=== PATIENT | male | born 1945 | race African-American/Black ===

== ENCOUNTER 2016-08-18 20:50 | Emergency (ER) | payer MEDICARE, OTHER ==
[2016-08-18] MEDS: MORPHINE SULFATE 4 MG/ML SYRINGE IVP STA ×2 (21:10→22:11)
--- NOTE | 2016-08-18 21:38 | XR ---
EXAMINATION TYPE: XR humerus RT DATE OF EXAM: 08/18/2016 9:28 PM COMPARISON: NONE HISTORY: Pain in the elbow after a fall TECHNIQUE: 3 views FINDINGS: There is a posterior dislocation of the proximal radius and ulna. There is fracture of the neck of the radial head with comminution. The shoulder joint appears intact. IMPRESSION: There is posterior fracture dislocation of the elbow joint.
--- NOTE | 2016-08-18 21:40 | XR ---
EXAMINATION TYPE: XR elbow limited RT DATE OF EXAM: 08/18/2016 9:28 PM COMPARISON: NONE HISTORY: Arm pain and fall TECHNIQUE: 3 views FINDINGS: There is deformity of the elbow joint with a posterior dislocation of the radial head and p robably also the proximal ulna. There is fracture of the neck of the radial head with comminution. Vi ews are limited. IMPRESSION: Posterior fracture dislocation of the elbow joint. The ulna humerus articulation is not w ell demonstrated.
--- NOTE | 2016-08-18 21:41 | XR ---
History fall and wrist pain. Comparison none. Technique 4 views. FINDINGS: I see no fracture nor dislocation. Joint spaces are normal. There are no pathologic calcifications. CONCLUSION: Negative right wrist exam.
--- NOTE | 2016-08-18 21:49 | ED ---
General Adult HPI - General Chief complaint: Fall Stated complaint: right elbow injury Time Seen by Provider: 08/18/16 20:59 Source: patient, RN notes reviewed, old records reviewed Mode of arrival: EMS Limitations: no limitations - History of Present Illness Initial comments: This is a 71-year-old male to the ER for evaluation. This patient is a presents for evaluation of fall. Patient a fall from standing. Patient was getting off the bus tripped on cement landing on his right elbow. Patient denies hitting his head, he did walk home at this point in called EMS from home secondary to elbow pain. Patient denies any other symptoms noted no headache chest pain service breath or abdominal pain, no neck pain. No other issues. Patient is able to move his wrist, states pain and swelling is on the elbow - Related Data Home Medications Medication Instructions Recorded Confirmed Aspirin EC [Ecotrin] 81 mg PO DAILY 03/06/15 08/18/16 Clopidogrel [Plavix] 75 mg PO DAILY 03/06/15 08/18/16 Levothyroxine Sodium [Synthroid] 25 mcg PO DAILY 03/06/15 08/18/16 Lisinopril [Zestril] 5 mg PO DAILY 03/06/15 08/18/16 Lovastatin [Mevacor] 20 mg PO HS 03/06/15 08/18/16 Metoprolol Tartrate [Lopressor] 12.5 mg PO DAILY 03/06/15 08/18/16 Pantoprazole Sodium 40 mg PO DAILY 03/06/15 08/18/16 Latanoprost Ophth [Xalatan 0.005%] 1 drop BOTH EYES HS 03/17/16 08/18/16 Metoprolol Tartrate 25 mg PO HS 03/17/16 08/18/16 Multivitamin with Iron 1 tab PO DAILY 07/16/16 08/18/16 [Multivitamins with Iron] Ondansetron [Zofran] 4 mg PO TID 07/16/16 08/18/16 Potassium Chloride [Klor-Con 10] 10 meq PO DAILY 08/18/16 08/18/16 Allergies Allergy/AdvReac Type Severity Reaction Status Date / Time No Known Allergies Allergy Verified 08/18/16 21:12 Review of Systems ROS Statement: Those systems with pertinent positive or pertinent negative responses have been documented in the HPI. ROS Other: All systems not noted in ROS Statement are negative. Past Medical History Past Medical History: Hyperlipidemia, Hypertension, Thyroid Disorder History of Any Multi-Drug Resistant Organisms: None Reported Past Surgical History: Coronary Bypass/CABG Additional Past Surgical History / Comment(s): thyroid Past Psychological History: No Psychological Hx Reported Smoking Status: Former smoker Past Alcohol Use History: Rare Past Drug Use History: None Reported General Exam Limitations: no limitations General appearance: alert, in no apparent distress Head exam: Present: atraumatic, normocephalic, normal inspection Eye exam: Present: normal appearance, PERRL, EOMI. Absent: scleral icterus, conjunctival injection, periorbital swelling ENT exam: Present: normal exam, mucous membranes moist Neck exam: Present: normal inspection. Absent: tenderness, meningismus, lymphadenopathy Respiratory exam: Present: normal lung sounds bilaterally. Absent: respiratory distress, wheezes, rales, rhonchi, stridor Cardiovascular Exam: Present: regular rate, normal rhythm, normal heart sounds. Absent: systolic murmur, diastolic murmur, rubs, gallop, clicks GI/Abdominal exam: Present: soft, normal bowel sounds. Absent: distended, tenderness, guarding, rebound, rigid Extremities exam: Present: normal inspection, full ROM, normal capillary refill , other (Significant right elbow deformity). Absent: tenderness, pedal edema, joint swelling, calf tenderness Back exam: Present: normal inspection Neurological exam: Present: alert, oriented X3, CN II-XII intact Psychiatric exam: Present: normal affect, normal mood Skin exam: Present: warm, dry, intact, normal color. Absent: rash Course Vital Signs 08/18/16 08/18/16 21:00 22:13 Temperature 97.9 F Pulse Rate 82 65 Respiratory 16 18 Rate Blood Pressure 136/73 128/67 O2 Sat by Pulse 98 98 Oximetry - Reevaluation(s) Reevaluation #1: 08/18/16 22:48 Patient's pain is now controlled Reevaluation #2: 08/18/16 22:48 Was able to reduce right elbow Reevaluation #3: 08/18/16 22:48 Patient's pain is controlled Reevaluation #4: 08/18/16 23:[address] Vega, patient all been Dr. Vega's office for referral for orthopedic , radial head replacement. Procedures - Orthopedic Joint Reduction Joint #1 Consent Obtained: verbal consent Time Out Performed: Yes Side: left Joint Reduction Location: elbow Technique Used: traction/counter-traction Post-Reduction Neuro Exam: intact Post-Reduction Vascular Exam: intact Post Reduction X-Ray Obtained: Yes Post Reduction X-Ray Results: reduced Splint Applied: Yes (Posterior mold) Patient Tolerated Procedure: well Medical Decision Making - Medical Decision Making 71-year-old male ER status post fall with right elbow fracture dislocation. - Radiology Data Radiology results: report reviewed (X-ray right humerus, right elbow, right wrist is positive for right elbow fracture dislocation, CT right elbow shows satisfactory reduction), image reviewed Disposition Clinical Impression: Fall, Elbow fracture, right, Dislocation of right elbow Disposition: HOME SELF-CARE Condition: Good Instructions: Fall Prevention for Older Adults (ED), Elbow Fracture in Adults ( ED), Elbow Dislocation (ED) Referrals: Edy Kohler MD [Primary Care Provider] - 1-2 days Skyler Vega MD [STAFF PHYSICIAN] - 1-2 days
[2016-08-18] MEDS ORDERED: LORazepam 2 MG/ML SYRINGE IV STA (22:02)
[2016-08-18 22:14] VITALS: RESP 18
--- NOTE | 2016-08-18 23:03 | CT ---
EXAMINATION TYPE: CT elbow RT wo con DATE OF EXAM: 08/18/2016 10:41 PM COMPARISON: Right elbow x-rays 08/18/2016 HISTORY: Fall today. CT DLP: 253.20 mGycm Automated exposure control for dose reduction was used. FINDINGS: There is evidence of acute comminuted displaced fracture of head and neck of right radius. There is mild posterior fracture dislocation of right elbow joint. There is comminuted acute slightly displaced fractures of coronoid process of proximal right ulna bet ter seen in the sagittal image 23. Visualized distal humerus showed linear vertical lucency as seen in the coronal reconstruction image 24 and is suspicious for linear minimally displaced intercondylar fracture of distal right humerus mo stly involving the capitellum area. In the same image there is a linear oblique lucency seen in the distal diaphysis of the right humerus on the ulnar aspect and is most likely a vascular foramen. The olecranon process of right ulna appears grossly intact and is displaced posteriorly in the right elbow joint. Surrounding soft tissue swelling is noted. Mild effusion is suggested. Fracture fragments are noted i n the anterior fat pad area from the proximal right ulna. The posterior fat pad is also prominent wit h effusion. These findings are better seen in the sagittal image 23. IMPRESSION: 1. ACUTE POSTERIOR FRACTURE DISLOCATION OF RIGHT ELBOW. 2. COMMINUTED DISPLACED FRACTURE OF CORONOID PROCESS OF PROXIMAL RIGHT ULNA. 3. COMMINUTED DISPLACED FRACTURE HEAD AND NECK OF PROXIMAL RIGHT RADIUS. 4. LINEAR MINIMALLY DISPLACED INTERCONDYLAR FRACTURE OF RIGHT HUMERUS MOSTLY INVOLVING THE CAPITELLUM AREA.
[2016-08-18 23:51] VITALS: BP 135/71; PULSE 86; TEMP 97.1
== END 2016-08-19 | disposition home or self-care (01) ==
LOC: EC 20:50
DX: S52.101A Unspecified fracture of upper end of right radius, initial encounter for closed fracture (principal); W01.0XXA Fall on same level from slipping, tripping and stumbling without subsequent striking against object, initial encounter; Z79.82 Long term (current) use of aspirin; Z79.02 Long term (current) use of antithrombotics/antiplatelets; Z79.899 Other long term (current) drug therapy; E07.9 Disorder of thyroid, unspecified; I10 Essential (primary) hypertension; E78.5 Hyperlipidemia, unspecified; Z87.891 Personal history of nicotine dependence; Z95.1 Presence of aortocoronary bypass graft
CPT/HCPCS: 24600; 96374; 96375; 99285; 73060; 73070; 73110; 73200; J2060; J2270

== ENCOUNTER 2017-11-23 20:38 | Inpatient (IN) | payer MEDICARE, OTHER ==
[2017-11-23 22:16] LABS: Basophils % (A) 0 %; Eosinophils # (A) 0.4 k/uL (0-0.7); Eosinophils % (A) 6 %; HCT 34.9 % (39.0-53.0); HGB 11.5 gm/dL (13.0-17.5); Lymphocytes # (A) 1.1 k/uL (1.0-4.8); Lymphocytes % (A) 15 %; MCH 27.7 pg (25.0-35.0); MCHC 33.1 g/dL (31.0-37.0); MCV 83.7 fL (80.0-100.0); Mean Platelet Volume 8.7; Monocytes # (A) 0.4 k/uL (0-1.0); Monocytes % (A) 6 %; Neutrophils # (A) 5.2 k/uL (1.3-7.7); Neutrophils % (A) 70 %; Platelet Count 201 k/uL (150-450); RBC 4.17 m/uL (4.30-5.90); RDW 13.1 % (11.5-15.5); WBC 7.4 k/uL (3.8-10.6)
[2017-11-23 22:25] LABS: ALT 35 U/L (21-72); AST 29 U/L (17-59); Albumin 4.1 g/dL (3.5-5.0); Alkaline Phosphatase 80 U/L (38-126); Anion Gap 10 mmol/L; Blood Urea Nitrogen 13 mg/dL (9-20); Calcium 9.3 mg/dL (8.4-10.2); Carbon Dioxide 26 mmol/L (22-30); Chloride 103 mmol/L (98-107); Glucose 99 mg/dL (74-99); Potassium 3.8 mmol/L (3.5-5.1); Sodium 139 mmol/L (137-145); Total Bilirubin 0.5 mg/dL (0.2-1.3); Total Protein 7.5 g/dL (6.3-8.2)
[2017-11-23 22:30] LABS: INR 1.2 (<1.2); Partial Thromboplastin Time 24.6 sec (22.0-30.0); Prothrombin Time 11.1 sec (9.0-12.0)
[2017-11-23 23:47] LABS: Appearance,Urine Clear (Clear); Bilirubin,Urine Negative (Negative); Blood,Urine Negative (Negative); Color,Urine Light Yellow; Glucose,Urine (UA) Negative (Negative); Ketones,Urine Negative (Negative); Leukocyte Esterase,Urine Negative (Negative); Nitrite,Urine Negative (Negative); Protein,Urine Negative (Negative); Urobilinogen,Urine <2.0 mg/dL (<2.0)
--- NOTE | 2017-11-23 23:47 | ED ---
General Adult HPI <Jose Alfredo Gray - Last Filed: 11/24/17 00:14> - General Source: patient, RN notes reviewed Mode of arrival: ambulatory Limitations: no limitations <Carol Mejia - Last Filed: 11/24/17 00:21> - General Chief complaint: Recheck/Abnormal Lab/Rx Stated complaint: rectal bleeding Time Seen by Provider: 11/23/17 21:33 - History of Present Illness Initial comments: This is a 72-year-old male who presents to the emergency department with chief complaint of rectal bleeding. Patient states that he has had rectal bleeding ongoing for the past couple of months. He was seen on October 21 and underwent a colonoscopy. He states he was diagnosed with hemorrhoids. He states that he continued to have rectal bleeding and followed up with his primary care physician yesterday who prescribed hydrocortisone cream. Patient states that he continued to have rectal bleeding and presented to [facility] today. He was again diagnosed with hemorrhoids and discharged home. Patient denies any chest pain or shortness of breath, fevers or chills, abdominal pain, nausea or vomiting, diarrhea or constipation. He denies noticing any blood within the stool itself. (Carol Mejia) - Related Data Home Medications Medication Instructions Recorded Confirmed Aspirin EC [Ecotrin Low Dose] 81 mg PO DAILY 03/06/15 11/23/17 Levothyroxine Sodium [Synthroid] 25 mcg PO DAILY 03/06/15 11/23/17 Lisinopril [Zestril] 5 mg PO DAILY 03/06/15 11/23/17 Lovastatin [Mevacor] 20 mg PO HS 03/06/15 11/23/17 Metoprolol Tartrate [Lopressor] 12.5 mg PO DAILY 03/06/15 11/23/17 Pantoprazole Sodium 40 mg PO DAILY 03/06/15 11/23/17 Latanoprost Ophth [Xalatan 0.005%] 1 drop BOTH EYES HS 03/17/16 11/23/17 Metoprolol Tartrate 25 mg PO HS 03/17/16 11/23/17 Multivitamin with Iron 1 tab PO DAILY 07/16/16 11/23/17 [Multivitamins with Iron] Ondansetron [Zofran] 4 mg PO Q8H 07/16/16 11/23/17 Potassium Chloride [Klor-Con 10] 10 meq PO DAILY 08/18/16 11/23/17 Furosemide [Lasix] 20 mg PO BID 11/09/17 11/23/17 Tamsulosin HCl [Flomax] 0.4 mg PO DAILY 11/09/17 11/23/17 Allergies Allergy/AdvReac Type Severity Reaction Status Date / Time No Known Allergies Allergy Verified 11/23/17 21:37 Review of Systems ROS Other: All systems not noted in ROS Statement are negative. <Jose Alfredo Gray - Last Filed: 11/24/17 00:14> ROS Other: All systems not noted in ROS Statement are negative. <Carol Mejia - Last Filed: 11/24/17 00:21> ROS Statement: Those systems with pertinent positive or pertinent negative responses have been documented in the HPI. Past Medical History Past Medical History: Hyperlipidemia, Hypertension, Thyroid Disorder Additional Past Medical History / Comment(s): prostat cancer HAD RADIATION TREATMENTS History of Any Multi-Drug Resistant Organisms: None Reported Past Surgical History: Coronary Bypass/CABG Additional Past Surgical History / Comment(s): thyroid, 3 valve replacements Past Anesthesia/Blood Transfusion Reactions: No Reported Reaction Past Psychological History: No Psychological Hx Reported Smoking Status: Former smoker Past Alcohol Use History: None Reported, Rare Past Drug Use History: None Reported - Past Family History Father Family Medical History: Cancer Additional Family Medical History / Comment(s): Patient has 2 brothers alive and doing fine. One sister of congestive heart failure. He is not and does not have any kids Mother Family Medical History: Cancer (Mother had leukemia ) <Carol Mejia - Last Filed: 11/24/17 00:21> General Exam <Jose Alfredo Gray - Last Filed: 11/24/17 00:14> Limitations: no limitations Rectal exam: Present: normal inspection, normal rectal tone, hemorrhoids ( external), other (Active bright red blood per rectum) <Carol Mejia - Last Filed: 11/24/17 00:21> - General Exam Comments Initial Comments: General: Awake and alert, well-developed; in no apparent distress. HEENT: Head atraumatic, normocephalic. Pupils are equal, round and reactive to light. Extraocular movements intact. Oropharynx moist without erythema or exudate. Neck: Supple. Normal ROM. Cardiovascular: Regular rate and rhythm. No murmurs, rubs or gallops. Chest symmetrical. Respiratory: Lungs clear to auscultation bilaterally. No wheezes, rales or rhonchi. Normal respiratory effort with no use of accessory muscles. Abdomen: Soft, non-tender, non-distended. No rigidity, rebound or guarding. Normal bowel sounds in all 4 quadrants. Musculoskeletal: Normal ROM, no tenderness bilateral upper and lower extremities. Ambulating normally. Skin: [place], warm and dry without rashes or lesions. Neurological: Alert and oriented x3. CN II-XII grossly intact. Speech is fluent and answers are appropriate. No focal neuro deficits. Psychiatric: Normal mood and affect. No overt signs of depression or anxiety noted. (Carol Mejia) Vital Signs 11/23/17 11/23/17 20:39 21:02 Temperature 97.9 F Pulse Rate 88 Respiratory 18 Rate Blood Pressure 147/60 O2 Sat by Pulse 98 Oximetry Medical Decision Making - Lab Data Result diagrams: 11/23/17 22:06 11/23/17 22:06 <Jose Alfredo Gray - Last Filed: 11/24/17 00:14> - Lab Data Result diagrams: 11/23/17 22:06 11/23/17 22:06 <Carol Mejia - Last Filed: 11/24/17 00:21> - Medical Decision Making Patient reevaluated by myself, Dr. Gray. Patient is frustrated that he is having continued bleeding. Patient states he had similar hospital a couple of weeks ago. Patient was at [facility] several days ago as well as his primary care physician yesterday and then again at [facility] however has been discharged. Patient states he keeps getting told that his bleeding is from hemorrhoids. Rectal exam without gross external hemorrhoids. No internal hemorrhoids on exam. Patient does have mild gross blood on rectal exam. Case was discussed in detail with Dr. Hay, who will admit for Dr. Kohler. Consult for Dr. crenshaw who is previously seen the patient. (Jose Alfredo Gray) - Lab Data Lab Results 11/23/17 11/23/17 11/23/17 Range/Units 22:06 22:06 22:06 WBC 7.4 (3.8-10.6) k/uL RBC 4.17 L (4.30-5.90) m/uL Hgb 11.5 L (13.0-17.5) gm/dL Hct 34.9 L (39.0-53.0) % MCV 83.7 (80.0-100.0) fL MCH 27.7 (25.0-35.0) pg MCHC 33.1 (31.0-37.0) g/dL RDW 13.1 (11.5-15.5) % Plt Count 201 (150-450) k/uL Neutrophils % 70 % Lymphocytes % 15 % Monocytes % 6 % Eosinophils % 6 % Basophils % 0 % Neutrophils # 5.2 (1.3-7.7) k/uL Lymphocytes # 1.1 (1.0-4.8) k/uL Monocytes # 0.4 (0-1.0) k/uL Eosinophils # 0.4 (0-0.7) k/uL Basophils # 0.0 (0-0.2) k/uL PT 11.1 (9.0-12.0) sec INR 1.2 H (<1.2) APTT 24.6 (22.0-30.0) sec Sodium 139 (137-145) mmol/L Potassium 3.8 (3.5-5.1) mmol/L Chloride 103 (98-107) mmol/L Carbon Dioxide 26 (22-30) mmol/L Anion Gap 10 mmol/L BUN 13 (9-20) mg/dL Creatinine 0.84 (0.66-1.25) mg/dL Est GFR (CKD-EPI)AfAm >90 (>60 ml/min/1.73 sqM) Est GFR (CKD-EPI)NonAf 87 (>60 ml/min/1.73 sqM) Glucose 99 (74-99) mg/dL Calcium 9.3 (8.4-10.2) mg/dL Total Bilirubin 0.5 (0.2-1.3) mg/dL AST 29 (17-59) U/L ALT 35 (21-72) U/L Alkaline Phosphatase 80 (38-126) U/L Total Protein 7.5 (6.3-8.2) g/dL Albumin 4.1 (3.5-5.0) g/dL Urine Color Urine Appearance (Clear) Urine pH (5.0-8.0) Ur Specific [place] (1.001-1.035) Urine Protein (Negative) Urine Glucose (UA) (Negative) Urine Ketones (Negative) Urine Blood (Negative) Urine Nitrite (Negative) Urine Bilirubin (Negative) Urine Urobilinogen (<2.0) mg/dL Ur Leukocyte Esterase (Negative) 11/23/17 Range/Units 23:38 WBC (3.8-10.6) k/uL RBC (4.30-5.90) m/uL Hgb (13.0-17.5) gm/dL Hct (39.0-53.0) % MCV (80.0-100.0) fL MCH (25.0-35.0) pg MCHC (31.0-37.0) g/dL RDW (11.5-15.5) % Plt Count (150-450) k/uL Neutrophils % % Lymphocytes % % Monocytes % % Eosinophils % % Basophils % % Neutrophils # (1.3-7.7) k/uL Lymphocytes # (1.0-4.8) k/uL Monocytes # (0-1.0) k/uL Eosinophils # (0-0.7) k/uL Basophils # (0-0.2) k/uL PT (9.0-12.0) sec INR (<1.2) APTT (22.0-30.0) sec Sodium (137-145) mmol/L Potassium (3.5-5.1) mmol/L Chloride (98-107) mmol/L Carbon Dioxide (22-30) mmol/L Anion Gap mmol/L BUN (9-20) mg/dL Creatinine (0.66-1.25) mg/dL Est GFR (CKD-EPI)AfAm (>60 ml/min/1.73 sqM) Est GFR (CKD-EPI)NonAf (>60 ml/min/1.73 sqM) Glucose (74-99) mg/dL Calcium (8.4-10.2) mg/dL Total Bilirubin (0.2-1.3) mg/dL AST (17-59) U/L ALT (21-72) U/L Alkaline Phosphatase (38-126) U/L Total Protein (6.3-8.2) g/dL Albumin (3.5-5.0) g/dL Urine Color Light Yellow Urine Appearance Clear (Clear) Urine pH 6.0 (5.0-8.0) Ur Specific [place] 1.010 (1.001-1.035) Urine Protein Negative (Negative) Urine Glucose (UA) Negative (Negative) Urine Ketones Negative (Negative) Urine Blood Negative (Negative) Urine Nitrite Negative (Negative) Urine Bilirubin Negative (Negative) Urine Urobilinogen <2.0 (<2.0) mg/dL Ur Leukocyte Esterase Negative (Negative) Disposition <Jose Alfredo Gray - Last Filed: 11/24/17 00:14> Time of Disposition: 00:21 <Carol Mejia - Last Filed: 11/24/17 00:21> Clinical Impression: Rectal bleeding Disposition: ADMITTED IP TO THIS HOSP Condition: Stable Referrals: Edy Kohler MD [Primary Care Provider] - 1-2 days
[2017-11-24] MEDS ORDERED: ACETAMINOPHEN TAB 325 MG TAB PO PRN (00:16)
[2017-11-24] MEDS ORDERED: MORPHINE SULFATE 4MG/4ML SYRG IV PRN (00:16)
[2017-11-24] MEDS ORDERED: Acetaminophen-Codeine 300-30mg TAB PO PRN (00:16)
[2017-11-24] MEDS ORDERED: NALOXONE 0.4 MG/ML 1 ML VIAL IV PRN (00:16)
[2017-11-24] MEDS ORDERED: PANTOPRAZOLE 40 MG/10 ML VIAL IVP STA (00:31)
[2017-11-24] MEDS: SODIUM CHLORIDE 0.9% 1,000 ML IV SCH ×2 (00:37→13:39)
[2017-11-24 02:08] VITALS: BMI 19.4
[2017-11-24 07:14] LABS: Basophils % (A) 0 %; Eosinophils # (A) 0.3 k/uL (0-0.7); Eosinophils % (A) 6 %; HCT 31.9 % (39.0-53.0); HGB 10.3 gm/dL (13.0-17.5); Lymphocytes # (A) 0.9 k/uL (1.0-4.8); Lymphocytes % (A) 16 %; MCH 27.5 pg (25.0-35.0); MCHC 32.4 g/dL (31.0-37.0); Mean Platelet Volume 8.5; Monocytes # (A) 0.4 k/uL (0-1.0); Monocytes % (A) 8 %; Neutrophils # (A) 3.5 k/uL (1.3-7.7); Neutrophils % (A) 67 %; Platelet Count 161 k/uL (150-450); RBC 3.75 m/uL (4.30-5.90); WBC 5.3 k/uL (3.8-10.6)
[2017-11-24] MEDS: PANTOPRAZOLE 40 MG/10 ML VIAL IV SCH (07:38)
[2017-11-24] MEDS ORDERED: RX INFO: IV CONTRAST WAS GIVEN 1 EACH MISC MISCELLANE PRN (10:08)
[2017-11-24] MEDS ORDERED: BARIUM SULFATE 450 ML ORAL.SUSP BOTTLE PO PRN (10:08)
[2017-11-24] MEDS ORDERED: PANTOPRAZOLE 40 MG TABLET PO SCH (10:15)
[2017-11-24] MEDS ORDERED: LISINOPRIL 5 MG TAB PO SCH (10:15)
[2017-11-24] MEDS ORDERED: METOPROLOL TARTRATE 12.5 MG TAB PO SCH (10:15)
[2017-11-24] MEDS: IOPAMIDOL-300 CONTRAST 30 ML VIAL (ORAL USE) PO PRN ×2 (12:12→13:03)
[2017-11-24] MEDS: ASPIRIN 81 MG PO SCH (12:17)
[2017-11-24] MEDS: TAMSULOSIN 0.4 MG CAP.ER.24H PO SCH (12:17)
[2017-11-24] MEDS: LEVOTHYROXINE 25 MCG TAB PO SCH (12:17)
[2017-11-24] MEDS: CLOPIDOGREL 75 MG TAB PO SCH (12:17)
[2017-11-24] MEDS: FERROUS SULFATE 325 MG TAB PO SCH (12:17)
[2017-11-24] MEDS: FUROSEMIDE 20 MG TAB PO SCH ×2 (12:17→20:05)
[2017-11-24] MEDS: POTASSIUM CHLORIDE ER 10 MEQ TAB.ER.PRT PO SCH (12:17)
[2017-11-24] MEDS: PSYLLIUM HUSK 100% 6 GM PACKET PO SCH ×2 (12:18→20:07)
[2017-11-24] MEDS: ONDANSETRON 4 MG TAB PO SCH ×2 (12:22→20:06)
--- NOTE | 2017-11-24 12:42 | P.HPIM ---
History of Present Illness H&P Date: 11/24/17 Chief Complaint: Rectal bleeding 79 years old and -[place] male. of Dr. Kohler with recent admission in late [facility] for rectal bleeding secondary to hemorrhoids status port hemorrhoidectomy, hyperlipidemia, hypertension, hypothyroidism, history of recent prostate cancer status post radiation she didn't, in remission. History of coronary artery disease status artery artery bypass, history of bioprosthetic valve. He had a recent hospitalization November 10 which time he presented with chest pain and rectal bleeding. He was seen by Dr. crenshaw with no plan for any intervention at the time. He states he was just in the office with Dr. Kohler on Tuesday and was given some type of salve for rectal bleeding but he's been using that also cause bleeding. He states it is fresh blood and happens at any time non-ST early with a bowel movement. He denies any other complaints. He denies abdominal pain, nausea vomiting. He states he occasionally has dizziness. He has a bowel movement every day. It's either runny or normal consistency. He does not take any medications for constipation. He presented with hemoglobin of 11.5 which is his baseline. INR was 1.2, left lites were all within normal limits. Her analysis was negative. Patient was placed on the [facility] floor and consult requested with surgery. Patient is currently on clear liquid diet CAT scan of the abdomen and pelvis will be ordered as well as anemia studies. Review of Systems All systems: negative Constitutional: Denies anorexia, Denies chills, Denies fatigue, Denies fever, Denies poor appetite, Denies weight loss Eyes: denies blurred vision, denies pain Ears, nose, mouth and throat: Denies headache, Denies mouth pain, Denies sore throat Cardiovascular: Denies chest pain, Denies decreased exercise tolerance, Denies dyspnea on exertion, Denies edema, Denies leg edema, Denies shortness of breath , Denies syncope Respiratory: Denies cough, Denies cough with sputum, Denies dyspnea, Denies excessive sputum, Denies hemoptysis, Denies home oxygen, Denies wheezing Gastrointestinal: Denies abdominal pain, Denies constipation, Denies diarrhea, Denies jaundice, Denies loss of appetite, Denies melena, Denies nausea, Denies vomiting Genitourinary: Denies dysuria Musculoskeletal: Denies myalgias Integumentary: Denies pruritus, Denies rash Neurological: Denies numbness, Denies weakness Psychiatric: Denies anxiety, Denies depression Endocrine: Denies fatigue, Denies weight change 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 History of Any Multi-Drug Resistant Organisms: None Reported Past Surgical History: Coronary Bypass/CABG Additional Past Surgical History / Comment(s): thyroid, 3 valve replacements stomach surgery unsure what kind Past Anesthesia/Blood Transfusion Reactions: No Reported Reaction Past Psychological History: No Psychological Hx Reported Additional Psychological History / Comment(s): Patient will smoker of 3 packs per day for 40 years and quit in 1998 Smoking Status: Former smoker Past Alcohol Use History: None Reported, Rare Past Drug Use History: None Reported - Past Family History Father Family Medical History: Cancer Additional Family Medical History / Comment(s): Patient has 2 brothers alive and doing fine. One sister of congestive heart failure. He is not and does not have any kids Mother Family Medical History: Cancer Additional Family Medical History / Comment(s): Mother had history of leukemia and is . Medications and Allergies Home Medications Medication Instructions Recorded Confirmed Type Aspirin EC [Ecotrin Low Dose] 81 mg PO DAILY 03/06/15 11/24/17 History Levothyroxine Sodium [Synthroid] 25 mcg PO DAILY 03/06/15 11/24/17 History Lisinopril [Zestril] 5 mg PO DAILY 03/06/15 11/24/17 History Lovastatin [Mevacor] 20 mg PO HS 03/06/15 11/24/17 History Metoprolol Tartrate [Lopressor] 12.5 mg PO DAILY 03/06/15 11/24/17 History Pantoprazole Sodium 40 mg PO DAILY 03/06/15 11/24/17 History Latanoprost Ophth [Xalatan 0.005%] 1 drop BOTH EYES HS 03/17/16 11/24/17 History Metoprolol Tartrate 25 mg PO HS 03/17/16 11/24/17 History Multivitamin with Iron 1 tab PO DAILY 07/16/16 11/24/17 History [Multivitamins with Iron] Ondansetron [Zofran] 4 mg PO Q8H 07/16/16 11/24/17 History Potassium Chloride [Klor-Con 10] 10 meq PO DAILY 08/18/16 11/24/17 History Furosemide [Lasix] 20 mg PO BID 11/09/17 11/24/17 History Tamsulosin HCl [Flomax] 0.4 mg PO DAILY 11/09/17 11/24/17 History Clopidogrel [Plavix] 75 mg PO DAILY 11/24/17 11/24/17 History Allergies Allergy/AdvReac Type Severity Reaction Status Date / Time No Known Allergies Allergy Verified 11/23/17 21:37 Physical Exam Vitals: Vital Signs Temp Pulse Pulse Resp BP BP Pulse Ox 11/24/17 07:30 97.6 F 71 18 104/64 97 11/24/17 02:07 97.4 F L 79 18 117/70 97 11/24/17 00:39 78 18 131/61 100 11/23/17 21:02 147/60 11/23/17 20:39 97.9 F 88 18 98 Intake and Output 11/23/17 11/24/17 11/24/17 22:59 06:59 14:59 Intake Total 75 Balance 75 Intake: IV 75 Sodium Chloride 0.9% 1, 75 000 ml @ 75 mls/hr IV . [id number] [facility] Rx#:[id number] Other: Voiding Method Toilet Toilet Urinal Urinal # Voids 1 Weight 56.699 kg 53 kg General appearance: cooperative, no acute distress, obese - EENT Eyes: anicteric sclerae, PERRLA, normal appearance ENT: hearing grossly normal - Neck Neck: no lymphadenopathy, normal ROM, no other, no rigidity, no stridor, no thyromegaly - Respiratory Respiratory: bilateral: CTA, negative: diminished, dullness, rales, rhonchi - Cardiovascular Rhythm: regular Heart sounds: normal: S1, S2 Abnormal Heart Sounds: 2/5 systolic murmur, no diastolic murmur, no rub, no S3 Gallop, no S4 Gallop, no click - Gastrointestinal General gastrointestinal: normal bowel sounds, soft, nontender - Integumentary Integumentary: no rash - Neurologic Neurologic: CNII-XII intact - Musculoskeletal Musculoskeletal: gait normal, strength equal bilaterally - Psychiatric Psychiatric: A&O x's 3, appropriate affect Results CBC & Chem 7: 11/24/17 06:33 11/23/17 22:06 Labs: Abnormal Lab Results - Last 24 Hours (Table) 11/23/17 11/23/17 11/24/17 Range/Units 22:06 22:06 06:33 RBC 4.17 L 3.75 L (4.30-5.90) m/uL Hgb 11.5 L 10.3 L (13.0-17.5) gm/dL Hct 34.9 L 31.9 L (39.0-53.0) % Lymphocytes # 0.9 L (1.0-4.8) k/uL INR 1.2 H (<1.2) Thrombosis Risk Factor Assmnt - DVT/VTE Prophylaxis DVT/VTE Prophylaxis: Pharmacologic Prophylaxis ordered - Choose All That Apply Any of the Below Risk Factors Present?: No Other Risk Factors: Yes Each Risk Factor Represents 2 Points: Age 61-74 years, Malignancy Other congenital or acquired thrombophilia - If yes, enter type in comment: No Thrombosis Risk Factor Assessment Total Risk Factor Score: 4 Thrombosis Risk Factor Assessment Level: Moderate Risk Assessment and Plan Plan: 1. Bright red rectal bleeding. Consult with Dr. crenshaw. CAT scan of the abdomen and pelvis with contrast ordered. Metamucil started. 2. History of coronary artery disease status post CABG. Continue Plavix and aspirin 81 mg daily, metoprolol 12.5 mg in the morning and 25 mg at bedtime, atorvastatin 10 mg daily. 3. History of aortic bioprosthetic valve, stable next field hypothyroidism. Continue levothyroxine 25 mg daily. 4. Hypothyroidism. Continue levothyroxine 25 mg daily. 5. Benign prostatic hypertrophy. Continue Flomax or 0.5 mg daily. 6. Hypertension. Continue lisinopril 5 mg daily and Lopressor. 7. Hyperlipidemia. Continue Lipitor. Patient will be based as an observation status. Discharge plan: Return home Impression and plan of care have been directed as dictated by the signing physician. Charmaine Joseph nurse practitioner acting as scribe for signing physician.
--- NOTE | 2017-11-24 14:37 | P.CONS ---
History of Present Illness - Reason for Consult Consult date: 11/24/17 Rectal bleeding Requesting physician: Rosa Maria Ramirez - History of Present Illness 72-year-old gentleman with a history of CAD/CABG bioprosthetic aortic valve maintained on aspirin Plavix, prostate carcinoma status post radiation; last radiation approximately 1 year ago, possible atrial fibrillation, hypothyroidism , hypertension, tuberculosis, and COPD. Patient was evaluated yesterday at [facility] ER for rectal bleeding and discharged. Hemoglobin yesterday was 11.3. Presently 10.3. Platelet 161 white count 5.3. INR 1.2. BUN 13. Creatinine 0.8. Bleeding is painless. Denies fever chills hematemesis melena epigastric or abdominal pain. Patient describes the bleeding as dark burgundy sometimes bright red in nature with clots. He had 2 bowel movements this morning that were burgundy in color. CT of the abdomen and pelvis completed results pending. He has been experiencing intermittent rectal bleeding sometimes on a daily basis for the last few months. He was evaluated at [facility] early October 2017 for rectal bleeding and underwent colonoscopy 10/21/[address] Denney with findings of radiation proctitis and sigmoid diverticulosis; no stigmata of bleeding seen. Rectal biopsy reported hyperplastic surface epithelium stromal edema without significant inflammation. He was hospitalized 2 weeks ago with similar presentation seen by general surgery with no intervention recommended at that time and discharged. Review of Systems Constitutional: Denies fever, chills, sweats, weight gain, or loss. HEENT: Negative for migraines, blurred vision or loss, earaches, drainage, tinnitus, oral mucosal lesions, dysphagia, or odynophagia. Cardiac: Negative for chest pain, arrhythmias, or palpitation. Respiratory: Negative for shortness of breath, hemoptysis, cough, or sputum production. Gastrointestinal: See HPI for pertinent findings. Genitourinary: Negative for hematuria, urgency, frequency, polyuria, dysuria, or penile discharge. Musculoskeletal: Negative for muscle aches, swelling, arthritis, and arthralgias. Neurologic: Negative for stroke or TIA. Endocrine: Negative for thyroid problems. Skin: Negative for rash or itching. 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 History of Any Multi-Drug Resistant Organisms: None Reported Past Surgical History: Coronary Bypass/CABG Additional Past Surgical History / Comment(s): thyroid, 3 valve replacements stomach surgery unsure what kind Past Anesthesia/Blood Transfusion Reactions: No Reported Reaction Past Psychological History: No Psychological Hx Reported Additional Psychological History / Comment(s): Patient will smoker of 3 packs per day for 40 years and quit in 1998 Smoking Status: Former smoker Past Alcohol Use History: None Reported, Rare Past Drug Use History: None Reported - Past Family History Father Family Medical History: Cancer Additional Family Medical History / Comment(s): Patient has 2 brothers alive and doing fine. One sister of congestive heart failure. He is not and does not have any kids Mother Family Medical History: Cancer Additional Family Medical History / Comment(s): Mother had history of leukemia and is . Medications and Allergies Home Medications Medication Instructions Recorded Confirmed Type Aspirin EC [Ecotrin Low Dose] 81 mg PO DAILY 03/06/15 11/24/17 History Levothyroxine Sodium [Synthroid] 25 mcg PO DAILY 03/06/15 11/24/17 History Lisinopril [Zestril] 5 mg PO DAILY 03/06/15 11/24/17 History Lovastatin [Mevacor] 20 mg PO HS 03/06/15 11/24/17 History Metoprolol Tartrate [Lopressor] 12.5 mg PO DAILY 03/06/15 11/24/17 History Pantoprazole Sodium 40 mg PO DAILY 03/06/15 11/24/17 History Latanoprost Ophth [Xalatan 0.005%] 1 drop BOTH EYES HS 03/17/16 11/24/17 History Metoprolol Tartrate 25 mg PO HS 03/17/16 11/24/17 History Multivitamin with Iron 1 tab PO DAILY 07/16/16 11/24/17 History [Multivitamins with Iron] Ondansetron [Zofran] 4 mg PO Q8H 07/16/16 11/24/17 History Potassium Chloride [Klor-Con 10] 10 meq PO DAILY 08/18/16 11/24/17 History Furosemide [Lasix] 20 mg PO BID 11/09/17 11/24/17 History Tamsulosin HCl [Flomax] 0.4 mg PO DAILY 11/09/17 11/24/17 History Clopidogrel [Plavix] 75 mg PO DAILY 11/24/17 11/24/17 History Allergies Allergy/AdvReac Type Severity Reaction Status Date / Time No Known Allergies Allergy Verified 11/23/17 21:37 Physical Exam Vitals: Vital Signs Temp Pulse Pulse Resp BP BP Pulse Ox 11/24/17 07:30 97.6 F 71 18 104/64 97 11/24/17 02:07 97.4 F L 79 18 117/70 97 11/24/17 00:39 78 18 131/61 100 11/23/17 21:02 147/60 11/23/17 20:39 97.9 F 88 18 98 Intake and Output 11/23/17 11/24/17 11/24/17 22:59 06:59 14:59 Intake Total 75 Balance 75 Intake: IV 75 Sodium Chloride 0.9% 1, 75 000 ml @ 75 mls/hr IV . [id number] [facility] Rx#:[id number] Other: Voiding Method Toilet Toilet Urinal Urinal # Voids 1 1 Weight 56.699 kg 53 kg General appearance: The patient is alert, oriented, in no acute distress. HET: Head is normocephalic and atraumatic. Pupils are equal and reactive. Oropharynx is clear without lesions. Neck: Supple without lymphadenopathy. Trachea midline. Heart: S1 S2. Regular rate and rhythm. Lungs: No crackles or wheezes are heard. Abdomen: Soft, nontender, nondistended with bowel sounds. No peritoneal signs. No palpable organomegaly or masses. Extremities: Normal skin color and turgor. No cyanosis, rash, ulceration, clubbing, or edema. Radial and pedal pulses are 2/4 bilaterally. Neurological: No focal deficits. Strength and sensation are grossly intact. Rectum: No palpable mass no hemorrhoids. Burgundy colored blood on finger. Results CBC & Chem 7: 11/24/17 06:33 11/23/17 22:06 Labs: Abnormal Lab Results - Last 24 Hours (Table) 11/23/17 11/23/17 11/24/17 Range/Units 22:06 22:06 06:33 RBC 4.17 L 3.75 L (4.30-5.90) m/uL Hgb 11.5 L 10.3 L (13.0-17.5) gm/dL Hct 34.9 L 31.9 L (39.0-53.0) % Lymphocytes # 0.9 L (1.0-4.8) k/uL INR 1.2 H (<1.2) CT scan - abdomen: pending Assessment and Plan (1) Rectal bleeding Narrative/Plan: Active rectal bleeding daily intermittently 2 months. 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 Current Visit: Yes Status: Acute Code(s): K62.5 - HEMORRHAGE OF ANUS AND RECTUM SNOMED Code(s): 53236431 (2) Acute blood loss anemia Current Visit: Yes Status: Acute Code(s): D62 - ACUTE POSTHEMORRHAGIC ANEMIA SNOMED Code(s): 028848615 (3) History of prostate cancer Current Visit: Yes Status: Acute Code(s): Z85.46 - PERSONAL HISTORY OF MALIGNANT NEOPLASM OF PROSTATE SNOMED Code(s): 757684085 (4) History of radiation exposure Current Visit: Yes Status: Acute Code(s): Z92.3 - PERSONAL HISTORY OF IRRADIATION SNOMED Code(s): 608676099 Plan: 1. Patient is still passing blood tinged bowel movements; remains hemodynamically stable blood transfusion not indicated at this time. We'll proceed with flexible sigmoidoscopy possible colonoscopy tomorrow afternoon. Clear liquid diet for dinner. Hold morning dose of aspirin and Plavix until endoscopic exam is completed. 2. Nothing by mouth after clear liquid breakfast. CBC monitoring. Will follow closely with you. The railway shunter has discussed the risks, benefits and alternative therapies for the above-mentioned procedure and for both sedation/analgesia as well as necessary blood product administration, if indicated, as they pertain to this patient. The patient has indicated understanding and acceptance of the risks and procedures discussed. Thank you for this kind referral and the opportunity to participate in the care of your patient. This consultation was discussed with Dr. Barrios. The impression and plan of care have been directed as dictated.
[2017-11-24] MEDS ORDERED: PEG 3350-NA SULF,BICARB,CL/KCL 4,000 ML BOTTLE PO ONE (14:45)
--- NOTE | 2017-11-24 15:15 | CT ---
EXAMINATION TYPE: CT abdomen pelvis w con DATE OF EXAM: 11/24/2017 COMPARISON: 10/14/2013 HISTORY: 72-year-old male Rectal bleeding TECHNIQUE: Contiguous axial scanning of the abdomen and pelvis following administration of 100 ml Iso jhon 300 IV contrast. Delayed images through the kidneys and coronal/sagittal reconstructions perform ed. CT DLP: 764 mGycm Automated exposure control for dose reduction was used. FINDINGS: Heart is normal size without pericardial effusion. There is a small anterior right-sided basal pleura l effusion. Postsurgical changes at the GE junction. Distal esophagus is widely patulous with retained fluid and contrast. Suspect some chronic pleural thickening and scarring posterior left base. Small amount of focal fat along the anterior falciform ligament. Portal venous system is patent. No b iliary ductal dilatation. Gallbladder, adrenal glands,, spleen, pancreas show no gross abnormality. Kidneys have bilateral extrarenal pelves with a couple scattered subcentimeter hypodensities in each kidney too small for accurate CT characterization, suggestive of cysts. There is a 5 mm nonobstructive calculus lower pole left kidney. No dilated small bowel, free fluid, or free air. Prior surgery along the anterior abdominal wall with sutures. Moderate atherosclerotic calcifications throughout the abdominal aorta and iliac arteries. Normal appendix. Oral contrast progressed to the lower descending colon. There is left hemicolonic di verticulosis, greatest in the sigmoid colon without pericolonic inflammatory change seen. Suggestion of some short segment mucosal hyperemia along the mid sigmoid, axial image 48. Mild circumferential bladder wall thickening. Somewhat trabeculated appearance. Prostate gland mildly enlarged at 4.4 cm wide. Slight posterior impression on to the bladder base. No abnormal fluid colle ction in the pelvis or pelvic lymphadenopathy seen. Bones: There is right hip screw fixation and degenerative changes mid to lower lumbar spine. One ante rolisthesis L5-S1. Chronic mild vertebral compression deformity of T12. Baastrup's disease. IMPRESSION: 1. DESCENDING AND SIGMOID COLONIC DIVERTICULOSIS. NO CHANGES OF ACUTE DIVERTICULITIS ARE SEEN. HOWEVE R, THERE IS SHORT SEGMENT MUCOSAL HYPEREMIA ALONG THE MID SIGMOID THAT COULD REPRESENT SOME NONSPECIF IC INFLAMMATION/COLITIS. 2. NONOBSTRUCTIVE 5 MM LEFT LOWER POLE RENAL CALCULUS. 3. MILD CIRCUMFERENTIAL BLADDER WALL THICKENING WITH SLIGHT TRABECULATED APPEARANCE. PROSTATE GLAND M ILDLY ENLARGED (4.4 CM WIDE). CORRELATE TO EXCLUDE CYSTITIS. FINDINGS MAY REPRESENT CHRONIC BLADDER W ALL HYPERTROPHY. 4. SOME RETAINED FLUID AND CONTRAST IN THE DISTAL ESOPHAGUS WITH POSTSURGICAL CHANGES AT THE GE JUNCT ION. CORRELATE TO EXCLUDE A STRICTURE, POOR MOTILITY AND CLEARANCE FROM THE ESOPHAGUS, OR RECURRENT G ASTROESOPHAGEAL REFLUX.
[2017-11-24 17:07] LABS: Iron Saturation 12.89 (15.00-50.00)
[2017-11-24] MEDS: LATANOPROST 0.005% OPHTH DROPS 2.5 ML BTL BOTH EYES SCH (20:04)
[2017-11-24] MEDS: ATORVASTATIN 10 MG TAB PO SCH (20:05)
[2017-11-24] MEDS ORDERED: METOPROLOL TARTRATE 25 MG TAB PO SCH (21:00)
[2017-11-25] MEDS: ONDANSETRON 4 MG TAB PO SCH ×3 (04:00→21:38)
[2017-11-25] MEDS ORDERED: SODIUM CHLORIDE 0.9% 1,000 ML IV ONE (04:28)
[2017-11-25 04:32] LABS: Basophils % (A) 0 %; Eosinophils # (A) 0.3 k/uL (0-0.7); Eosinophils % (A) 5 %; HCT 32.8 % (39.0-53.0); HGB 10.8 gm/dL (13.0-17.5); Lymphocytes # (A) 0.9 k/uL (1.0-4.8); Lymphocytes % (A) 13 %; MCH 27.9 pg (25.0-35.0); MCV 84.5 fL (80.0-100.0); Mean Platelet Volume 8.3; Monocytes # (A) 0.4 k/uL (0-1.0); Monocytes % (A) 6 %; Neutrophils # (A) 5.1 k/uL (1.3-7.7); Neutrophils % (A) 73 %; Platelet Count 197 k/uL (150-450); RBC 3.88 m/uL (4.30-5.90); RDW 12.9 % (11.5-15.5); WBC 6.9 k/uL (3.8-10.6)
[2017-11-25 04:57] LABS: ALT 35 U/L (21-72); AST 29 U/L (17-59); Albumin 3.5 g/dL (3.5-5.0); Alkaline Phosphatase 67 U/L (38-126); Anion Gap 13 mmol/L; Blood Urea Nitrogen 9 mg/dL (9-20); Calcium 9.1 mg/dL (8.4-10.2); Carbon Dioxide 23 mmol/L (22-30); Chloride 105 mmol/L (98-107); Glucose 95 mg/dL (74-99); Magnesium 1.6 mg/dL (1.6-2.3); Potassium 3.8 mmol/L (3.5-5.1); Sodium 141 mmol/L (137-145); Total Bilirubin 0.8 mg/dL (0.2-1.3); Total Protein 6.8 g/dL (6.3-8.2)
[2017-11-25] MEDS: SODIUM CHLORIDE 0.9% 1,000 ML IV SCH (05:22)
[2017-11-25] MEDS ORDERED: DEXTROSE 5% IN WATER 100 ML with AMIODARONE 150 MG IV ONE (05:39)
[2017-11-25] MEDS: AMIODARONE 450 MG in DEXTROSE 5% IN WATER 250 ML IV SCH ×4 (06:18→13:20)
[2017-11-25] MEDS: LEVOTHYROXINE 25 MCG TAB PO SCH (06:54)
[2017-11-25] MEDS ORDERED: Magnesium Replacement Protocol 1 EACH MISC MISCELLANE PRN (07:09)
[2017-11-25] MEDS ORDERED: Potassium Replacement Protocol 1 EACH MISC MISCELLANE PRN ×2 (07:09→09:30)
--- NOTE | 2017-11-25 08:50 | P.CRDCN ---
History of Present Illness Consult date: 11/25/17 Chief complaint: Rectal bleeding History of present illness: This is a pleasant 72-year-old gentleman who sees Dr. Sousa in the office as an outpatient with a past medical history significant for CAD and status post CABG with unknown details at this point, aortic valve replacement with bioprosthetic valve, also mitral valve repair, as well as hypertension and dyslipidemia was admitted to the hospital with painless rectal bleeding without any associated symptoms of nausea, vomiting, abdominal discomfort, or fever or chills. The patient was scheduled to undergo an endoscopy by the GI service early her today when last night he did go to atrial fibrillation with RVR. Clinically he denies having any symptoms off shortness of breath, feeling of heart racing or fluttering, dizziness or lightheadedness, or chest pain or chest discomfort. I reviewed the previous medical records in the hospital only and there is no indication of atrial fibrillation. The patient was receiving as an outpatient dual antiplatelet therapy with aspirin and Plavix without any oral anticoagulation. It seems that this is a new diagnosis to the patient. Currently the patient is in atrial fibrillation with a heart rate around 110 bpm. Yesterday he was started on amiodarone IV because the blood pressure was marginally low. And because of that I did stop the lisinopril. This morning, the blood pressure is better and his systolic blood pressure is about 140. I am going to add metoprolol at 50 mg by mouth twice a day and we will continue increasing the dose to control the heart rate. I did not start the patient on any oral anticoagulation or any IV heparin in view of the rectal bleeding. The last hemoglobin was around 10 and his baseline was around 12. The last echocardiogram from October 2017 revealed mildly impaired LV function with an ejection fraction of 40% with evidence off bioprosthetic aortic valve with a gradient of 28 mmHg and also mild mitral stenosis with a mean gradient of around 8 mmHg. 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 History of Any Multi-Drug Resistant Organisms: None Reported Past Surgical History: Coronary Bypass/CABG Additional Past Surgical History / Comment(s): thyroid, 3 valve replacements stomach surgery unsure what kind Past Anesthesia/Blood Transfusion Reactions: No Reported Reaction Past Psychological History: No Psychological Hx Reported Additional Psychological History / Comment(s): Patient will smoker of 3 packs per day for 40 years and quit in 1998 Smoking Status: Former smoker Past Alcohol Use History: None Reported, Rare Past Drug Use History: None Reported - Past Family History Father Family Medical History: Cancer Additional Family Medical History / Comment(s): Patient has 2 brothers alive and doing fine. One sister of congestive heart failure. He is not and does not have any kids Mother Family Medical History: Cancer Additional Family Medical History / Comment(s): Mother had history of leukemia and is . Medications and Allergies Home Medications Medication Instructions Recorded Confirmed Type Aspirin EC [Ecotrin Low Dose] 81 mg PO DAILY 03/06/15 11/24/17 History Levothyroxine Sodium [Synthroid] 25 mcg PO DAILY 03/06/15 11/24/17 History Lisinopril [Zestril] 5 mg PO DAILY 03/06/15 11/24/17 History Lovastatin [Mevacor] 20 mg PO HS 03/06/15 11/24/17 History Metoprolol Tartrate [Lopressor] 12.5 mg PO DAILY 03/06/15 11/24/17 History Pantoprazole Sodium 40 mg PO DAILY 03/06/15 11/24/17 History Latanoprost Ophth [Xalatan 0.005%] 1 drop BOTH EYES HS 03/17/16 11/24/17 History Metoprolol Tartrate 25 mg PO HS 03/17/16 11/24/17 History Multivitamin with Iron 1 tab PO DAILY 07/16/16 11/24/17 History [Multivitamins with Iron] Ondansetron [Zofran] 4 mg PO Q8H 07/16/16 11/24/17 History Potassium Chloride [Klor-Con 10] 10 meq PO DAILY 08/18/16 11/24/17 History Furosemide [Lasix] 20 mg PO BID 11/09/17 11/24/17 History Tamsulosin HCl [Flomax] 0.4 mg PO DAILY 11/09/17 11/24/17 History Clopidogrel [Plavix] 75 mg PO DAILY 11/24/17 11/24/17 History Allergies Allergy/AdvReac Type Severity Reaction Status Date / Time No Known Allergies Allergy Verified 11/23/17 21:37 Physical Exam Vitals: Vital Signs Temp Pulse Resp BP BP Pulse Ox 11/25/17 06:21 114 H 20 97/59 95 11/25/17 06:05 131 H 20 87/58 96 11/25/17 05:56 97.3 F L 97 20 82/52 97 11/25/17 05:00 78/52 11/25/17 04:50 122 H 18 79/39 96 11/25/17 04:15 144 H 11/25/17 04:03 134 H 18 89/53 96 11/25/17 00:07 119 H 11/24/17 23:00 97.9 F 132 H 16 100/69 97 11/24/17 14:30 97.5 F L 67 20 125/76 100 Intake and Output 11/24/17 11/25/17 11/25/17 22:59 06:59 14:59 Intake Total 1070 375 Balance 1070 375 Intake: IV 375 Sodium Chloride 0.9% 1, 375 000 ml @ 75 mls/hr IV . [id number] [facility] Rx#:[id number] Oral 1070 Other: Voiding Method Toilet Toilet # Voids 5 1 # Bowel Movements 5 1 - Constitutional General appearance: no acute distress - Respiratory Respiratory: bilateral: diminished - Cardiovascular Rhythm: irregularly irregular Heart sounds: normal: S1, S2 Abnormal Heart Sounds: systolic murmur Results 11/25/17 04:18 11/25/17 04:33 Cardiac Enzymes 11/25/17 Range/Units 04:33 AST 29 (17-59) U/L CBC 11/25/17 Range/Units 04:18 WBC 6.9 (3.8-10.6) k/uL RBC 3.88 L (4.30-5.90) m/uL Hgb 10.8 L (13.0-17.5) gm/dL Hct 32.8 L (39.0-53.0) % Plt Count 197 (150-450) k/uL Comprehensive Metabolic Panel 11/25/17 Range/Units 04:33 Sodium 141 (137-145) mmol/L Potassium 3.8 (3.5-5.1) mmol/L Chloride 105 (98-107) mmol/L Carbon Dioxide 23 (22-30) mmol/L BUN 9 (9-20) mg/dL Creatinine 0.70 (0.66-1.25) mg/dL Glucose 95 (74-99) mg/dL Calcium 9.1 (8.4-10.2) mg/dL AST 29 (17-59) U/L ALT 35 (21-72) U/L Alkaline Phosphatase 67 (38-126) U/L Total Protein 6.8 (6.3-8.2) g/dL Albumin 3.5 (3.5-5.0) g/dL Current Medications Generic Name Dose Route Start Last Admin Trade Name Freq PRN Reason Stop Dose Admin Acetaminophen 650 mg 11/24/17 00:16 Tylenol Tab PO Q6HR PRN Mild Pain or Fever > 100.5 Acetaminophen/Codeine Phosphate 1 each 11/24/17 00:16 Tylenol #3 PO Q4HR PRN Moderate Pain Aspirin 81 mg 11/24/17 10:15 11/24/17 12:17 Aspirin PO 81 mg DAILY [place] Administration Atorvastatin Calcium 10 mg 11/24/17 21:00 11/24/17 20:05 Lipitor PO 10 mg HS [place] Administration Barium Sulfate 450 ml 11/24/17 10:08 Readi-Cat 2 PO 11/25/17 10:[address] Scan Clopidogrel Bisulfate 75 mg 11/24/17 10:15 11/24/17 12:17 Plavix PO 75 mg DAILY [place] Administration Ferrous Sulfate 325 mg 11/24/17 12:30 11/24/17 12:17 Feosol PO 325 mg W/LUNCH [place] Administration Sodium Chloride 1,000 mls @ 75 mls/hr 11/24/17 00:30 11/25/17 05:22 Saline 0.9% IV Not Given .[id number] [place] Amiodarone HCl 450 mg/ 250 mls @ 33.33 mls/hr 11/25/17 05:45 11/25/17 06:18 Dextrose/Water IV 11/26/17 05:39 1 mg/min .Q7H31M [place] 33.33 mls/hr Protocol Administration 1 MG/MIN Magnesium Sulfate/Dextrose 1 100 mls @ 100 mls/hr 11/25/17 07:15 gm/ IV Solution IVPB 11/25/17 09:14 Q1H [place] Potassium Chloride 10 meq/ IV 100 mls @ 100 mls/hr 11/25/17 07:15 Solution IVPB 11/25/17 09:14 Q1H [facility] Protocol Latanoprost 1 drops 11/24/17 21:00 11/24/17 20:04 Xalatan 0.005% BOTH EYES 1 drops HS [facility] Administration Levothyroxine Sodium 25 mcg 11/24/17 10:15 11/25/17 06:54 Synthroid PO 25 mcg DAILY@0630 [place] Administration Metoprolol Tartrate 50 mg 11/25/17 09:00 Lopressor PO BID [facility] Miscellaneous Information 1 each 11/24/17 10:08 Rx Info: Iv Contrast [facility] 11/26/17 10:09 DAILY PRN Per Protocol Miscellaneous Information 1 each 11/25/17 07:09 Magnesium Per Protocol MISCELLANE DAILY PRN Per Protocol Protocol Miscellaneous Information 1 each 11/25/17 07:09 Potassium Per Protocol MISCELLANE DAILY PRN Per Protocol Protocol Morphine Sulfate 4 mg 11/24/17 00:16 Morphine Sulfate (Inj) IV Q4HR PRN Severe Pain Naloxone HCl 0.2 mg 11/24/17 00:16 Narcan IV Q2M PRN Opioid Reversal Ondansetron HCl 4 mg 11/24/17 12:00 11/25/17 04:00 Zofran PO Not Given Q8H [facility] Pantoprazole Sodium 40 mg 11/24/17 09:00 11/24/17 07:38 Protonix IV 40 mg DAILY [facility] Administration Potassium Chloride 10 meq 11/24/17 10:15 11/24/17 12:17 K-Dur 10 PO 10 meq DAILY [facility] Administration Psyllium Hydrophilic Mucilloid 6 gm 11/24/17 10:15 11/24/17 20:07 Metamucil PO Not Given BID [facility] Tamsulosin HCl 0.4 mg 11/24/17 10:15 11/24/17 12:17 Flomax PO 0.4 mg DAILY [facility] Administration Intake and Output 11/24/17 11/25/17 11/25/17 22:59 06:59 14:59 Intake Total 1070 375 Balance 1070 375 Intake: IV 375 Sodium Chloride 0.9% 1, 375 000 ml @ 75 mls/hr IV . [id number] [facility] Rx#:[id number] Oral 1070 Other: Voiding Method Toilet Toilet # Voids 5 1 # Bowel Movements 5 1 11/25/17 04:18 11/25/17 04:33 Assessment and Plan Assessment: Assessment #1 rectal bleeding of unknown etiology #2 anemia secondary to the above #3 atrial fibrillation with slightly uncontrolled heart rate. This is new to the patient #4 coronary artery disease and status post revascularization #5 cardiomyopathy with an ejection fraction of 40-45% #6 hypertensive heart disease #7 valvular heart disease and status post aortic valve replacement and mitral valve repair #8 multiple comorbidities. Plan #1 continue holding anticoagulation at this point. #2 start the patient on metoprolol by mouth and switch him to amiodarone by mouth down the line #3 once the heart rate improved, the patient can proceed with the endoscopy #4 continue following up with him. Thank you for allowing us participate in his care and we'll continue following up with the patient
[2017-11-25] MEDS: POTASSIUM CHLORIDE 10 MEQ in WATER FOR INJECTION 1 100ML.BAG IVPB SCH ×2 (09:51→09:52)
[2017-11-25] MEDS ORDERED: POTASSIUM CHLORIDE ER 20 MEQ TAB.ER PO ONE (10:00)
[2017-11-25] MEDS: PANTOPRAZOLE 40 MG/10 ML VIAL IV SCH (10:23)
[2017-11-25] MEDS: PSYLLIUM HUSK 100% 6 GM PACKET PO SCH ×2 (10:25→21:38)
[2017-11-25] MEDS: POTASSIUM CHLORIDE ER 10 MEQ TAB.ER.PRT PO SCH (10:25)
[2017-11-25] MEDS: TAMSULOSIN 0.4 MG CAP.ER.24H PO SCH (10:25)
--- NOTE | 2017-11-25 10:30 | P.PN ---
Subjective Progress Note Date: 11/25/17 Principal diagnosis: GI bleed 72-year-old male with a history of prostate cancer radiation GI bleed admitted with persistent painless rectal bleeding. Patient was scheduled for endoscopic exam today but developed A. fib with RVR last night transfer to the selective care unit. Presently denies shortness of breath or chest pain. Heart rate greater than 100 receiving intravenous amiodarone. Endoscopic exams postponed for now. Tolerating clear liquids. Completed bowel prep still passing thin pink medium red rectal drainage. Hemoglobin 10.8. ET abdomen and pelvis yesterday reported postsurgical changes of the GE junction. Distal esophagus is widely patulous retained fluid and contrast. Correlate to exclude stricture poor motility and clearance or recurrent reflux. Descending and sigmoid colonic diverticulosis with no changes of acute diverticulitis. Short segment mucosal hyperemia along the mid sigmoid that could represent some nonspecific inflammation/colitis. Objective - Vital Signs Vital signs: Vital Signs Temp 97.1 F L 11/25/17 08:00 Pulse 117 H 11/25/17 08:00 Resp 16 11/25/17 08:00 BP 144/75 11/25/17 08:00 Pulse Ox 95 11/25/17 08:00 Intake & Output 11/24/17 11/25/17 11/25/17 18:59 06:59 18:59 Intake Total 600 1445 Output Total 200 Balance 400 1445 Intake: IV 600 375 Sodium Chloride 0.9% 1, 600 375 000 ml @ 75 mls/hr IV . [id number] [place] Rx#:[id number] Oral 1070 Output: Urine 200 Other: Voiding Method Toilet Toilet Toilet # Voids 3 1 # Bowel Movements 1 - Exam General appearance: The patient is alert, oriented, in no acute distress. HET: Head is normocephalic and atraumatic. Pupils are equal and reactive. Oropharynx is clear without lesions. Neck: Supple without lymphadenopathy. Trachea midline. Heart: S1 S2. Irregular. Lungs: No crackles or wheezes are heard. Abdomen: Soft, nontender, nondistended with bowel sounds. No peritoneal signs. No palpable organomegaly or masses. Extremities: Normal skin color and turgor. No cyanosis, rash, ulceration, clubbing, or edema. Radial and pedal pulses are 2/4 bilaterally. Neurological: No focal deficits. Strength and sensation are grossly intact. - Labs CBC & Chem 7: 11/25/17 04:18 11/25/17 04:33 Labs: Abnormal Lab Results - Last 24 Hours (Table) 11/23/17 11/25/17 Range/Units 22:06 04:18 RBC 3.88 L (4.30-5.90) m/uL Hgb 10.8 L (13.0-17.5) gm/dL Hct 32.8 L (39.0-53.0) % Lymphocytes # 0.9 L (1.0-4.8) k/uL Iron 41 L (65-175) ug/dL Iron Saturation 12.89 L (15.00-50.00) Assessment and Plan (1) Rectal bleeding Narrative/Plan: Active rectal bleeding daily intermittently 2 months. 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 Current Visit: Yes Status: Acute Code(s): K62.5 - HEMORRHAGE OF ANUS AND RECTUM SNOMED Code(s): 20835380 (2) Acute blood loss anemia Current Visit: Yes Status: Acute Code(s): D62 - ACUTE POSTHEMORRHAGIC ANEMIA SNOMED Code(s): 685258291 (3) History of prostate cancer Current Visit: Yes Status: Acute Code(s): Z85.46 - PERSONAL HISTORY OF MALIGNANT NEOPLASM OF PROSTATE SNOMED Code(s): 223584784 (4) History of radiation exposure Current Visit: Yes Status: Acute Code(s): Z92.3 - PERSONAL HISTORY OF IRRADIATION SNOMED Code(s): 120133045 (5) Atrial fibrillation with RVR Current Visit: Yes Status: Acute Code(s): I48.91 - UNSPECIFIED ATRIAL FIBRILLATION SNOMED Code(s): 531334173360163 (6) Esophageal abnormality Narrative/Plan: per CT Current Visit: Yes Status: Acute Code(s): K22.9 - DISEASE OF ESOPHAGUS, UNSPECIFIED SNOMED Code(s): 04496381 Plan: 1. EGD colonoscopy rescheduled for tomorrow morning contingent improvement in heart rate and or rhythm. CT report reviewed rule out stricture disease and/or other distal esophageal pathology. 2. Continue clear liquids today and nothing by mouth after midnight. Continue with IV Protonix. 3. Case was discussed with bank messenger Dr. Bynum and with attending Dr. Ramirez. We'll continue to follow close with you. CBC daily. Assessment and plan a care discussed with Dr. Barrios
[2017-11-25] MEDS: METOPROLOL TARTRATE 50 MG TAB PO SCH ×2 (10:33→21:40)
--- NOTE | 2017-11-25 11:17 | P.GSCN ---
History of Present Illness Consult date: 11/25/17 Reason for Consult: GI bleed patient known to me History of present illness: This is 72-year-old male well known to me. 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 He recently had a endoscopy within the last 2 months by me. His hemoglobin has been stable. He denies any pain. He just has streaks of red blood in his stool periodically. He denies any fevers or chills. 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 History of Any Multi-Drug Resistant Organisms: None Reported Past Surgical History: Coronary Bypass/CABG Additional Past Surgical History / Comment(s): thyroid, 3 valve replacements stomach surgery unsure what kind Past Anesthesia/Blood Transfusion Reactions: No Reported Reaction Past Psychological History: No Psychological Hx Reported Additional Psychological History / Comment(s): Patient will smoker of 3 packs per day for 40 years and quit in 1998 Smoking Status: Former smoker Past Alcohol Use History: None Reported, Rare Past Drug Use History: None Reported - Past Family History Father Family Medical History: Cancer Additional Family Medical History / Comment(s): Patient has 2 brothers alive and doing fine. One sister of congestive heart failure. He is not and does not have any kids Mother Family Medical History: Cancer Additional Family Medical History / Comment(s): Mother had history of leukemia and is . Medications and Allergies Home Medications Medication Instructions Recorded Confirmed Type Aspirin EC [Ecotrin Low Dose] 81 mg PO DAILY 03/06/15 11/24/17 History Levothyroxine Sodium [Synthroid] 25 mcg PO DAILY 03/06/15 11/24/17 History Lisinopril [Zestril] 5 mg PO DAILY 03/06/15 11/24/17 History Lovastatin [Mevacor] 20 mg PO HS 03/06/15 11/24/17 History Metoprolol Tartrate [Lopressor] 12.5 mg PO DAILY 03/06/15 11/24/17 History Pantoprazole Sodium 40 mg PO DAILY 03/06/15 11/24/17 History Latanoprost Ophth [Xalatan 0.005%] 1 drop BOTH EYES HS 03/17/16 11/24/17 History Metoprolol Tartrate 25 mg PO HS 03/17/16 11/24/17 History Multivitamin with Iron 1 tab PO DAILY 07/16/16 11/24/17 History [Multivitamins with Iron] Ondansetron [Zofran] 4 mg PO Q8H 07/16/16 11/24/17 History Potassium Chloride [Klor-Con 10] 10 meq PO DAILY 08/18/16 11/24/17 History Furosemide [Lasix] 20 mg PO BID 11/09/17 11/24/17 History Tamsulosin HCl [Flomax] 0.4 mg PO DAILY 11/09/17 11/24/17 History Clopidogrel [Plavix] 75 mg PO DAILY 11/24/17 11/24/17 History Allergies Allergy/AdvReac Type Severity Reaction Status Date / Time No Known Allergies Allergy Verified 11/23/17 21:37 Surgical - Exam Osteopathic Statement: *. No significant issues noted on an osteopathic structural exam other than those noted in the History and Physical/Consult. Vital Signs Temp Pulse Resp Pulse Ox 97.9 F 88 18 98 11/23/17 20:39 11/23/17 20:39 11/23/17 20:39 11/23/17 20:39 - General well developed, well nourished - Respiratory normal expansion, normal respiratory effort - Cardiovascular A. fib - Abdomen Abdomen: soft, non tender - Integumentary no rash - Neurologic normal coordination, normal sensation - Musculoskeletal normal gait - Psychiatric oriented to time, oriented to person, oriented to place Results - Labs 11/25/17 04:18 11/25/17 04:33 Abnormal Lab Results - Last 24 Hours (Table) 11/23/17 11/25/17 Range/Units 22:06 04:18 RBC 3.88 L (4.30-5.90) m/uL Hgb 10.8 L (13.0-17.5) gm/dL Hct 32.8 L (39.0-53.0) % Lymphocytes # 0.9 L (1.0-4.8) k/uL Iron 41 L (65-175) ug/dL Iron Saturation 12.89 L (15.00-50.00) Diabetes panel 11/25/17 Range/Units 04:33 Sodium 141 (137-145) mmol/L Potassium 3.8 (3.5-5.1) mmol/L Chloride 105 (98-107) mmol/L Carbon Dioxide 23 (22-30) mmol/L BUN 9 (9-20) mg/dL Creatinine 0.70 (0.66-1.25) mg/dL Glucose 95 (74-99) mg/dL Calcium 9.1 (8.4-10.2) mg/dL AST 29 (17-59) U/L ALT 35 (21-72) U/L Alkaline Phosphatase 67 (38-126) U/L Total Protein 6.8 (6.3-8.2) g/dL Albumin 3.5 (3.5-5.0) g/dL Calcium panel 11/25/17 Range/Units 04:33 Calcium 9.1 (8.4-10.2) mg/dL Albumin 3.5 (3.5-5.0) g/dL Pituitary panel 11/25/17 Range/Units 04:33 Sodium 141 (137-145) mmol/L Potassium 3.8 (3.5-5.1) mmol/L Chloride 105 (98-107) mmol/L Carbon Dioxide 23 (22-30) mmol/L BUN 9 (9-20) mg/dL Creatinine 0.70 (0.66-1.25) mg/dL Glucose 95 (74-99) mg/dL Calcium 9.1 (8.4-10.2) mg/dL Adrenal panel 11/25/17 Range/Units 04:33 Sodium 141 (137-145) mmol/L Potassium 3.8 (3.5-5.1) mmol/L Chloride 105 (98-107) mmol/L Carbon Dioxide 23 (22-30) mmol/L BUN 9 (9-20) mg/dL Creatinine 0.70 (0.66-1.25) mg/dL Glucose 95 (74-99) mg/dL Calcium 9.1 (8.4-10.2) mg/dL Total Bilirubin 0.8 (0.2-1.3) mg/dL AST 29 (17-59) U/L ALT 35 (21-72) U/L Alkaline Phosphatase 67 (38-126) U/L Total Protein 6.8 (6.3-8.2) g/dL Albumin 3.5 (3.5-5.0) g/dL Assessment and Plan Assessment: Radiation proctitis, lower GI bleeding Plan: Patient has not had significant bleeding his hemoglobin has been stable. No indication for prescription acute surgical intervention. Appreciate GI recommendations. GI is consulted
[2017-11-25] MEDS ORDERED: MAGNESIUM OXIDE 400 MG TAB PO STA (12:08)
[2017-11-25] MEDS: MAGNESIUM SULFATE-D5W PMX 1 GM in DEXTROSE/WATER 1 100ML.BAG IVPB SCH ×2 (12:43→13:10)
--- NOTE | 2017-11-25 13:10 | XR ---
EXAMINATION TYPE: XR chest 2V DATE OF EXAM: 11/25/2017 COMPARISON: Prior chest x-ray 11/09/2017 10/17/2017 HISTORY: Shortness of breath, pneumonia TECHNIQUE: Frontal and lateral views of the chest are obtained. FINDINGS: Airspace disease is present in the right lower lobe and is increased compared to prior exa ms. No evident pneumothorax or pleural effusion. Patient is post median sternotomy. Compression defor mity noted in the lower thoracic spine as on previous exam. No pneumothorax. There are overlying card iac leads. The heart is enlarged. Interstitium is mildly increased. Blunting the right costophrenic a ngle than left suggests effusion. Patient is status post cardiac valve replacement. Pulmonary artery is prominent, correlate for possible pulmonary artery hypertension. Apical pleural thickening is stab le. Prominent lung volumes may be indicative of underlying COPD IMPRESSION: Findings suggest recurrent right lower lobe pneumonia. Underlying interstitial lung dise ase. Cardiomegaly. There may be small effusions. Possible pulmonary artery hypertension. Additional findings above.
[2017-11-25] MEDS: FERROUS SULFATE 325 MG TAB PO SCH (13:19)
--- NOTE | 2017-11-25 14:00 | P.PN ---
Subjective Progress Note Date: 11/25/17 Principal diagnosis: Bright red rectal bleed 79 years old and -[place] male. of Dr. Kohler with recent admission in late [facility] for rectal bleeding secondary to hemorrhoids status port hemorrhoidectomy, hyperlipidemia, hypertension, hypothyroidism, history of recent prostate cancer status post radiation she didn't, in remission. History of coronary artery disease status artery artery bypass, history of bioprosthetic valve. He had a recent hospitalization November 10 which time he presented with chest pain and rectal bleeding. He was seen by Dr. crenshaw with no plan for any intervention at the time. He states he was just in the office with Dr. Kohler on Tuesday and was given some type of salve for rectal bleeding but he's been using that also cause bleeding. He states it is fresh blood and happens at any time non-ST early with a bowel movement. He denies any other complaints. He denies abdominal pain, nausea vomiting. He states he occasionally has dizziness. He has a bowel movement every day. It's either runny or normal consistency. He does not take any medications for constipation. He presented with hemoglobin of 11.5 which is his baseline. INR was 1.2, left lites were all within normal limits. Her analysis was negative. Patient was placed on the MedSur floor and consult requested with surgery. Patient is currently on clear liquid diet CAT scan of the abdomen and pelvis will be ordered as well as anemia studies. 11/25 CT abdomen suggested sigmoid colitis with no sign of diverticulitis. Mild circumferential bladder wall thickening with enlargement of the prostate seen some retained fluid seen in the distal esophagus concerning for stricture or performing motility disorder. Patient went into atrial fibrillation in the night with heart rates in the 140s, this is a new finding. Patient initiated on heparin. Blood pressure dropped which improved with 1 L IV bolus of normal saline. Patient was started on a Medrol drip. Colonoscopy was put on hold. Patient started on clear liquid diet and will likely proceed with colonoscopy and EGD tomorrow. Objective - Vital Signs Vital signs: Vital Signs Temp 97.1 F L 11/25/17 08:00 Pulse 90 11/25/17 12:00 Resp 18 11/25/17 12:00 BP 108/74 11/25/17 12:00 Pulse Ox 100 11/25/17 12:00 Intake & Output 0411/25/17 11/25/17 18:59 06:59 18:59 Intake Total 600 1445 234.421 Output Total 200 Balance 400 1445 234.421 Intake: IV 600 375 Sodium Chloride 0.9% 1, 600 375 000 ml @ 75 mls/hr IV . [id number] [place] Rx#:[id number] Intake, IV Titration 234.421 Amount Amiodarone 450 mg In 234.421 Dextrose 5% in Water 250 ml @ 1 MG/MIN 33.33 mls/ hr IV .Q7H31M [place] Rx#: [id number] Oral 1070 Output: Urine 200 Other: Voiding Method Toilet Toilet Toilet # Voids 3 1 # Bowel Movements 1 - Exam General appearance: cooperative, no acute distress, obese - EENT Eyes: anicteric sclerae, PERRLA, normal appearance ENT: hearing grossly normal - Neck Neck: no lymphadenopathy, normal ROM, no other, no rigidity, no stridor, no thyromegaly - Respiratory Respiratory: bilateral: CTA, negative: diminished, dullness, rales, rhonchi - Cardiovascular Rhythm: Irregularly irregular Heart sounds: normal: S1, S2 Abnormal Heart Sounds: 2/5 systolic murmur, no diastolic murmur, no rub, no S3 Gallop, no S4 Gallop, no click - Gastrointestinal General gastrointestinal: normal bowel sounds, soft, nontender rectal exam positive for fresh blood with no sign of hemorrhoids seen - Integumentary Integumentary: no rash - Neurologic Neurologic: CNII-XII intact - Musculoskeletal Musculoskeletal: gait normal, strength equal bilaterally - Psychiatric Psychiatric: A&O x's 3, appropriate affect - Labs CBC & Chem 7: 11/25/17 04:18 11/25/17 04:33 Labs: Abnormal Lab Results - Last 24 Hours (Table) 11/23/17 11/25/17 Range/Units 22:06 04:18 RBC 3.88 L (4.30-5.90) m/uL Hgb 10.8 L (13.0-17.5) gm/dL Hct 32.8 L (39.0-53.0) % Lymphocytes # 0.9 L (1.0-4.8) k/uL Iron 41 L (65-175) ug/dL Iron Saturation 12.89 L (15.00-50.00) Assessment and Plan Plan: 1. Bright red rectal bleeding. Consult with Dr. crenshaw. GI recommends EGD/ colonoscopy. CAT scan of the abdomen and pelvis with contrast was positive for colitis of the sigmoid area. Diverticulitis ruled out. Concern from proctitis. Metamucil started. 2. History of coronary artery disease status post CABG. hold Plavix and aspirin 81 mg daily, continue metoprolol 12.5 mg in the morning and 25 mg at bedtime, atorvastatin 10 mg daily. 3. History of aortic bioprosthetic valve, stable 4. Hypothyroidism. Continue levothyroxine 25 mg daily. 5. Benign prostatic hypertrophy. Continue Flomax or 0.5 mg daily. 6. Hypertension. Continue lisinopril 5 mg daily and Lopressor. 7. Hyperlipidemia. Continue Lipitor. 8. New atrial fibrillation with RVR. Initiated onamiodarone. Metoprolol increased to 50 mg twice a day. Heparin held due to active GI bleeding 9. GI prophylaxis with Protonix 40 mg IV daily
[2017-11-25] MEDS: ASPIRIN 81 MG PO SCH (14:16)
[2017-11-25] MEDS: CLOPIDOGREL 75 MG TAB PO SCH (14:17)
[2017-11-25] MEDS: ATORVASTATIN 10 MG TAB PO SCH (21:40)
[2017-11-25] MEDS: LATANOPROST 0.005% OPHTH DROPS 2.5 ML BTL BOTH EYES SCH (21:40)
[2017-11-26] MEDS: AMIODARONE 450 MG in DEXTROSE 5% IN WATER 250 ML IV SCH ×4 (06:01→06:02)
[2017-11-26] MEDS: POTASSIUM CHLORIDE ER 10 MEQ TAB.ER.PRT PO SCH (06:23)
[2017-11-26] MEDS: PANTOPRAZOLE 40 MG/10 ML VIAL IV SCH (06:23)
[2017-11-26] MEDS: LEVOTHYROXINE 25 MCG TAB PO SCH (06:23)
[2017-11-26] MEDS: TAMSULOSIN 0.4 MG CAP.ER.24H PO SCH (06:24)
[2017-11-26] MEDS: ONDANSETRON 4 MG TAB PO SCH ×3 (06:27→19:38)
[2017-11-26 06:45] LABS: Magnesium 1.7 mg/dL (1.6-2.3); Potassium 4.3 mmol/L (3.5-5.1)
[2017-11-26] MEDS ORDERED: NA PHOS,M-B/NA PHOS,DI-BA 133 ML ENEMA RECTAL STA (07:37)
[2017-11-26] MEDS: METOPROLOL TARTRATE 50 MG TAB PO SCH ×2 (08:30→19:37)
[2017-11-26] MEDS ORDERED: ePHEDrine SULFATE/0.9% NACL/PF 50 MG/5 ML SYRINGE IV ONE (09:14)
[2017-11-26] MEDS ORDERED: PROPOFOL 10 MG/ML 20 ML VIAL IV ONE (09:14)
[2017-11-26] MEDS ORDERED: LACTATED RINGERS 1,000 ML IV ONE (09:17)
--- NOTE | 2017-11-26 10:26 | P.PCN ---
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 Preoperative diagnosis: Recurrent rectal bleeding. Postoperative diagnosis: 1. Telangiectatic blood vessels in the rectum consistent with radiation proctitis with evidence of active bleeding at the time of this exam, S/P argon plasma coagulation with control of bleeding. 2. Sigmoid diverticulosis with no evidence of acute diverticulitis or bleeding. Preparation: GoLYTELY prep. Sedation: Was provided by anesthesia. Brief clinical history: The patient is a 72-year-old male with history of CAD/ CABG and bioprosthetic aortic valve maintained on aspirin Plavix, prostate carcinoma status post radiation completed around 1 year ago, possible atrial fibrillation, hypothyroidism, hypertension, tuberculosis, and COPD. Patient was evaluated at [facility] the day prior to admission for rectal bleeding and was discharged. Hemoglobin was 11.3 on admission, dropped to 10.3. Platelet 161 white count 5.3. INR 1.2. BUN 13. Creatinine 0.8. His bleeding is painless. Denies fever, chills, hematemesis, melena or epigastric and abdominal pain. The patient describes the bleeding as dark burgundy, sometimes bright red in nature with clots. He had 2 bowel movements after admission that were burgundy in color. CT of the abdomen and pelvis showed descending and sigmoid colon diverticulosis. He has been experiencing intermittent rectal bleeding sometimes on a daily basis for the last few months. He was evaluated at [facility] early October 2017 for rectal bleeding and underwent colonoscopy 10/21/[address] Denney with findings of radiation proctitis and sigmoid diverticulosis; no stigmata of bleeding seen. Rectal biopsy reported hyperplastic surface epithelium stromal edema without significant inflammation. He was hospitalized 2 weeks ago with similar presentation and was seen by general surgery with no intervention recommended at that time and discharged. Other details are summarized in the history and physical and dictated consultations and progress notes. Procedure: With the patient on his left lateral decubitus position and after informed consent and adequate sedation, the perianal area was inspected and it did not show any fissures or fistulas. There were no masses felt on digital rectal examination and there was no loud noted on the gloved examining finger after the rectal examination. However, once the Olympus CFQ 160L video colonoscope was inserted in the rectum, I saw fresh blood originating in the distal rectum and there was circumferential telangiectatic vessels consistent with radiation proctitis. The endoscope was advanced in the sigmoid and descending colon in the usual fashion. I did not complete a colonoscopy since he has had a recent examination and because of finding of greenish fecal material in the descending colon with evidence of less than ideal preparation in the proximal bowel with no evidence of bleeding. Several diverticular orifices were seen in the sigmoid and descending colon with no evidence of acute diverticulitis or strictures. I retroflexed the endoscope in the rectum before I proceeded with the argon plasma coagulation. At this point, I proceeded to use the argon plasma teletype or varitype keyboard operator with 40 W energy. I used the side firing catheter and treated circumferentially all the telangiectatic vessels noted in the distal rectum with good control of bleeding at the conclusion of the treatment. The patient tolerated the procedure well. Plan: The patient was reassured, and I discussed with his brother. He may require additional treatments in the future if he continues to bleed, especially , if he has to be back on Plavix and aspirin. I would discuss with you and follow with you with interest.
[2017-11-26] MEDS: PSYLLIUM HUSK 100% 6 GM PACKET PO SCH ×2 (11:11→19:37)
--- NOTE | 2017-11-26 12:47 | CONS ---
DATE OF CONSULTATION: 11/26/2017 This is a 79-year-old male who has been admitted with his history of GI bleed. The patient had a scope done today by Dr. Barrios and the patient also has been seen by surgery for GI bleed. I was consulted. The patient has a possible left subclavian occlusive disease chronic. The patient also has history of coronary artery disease, post CABG. Also patient had a history of aortic bioprosthetic valve placed in the past, stable. The patient was seen in his room. He is lying comfortably. Neck is supple. No bruit appreciated. Chest is clear to auscultation. First and second sounds normal. Abdomen is soft, nontender. Vascular examination brachial radial pulses are present on the right side and left arm brachial radial is not palpable. Femoral pulses are palpable bilateral. IMPRESSION: Chronic subclavian occlusive disease. PLAN: The patient has just arrived from his surgical intervention. His hand is not ischemic. Motor functions are present. We will discuss with Internal Medicine with Dr. Ramirez and we will arrange for further recommendation. Most likely patient will need an arch study and CT angiogram of the left arm, we can arrange this as an outpatient. Most likely, this occlusion is chronic in nature. Thank you for the consultation. MMODL / IJN: [id number] / SUGAR
[2017-11-26] MEDS ORDERED: SODIUM FERRIC GLUCONAT-SUCROSE 125 MG in SODIUM CHLORIDE 0.9% 100 ML IVPB ONE (13:03)
[2017-11-26] MEDS: FERROUS SULFATE 325 MG TAB PO SCH (13:19)
[2017-11-26] MEDS ORDERED: MORPHINE ORAL SOLN 10 MG/5 ML CUP PO PRN (13:38)
--- NOTE | 2017-11-26 14:51 | P.PN ---
Subjective Progress Note Date: 11/26/17 This is a pleasant 72-year-old gentleman who sees Dr. Sousa in the office as an outpatient with a past medical history significant for CAD and status post CABG with unknown details at this point, aortic valve replacement with bioprosthetic valve, also mitral valve repair, as well as hypertension and dyslipidemia was admitted to the hospital with painless rectal bleeding without any associated symptoms of nausea, vomiting, abdominal discomfort, or fever or chills. The patient was scheduled to undergo an endoscopy by the GI service early her today when last night he did go to atrial fibrillation with RVR. Clinically he denies having any symptoms off shortness of breath, feeling of heart racing or fluttering, dizziness or lightheadedness, or chest pain or chest discomfort. I reviewed the previous medical records in the hospital only and there is no indication of atrial fibrillation. The patient was receiving as an outpatient dual antiplatelet therapy with aspirin and Plavix without any oral anticoagulation. It seems that this is a new diagnosis to the patient. 11/26/2017 Patient was seen and examined this morning, he's been up ambulating without any difficulty. No further bleeding. Hemoglobin 10.8 yesterday. Magnesium level this morning 1.7, potassium 4.3. Patient denies palpitations, no difficulty in breathing. Objective - Vital Signs Vital signs: Vital Signs Temp 96.2 F L 11/26/17 12:00 Pulse 56 L 11/26/17 12:00 Resp 20 11/26/17 12:00 BP 137/65 11/26/17 12:00 Pulse Ox 98 11/26/17 12:00 Intake & Output 11/25/17 11/26/17 11/26/17 18:59 06:59 18:59 Intake Total 354.421 280 Output Total 200 350 Balance 154.421 -350 280 Weight 58.3 kg Intake: IV 200 Intake, IV Titration 234.421 Amount Amiodarone 450 mg In 234.421 Dextrose 5% in Water 250 ml @ 1 MG/MIN 33.33 mls/ hr IV .Q7H31M [facility] Rx#: [id number] Oral 120 80 Output: Urine 200 350 Other: Voiding Method Urinal Urinal Toilet Urinal # Voids 2 # Bowel Movements 3 - Exam PHYSICAL EXAMINATION: HEENT: Head is atraumatic, normocephalic. Pupils equal, round. Neck is supple. There is no elevated jugular venous pressure. HEART EXAMINATION: Heart S1 and S2 irregularly irregular a systolic murmur is heard. CHEST EXAMINATION: Lungs are clear to auscultation and precussion. No chest wall tenderness is noted on palpation or with deep breathing. ABDOMEN: Soft, nontender. Bowel sounds are heard. No organomegaly noted. EXTREMITIES: 2+ peripheral pulses with no evidence of peripheral edema and no calf tenderness noted. NEUROLOGIC patient is awake, alert and oriented -3. . - Labs CBC & Chem 7: 11/25/17 04:18 11/26/17 06:11 Assessment and Plan Plan: Assessment #1 rectal bleeding of unknown etiology #2 anemia secondary to the above #3 atrial fibrillation with slightly uncontrolled heart rate. This is new to the patient #4 coronary artery disease and status post revascularization #5 cardiomyopathy with an ejection fraction of 40-45% #6 hypertensive heart disease #7 valvular heart disease and status post aortic valve replacement and mitral valve repair #8 multiple comorbidities. Plan Cardiology's perspective, patient may be able to be discharged home once cleared by primary. We will make him a follow-up appointment to see Dr. Sousa in the office post discharge. DNP note has been reviewed, I agree with a documented findings and plan of care. Patient was seen and examined.
--- NOTE | 2017-11-26 17:02 | P.PN ---
Subjective Progress Note Date: 11/26/17 Principal diagnosis: Radiation proctitis with acute blood loss anemia on top of chronic blood loss anemia Bright red rectal bleed 79 years old and -[place] male. of Dr. Kohler with recent admission in late [facility] for rectal bleeding secondary to hemorrhoids status port hemorrhoidectomy, hyperlipidemia, hypertension, hypothyroidism, history of recent prostate cancer status post radiation she didn't, in remission. History of coronary artery disease status artery artery bypass, history of bioprosthetic valve. He had a recent hospitalization November 10 which time he presented with chest pain and rectal bleeding. He was seen by Dr. crenshaw with no plan for any intervention at the time. He states he was just in the office with Dr. Kohler on Tuesday and was given some type of salve for rectal bleeding but he's been using that also cause bleeding. He states it is fresh blood and happens at any time non-ST early with a bowel movement. He denies any other complaints. He denies abdominal pain, nausea vomiting. He states he occasionally has dizziness. He has a bowel movement every day. It's either runny or normal consistency. He does not take any medications for constipation. He presented with hemoglobin of 11.5 which is his baseline. INR was 1.2, left lites were all within normal limits. Her analysis was negative. Patient was placed on the MedSur floor and consult requested with surgery. Patient is currently on clear liquid diet CAT scan of the abdomen and pelvis will be ordered as well as anemia studies. 11/25 CT abdomen suggested sigmoid colitis with no sign of diverticulitis. Mild circumferential bladder wall thickening with enlargement of the prostate seen some retained fluid seen in the distal esophagus concerning for stricture or performing motility disorder. Patient went into atrial fibrillation in the night with heart rates in the 140s, this is a new finding. Patient initiated on heparin. Blood pressure dropped which improved with 1 L IV bolus of normal saline. Patient was started on a Medrol drip. Colonoscopy was put on hold. Patient started on clear liquid diet and will likely proceed with colonoscopy and EGD tomorrow. 11/26 2017: Patient underwent colonoscopy with argon laser found to have radiation proctitis, circumferential treatments provided by Dr. Vera, she denies any GI upset, currently eating regular meals, Plavix and aspirin is maintained to be held iron infusion to be given today patient denies any lightheadedness or dizziness, patient does not feel well to be discharged yet today, anticipate discharge in the morning. Hemoglobin 10.8 from yesterday Objective - Vital Signs Vital signs: Vital Signs Temp 98.8 F 11/26/17 16:00 Pulse 80 11/26/17 16:00 Resp 20 11/26/17 16:00 BP 129/58 11/26/17 16:00 Pulse Ox 95 11/26/17 16:00 Intake & Output 11/25/17 11/26/17 11/26/17 18:59 06:59 18:59 Intake Total 354.421 430 Output Total 200 350 250 Balance 154.421 -350 180 Weight 58.3 kg Intake: IV 200 Intake, IV Titration 234.421 Amount Amiodarone 450 mg In 234.421 Dextrose 5% in Water 250 ml @ 1 MG/MIN 33.33 mls/ hr IV .Q7H31M [facility] Rx#: [id number] Oral 120 230 Output: Urine 200 350 250 Other: Voiding Method Urinal Urinal Toilet Urinal # Voids 2 2 # Bowel Movements 3 2 - Constitutional General appearance: Present: average body habitus, cooperative, no acute distress - EENT Eyes: Present: anicteric sclerae, EOMI, PERRLA, dentition normal, normal appearance ENT: Present: hard of hearing, NA/AT, normal oropharynx - Neck Neck: Present: normal ROM. Absent: lymphadenopathy, other, rigidity, stridor, thyromegaly - Respiratory Respiratory: bilateral: CTA, negative: diminished, dullness, rales, rhonchi, wheezing, prolonged expiration, prolonged inspiration - Cardiovascular Rhythm: regular Heart sounds: normal: S1, S2 Abnormal Heart Sounds: Present: systolic murmur. Absent: diastolic murmur, rub , S3 Gallop, S4 Gallop, click, other - Gastrointestinal General gastrointestinal: Present: normal bowel sounds, soft - Integumentary Integumentary: Present: normal, normal turgor - Neurologic Neurologic: Present: CNII-XII intact - Musculoskeletal Musculoskeletal: Present: gait normal, strength equal bilaterally - Labs CBC & Chem 7: 11/25/17 04:18 11/26/17 06:11 Assessment and Plan Plan: 1. Radiation proctitis lower GI bleed with hematochezia, acute on chronic blood loss anemia Consult with Dr. crenshaw. Status post EGD/colonoscopy on requiring argon plasma coagulation of the injectate the blood vessels in the rectum with active bleeding. Other findings in the colonoscopy include sigmoid diverticulosis without any active bleeding noted diverticulitis ,CAT scan of the abdomen and pelvis with contrast was positive for colitis of the sigmoid area. Diverticulitis ruled out. Metamucil started. 2. Iron deficiency anemia with acute on chronic GI losses, Iron infusion ferllecit 125 mg today, anticipate discharge in the morning 3. History of coronary artery disease status post CABG. hold Plavix and aspirin 81 mg daily, continue metoprolol 12.5 mg in the morning and 25 mg at bedtime, atorvastatin 10 mg daily. 4. Cardiomyopathy, ejection fraction 40-45% 5. History of aortic bioprosthetic valve, stable 6. Hypothyroidism. Continue levothyroxine 25 mg daily. No changes made 7 Benign prostatic hypertrophy. Continue Flomax or 0.5 mg daily. 8. Hypertension. Continue lisinopril 5 mg daily and Lopressor. 9. Hyperlipidemia. Continue Lipitor. 10. New atrial fibrillation with RVR. Off onamiodarone. Metoprolol increased to 50 mg twice a day. Heparin held due to active GI bleeding 11BPH without lower tract symptomatology on Flomax 12. GI prophylaxis with Protonix 40 mg IV daily Discharge planning home in the morning
[2017-11-26] MEDS: LATANOPROST 0.005% OPHTH DROPS 2.5 ML BTL BOTH EYES SCH (19:37)
[2017-11-26] MEDS: ATORVASTATIN 10 MG TAB PO SCH (19:37)
[2017-11-27 05:51] VITALS: RESP 18
[2017-11-27] MEDS: ONDANSETRON 4 MG TAB PO SCH ×2 (06:33→12:48)
[2017-11-27] MEDS: LEVOTHYROXINE 25 MCG TAB PO SCH (06:35)
[2017-11-27 06:59] LABS: Anion Gap 11 mmol/L; Blood Urea Nitrogen 8 mg/dL (9-20); Carbon Dioxide 24 mmol/L (22-30); Chloride 105 mmol/L (98-107); Glucose 96 mg/dL (74-99); Potassium 4.3 mmol/L (3.5-5.1); Sodium 140 mmol/L (137-145)
[2017-11-27 07:00] LABS: Basophils % (A) 0 %; Eosinophils # (A) 0.2 k/uL (0-0.7); Eosinophils % (A) 3 %; HCT 32.9 % (39.0-53.0); HGB 10.5 gm/dL (13.0-17.5); Lymphocytes # (A) 0.7 k/uL (1.0-4.8); Lymphocytes % (A) 8 %; MCH 27.4 pg (25.0-35.0); MCV 85.7 fL (80.0-100.0); Mean Platelet Volume 8.3; Monocytes # (A) 0.5 k/uL (0-1.0); Monocytes % (A) 5 %; Neutrophils # (A) 7.9 k/uL (1.3-7.7); Neutrophils % (A) 83 %; Platelet Count 172 k/uL (150-450); RBC 3.84 m/uL (4.30-5.90); RDW 13.3 % (11.5-15.5); WBC 9.5 k/uL (3.8-10.6)
[2017-11-27] MEDS ORDERED: PANTOPRAZOLE 40 MG TABLET PO SCH (07:30)
[2017-11-27] MEDS: METOPROLOL TARTRATE 50 MG TAB PO SCH (08:28)
[2017-11-27] MEDS: POTASSIUM CHLORIDE ER 10 MEQ TAB.ER.PRT PO SCH (08:29)
[2017-11-27] MEDS: TAMSULOSIN 0.4 MG CAP.ER.24H PO SCH (08:29)
[2017-11-27] MEDS: PSYLLIUM HUSK 100% 6 GM PACKET PO SCH (08:33)
--- NOTE | 2017-11-27 10:11 | PN ---
PROGRESS NOTE DATE OF SERVICE: 11/27/2017. HISTORY: Mr. Blake is a 72-year-old male with a known history of coronary artery disease status post bypass grafting, history of bioprosthetic aortic valve, who presented with rectal bleeding. He is feeling better today. He is feeling stronger. He denies any symptoms of chest pain. He had an episode of paroxysmal fibrillation, but is in sinus mechanism this morning. He has no further bleeding and he is ambulating without much difficulty. He continues to be, at this time, on Lipitor 10 mg daily, metoprolol tartrate 50 mg twice a day. PHYSICAL EXAMINATION: Blood pressure 127/60 with a heart in the 70s. Lungs are clear. Heart regular rhythm S1, S2. No S3 with systolic murmur. No diastolic murmur. Abdomen is soft, nontender. Extremities with no edema. LAB DATA: Hemoglobin 10.5, BUN and creatinine of 8 and 0.7. IMPRESSION: 1. Recurrent lower GI bleeding, stabilizing. 2. History of coronary artery disease status post bypass grafting. 3. History of aortic valve surgery. 4. Paroxysmal atrial fibrillation. RECOMMENDATIONS: From the cardiac standpoint, he is stable. We will increase his level of activity. If he remains stable, I expect he should be able to be discharged home soon and followed as an outpatient. MMODL / IJN: [id number] /
[2017-11-27 10:39] VITALS: TEMP 98
[2017-11-27] MEDS: FERROUS SULFATE 325 MG TAB PO SCH (12:49)
[2017-11-27 14:52] VITALS: BP 136/72; PULSE 69
== END 2017-11-27 14:58 | disposition home or self-care (01) | DRG 394 ==
LOC: EC 20:38 → 5MS5E 11-24 00:15 → 6SEL 11-25 05:21 → OBSVTOIN 11-25 08:31
PROVIDERS: ADMIT Internal Medicine; ATTEND Internal Medicine
PROC: 0W3P8ZZ Control Bleeding in Gastrointestinal Tract, Via Natural or Artificial Opening Endoscopic (ICD-10-PCS; principal; 2017-11-26 09:00)
DX: K62.7 Radiation proctitis (principal); D62 Acute posthemorrhagic anemia; I48.0 Paroxysmal atrial fibrillation; I42.9 Cardiomyopathy, unspecified; I11.9 Hypertensive heart disease without heart failure; Y84.2 Radiological procedure and radiotherapy as the cause of abnormal reaction of the patient, or of later complication, without mention of misadventure at the time of the procedure; E78.5 Hyperlipidemia, unspecified; I05.0 Rheumatic mitral stenosis; E89.0 Postprocedural hypothyroidism; I25.10 Atherosclerotic heart disease of native coronary artery without angina pectoris; K22.9 Disease of esophagus, unspecified; K57.30 Diverticulosis of large intestine without perforation or abscess without bleeding; N40.0 Benign prostatic hyperplasia without lower urinary tract symptoms; Z79.02 Long term (current) use of antithrombotics/antiplatelets; Z87.891 Personal history of nicotine dependence; Z85.46 Personal history of malignant neoplasm of prostate; Z79.890 Hormone replacement therapy; Z92.3 Personal history of irradiation; Z79.899 Other long term (current) drug therapy; Z95.3 Presence of xenogenic heart valve; Z79.82 Long term (current) use of aspirin; Z80.6 Family history of leukemia; Z82.49 Family history of ischemic heart disease and other diseases of the circulatory system; Z95.1 Presence of aortocoronary bypass graft
CPT/HCPCS: 36415; 45382; 71046; 74177; 80048; 80053; 81003; 82728; 83540; 83550; 83735; 84132; 85025; 85610; 85730; 93005; 96374; 99284

== ENCOUNTER 2018-01-25 21:15 | Emergency (ER) | payer MEDICARE, OTHER ==
[2018-01-25] MEDS ORDERED: GELATIN SPONGE,ABSORB (SMALL) 1 EACH SPONGE TOPICAL STA (22:05)
--- NOTE | 2018-01-25 22:50 | ED ---
General Adult HPI - General Chief complaint: Extremity Problem,Nontraumatic Stated complaint: rt great toe bleeding Time Seen by Provider: 01/25/18 22:05 Source: patient, RN notes reviewed Mode of arrival: ambulatory Limitations: no limitations - History of Present Illness Initial comments: 72-year-old male presents to the emergency determine for a chief complaint of bleeding from the left toenail. Patient states he had surgery on the left toenail about 2 months ago. He states it looked a little ingrown today so he tried to cut it and caused it to bleed. Patient states he could not get the toe to stop bleeding. Patient denies any other injuries. Patient denies pain in the toe. Patient is currently on Plavix but denies any other symptoms of bleeding such as dizziness, blood in stool or urine, or abdominal pain. Patient has no other complaints at this time including shortness of breath, chest pain, abdominal pain, nausea or vomiting, headache, or visual changes. - Related Data Home Medications Medication Instructions Recorded Confirmed Levothyroxine Sodium [Synthroid] 25 mcg PO DAILY 03/06/15 01/25/18 Lisinopril [Zestril] 5 mg PO DAILY 03/06/15 01/25/18 Lovastatin [Mevacor] 20 mg PO HS 03/06/15 01/25/18 Pantoprazole Sodium 40 mg PO DAILY 03/06/15 01/25/18 Latanoprost Ophth [Xalatan 0.005%] 1 drop BOTH EYES HS 03/17/16 01/25/18 Multivitamin with Iron 1 tab PO DAILY 07/16/16 01/25/18 [Multivitamins with Iron] Ondansetron [Zofran] 4 mg PO Q8H 07/16/16 01/25/18 Potassium Chloride [Klor-Con 10] 10 meq PO DAILY 08/18/16 01/25/18 Furosemide [Lasix] 20 mg PO BID 11/09/17 01/25/18 Tamsulosin HCl [Flomax] 0.4 mg PO DAILY 11/09/17 01/25/18 Previous Rx's Medication Instructions Recorded Aspirin EC [Ecotrin Low Dose] 81 mg PO DAILY #0 11/27/17 Clopidogrel [Plavix] 75 mg PO DAILY #0 11/27/17 Ferrous Sulfate [Iron (65 MG 325 mg PO W/LUNCH #30 tab 11/27/17 Elemental)] Metoprolol Tartrate [Lopressor] 50 mg PO BID #60 tab 11/27/17 Psyllium Husk 100% [Metamucil 6 gm PO BID packet 11/27/17 Packet] Allergies Allergy/AdvReac Type Severity Reaction Status Date / Time No Known Allergies Allergy Verified 11/23/17 21:37 Review of Systems ROS Statement: Those systems with pertinent positive or pertinent negative responses have been documented in the HPI. ROS Other: All systems not noted in ROS Statement are negative. 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 History of Any Multi-Drug Resistant Organisms: None Reported Past Surgical History: Coronary Bypass/CABG Additional Past Surgical History / Comment(s): thyroid, 3 valve replacements stomach surgery unsure what kind Past Anesthesia/Blood Transfusion Reactions: No Reported Reaction Past Psychological History: No Psychological Hx Reported Smoking Status: Former smoker Past Alcohol Use History: None Reported, Rare Past Drug Use History: None Reported - Past Family History Father Family Medical History: Cancer Additional Family Medical History / Comment(s): Patient has 2 brothers alive and doing fine. One sister of congestive heart failure. He is not and does not have any kids Mother Family Medical History: Cancer Additional Family Medical History / Comment(s): Mother had history of leukemia and is . General Exam Limitations: no limitations General appearance: alert, in no apparent distress Head exam: Present: atraumatic, normocephalic, normal inspection Eye exam: Present: normal appearance ENT exam: Present: normal exam, mucous membranes moist Neck exam: Present: normal inspection, full ROM. Absent: tenderness, meningismus, lymphadenopathy Respiratory exam: Present: normal lung sounds bilaterally. Absent: respiratory distress, wheezes, rales, rhonchi, stridor Cardiovascular Exam: Present: regular rate, normal rhythm, normal heart sounds. Absent: systolic murmur, diastolic murmur, rubs, gallop, clicks Extremities exam: Present: normal inspection, full ROM (Full range of motion of the left big toe), normal capillary refill (Refill less than 2 seconds and pedal pulse 2+ in the left lower extremity.), other (Patient has a slightly exposed lateral nailbed of the left great toe which is bleeding slightly.). Absent: tenderness, pedal edema, joint swelling, calf tenderness Course Vital Signs 01/25/18 21:21 Temperature 97.6 F Pulse Rate 73 Respiratory 20 Rate Blood Pressure 152/76 O2 Sat by Pulse 96 Oximetry Medical Decision Making - Medical Decision Making 72-year-old male presents to the emergency department for a chief complaint of bleeding toenail 4 hours. Patient tried to cut it today and positive bleed. Patient had surgery on it 2 months ago. On exam patient has full range motion of the toe. He denies any other injuries to the toe. Capillary refill less than 2 seconds and pedal pulse 2+. Sensation intact. Some of the nail bed is exposed which is slightly bleeding. Patient is up-to-date on tetanus. In order to control bleeding nail was cleaned and Gelfoam was applied. It was then covered with gauze and taped. Patient was educated to remove the gauze in a day or 2 and let the Gelfoam fall off on its own. He will follow up with the manager [employer]obe to do the surgery. He will also follow up with primary care. He will return to the emergency department if it continues to bleed or he has any other worsening symptoms. Disposition Clinical Impression: Toe injury Disposition: HOME SELF-CARE Condition: Good Instructions: Nail Avulsion (ED) Additional Instructions: Please take off dressing in one to 2 days. Let Gelfoam fall off on its own after dressing removed. Follow up with manager adobe who did surgery. You may also follow up with primary care provider in one to 2 days. Return to the emergency department if you have any worsening symptoms or signs of infection such as spreading redness, streaking redness or fever. Is patient prescribed a controlled substance at d/c from ED?: No Referrals: Edy Kohler MD [Primary Care Provider] - 1-2 days Time of Disposition: 22:48
[2018-01-25 23:02] VITALS: BP 175/72; PULSE 70; RESP 18; TEMP 97.8
== END 2018-01-25 23:00 | disposition home or self-care (01) ==
LOC: EC 21:15
DX: S99.922A Unspecified injury of left foot, initial encounter (principal); E78.5 Hyperlipidemia, unspecified; I10 Essential (primary) hypertension; E07.9 Disorder of thyroid, unspecified; Z85.46 Personal history of malignant neoplasm of prostate; Z95.1 Presence of aortocoronary bypass graft; Z95.2 Presence of prosthetic heart valve; Z87.891 Personal history of nicotine dependence; Z79.899 Other long term (current) drug therapy
CPT/HCPCS: 99282

== ENCOUNTER 2018-02-12 08:22 | Inpatient (IN) | payer MEDICARE, OTHER ==
[2018-02-12] MEDS ORDERED: NITROGLYCERIN OINT 1 INCH/GM PACKET TOPICAL STA (08:30)
[2018-02-12] MEDS ORDERED: ASPIRIN 81 MG PO STA (08:30)
--- NOTE | 2018-02-12 08:47 | ED ---
General Adult HPI - General Chief complaint: Chest Pain Stated complaint: SOB Time Seen by Provider: 02/12/18 08:25 Source: patient, EMS, RN notes reviewed Mode of arrival: EMS Limitations: no limitations - History of Present Illness Initial comments: This is a 72-year-old male who resents to the emergency department with past medical history significant for congestive heart failure. Patient comes in today via EMS after he complained of difficulty breathing and chest pain. Patient currently is not having any chest pain but he still feels somewhat short of breath. She denies any recent fever chills but he does state he has had a cough. He denies any palpitations. Patient states he had some abdominal cramping but as soon as he arrived to the emergency department had a bowel movement and he feels much better. According to the nurse however the bowel movement was streaked with bright red blood. Patient states he has had hemorrhoids in the past and was told he needed another hemorrhoid surgery. Patient denies any nausea or vomiting patient denies any recent diarrhea. Patient denies any recent trauma or injury. Patient denies headache patient denies numbness weakness. Patient denies being lightheaded dizzy or having any near syncopal episode. Patient had a fever 101.7 on arrival. She denies any dysuria hematuria urinary frequency - Related Data Home Medications Medication Instructions Recorded Confirmed Levothyroxine Sodium [Synthroid] 25 mcg PO DAILY 03/06/15 01/25/18 Lisinopril [Zestril] 5 mg PO DAILY 03/06/15 01/25/18 Lovastatin [Mevacor] 20 mg PO HS 03/06/15 01/25/18 Pantoprazole Sodium 40 mg PO DAILY 03/06/15 01/25/18 Latanoprost Ophth [Xalatan 0.005%] 1 drop BOTH EYES HS 03/17/16 01/25/18 Multivitamin with Iron 1 tab PO DAILY 07/16/16 01/25/18 [Multivitamins with Iron] Ondansetron [Zofran] 4 mg PO Q8H 07/16/16 01/25/18 Potassium Chloride [Klor-Con 10] 10 meq PO DAILY 08/18/16 01/25/18 Furosemide [Lasix] 20 mg PO BID 11/09/17 01/25/18 Tamsulosin HCl [Flomax] 0.4 mg PO DAILY 11/09/17 01/25/18 Previous Rx's Medication Instructions Recorded Aspirin EC [Ecotrin Low Dose] 81 mg PO DAILY #0 11/27/17 Clopidogrel [Plavix] 75 mg PO DAILY #0 11/27/17 Ferrous Sulfate [Iron (65 MG 325 mg PO W/LUNCH #30 tab 11/27/17 Elemental)] Metoprolol Tartrate [Lopressor] 50 mg PO BID #60 tab 11/27/17 Psyllium Husk 100% [Metamucil 6 gm PO BID packet 11/27/17 Packet] Allergies Allergy/AdvReac Type Severity Reaction Status Date / Time No Known Allergies Allergy Verified 02/12/18 08:25 Review of Systems ROS Statement: Those systems with pertinent positive or pertinent negative responses have been documented in the HPI. ROS Other: All systems not noted in ROS Statement are negative. 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 History of Any Multi-Drug Resistant Organisms: None Reported Past Surgical History: Coronary Bypass/CABG Additional Past Surgical History / Comment(s): thyroid, 3 valve replacements stomach surgery unsure what kind Past Anesthesia/Blood Transfusion Reactions: No Reported Reaction Past Psychological History: No Psychological Hx Reported Smoking Status: Former smoker Past Alcohol Use History: None Reported, Rare Past Drug Use History: None Reported - Past Family History Father Family Medical History: Cancer Additional Family Medical History / Comment(s): Patient has 2 brothers alive and doing fine. One sister of congestive heart failure. He is not and does not have any kids Mother Family Medical History: Cancer Additional Family Medical History / Comment(s): Mother had history of leukemia and is . General Exam - General Exam Comments Initial Comments: GENERAL: Patient is well-developed and well-nourished. Patient is nontoxic and well- hydrated and is in mild distress. ENT: Neck is soft and supple. No significant lymphadenopathy is noted. Oropharynx is clear. Moist mucous membranes. Neck has full range of motion without eliciting any pain. EYES: The sclera were anicteric and conjunctiva were pink and moist. Extraocular movements were intact and pupils were equal round and reactive to light. Eyelids were unremarkable. PULMONARY: Unlabored respirations. Good breath sounds bilaterally. No audible rales rhonchi or wheezing was noted. CARDIOVASCULAR: There is a regular rate and rhythm without any murmurs gallops or rubs. ABDOMEN: Soft and nontender with normal bowel sounds. No palpable organomegaly was noted. There is no palpable pulsatile mass. SKIN: Skin is clear with no lesions or rashes and otherwise unremarkable. NEUROLOGIC: Patient is alert and oriented x3. Cranial nerves II through XII are grossly intact. Motor and sensory are also intact. Normal speech, volume and content. Symmetrical smile. MUSCULOSKELETAL: Normal extremities with adequate strength and full range of motion. No lower extremity swelling or edema. No calf tenderness. LYMPHATICS: No significant lymphadenopathy is noted PSYCHIATRIC: Normal psychiatric evaluation. Normal interpersonal interactions appears functionally intact in deals appropriately with others. No signs of depression. No signs of anxiety. Limitations: no limitations Course Vital Signs 02/12/18 02/12/18 08:25 10:15 Temperature 101.7 F H Pulse Rate 124 H 120 H Respiratory 24 16 Rate Blood Pressure 170/96 140/72 O2 Sat by Pulse 89 L 100 Oximetry Procedures - Sepsis Sepsis Focused Exam #1 Time Sepsis Criteria Met: 08:30 Sepsis Focused Exam Date: 02/12/18 Sepsis Focused Exam Time: 10:39 Sepsis Focused Exam Complete: Yes Vital Signs & RN Notes Reviewed: Yes Capillary Refill: < 2 Seconds: Fingers Peripheral Pulses: Normal: Radial (R), Radial (L) Skin Color: Normal for Patient Respiratory Exam: normal lung sounds Cardiovascular Exam: tachycardia Medical Decision Making - Medical Decision Making EKG shows sinus tachycardia with occasional PVC at a rate of 129 bpm MT interval is 136 QRS is 146 QT interval 344 QTC is 503 patient has a left bundle branch block when I compared this to an old EKG there are no acute changes noted. Patient's lactic acid was 4.0. Patient received 1.6 L of fluid. Chest x-ray showed right-sided pneumonia. Patient's oxygenation was 89% on 4 L when he arrived. I started the patient Rocephin. I admitted the patient I spoke with Dr. Nicole she agreed to admit the patient I continued antibiotics on the floor and I continued fluid on the floor. - Lab Data Result diagrams: 02/12/18 08:50 02/12/18 09:31 Lab Results 02/12/18 02/12/18 02/12/18 Range/Units 08:50 08:50 08:50 WBC 12.3 H (3.8-10.6) k/uL RBC 5.03 (4.30-5.90) m/uL Hgb 13.8 (13.0-17.5) gm/dL Hct 43.3 (39.0-53.0) % MCV 86.2 (80.0-100.0) fL MCH 27.5 (25.0-35.0) pg MCHC 32.0 (31.0-37.0) g/dL RDW 13.8 (11.5-15.5) % Plt Count 202 (150-450) k/uL Neutrophils % 88 % Lymphocytes % 7 % Monocytes % 2 % Eosinophils % 1 % Basophils % 0 % Neutrophils # 10.9 H (1.3-7.7) k/uL Lymphocytes # 0.8 L (1.0-4.8) k/uL Monocytes # 0.3 (0-1.0) k/uL Eosinophils # 0.2 (0-0.7) k/uL Basophils # 0.0 (0-0.2) k/uL Hypochromasia Slight PT 10.8 (9.0-12.0) sec INR 1.1 (<1.2) APTT 18.2 L (22.0-30.0) sec Sodium (137-145) mmol/L Potassium (3.5-5.1) mmol/L Chloride (98-107) mmol/L Carbon Dioxide (22-30) mmol/L Anion Gap mmol/L BUN (9-20) mg/dL Creatinine (0.66-1.25) mg/dL Est GFR (CKD-EPI)AfAm (>60 ml/min/1.73 sqM) Est GFR (CKD-EPI)NonAf (>60 ml/min/1.73 sqM) Glucose (74-99) mg/dL Plasma Lactic Acid Hiram (0.7-2.0) mmol/L Calcium (8.4-10.2) mg/dL Magnesium (1.6-2.3) mg/dL Total Bilirubin (0.2-1.3) mg/dL AST (17-59) U/L ALT (21-72) U/L Alkaline Phosphatase (38-126) U/L Total Creatine Kinase (55-170) U/L CK-MB (CK-2) (0.0-2.4) ng/mL CK-MB (CK-2) Rel Index Troponin I (0.000-0.034) ng/mL NT-Pro-B Natriuret Pep 475 pg/mL Total Protein (6.3-8.2) g/dL Albumin (3.5-5.0) g/dL Urine Color Urine Appearance (Clear) Urine pH (5.0-8.0) Ur Specific [place] (1.001-1.035) Urine Protein (Negative) Urine Glucose (UA) (Negative) Urine Ketones (Negative) Urine Blood (Negative) Urine Nitrite (Negative) Urine Bilirubin (Negative) Urine Urobilinogen (<2.0) mg/dL Ur Leukocyte Esterase (Negative) Urine RBC (0-5) /hpf Urine WBC (0-5) /hpf Urine WBC Clumps (None) /hpf Ur Squamous Epith Cells (0-4) /hpf Urine Bacteria (None) /hpf Hyaline Casts (0-2) /lpf Urine Mucus (None) /hpf 02/12/18 02/12/18 02/12/18 Range/Units 09:31 09:31 09:31 WBC (3.8-10.6) k/uL RBC (4.30-5.90) m/uL Hgb (13.0-17.5) gm/dL Hct (39.0-53.0) % MCV (80.0-100.0) fL MCH (25.0-35.0) pg MCHC (31.0-37.0) g/dL RDW (11.5-15.5) % Plt Count (150-450) k/uL Neutrophils % % Lymphocytes % % Monocytes % % Eosinophils % % Basophils % % Neutrophils # (1.3-7.7) k/uL Lymphocytes # (1.0-4.8) k/uL Monocytes # (0-1.0) k/uL Eosinophils # (0-0.7) k/uL Basophils # (0-0.2) k/uL Hypochromasia PT (9.0-12.0) sec INR (<1.2) APTT (22.0-30.0) sec Sodium 143 (137-145) mmol/L Potassium 4.1 (3.5-5.1) mmol/L Chloride 108 H (98-107) mmol/L Carbon Dioxide 17 L (22-30) mmol/L Anion Gap 18 mmol/L BUN 18 (9-20) mg/dL Creatinine 0.89 (0.66-1.25) mg/dL Est GFR (CKD-EPI)AfAm >90 (>60 ml/min/1.73 sqM) Est GFR (CKD-EPI)NonAf 85 (>60 ml/min/1.73 sqM) Glucose 224 H (74-99) mg/dL Plasma Lactic Acid Hiram 4.1 H* (0.7-2.0) mmol/L Calcium 9.1 (8.4-10.2) mg/dL Magnesium 1.5 L (1.6-2.3) mg/dL Total Bilirubin 0.5 (0.2-1.3) mg/dL AST 23 (17-59) U/L ALT 28 (21-72) U/L Alkaline Phosphatase 70 (38-126) U/L Total Creatine Kinase 47 L (55-170) U/L CK-MB (CK-2) 0.6 (0.0-2.4) ng/mL CK-MB (CK-2) Rel Index 1.3 Troponin I 0.014 (0.000-0.034) ng/mL NT-Pro-B Natriuret Pep pg/mL Total Protein 6.9 (6.3-8.2) g/dL Albumin 3.9 (3.5-5.0) g/dL Urine Color Urine Appearance (Clear) Urine pH (5.0-8.0) Ur Specific [place] (1.001-1.035) Urine Protein (Negative) Urine Glucose (UA) (Negative) Urine Ketones (Negative) Urine Blood (Negative) Urine Nitrite (Negative) Urine Bilirubin (Negative) Urine Urobilinogen (<2.0) mg/dL Ur Leukocyte Esterase (Negative) Urine RBC (0-5) /hpf Urine WBC (0-5) /hpf Urine WBC Clumps (None) /hpf Ur Squamous Epith Cells (0-4) /hpf Urine Bacteria (None) /hpf Hyaline Casts (0-2) /lpf Urine Mucus (None) /hpf 02/12/18 Range/Units 10:00 WBC (3.8-10.6) k/uL RBC (4.30-5.90) m/uL Hgb (13.0-17.5) gm/dL Hct (39.0-53.0) % MCV (80.0-100.0) fL MCH (25.0-35.0) pg MCHC (31.0-37.0) g/dL RDW (11.5-15.5) % Plt Count (150-450) k/uL Neutrophils % % Lymphocytes % % Monocytes % % Eosinophils % % Basophils % % Neutrophils # (1.3-7.7) k/uL Lymphocytes # (1.0-4.8) k/uL Monocytes # (0-1.0) k/uL Eosinophils # (0-0.7) k/uL Basophils # (0-0.2) k/uL Hypochromasia PT (9.0-12.0) sec INR (<1.2) APTT (22.0-30.0) sec Sodium (137-145) mmol/L Potassium (3.5-5.1) mmol/L Chloride (98-107) mmol/L Carbon Dioxide (22-30) mmol/L Anion Gap mmol/L BUN (9-20) mg/dL Creatinine (0.66-1.25) mg/dL Est GFR (CKD-EPI)AfAm (>60 ml/min/1.73 sqM) Est GFR (CKD-EPI)NonAf (>60 ml/min/1.73 sqM) Glucose (74-99) mg/dL Plasma Lactic Acid Hiram (0.7-2.0) mmol/L Calcium (8.4-10.2) mg/dL Magnesium (1.6-2.3) mg/dL Total Bilirubin (0.2-1.3) mg/dL AST (17-59) U/L ALT (21-72) U/L Alkaline Phosphatase (38-126) U/L Total Creatine Kinase (55-170) U/L CK-MB (CK-2) (0.0-2.4) ng/mL CK-MB (CK-2) Rel Index Troponin I (0.000-0.034) ng/mL NT-Pro-B Natriuret Pep pg/mL Total Protein (6.3-8.2) g/dL Albumin (3.5-5.0) g/dL Urine Color Yellow Urine Appearance Cloudy (Clear) Urine pH 5.5 (5.0-8.0) Ur Specific [place] 1.015 (1.001-1.035) Urine Protein 1+ H (Negative) Urine Glucose (UA) Negative (Negative) Urine Ketones Negative (Negative) Urine Blood Large H (Negative) Urine Nitrite Negative (Negative) Urine Bilirubin Negative (Negative) Urine Urobilinogen <2.0 (<2.0) mg/dL Ur Leukocyte Esterase Large H (Negative) Urine RBC 87 H (0-5) /hpf Urine WBC >182 H (0-5) /hpf Urine WBC Clumps Few H (None) /hpf Ur Squamous Epith Cells <1 (0-4) /hpf Urine Bacteria Occasional H (None) /hpf Hyaline Casts 4 H (0-2) /lpf Urine Mucus Occasional H (None) /hpf Critical Care Time Critical Care Time: Yes Total Critical Care Time: 35 Disposition Clinical Impression: Pneumonia, Sepsis, Urinary tract infection Disposition: ADMITTED IP TO THIS [facility] Time of Disposition: 10:34
[2018-02-12 09:06] LABS: Basophils % (A) 0 %; Eosinophils # (A) 0.2 k/uL (0-0.7); Eosinophils % (A) 1 %; HCT 43.3 % (39.0-53.0); HGB 13.8 gm/dL (13.0-17.5); Hypochromasia Slight; Lymphocytes # (A) 0.8 k/uL (1.0-4.8); Lymphocytes % (A) 7 %; MCH 27.5 pg (25.0-35.0); MCV 86.2 fL (80.0-100.0); Mean Platelet Volume 9.1; Monocytes # (A) 0.3 k/uL (0-1.0); Monocytes % (A) 2 %; Neutrophils # (A) 10.9 k/uL (1.3-7.7); Neutrophils % (A) 88 %; Platelet Count 202 k/uL (150-450); RBC 5.03 m/uL (4.30-5.90); RDW 13.8 % (11.5-15.5); WBC 12.3 k/uL (3.8-10.6)
--- NOTE | 2018-02-12 09:17 | XR ---
EXAMINATION TYPE: XR chest 2V DATE OF EXAM: 02/12/2018 COMPARISON: Prior chest x-ray 11/25/2017, 12/23/2017 HISTORY: Chest pain TECHNIQUE: Frontal and lateral views of the chest are obtained. FINDINGS: There is been interval development of perihilar increased attenuation. No pneumothorax or pleural effusion. Cardiac mediastinal silhouette, pulmonary vascularity and xenia show a similar appea devaughn, patient is post median sternotomy and there are overlying cardiac leads. Prominent lung volume may be indicative of COPD. Thickening of the fissures is again seen. Patient is status post aortic v alve replacement. Interstitium is increased. Wedge compression deformity noted at the lower thoracic spine. IMPRESSION: Findings may represent congestive heart failure, correlate for possible pneumonia.
[2018-02-12] MEDS ORDERED: cefTRIAXone IN SWFI 2,000 MG/20 ML SYRINGE IVP STA (09:39)
[2018-02-12 09:41] LABS: INR 1.1 (<1.2); Prothrombin Time 10.8 sec (9.0-12.0)
[2018-02-12 09:43] LABS: Partial Thromboplastin Time 18.2 sec (22.0-30.0)
[2018-02-12 10:04] LABS: ALT 28 U/L (21-72); AST 23 U/L (17-59); Albumin 3.9 g/dL (3.5-5.0); Alkaline Phosphatase 70 U/L (38-126); Anion Gap 18 mmol/L; Blood Urea Nitrogen 18 mg/dL (9-20); Calcium 9.1 mg/dL (8.4-10.2); Carbon Dioxide 17 mmol/L (22-30); Chloride 108 mmol/L (98-107); Glucose 224 mg/dL (74-99); Magnesium 1.5 mg/dL (1.6-2.3); Potassium 4.1 mmol/L (3.5-5.1); Sodium 143 mmol/L (137-145); Total Bilirubin 0.5 mg/dL (0.2-1.3); Total Protein 6.9 g/dL (6.3-8.2)
[2018-02-12 10:17] LABS: Appearance,Urine Cloudy (Clear); Bacteria,Urine Occasional /hpf; Bilirubin,Urine Negative (Negative); Blood,Urine Large (Negative); Color,Urine Yellow; Glucose,Urine (UA) Negative (Negative); Hyaline Casts,Urine 4 /lpf (0-2); Ketones,Urine Negative (Negative); Leukocyte Esterase,Urine Large (Negative); Mucus,Urine Occasional /hpf; Nitrite,Urine Negative (Negative); PH, Urine 5.5 (5.0-8.0); Protein,Urine 1+ (Negative); RBC,Urine 87 /hpf (0-5); Specific Gravity,Urine 1.015 (1.001-1.035); Squamous Epithelial Cell,Urine <1 /hpf (0-4); Urobilinogen,Urine <2.0 mg/dL (<2.0); WBC,Urine >182 /hpf (0-5)
[2018-02-12] MEDS ORDERED: ACETAMINOPHEN TAB 325 MG TAB PO STA (10:30)
[2018-02-12] MEDS ORDERED: IBUPROFEN 600 MG TAB PO STA (10:30)
[2018-02-12] MEDS ORDERED: SODIUM CHLORIDE 0.9% 1,600 ML IV ONE (10:30)
[2018-02-12 10:33] LABS: Creatine Kinase MB 0.6 ng/mL (0.0-2.4); Troponin I 0.014 ng/mL (0.000-0.034)
[2018-02-12] MEDS ORDERED: PNEUMONIA PROTOCOL UTILIZED 1 EACH MISC PO PRN (10:35)
[2018-02-12] MEDS ORDERED: AZITHROMYCIN 500 MG in DEXTROSE 5% IN WATER 250 ML IVPB STA ×2 (10:41)
[2018-02-12] MEDS ORDERED: FUROSEMIDE 10 MG/ML 2 ML VIAL IV STA (10:41)
[2018-02-12] MEDS: SODIUM CHLORIDE 0.9% 1,000 ML IV SCH ×2 (10:50→20:47)
[2018-02-12] MEDS: ALBUTEROL NEBULIZED 2.5 MG/3 ML INHALATION SCH ×3 (15:21→19:53)
[2018-02-12] MEDS ORDERED: FUROSEMIDE 10 MG/ML 2 ML VIAL IV SCH (16:00)
[2018-02-12] MEDS ORDERED: Magnesium Replacement Protocol 1 EACH MISC MISCELLANE PRN (19:35)
[2018-02-12] MEDS: MAGNESIUM SULFATE-D5W PMX 1 GM in DEXTROSE/WATER 1 100ML.BAG IVPB SCH ×2 (20:40→22:20)
[2018-02-12] MEDS: FUROSEMIDE 10 MG/ML 4 ML VIAL IV SCH (22:21)
[2018-02-13] MEDS: SODIUM CHLORIDE 0.9% 1,000 ML IV SCH ×2 (06:43→16:35)
[2018-02-13 07:45] LABS: Basophils % (A) 0 %; Eosinophils # (A) 0.1 k/uL (0-0.7); Eosinophils % (A) 0 %; HCT 37.6 % (39.0-53.0); HGB 11.6 gm/dL (13.0-17.5); Lymphocytes # (A) 0.8 k/uL (1.0-4.8); Lymphocytes % (A) 5 %; MCH 26.3 pg (25.0-35.0); MCHC 30.8 g/dL (31.0-37.0); MCV 85.4 fL (80.0-100.0); Mean Platelet Volume 9.4; Monocytes # (A) 0.7 k/uL (0-1.0); Monocytes % (A) 5 %; Neutrophils # (A) 13.5 k/uL (1.3-7.7); Neutrophils % (A) 89 %; Platelet Count 147 k/uL (150-450); RBC 4.41 m/uL (4.30-5.90); WBC 15.2 k/uL (3.8-10.6)
[2018-02-13] MEDS: ALBUTEROL NEBULIZED 2.5 MG/3 ML INHALATION SCH ×4 (07:58→18:40)
[2018-02-13 08:00] LABS: ALT 27 U/L (21-72); AST 21 U/L (17-59); Albumin 3.4 g/dL (3.5-5.0); Alkaline Phosphatase 63 U/L (38-126); Anion Gap 11 mmol/L; Blood Urea Nitrogen 17 mg/dL (9-20); Calcium 8.7 mg/dL (8.4-10.2); Carbon Dioxide 25 mmol/L (22-30); Chloride 107 mmol/L (98-107); Glucose 103 mg/dL (74-99); Magnesium 2.1 mg/dL (1.6-2.3); Potassium 3.9 mmol/L (3.5-5.1); Sodium 143 mmol/L (137-145); Total Bilirubin 0.8 mg/dL (0.2-1.3); Total Protein 6.2 g/dL (6.3-8.2)
[2018-02-13] MEDS: cefTRIAXone IN SWFI 1,000 MG/10 ML SYRINGE IVP SCH (08:15)
[2018-02-13] MEDS: FUROSEMIDE 10 MG/ML 4 ML VIAL IV SCH ×2 (08:15→22:08)
[2018-02-13] MEDS ORDERED: AZITHROMYCIN 500 MG TAB PO SCH (09:00)
--- NOTE | 2018-02-13 09:23 | XR ---
EXAMINATION TYPE: XR chest 1V portable DATE OF EXAM: 02/13/2018 Comparison: 02/12/2018 Clinical History: 72-year-old male follow-up CHF Findings: Heart borderline enlarged. Median sternotomy wires are present with post-CABG clips. Hyperinflation. Prosthetic aortic valve. Small pleural effusions persist. Interstitial densities on the left and airs pace opacity right mid to lower lung are redemonstrated. Airspace disease is minimally less confluenc e from prior exam. Impression: 1. COPD. 2. Correlate for CHF with atypical pulmonary edema versus right mid and lower lung pneumonia. Aeratio n is only minimally improved in the right mid and lower lung. 3. Continued small effusions.
--- NOTE | 2018-02-13 10:23 | US ---
EXAMINATION TYPE: US kidneys/renal and bladder DATE OF EXAM: 02/13/2018 COMPARISON: CT 11/24/2017 CLINICAL HISTORY: 72-year-old male follow-up pyelonephritis. TECHNIQUE: Multiple sonographic images of the kidneys and bladder are obtained. FINDINGS: Right Kidney: 9.8 x 5.6 x 4.8 cm with mild pelvicaliectasis. Left Kidney: 10.7 x5.6 x 5.3 cm with mild pelvicaliectasis. Echogenic focus in the lower pole measure s 6 mm, possible renal calculus. Bladder shows mild circumferential wall thickening at 4 mm. Both ureteral jets are visualized. Post Void Residual Volume: 134.4 mL Normal Post Void Residual: No IMPRESSION: 1. Mild bilateral pelvicaliectasis may be transient. Both ureteral jets are visualized arguing again st selin ureteral obstruction. Consider short interval follow-up to reassess. 2. Possible 6 mm left lower pole renal calculus. 3. Mild circumferential bladder wall thickening; correlate for chronic bladder wall hypertrophy versu s cystitis. 4. Sonographic findings of urinary retention (post void bladder volume of 134 mL).
[2018-02-13] MEDS: METOPROLOL TARTRATE 25 MG TAB PO SCH ×2 (11:29→21:57)
[2018-02-13] MEDS: LEVOTHYROXINE 25 MCG TAB PO SCH (11:29)
[2018-02-13] MEDS: PANTOPRAZOLE 40 MG TABLET PO SCH (11:30)
[2018-02-13] MEDS: MULTIVITAMINS, THERA 1 EACH TAB PO SCH (11:30)
[2018-02-13] MEDS: ONDANSETRON 4 MG TAB PO SCH ×2 (12:48→19:40)
--- NOTE | 2018-02-13 12:48 | P.HPIM ---
History of Present Illness H&P Date: 02/12/18 72 years old pleasant gentleman patient of. of Dr. Kohler underlying history of hyperlipidemia, hypertension, hypothyroidism, history of recent prostate cancer status post radiation History of coronary artery disease status artery artery bypass, history of bioprosthetic valve paroxysmal atrial fibrillation hypothyroidism cardiomyopathy EF 45%. Congestive heart failure, radiation proctitis with acute on chronic blood loss anemia, colonoscopy last November 2017 confirming radiation proctitis He presented to emergency room after he complained of shortness of breath, difficulty breathing, pleurisy, fever of 101 no chills, patient has slightly nonproductive minimal cough, patient also noted that he had bright red blood streaks however with his hemorrhoids, he had hemorrhoid surgery last October 2017 , no abominal cramps, no diarrhea no motor or sensory changes, no lightheadedness, no syncope. No hematuria but has dysuria and urine frequence. x-rays shows COPD changes, thickening of the fissure again seen, was compression deformity at the lower thoracic spine, findings that can represent congestive heart Rate failure, correlate for possible pneumonia with interval development of perihilar increased attenuation. No pleural effusion. EKG shows PVCs normal sinus rhythm sinus tachycardia heart rate of 129, urinalysis significant for urinary tract infection urine wBC over 180 Review of Systems Constitutional: Reports as per HPI, Reports anorexia, Reports chills, Reports fever, Denies chronic headaches, Denies chronic pain, Denies daytime sleepiness , Denies fatigue, Denies lethargy, Denies malaise, Denies night sweats, Denies poor appetite, Denies sweats, Denies weakness, Denies weight gain, Denies weight loss Ears, nose, mouth and throat: Reports as per HPI, Denies ant. neck pain, Denies bleeding gums, Denies dental pain, Denies dysphagia, Denies epistaxis, Denies headache, Denies hoarseness, Denies mouth pain, Denies nasal congestion, Denies nasal discharge, Denies neck fullness/pressure, Denies neck lump, Denies nose pain, Denies odynophagia, Denies post-nasal drip, Denies sinus pain, Denies sinus pressure, Denies swelling in mouth, Denies swelling in throat, Denies sore throat, Denies vertigo, Denies voice changes Cardiovascular: Reports as per HPI, Denies chest pain, Denies claudication, Denies decreased exercise tolerance, Denies dyspnea on exertion, Denies edema, Denies high blood pressure, Denies irregular heart beat, Denies leg edema, Denies lightheadedness, Denies orthopnea, Denies palpitations, Denies paroxysmal nocturnal dyspnea, Denies phlebitis, Denies rapid heart beat, Denies shortness of breath, Denies syncope Respiratory: Reports as per HPI Gastrointestinal: Reports as per HPI, Reports BRBPR, Denies abdominal pain, Denies belching, Denies bloating, Denies change in bowel habits, Denies coffee ground emesis, Denies constipation, Denies diarrhea, Denies dyspepsia, Denies early satiety, Denies excessive gas, Denies heartburn, Denies hematemesis, Denies hematochezia, Denies indigestion, Denies jaundice, Denies lactose intolerance, Denies loss of appetite, Denies melena, Denies nausea, Denies vomiting Genitourinary: Reports as per HPI, Denies decreased libido, Denies difficulties fathering child, Denies discharge, Denies dysuria, Denies erectile dysfunction, Denies flank pain, Denies genital pain, Denies genital sores, Denies hematuria, Denies impotence, Denies incontinence, Denies kidney stones, Denies nocturia, Denies polyuria, Denies testicular lump, Denies testicular pain, Denies urinary frequency, Denies urinary hesitancy, Denies urinary retention Musculoskeletal: Reports as per HPI Integumentary: Reports as per HPI Neurological: Reports as per HPI Psychiatric: Reports as per HPI Endocrine: Reports as per HPI Hematologic/Lymphatic: Reports as per HPI Allergic/Immunologic: Reports as per HPI 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 History of Any Multi-Drug Resistant Organisms: None Reported Past Surgical History: Coronary Bypass/CABG Additional Past Surgical History / Comment(s): thyroid, 3 valve replacements stomach surgery unsure what kind Past Anesthesia/Blood Transfusion Reactions: No Reported Reaction Past Psychological History: No Psychological Hx Reported Smoking Status: Former smoker Past Alcohol Use History: None Reported, Rare Past Drug Use History: None Reported - Past Family History Father Family Medical History: Cancer Additional Family Medical History / Comment(s): Patient has 2 brothers alive and doing fine. One sister of congestive heart failure. He is not and does not have any kids Mother Family Medical History: Cancer Additional Family Medical History / Comment(s): Mother had history of leukemia and is . Medications and Allergies Home Medications Medication Instructions Recorded Confirmed Type Levothyroxine Sodium [Synthroid] 25 mcg PO DAILY 03/06/15 02/12/18 History Lisinopril [Zestril] 2.5 mg PO HS 03/06/15 02/12/18 History Lovastatin [Mevacor] 20 mg PO HS 03/06/15 02/12/18 History Pantoprazole Sodium 40 mg PO DAILY 03/06/15 02/12/18 History Latanoprost Ophth [Xalatan 0.005%] 1 drop BOTH EYES HS 03/17/16 02/12/18 History Multivitamin with Iron 1 tab PO DAILY 07/16/16 02/12/18 History [Multivitamins with Iron] Ondansetron [Zofran] 4 mg PO Q8H 07/16/16 02/12/18 History Potassium Chloride [Klor-Con 10] 10 meq PO DAILY 08/18/16 02/12/18 History Furosemide [Lasix] 20 mg PO BID 11/09/17 02/12/18 History Aspirin EC [Ecotrin Low Dose] 81 mg PO DAILY #0 11/27/17 02/12/18 Rx Clopidogrel [Plavix] 75 mg PO DAILY #0 11/27/17 02/12/18 Rx Ferrous Sulfate [Iron (65 MG 325 mg PO W/LUNCH #30 tab 11/27/17 02/12/18 Rx Elemental)] Metoprolol Tartrate [Lopressor] 25 mg PO BID 02/12/18 02/12/18 History Allergies Allergy/AdvReac Type Severity Reaction Status Date / Time No Known Allergies Allergy Verified 02/12/18 14:16 Physical Exam Vitals: Vital Signs Temp Pulse Resp BP Pulse Ox 02/12/18 10:15 120 H 16 140/72 100 02/12/18 08:25 101.7 F H 124 H 24 170/96 89 L Intake and Output 02/11/18 02/12/18 02/12/18 22:59 06:59 14:59 Other: Weight 52.163 kg - Constitutional General appearance: cooperative, no acute distress - EENT Eyes: anicteric sclerae, EOMI, PERRLA, dentition normal ENT: NA/AT, normal oropharynx - Neck Neck: no lymphadenopathy, normal ROM, no other, no rigidity, no stridor, no thyromegaly - Respiratory Respiratory: bilateral: CTA, negative: diminished, dullness, rales - Cardiovascular Rhythm: regular Heart sounds: normal: S1, S2 Abnormal Heart Sounds: no systolic murmur, no diastolic murmur, no rub, no S3 Gallop, no S4 Gallop, no click, no other - Gastrointestinal General gastrointestinal: normal bowel sounds, soft - Integumentary Integumentary: normal - Neurologic Neurologic: CNII-XII intact - Musculoskeletal Musculoskeletal: strength equal bilaterally - Psychiatric Psychiatric: A&O x's 3, appropriate affect, intact judgment & insight Results CBC & Chem 7: 02/13/18 06:45 02/13/18 06:45 Labs: Abnormal Lab Results - Last 24 Hours (Table) 02/12/18 02/12/18 02/12/18 Range/Units 08:50 08:50 09:31 WBC 12.3 H (3.8-10.6) k/uL Neutrophils # 10.9 H (1.3-7.7) k/uL Lymphocytes # 0.8 L (1.0-4.8) k/uL APTT 18.2 L (22.0-30.0) sec Chloride (98-107) mmol/L Carbon Dioxide (22-30) mmol/L Glucose (74-99) mg/dL Plasma Lactic Acid Hiram 4.1 H* (0.7-2.0) mmol/L Magnesium (1.6-2.3) mg/dL Total Creatine Kinase (55-170) U/L Urine Protein (Negative) Urine Blood (Negative) Ur Leukocyte Esterase (Negative) Urine RBC (0-5) /hpf Urine WBC (0-5) /hpf Urine WBC Clumps (None) /hpf Urine Bacteria (None) /hpf Hyaline Casts (0-2) /lpf Urine Mucus (None) /hpf 02/12/18 02/12/18 02/12/18 Range/Units 09:31 09:31 10:00 WBC (3.8-10.6) k/uL Neutrophils # (1.3-7.7) k/uL Lymphocytes # (1.0-4.8) k/uL APTT (22.0-30.0) sec Chloride 108 H (98-107) mmol/L Carbon Dioxide 17 L (22-30) mmol/L Glucose 224 H (74-99) mg/dL Plasma Lactic Acid Hiram (0.7-2.0) mmol/L Magnesium 1.5 L (1.6-2.3) mg/dL Total Creatine Kinase 47 L (55-170) U/L Urine Protein 1+ H (Negative) Urine Blood Large H (Negative) Ur Leukocyte Esterase Large H (Negative) Urine RBC 87 H (0-5) /hpf Urine WBC >182 H (0-5) /hpf Urine WBC Clumps Few H (None) /hpf Urine Bacteria Occasional H (None) /hpf Hyaline Casts 4 H (0-2) /lpf Urine Mucus Occasional H (None) /hpf Thrombosis Risk Factor Assmnt - DVT/VTE Prophylaxis DVT/VTE Prophylaxis: Mechanical Prophylaxis ordered, Contraindicated - See note Assessment and Plan Plan: 1. Acute urinary tract infection with SIRS pyelonephritis, xrays possible pneumonia, clinically not highly suspicious for pneumonia, patient is on Rocephin IV 1 g every 24 hours along with Zithromax, which zpak can be discontinued, cultures from the blood in urine, we will need kidney ultrasound to evaluate for dronephrosis and kidney stones, 2. Chronic radiation proctitis, with recent endoscopy both upper scope and lower scope during his last admission November 2017, on both Plavix and aspirin, we will temporarily discontinue plavix and continue on aspirin. Metamucil started. if with enteritis, might need asacol, none currently needed 3. History of coronary artery disease status post CABG. Continue Plavix metoprolol 12.5 mg in the morning and 25 mg at bedtime, atorvastatin 10 mg daily. 4. Chronic blood loss anemia monitor hemoglobin, currently anemia has resolved at 13.8 hemoglobin on entry, 5. History of aortic bioprosthetic valve, stable 6 Mild metabolic acidosis, , possibly related to radiation enteritis fluid for hydration, patient might need surgical bicarb 7. Hypothyroidism. Continue levothyroxine 25 mg daily. 8. Benign prostatic hypertrophy. Continue Flomax or 0.5 mg daily. 9. Hypertension. Continue lisinopril 5 mg daily and Lopressor. 10. Hyperlipidemia. Continue Lipitor. dvt prophyalxis: mechanical, chronic blood losses thru lower gi gi prophylaxis pepcid or ppi
--- NOTE | 2018-02-13 15:01 | P.CNPUL ---
History of Present Illness Consult date: 02/13/18 Requesting physician: Roxanne Nicole Reason for consult: dyspnea, pneumonia, abnormal CXR/CT Chief complaint: Dyspnea, chest pain, fever, chills, cough History of present illness: Mr. Blake 72-year-old -Burmese male patient of Dr. Dennis, who presented to the emergency department on 02/12/2017 with complaints of dyspnea, chest pain, abdominal cramping, fever. In addition patient stated he had been having some blood-tinged bowel movements. Patient's fever was 101.7 in the emergency department. Chest x-ray in the ED showed increased interstitium, and increased perihilar attenuation. Pulse ox was 89% on room air in the ED, the patient was started on supplemental oxygen. She was started on empiric antibiotics in the form of Zithromax and Rocephin, nebulized bronchodilators. Initial lab work showed mild leukocytosis, WBC of 12.3, CO2 17, chloride is 108 , renal profile was within normal limits, lactic acid was 4.1, she was given a liter of IV fluid bolus, and lactic acid subsequently came down to 2.6. Urinalysis showed large amount of leukocyte esterase, bacteriurea and WBC. Blood, urine cultures were collected and sent, and are pending at this time, sputum culture was ordered, but has not been collected. Patient denied any urinary complaints. Past medical history is positive for prostate cancer status post radiation treatments, hypertension, hyperlipidemia, osteoarthritis, hypothyroidism, coronary artery disease status post carotid artery bypass grafting, history of bioprosthetic aortic valve replacement, paroxysmal atrial fibrillation, GI bleeding, scaly cardiomyopathy. Patient had a recent hospitalization for lower GI bleeding in November 2017 found to have radiation proctitis lower GI bleed. Today's chest x-ray has been reviewed by Dr. Dr. Ren and shows to show densities on the left and airspace opacity on the right mid to lower lung, small pleural effusions. We're asked to see the patient in consultation for right mid and lower lung pneumonia. Review of Systems All systems: negative Constitutional: Denies chills, Denies fever Eyes: denies blurred vision, denies pain Ears, nose, mouth and throat: Denies headache, Denies sore throat Cardiovascular: Denies chest pain, Denies shortness of breath Respiratory: Reports dyspnea, Denies cough Gastrointestinal: Denies abdominal pain, Denies diarrhea, Denies nausea, Denies vomiting Musculoskeletal: Denies myalgias Integumentary: Denies pruritus, Denies rash Neurological: Denies numbness, Denies weakness Psychiatric: Denies anxiety, Denies depression Endocrine: Denies fatigue, Denies weight change 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 History of Any Multi-Drug Resistant Organisms: None Reported Past Surgical History: Coronary Bypass/CABG Additional Past Surgical History / Comment(s): thyroid, 3 valve replacements stomach surgery unsure what kind Past Anesthesia/Blood Transfusion Reactions: No Reported Reaction Past Psychological History: No Psychological Hx Reported Smoking Status: Former smoker Past Alcohol Use History: None Reported, Rare Past Drug Use History: None Reported - Past Family History Father Family Medical History: Cancer Additional Family Medical History / Comment(s): Patient has 2 brothers alive and doing fine. One sister of congestive heart failure. He is not and does not have any kids Mother Family Medical History: Cancer Additional Family Medical History / Comment(s): Mother had history of leukemia and is . Medications and Allergies Home Medications Medication Instructions Recorded Confirmed Type Levothyroxine Sodium [Synthroid] 25 mcg PO DAILY 03/06/15 02/12/18 History Lisinopril [Zestril] 2.5 mg PO HS 03/06/15 02/12/18 History Lovastatin [Mevacor] 20 mg PO HS 03/06/15 02/12/18 History Pantoprazole Sodium 40 mg PO DAILY 03/06/15 02/12/18 History Latanoprost Ophth [Xalatan 0.005%] 1 drop BOTH EYES HS 03/17/16 02/12/18 History Multivitamin with Iron 1 tab PO DAILY 07/16/16 02/12/18 History [Multivitamins with Iron] Ondansetron [Zofran] 4 mg PO Q8H 07/16/16 02/12/18 History Potassium Chloride [Klor-Con 10] 10 meq PO DAILY 08/18/16 02/12/18 History Furosemide [Lasix] 20 mg PO BID 11/09/17 02/12/18 History Aspirin EC [Ecotrin Low Dose] 81 mg PO DAILY #0 11/27/17 02/12/18 Rx Clopidogrel [Plavix] 75 mg PO DAILY #0 11/27/17 02/12/18 Rx Ferrous Sulfate [Iron (65 MG 325 mg PO W/LUNCH #30 tab 11/27/17 02/12/18 Rx Elemental)] Metoprolol Tartrate [Lopressor] 25 mg PO BID 02/12/18 02/12/18 History Allergies Allergy/AdvReac Type Severity Reaction Status Date / Time No Known Allergies Allergy Verified 02/12/18 14:16 Physical Exam Vitals: Vital Signs Temp Pulse Pulse Resp BP BP Pulse Ox 02/13/18 11:26 91 16 02/13/18 11:17 90 16 02/13/18 08:09 92 16 02/13/18 07:58 97 16 94 L 02/13/18 06:05 98.9 F 113 H 16 95/52 92 L 02/12/18 22:50 97.9 F 98 16 111/78 99 02/12/18 20:06 98 02/12/18 19:56 98 02/12/18 16:07 98 02/12/18 16:00 98 02/12/18 15:38 98.5 F 105 H 20 128/65 97 02/12/18 15:17 95 16 100/70 99 Intake and Output 02/12/18 02/13/18 02/13/18 22:59 06:59 14:59 Intake Total 240 Output Total 150 400 3 Balance 90 -400 -3 Intake: Oral 240 Output: Urine 150 400 3 Other: Voiding Method Toilet Toilet # Voids 1 2 GENERAL EXAM: Alert, pleasant, 72-year-old Burmese male comfortable in no apparent distress. HEAD: Normocephalic/atraumatic. EYES: Normal reaction of pupils, equal size. Conjunctiva pink, sclera white. NOSE: Clear with pink turbinates. THROAT: No erythema or exudates. NECK: No masses, no JVD, no thyroid enlargement, no adenopathy. CHEST: No chest wall deformity. Symmetrical expansion. LUNGS: Diminished breath sounds at bases CVS: Regular rate and rhythm, normal S1 and S2, no gallops, no murmurs, no rubs ABDOMEN: Soft, nontender. No hepatosplenomegaly, normal bowel sounds, no guarding or rigidity. EXTREMITIES: No clubbing, no edema, no cyanosis, 2+ pulses and upper and lower extremities. MUSCULOSKELETAL: Muscle strength and tone normal. SPINE: No scoliosis or deformity SKIN: No rashes CENTRAL NERVOUS SYSTEM: Alert and oriented -3. No focal deficits, tone is normal in all 4 extremities. PSYCHIATRIC: Alert and oriented -3. Appropriate affect. Intact judgment and insight. Results - Laboratory Findings CBC and BMP: 02/13/18 06:45 02/13/18 06:45 PT/INR, D-dimer PT 10.8 sec (9.0-12.0) 02/12/18 08:50 INR 1.1 (<1.2) 02/12/18 08:50 Abnormal lab findings: Abnormal Labs 02/12/18 02/12/18 02/12/18 08:50 08:50 09:31 WBC 12.3 H Hgb Hct MCHC Plt Count Neutrophils # 10.9 H Lymphocytes # 0.8 L APTT 18.2 L Chloride Carbon Dioxide Glucose Plasma Lactic Acid Hiram 4.1 H* Magnesium Total Creatine Kinase Total Protein Albumin Urine Protein Urine Blood Ur Leukocyte Esterase Urine RBC Urine WBC Urine WBC Clumps Urine Bacteria Hyaline Casts Urine Mucus 02/12/18 02/12/18 02/12/18 09:31 09:31 10:00 WBC Hgb Hct MCHC Plt Count Neutrophils # Lymphocytes # APTT Chloride 108 H Carbon Dioxide 17 L Glucose 224 H Plasma Lactic Acid Hiram Magnesium 1.5 L Total Creatine Kinase 47 L Total Protein Albumin Urine Protein 1+ H Urine Blood Large H Ur Leukocyte Esterase Large H Urine RBC 87 H Urine WBC >182 H Urine WBC Clumps Few H Urine Bacteria Occasional H Hyaline Casts 4 H Urine Mucus Occasional H 02/12/18 02/13/18 02/13/18 14:00 06:45 06:45 WBC 15.2 H Hgb 11.6 L Hct 37.6 L MCHC 30.8 L Plt Count 147 L Neutrophils # 13.5 H Lymphocytes # 0.8 L APTT Chloride Carbon Dioxide Glucose 103 H Plasma Lactic Acid Hiram 2.6 H* Magnesium Total Creatine Kinase Total Protein 6.2 L Albumin 3.4 L Urine Protein Urine Blood Ur Leukocyte Esterase Urine RBC Urine WBC Urine WBC Clumps Urine Bacteria Hyaline Casts Urine Mucus - Diagnostic Findings Chest x-ray: report reviewed, image reviewed CT scan - chest: report reviewed, image reviewed Additional studies: EKG reviewed Assessment and Plan Plan: Assessment: #1. Acute hypoxic respiratory failure secondary to right mid and lower lung pneumonia, community-acquired #2. Lactic acidosis, secondary to sepsis, possibly related to urinary tract infection and right lung pneumonia #3. Dyspnea, fever, chest pain, related to above, #4. Chronic radiation proctitis #5. Paroxysmal A. fib, patient is on aspirin for anticoagulation in view of his recent history of GI bleeding #6. Disease, status post coronary artery bypass graft #7. Ischemic cardiomyopathy #8. History of aortic valve replacement with bioprosthetic valve #9. Prostate cancer status post radiation treatment #10. Hypertension, hyperlipidemia Plan: Continue current antibiotic coverage, will await final cultures. Continue nebulized bronchodilators, continue IV diuretics, today's chest x-ray shows slight improvement in aeration of the right lung, suggesting combination of fluid overload in addition to the pneumonia. Monitor labs, monitor fever. We' ll continue to follow I performed a history & physical examination of the patient and discussed their management with my nurse practitioner, Chasity Nieves. I reviewed the nurse practitioner's note and agree with the documented findings and plan of care. Lung sounds are diminished at the bases particularly over right lower lobe. The findings and the impression was discussed with the patient. I attest to the documentation by the nurse practitioner. Time with Patient: Greater than 30
[2018-02-13] MEDS: ATORVASTATIN 10 MG TAB PO SCH (21:56)
[2018-02-13] MEDS: LATANOPROST 0.005% OPHTH DROPS 2.5 ML BTL BOTH EYES SCH (21:57)
[2018-02-13] MEDS: LISINOPRIL 2.5 MG TAB PO SCH (21:57)
[2018-02-13] MEDS: ACETAMINOPHEN TAB 500 MG TAB PO PRN (22:55)
[2018-02-14] MEDS: ONDANSETRON 4 MG TAB PO SCH ×3 (02:26→20:08)
[2018-02-14] MEDS: SODIUM CHLORIDE 0.9% 1,000 ML IV SCH ×3 (03:11→22:41)
[2018-02-14] MEDS: LEVOTHYROXINE 25 MCG TAB PO SCH (05:17)
[2018-02-14] MEDS: ALBUTEROL NEBULIZED 2.5 MG/3 ML INHALATION SCH ×4 (07:00→19:12)
[2018-02-14] MEDS: cefTRIAXone IN SWFI 1,000 MG/10 ML SYRINGE IVP SCH (07:39)
[2018-02-14] MEDS: METOPROLOL TARTRATE 25 MG TAB PO SCH ×2 (07:40→20:07)
[2018-02-14] MEDS: FUROSEMIDE 10 MG/ML 4 ML VIAL IV SCH (07:40)
[2018-02-14] MEDS: PANTOPRAZOLE 40 MG TABLET PO SCH (07:40)
[2018-02-14 08:27] LABS: Basophils % (A) 0 %; Eosinophils # (A) 0.1 k/uL (0-0.7); Eosinophils % (A) 1 %; HCT 38.8 % (39.0-53.0); HGB 12.1 gm/dL (13.0-17.5); Hypochromasia Slight; Lymphocytes # (A) 0.8 k/uL (1.0-4.8); Lymphocytes % (A) 6 %; MCH 26.9 pg (25.0-35.0); MCHC 31.3 g/dL (31.0-37.0); Mean Platelet Volume 8.9; Monocytes # (A) 0.8 k/uL (0-1.0); Monocytes % (A) 6 %; Neutrophils # (A) 11.8 k/uL (1.3-7.7); Neutrophils % (A) 86 %; Platelet Count 148 k/uL (150-450); RBC 4.51 m/uL (4.30-5.90); RDW 14.1 % (11.5-15.5); WBC 13.7 k/uL (3.8-10.6)
[2018-02-14 08:47] LABS: ALT 24 U/L (21-72); AST 28 U/L (17-59); Albumin 3.6 g/dL (3.5-5.0); Alkaline Phosphatase 79 U/L (38-126); Anion Gap 14 mmol/L; Blood Urea Nitrogen 14 mg/dL (9-20); Calcium 8.7 mg/dL (8.4-10.2); Carbon Dioxide 25 mmol/L (22-30); Chloride 103 mmol/L (98-107); Glucose 93 mg/dL (74-99); Potassium 4.1 mmol/L (3.5-5.1); Sodium 142 mmol/L (137-145); Total Bilirubin 1.3 mg/dL (0.2-1.3); Total Protein 6.6 g/dL (6.3-8.2)
[2018-02-14] MEDS ORDERED: ASPIRIN 81 MG PO SCH (09:00)
--- NOTE | 2018-02-14 10:30 | P.PN ---
Subjective Progress Note Date: 02/14/18 Principal diagnosis: Acute hypoxic respiratory failure secondary to right middle and lower lobe pneumonia, community-acquired Mr. Blake 72-year-old -[place] male patient of Dr. Dennis, who presented to the emergency department on 02/12/2017 with complaints of dyspnea, chest pain, abdominal cramping, fever. In addition patient stated he had been having some blood-tinged bowel movements. Patient's fever was 101.7 in the emergency department. Chest x-ray in the ED showed increased interstitium, and increased perihilar attenuation. Pulse ox was 89% on room air in the ED, the patient was started on supplemental oxygen. She was started on empiric antibiotics in the form of Zithromax and Rocephin, nebulized bronchodilators. Initial lab work showed mild leukocytosis, WBC of 12.3, CO2 17, chloride is 108 , renal profile was within normal limits, lactic acid was 4.1, she was given a liter of IV fluid bolus, and lactic acid subsequently came down to 2.6. Urinalysis showed large amount of leukocyte esterase, bacteriurea and WBC. Blood, urine cultures were collected and sent, and are pending at this time, sputum culture was ordered, but has not been collected. Patient denied any urinary complaints. Past medical history is positive for prostate cancer status post radiation treatments, hypertension, hyperlipidemia, osteoarthritis, hypothyroidism, coronary artery disease status post carotid artery bypass grafting, history of bioprosthetic aortic valve replacement, paroxysmal atrial fibrillation, GI bleeding, scaly cardiomyopathy. Patient had a recent hospitalization for lower GI bleeding in November 2017 found to have radiation proctitis lower GI bleed. Today's chest x-ray has been reviewed by Dr. Dr. Ren and shows to show densities on the left and airspace opacity on the right mid to lower lung, small pleural effusions. We're asked to see the patient in consultation for right mid and lower lung pneumonia. On 02/14/2018 patient seen in follow-up on medical surgical floor. Denies any worsening dyspnea, continues to diurese, room air pulse ox is 95%. Patient is hemodynamically stable, was febrile last night with a T-max of 101.6F. No sputum production, he was cultures positive for aerococcus urinae. Patient is on Rocephin. Today's labs were reviewed, WBC is trending down, down to 13.7 and today's labs. Electrolytes and renal profile are all within normal limits. Objective - Vital Signs Vital signs: Vital Signs Temp 98.9 F 02/14/18 05:30 Pulse 98 02/14/18 07:11 Resp 16 02/14/18 05:30 BP 117/67 02/14/18 05:30 Pulse Ox 94 L 02/14/18 07:03 Intake & Output 02/13/18 02/14/18 02/14/18 18:59 06:59 18:59 Intake Total 240 Output Total 3 300 Balance -3 -300 240 Intake: Oral 240 Output: Urine 3 300 Other: Voiding Method Toilet # Voids 0 # Bowel Movements 1 - Exam GENERAL EXAM: Alert, pleasant, 72-year-old [place] male comfortable in no apparent distress. HEAD: Normocephalic/atraumatic. EYES: Normal reaction of pupils, equal size. Conjunctiva pink, sclera white. NOSE: Clear with pink turbinates. THROAT: No erythema or exudates. NECK: No masses, no JVD, no thyroid enlargement, no adenopathy. CHEST: No chest wall deformity. Symmetrical expansion. LUNGS: Diminished breath sounds at bases CVS: Regular rate and rhythm, normal S1 and S2, no gallops, no murmurs, no rubs ABDOMEN: Soft, nontender. No hepatosplenomegaly, normal bowel sounds, no guarding or rigidity. EXTREMITIES: No clubbing, no edema, no cyanosis, 2+ pulses and upper and lower extremities. MUSCULOSKELETAL: Muscle strength and tone normal. SPINE: No scoliosis or deformity SKIN: No rashes CENTRAL NERVOUS SYSTEM: Alert and oriented -3. No focal deficits, tone is normal in all 4 extremities. PSYCHIATRIC: Alert and oriented -3. Appropriate affect. Intact judgment and insight. - Labs CBC & Chem 7: 02/14/18 07:28 02/14/18 07:28 Labs: Abnormal Lab Results - Last 24 Hours (Table) 02/13/18 02/14/18 Range/Units 22:12 07:28 WBC 13.7 H (3.8-10.6) k/uL Hgb 12.1 L (13.0-17.5) gm/dL Hct 38.8 L (39.0-53.0) % Plt Count 148 L (150-450) k/uL Neutrophils # 11.8 H (1.3-7.7) k/uL Lymphocytes # 0.8 L (1.0-4.8) k/uL Plasma Lactic Acid Hiram 2.7 H* (0.7-2.0) mmol/L Microbiology - Last 24 Hours (Table) 02/12/18 10:00 Urine Culture - Final Urine,Voided Aerococcus urinae 02/12/18 08:50 Blood Culture - Preliminary Blood No Growth after 24 hours Assessment and Plan Plan: Assessment: #1. Acute hypoxic respiratory failure secondary to right mid and lower lung pneumonia, community-acquired #2. Lactic acidosis, secondary to sepsis, possibly related to urinary tract infection and right lung pneumonia #3. Dyspnea, fever, chest pain, related to above, #4. Chronic radiation proctitis #5. Paroxysmal A. fib, patient is on aspirin for anticoagulation in view of his recent history of GI bleeding #6. Disease, status post coronary artery bypass graft #7. Ischemic cardiomyopathy #8. History of aortic valve replacement with bioprosthetic valve #9. Prostate cancer status post radiation treatment #10. Hypertension, hyperlipidemia Plan: Continue current antibiotic coverage, await final sensitivities screen. We will switch IV Lasix to oral. We'll obtain a follow-up chest x-ray tomorrow morning. Continue bronchodilators. I performed a history & physical examination of the patient and discussed their management with my nurse practitioner, Chasity Nieves. I reviewed the nurse practitioner's note and agree with the documented findings and plan of care. Lung sounds are diminished at the bases particularly over right lower lobe. The findings and the impression was discussed with the patient. I attest to the documentation by the nurse practitioner. Time with Patient: Less than 30
[2018-02-14 11:12] VITALS: BMI 19.1
[2018-02-14] MEDS: MULTIVITAMINS, THERA 1 EACH TAB PO SCH (11:33)
--- NOTE | 2018-02-14 13:09 | P.PN ---
Subjective 72 years old pleasant gentleman patient of. of Dr. Kohler underlying history of hyperlipidemia, hypertension, hypothyroidism, history of recent prostate cancer status post radiation History of coronary artery disease status artery artery bypass, history of bioprosthetic valve paroxysmal atrial fibrillation hypothyroidism cardiomyopathy EF 45%. Congestive heart failure, radiation proctitis with acute on chronic blood loss anemia, colonoscopy last November 2017 confirming radiation proctitis He presented to emergency room after he complained of shortness of breath, difficulty breathing, pleurisy, fever of 101 no chills, patient has slightly nonproductive minimal cough, patient also noted that he had bright red blood streaks however with his hemorrhoids, he had hemorrhoid surgery last October 2017 , no abominal cramps, no diarrhea no motor or sensory changes, no lightheadedness, no syncope. No hematuria but has dysuria and urine frequence. x-rays shows COPD changes, thickening of the fissure again seen, was compression deformity at the lower thoracic spine, findings that can represent congestive heart Rate failure, correlate for possible pneumonia with interval development of perihilar increased attenuation. No pleural effusion. EKG shows PVCs normal sinus rhythm sinus tachycardia heart rate of 129, urinalysis significant for urinary tract infection urine wBC over 180 02/14: Patient evaluated today. States he had two bowel movements yesterday noticed some bright red blood in his stools. Aspirin was held, GI consult placed, hemoglobin stable at 12.1. White count trending downwards 13.7, lactic acid 0.9. Patient had a temperature of 101.6 last night. He continues on Rocephin, urine culture positive for aeroccus urinae, blood cultures show no growth to date. Objective - Vital Signs Vital signs: Vital Signs Temp 98.9 F 02/14/18 05:30 Pulse 98 02/14/18 07:11 Resp 16 02/14/18 05:30 BP 117/67 02/14/18 05:30 Pulse Ox 94 L 02/14/18 07:03 Intake & Output 02/13/18 02/14/18 02/14/18 18:59 06:59 18:59 Intake Total 240 Output Total 3 300 Balance -3 -300 240 Intake: Oral 240 Output: Urine 3 300 Other: Voiding Method Toilet # Voids 0 # Bowel Movements 1 - Exam - Constitutional General appearance: cooperative, no acute distress - EENT Eyes: anicteric sclerae, EOMI, PERRLA, dentition normal ENT: NA/AT, normal oropharynx - Neck Neck: no lymphadenopathy, normal ROM, no other, no rigidity, no stridor, no thyromegaly - Respiratory Respiratory: bilateral: CTA, negative: diminished, dullness, rales - Cardiovascular Rhythm: regular Heart sounds: normal: S1, S2 Abnormal Heart Sounds: no systolic murmur, no diastolic murmur, no rub, no S3 Gallop, no S4 Gallop, no click, no other - Gastrointestinal General gastrointestinal: normal bowel sounds, soft - Integumentary Integumentary: normal - Neurologic Neurologic: CNII-XII intact - Musculoskeletal Musculoskeletal: strength equal bilaterally - Psychiatric Psychiatric: A&O x's 3, appropriate affect, intact judgment & insight - Labs CBC & Chem 7: 02/14/18 07:28 02/14/18 07:28 Labs: Abnormal Lab Results - Last 24 Hours (Table) 02/13/18 02/14/18 Range/Units 22:12 07:28 WBC 13.7 H (3.8-10.6) k/uL Hgb 12.1 L (13.0-17.5) gm/dL Hct 38.8 L (39.0-53.0) % Plt Count 148 L (150-450) k/uL Neutrophils # 11.8 H (1.3-7.7) k/uL Lymphocytes # 0.8 L (1.0-4.8) k/uL Plasma Lactic Acid Hiram 2.7 H* (0.7-2.0) mmol/L Microbiology - Last 24 Hours (Table) 02/12/18 10:00 Urine Culture - Final Urine,Voided Aerococcus urinae 02/12/18 08:50 Blood Culture - Preliminary Blood No Growth after 24 hours Assessment and Plan Plan: 1. Acute urinary tract infection with SIRS pyelonephritis, xrays possible pneumonia, clinically not highly suspicious for pneumonia, patient is on Rocephin IV 1 g every 24 hours along with Zithromax, which zpak can be discontinued, cultures from the blood in urine, we will need kidney ultrasound to evaluate for hydronephrosis and kidney stones. 2. Chronic radiation proctitis, with recent endoscopy both upper scope and lower scope during his last admission November 2017, on both Plavix and aspirin, we will temporarily discontinue plavix and continue on aspirin. Metamucil started, if with enteritis, might need asacol, none currently needed, GI consulted 3. History of coronary artery disease status post CABG. metoprolol 12.5 mg in the morning and 25 mg at bedtime, atorvastatin 10 mg daily. 4. Chronic blood loss anemia monitor hemoglobin, currently anemia has resolved at 13.8 hemoglobin on entry. 5. History of aortic bioprosthetic valve, stable 6 Mild metabolic acidosis, , possibly related to radiation enteritis fluid for hydration, patient might need surgical bicarb 7. Hypothyroidism. Continue levothyroxine 25 mg daily. 8. Benign prostatic hypertrophy. Continue Flomax or 0.5 mg daily. 9. Hypertension. Continue lisinopril 5 mg daily and Lopressor. 10. Hyperlipidemia. Continue Lipitor. dvt prophyalxis: mechanical, chronic blood losses thru lower gi gi prophylaxis pepcid or ppi The above impression and plan of care have been discussed and directed by signing physician. Hilda Ball nurse practitioner acting as scribe for signing physician.
[2018-02-14] MEDS ORDERED: ACETAMINOPHEN TAB 500 MG TAB ONE (16:00)
[2018-02-14] MEDS ORDERED: FUROSEMIDE 40 MG TAB ONE (16:00)
[2018-02-14] MEDS: FUROSEMIDE 40 MG TAB PO SCH (17:36)
[2018-02-14] MEDS: LATANOPROST 0.005% OPHTH DROPS 2.5 ML BTL BOTH EYES SCH (20:04)
[2018-02-14] MEDS: LISINOPRIL 2.5 MG TAB PO SCH (20:05)
[2018-02-14] MEDS: ATORVASTATIN 10 MG TAB PO SCH (20:08)
[2018-02-14] MEDS: ACETAMINOPHEN TAB 500 MG TAB PO PRN (22:41)
[2018-02-15] MEDS: ONDANSETRON 4 MG TAB PO SCH ×3 (04:25→18:10)
[2018-02-15] MEDS: LEVOTHYROXINE 25 MCG TAB PO SCH (06:17)
[2018-02-15] MEDS: ALBUTEROL NEBULIZED 2.5 MG/3 ML INHALATION SCH ×4 (07:15→19:10)
[2018-02-15] MEDS: cefTRIAXone IN SWFI 1,000 MG/10 ML SYRINGE IVP SCH (07:58)
[2018-02-15] MEDS: PANTOPRAZOLE 40 MG TABLET PO SCH (07:58)
[2018-02-15] MEDS: FUROSEMIDE 40 MG TAB PO SCH ×2 (07:58→18:06)
[2018-02-15] MEDS: METOPROLOL TARTRATE 25 MG TAB PO SCH ×2 (07:58→20:19)
[2018-02-15 08:18] LABS: Basophils % (A) 0 %; Eosinophils # (A) 0.3 k/uL (0-0.7); Eosinophils % (A) 2 %; HCT 37.7 % (39.0-53.0); HGB 12.1 gm/dL (13.0-17.5); Lymphocytes # (A) 0.9 k/uL (1.0-4.8); Lymphocytes % (A) 6 %; MCV 84.4 fL (80.0-100.0); Mean Platelet Volume 9.4; Monocytes # (A) 0.7 k/uL (0-1.0); Monocytes % (A) 5 %; Neutrophils # (A) 11.9 k/uL (1.3-7.7); Neutrophils % (A) 85 %; Platelet Count 161 k/uL (150-450); RBC 4.47 m/uL (4.30-5.90); RDW 13.8 % (11.5-15.5)
--- NOTE | 2018-02-15 10:21 | P.PN ---
Subjective Progress Note Date: 02/15/18 Principal diagnosis: Acute hypoxic respiratory failure secondary to right middle and lower lobe pneumonia, community-acquired Mr. Blake 72-year-old -[place] male patient of Dr. Dennis, who presented to the emergency department on 02/12/2017 with complaints of dyspnea, chest pain, abdominal cramping, fever. In addition patient stated he had been having some blood-tinged bowel movements. Patient's fever was 101.7 in the emergency department. Chest x-ray in the ED showed increased interstitium, and increased perihilar attenuation. Pulse ox was 89% on room air in the ED, the patient was started on supplemental oxygen. She was started on empiric antibiotics in the form of Zithromax and Rocephin, nebulized bronchodilators. Initial lab work showed mild leukocytosis, WBC of 12.3, CO2 17, chloride is 108 , renal profile was within normal limits, lactic acid was 4.1, she was given a liter of IV fluid bolus, and lactic acid subsequently came down to 2.6. Urinalysis showed large amount of leukocyte esterase, bacteriurea and WBC. Blood, urine cultures were collected and sent, and are pending at this time, sputum culture was ordered, but has not been collected. Patient denied any urinary complaints. Past medical history is positive for prostate cancer status post radiation treatments, hypertension, hyperlipidemia, osteoarthritis, hypothyroidism, coronary artery disease status post carotid artery bypass grafting, history of bioprosthetic aortic valve replacement, paroxysmal atrial fibrillation, GI bleeding, scaly cardiomyopathy. Patient had a recent hospitalization for lower GI bleeding in November 2017 found to have radiation proctitis lower GI bleed. Today's chest x-ray has been reviewed by Dr. Dr. Ren and shows to show densities on the left and airspace opacity on the right mid to lower lung, small pleural effusions. We're asked to see the patient in consultation for right mid and lower lung pneumonia. On 02/14/2018 patient seen in follow-up on medical surgical floor. Denies any worsening dyspnea, continues to diurese, room air pulse ox is 95%. Patient is hemodynamically stable, was febrile last night with a T-max of 101.6F. No sputum production, he was cultures positive for aerococcus urinae. Patient is on Rocephin. Today's labs were reviewed, WBC is trending down, down to 13.7 and today's labs. Electrolytes and renal profile are all within normal limits. The patient is seen again today 02/15/2018 in follow-up on the regular medical floor. He is currently awake and alert in no acute distress. He is breathing easier today as compared to yesterday. He is maintaining good O2 saturations in the 90s on room air. She's been afebrile. Hemodynamically stable. Blood cultures reveal no growth. White count 14.0. Hemoglobin 12.1. Objective - Vital Signs Vital signs: Vital Signs Temp 98.9 F 02/15/18 05:59 Pulse 100 02/15/18 07:25 Resp 17 02/15/18 05:59 BP 129/75 02/15/18 05:59 Pulse Ox 95 02/15/18 07:15 Intake & Output 02/14/18 02/15/18 02/15/18 18:59 06:59 18:59 Intake Total 720 Output Total 200 150 Balance 520 -150 Weight 52.163 kg Intake: Oral 720 Output: Urine 200 150 Other: Voiding Method Toilet Urinal # Voids 3 1 # Bowel Movements 2 - Exam GENERAL EXAM: Alert, pleasant, 72-year-old [place] male comfortable in no apparent distress. HEAD: Normocephalic/atraumatic. EYES: Normal reaction of pupils, equal size. Conjunctiva pink, sclera white. NOSE: Clear with pink turbinates. THROAT: No erythema or exudates. NECK: No masses, no JVD, no thyroid enlargement, no adenopathy. CHEST: No chest wall deformity. Symmetrical expansion. LUNGS: Diminished breath sounds at bases CVS: Regular rate and rhythm, normal S1 and S2, no gallops, no murmurs, no rubs ABDOMEN: Soft, nontender. No hepatosplenomegaly, normal bowel sounds, no guarding or rigidity. EXTREMITIES: No clubbing, no edema, no cyanosis, 2+ pulses and upper and lower extremities. MUSCULOSKELETAL: Muscle strength and tone normal. SPINE: No scoliosis or deformity SKIN: No rashes CENTRAL NERVOUS SYSTEM: Alert and oriented -3. No focal deficits, tone is normal in all 4 extremities. PSYCHIATRIC: Alert and oriented -3. Appropriate affect. Intact judgment and insight. - Labs CBC & Chem 7: 02/15/18 07:51 02/14/18 07:28 Labs: Abnormal Lab Results - Last 24 Hours (Table) 02/15/18 Range/Units 07:51 WBC 14.0 H (3.8-10.6) k/uL Hgb 12.1 L (13.0-17.5) gm/dL Hct 37.7 L (39.0-53.0) % Neutrophils # 11.9 H (1.3-7.7) k/uL Lymphocytes # 0.9 L (1.0-4.8) k/uL Microbiology - Last 24 Hours (Table) 02/13/18 22:21 Blood Culture - Preliminary Blood No Growth after 24 hours 02/12/18 08:50 Blood Culture - Preliminary Blood No Growth after 48 hours Assessment and Plan Assessment: Assessment: #1. Acute hypoxic respiratory failure secondary to right mid and lower lung pneumonia, community-acquired #2. Lactic acidosis, secondary to sepsis, possibly related to urinary tract infection and right lung pneumonia #3. Dyspnea, fever, chest pain, related to above, #4. Chronic radiation proctitis #5. Paroxysmal A. fib, patient is on aspirin for anticoagulation in view of his recent history of GI bleeding #6. Disease, status post coronary artery bypass graft #7. Ischemic cardiomyopathy #8. History of aortic valve replacement with bioprosthetic valve #9. Prostate cancer status post radiation treatment #10. Hypertension, hyperlipidemia Plan: The patient was seen and evaluated by Dr. Ren. He is stable and cleared for discharge from the pulmonary standpoint. Continue oral diuretics. Complete course of prednisone burst and taper. Complete course of antibiotics. He will follow-up in our office in 1-2 weeks' time. I, the cosigning physician, performed a history & physical examination of the patient. Lungs sounds with faint crackles in the right posterior base.. Maintaining good O2 saturations in the 90s on room air. I discussed the assessment and plan of care with my nurse practitioner, Emmy Jones. I attest to the above note as dictated by her.
[2018-02-15] MEDS: PIPERACILLIN-TAZOBACTAM 3.375 GM in DEXTROSE/WATER 1 50ML.BAG IVPB SCH ×3 (12:36→23:05)
[2018-02-15] MEDS: MULTIVITAMINS, THERA 1 EACH TAB PO SCH (12:37)
[2018-02-15] MEDS: SODIUM CHLORIDE 0.9% 1,000 ML IV SCH ×2 (12:37→18:11)
--- NOTE | 2018-02-15 13:00 | XR ---
EXAMINATION TYPE: XR chest 2V DATE OF EXAM: 02/15/2018 COMPARISON: Prior chest x-ray 02/13/2018 HISTORY: Pneumonia TECHNIQUE: Frontal and lateral views of the chest are obtained. FINDINGS: There are similar findings to previous exam. Blunting of the posterior costophrenic angles noted. Wedge compression deformity at the lower thoracic spine again noted. IMPRESSION: Findings are similar, correlate for congestive heart failure, pneumonia, there may be as sociated effusion. Follow-up recommended.
--- NOTE | 2018-02-15 16:08 | P.PN ---
Subjective Progress Note Date: 02/15/18 72 years old pleasant gentleman patient of. of Dr. Kohler underlying history of hyperlipidemia, hypertension, hypothyroidism, history of recent prostate cancer status post radiation History of coronary artery disease status artery artery bypass, history of bioprosthetic valve paroxysmal atrial fibrillation hypothyroidism cardiomyopathy EF 45%. Congestive heart failure, radiation proctitis with acute on chronic blood loss anemia, colonoscopy last November 2017 confirming radiation proctitis He presented to emergency room after he complained of shortness of breath, difficulty breathing, pleurisy, fever of 101 no chills, patient has slightly nonproductive minimal cough, patient also noted that he had bright red blood streaks however with his hemorrhoids, he had hemorrhoid surgery last October 2017 , no abominal cramps, no diarrhea no motor or sensory changes, no lightheadedness, no syncope. No hematuria but has dysuria and urine frequence. x-rays shows COPD changes, thickening of the fissure again seen, was compression deformity at the lower thoracic spine, findings that can represent congestive heart Rate failure, correlate for possible pneumonia with interval development of perihilar increased attenuation. No pleural effusion. EKG shows PVCs normal sinus rhythm sinus tachycardia heart rate of 129, urinalysis significant for urinary tract infection urine wBC over 180 02/14: Patient evaluated today. States he had two bowel movements yesterday noticed some bright red blood in his stools. Aspirin was held, GI consult placed, hemoglobin stable at 12.1. White count trending downwards 13.7, lactic acid 0.9. Patient had a temperature of 101.6 last night. He continues on Rocephin, urine culture positive for aeroccus urinae, blood cultures show no growth to date. 02/15, patient still remains to be febrile intermittently over the past 24 hours, aerococcus does not have any sensitivities at all, we called the lab, also with small nephrolithiasis, possibility off infected struvite stone, patient would be consulted our the infectious disease doctor see, antibiotic changed to IV Zosyn secondary to non-response to Rocephin. Objective - Vital Signs Vital signs: Vital Signs Temp 98.9 F 02/15/18 05:59 Pulse 100 02/15/18 07:25 Resp 17 02/15/18 05:59 BP 129/75 02/15/18 05:59 Pulse Ox 95 02/15/18 07:15 Intake & Output 02/14/18 02/15/18 02/15/18 18:59 06:59 18:59 Intake Total 720 240 Output Total 200 150 Balance 520 -150 240 Weight 52.163 kg Intake: Oral 720 240 Output: Urine 200 150 Other: Voiding Method Toilet Urinal # Voids 3 1 # Bowel Movements 2 - Constitutional General appearance: Present: cooperative, no acute distress - EENT Eyes: Present: anicteric sclerae, EOMI, normal appearance ENT: Present: hard of hearing, NA/AT - Neck Neck: Present: normal ROM - Respiratory Respiratory: bilateral: CTA, negative: diminished, dullness, rales - Cardiovascular Rhythm: regular Heart sounds: normal: S1, S2 Abnormal Heart Sounds: Absent: systolic murmur, diastolic murmur, rub, S3 Gallop , S4 Gallop, click, other - Gastrointestinal General gastrointestinal: Present: normal bowel sounds, soft - Integumentary Integumentary: Present: decreased turgor, normal - Neurologic Neurologic: Present: CNII-XII intact - Musculoskeletal Musculoskeletal: Present: gait normal - Psychiatric Psychiatric: Present: A&O x's 3, intact judgment & insight - Labs CBC & Chem 7: 02/15/18 07:51 02/14/18 07:28 Labs: Abnormal Lab Results - Last 24 Hours (Table) 02/15/18 Range/Units 07:51 WBC 14.0 H (3.8-10.6) k/uL Hgb 12.1 L (13.0-17.5) gm/dL Hct 37.7 L (39.0-53.0) % Neutrophils # 11.9 H (1.3-7.7) k/uL Lymphocytes # 0.9 L (1.0-4.8) k/uL Microbiology - Last 24 Hours (Table) 02/13/18 22:21 Blood Culture - Preliminary Blood No Growth after 24 hours 02/12/18 08:50 Blood Culture - Preliminary Blood No Growth after 48 hours Assessment and Plan Plan: 1. Acute urinary tract infection with SIRS pyelonephritis, xrays possible pneumonia, clinically not highly suspicious for pneumonia, patient is on Rocephin IV 1 g every 24 hours along with Zithromax, which zpak can be discontinued, cultures from the blood in urine, we will need kidney ultrasound to evaluate for hydronephrosis and kidney stones. 2. Chronic radiation proctitis, with recent endoscopy both upper scope and lower scope during his last admission November 2017, on both Plavix and aspirin, we will temporarily discontinue plavix and continue on aspirin. Metamucil started, if with enteritis, might need asacol, none currently needed, GI consulted 3. History of coronary artery disease status post CABG. metoprolol 12.5 mg in the morning and 25 mg at bedtime, atorvastatin 10 mg daily. 4. Chronic blood loss anemia monitor hemoglobin, currently anemia has resolved at 13.8 hemoglobin on entry. 5. History of aortic bioprosthetic valve, stable 6 Mild metabolic acidosis, , possibly related to radiation enteritis fluid for hydration, patient might need surgical bicarb 7. Hypothyroidism. Continue levothyroxine 25 mg daily. 8. Benign prostatic hypertrophy. Continue Flomax or 0.5 mg daily. 9. Hypertension. Continue lisinopril 5 mg daily and Lopressor. 10. Hyperlipidemia. Continue Lipitor. dvt prophyalxis: mechanical, chronic blood losses thru lower gi gi prophylaxis pepcid or ppi
[2018-02-15] MEDS: LISINOPRIL 2.5 MG TAB PO SCH (20:19)
[2018-02-15] MEDS: LATANOPROST 0.005% OPHTH DROPS 2.5 ML BTL BOTH EYES SCH (20:20)
[2018-02-15] MEDS: ATORVASTATIN 10 MG TAB PO SCH (20:20)
[2018-02-15 22:55] VITALS: RESP 16
[2018-02-15] MEDS: ACETAMINOPHEN TAB 500 MG TAB PO PRN (23:20)
[2018-02-16] MEDS: AMPICILLIN-SULBACTAM 3 GM in SODIUM CHLORIDE 0.9% 100 ML IVPB SCH ×5 (01:05→23:02)
[2018-02-16] MEDS: ONDANSETRON 4 MG TAB PO SCH ×3 (03:29→20:31)
[2018-02-16] MEDS: LEVOTHYROXINE 25 MCG TAB PO SCH (06:29)
[2018-02-16] MEDS: PANTOPRAZOLE 40 MG TABLET PO SCH (06:30)
--- NOTE | 2018-02-16 06:59 | CONS ---
CONSULTATION DATE OF SERVICE: 02/15/2018 REASON FOR CONSULTATION: Urinary tract infection/pyelonephritis. HISTORY OF PRESENT ILLNESS: The patient is a 72-year-old male who was brought into the ER by the EMS with the patient complaining of chest pain and difficulty in breathing. The patient has also been complaining of some crampy abdominal pain that did improve. However, the patient did have a bowel movement after presented to the hospital in the ER and mentioned there was some blood in his stool. The patient subsequently did spike a fever of 101.7 while he was down in the ER. The patient also had an elevated white count 12.3 that has subsequently up to 15 and now 14,000. The patient did have a UA obtained that has been significantly positive with the culture showing Aerococcus urinae. Blood culture has been obtained which is currently pending. The patient did have a chest x-ray which showed findings mainly congestive heart failure or currently for possible pneumonia. A repeat x-ray has been congestive heart failure or pneumonia. The patient did have abdominal bladder ultrasound which did show mild bilateral pelvicaliectasis and mild circumferential bladder wall thickening. However, I was asked to see the patient today for further recommendation regarding antibiotic therapy. REVIEW OF SYSTEMS: CONSTITUTIONAL: Positive for weakness along with the fever. EYES: No complaint. ENT: No complaint. RESPIRATORY: As per HPI. CARDIOVASCULAR: No complaint. GENITOURINARY: As per HPI. GASTROINTESTINAL: As per HPI. MUSCULOSKELETAL: No complaint. INTEGUMENTARY: No complaint. PSYCHOLOGICAL: No complaint. ENDOCRINE: No complaint. NEUROLOGIC: No complaint. PAST MEDICAL HISTORY: Hypertension, hyperlipidemia, osteoarthritis, hypothyroidism, prostate cancer and had radiation treatment. PAST SURGICAL HISTORY: Coronary artery bypass grafting, stomach surgery. SOCIAL HISTORY: Remote history of smoking. No drinking or drug use. FAMILY HISTORY: Father with history of cancer. Mother history of leukemia. ALLERGIES: No known drug allergies. MEDICATIONS: Medications include the patient is currently on Zosyn, Protonix, Zofran, Theragran, Lopressor, Zestril. Synthroid, Lasix, Lipitor, Tylenol. PHYSICAL EXAMINATION: On examination, blood pressure is 99/65 with a pulse of 98, temperature 100.9. He is 92% on room air. General description is an elderly male lying in bed in no distress. No tachypnea or accessory muscle of respiration use. HEENT examination shows slight pallor. No scleral icterus. Oral mucous membrane is dry. No pharyngeal erythema or thrush. NECK: Trachea central. No thyromegaly. LUNGS: Unlabored breathing, clear to auscultation anteriorly with crackles. HEART: S1, S2. Regular rate and rhythm. ABDOMEN: Soft, no tenderness. No guarding or rigidity. EXTREMITIES: No edema of feet. SKIN EXAMINATION: No rash or mass palpable. NEUROLOGICALLY: Patient is awake, alert, oriented x3. Mood and affect normal. LABS: Hemoglobin is 12.1, white count 14,000. BUN of 14, creatinine 0.79. Electrolytes have been normal. Liver enzymes are normal. Urine has been significantly positive. Culture now showing urinae. Ultrasound suggests possible cystitis. DIAGNOSTIC IMPRESSION AND PLAN: Patient admitted to the hospital with a fever in a patient who did have elevated white count with a feature of sepsis, source likely urinary. The patient did have a history of prostate cancer status post prostate surgery with likely component of an obstructive uropathy and the patient did have evidence of a circumferential bladder wall thickening with urine culture showing a Aerococcus urinae, which is usually a gram-positive pathogen and will respond very well with penicillin and related antibiotic therapy. PLAN: 1. Discontinue the Zosyn. 2. Will start the patient on the Unasyn 3 grams q.6 hours. 3. If the patient started to improve with resolution of his fever and white count normalized, we will be able to finish therapy with oral antibiotic therapy. Thank you for this consultation. Will follow this patient along with you. MMODL / IJN: [id number] /
[2018-02-16] MEDS: ALBUTEROL NEBULIZED 2.5 MG/3 ML INHALATION SCH ×4 (07:03→19:46)
[2018-02-16 07:24] LABS: Basophils % (A) 0 %; Eosinophils # (A) 0.4 k/uL (0-0.7); Eosinophils % (A) 5 %; HCT 36.4 % (39.0-53.0); HGB 11.6 gm/dL (13.0-17.5); Lymphocytes # (A) 0.8 k/uL (1.0-4.8); Lymphocytes % (A) 10 %; MCH 26.5 pg (25.0-35.0); MCHC 31.8 g/dL (31.0-37.0); MCV 83.4 fL (80.0-100.0); Mean Platelet Volume 8.9; Monocytes # (A) 0.6 k/uL (0-1.0); Monocytes % (A) 8 %; Neutrophils # (A) 5.6 k/uL (1.3-7.7); Neutrophils % (A) 74 %; Platelet Count 181 k/uL (150-450); RBC 4.36 m/uL (4.30-5.90); RDW 13.7 % (11.5-15.5); WBC 7.6 k/uL (3.8-10.6)
[2018-02-16 07:32] LABS: Anion Gap 13 mmol/L; Blood Urea Nitrogen 10 mg/dL (9-20); Calcium 8.5 mg/dL (8.4-10.2); Carbon Dioxide 26 mmol/L (22-30); Chloride 102 mmol/L (98-107); Glucose 122 mg/dL (74-99); Potassium 3.1 mmol/L (3.5-5.1); Sodium 141 mmol/L (137-145)
[2018-02-16] MEDS: FUROSEMIDE 40 MG TAB PO SCH ×2 (08:41→15:12)
[2018-02-16] MEDS: METOPROLOL TARTRATE 25 MG TAB PO SCH ×2 (08:41→20:31)
--- NOTE | 2018-02-16 10:23 | P.PN ---
Subjective Progress Note Date: 02/16/18 Principal diagnosis: Pneumonia Progress note dated 02/16/2018 72-year-old white male with a diagnosis of pneumonia and possible mild CHF. The patient clinically much improved. Chest x-ray seemed be lagging behind clinical improvement of the patient. The patient is not requiring any supplemental oxygen. He is not particularly short of breath or having difficulty right now. Denies any wheezing coughing phlegm production shortness of breath chest tightness or other complaints for that matter. The patient could be discharged home. He will need follow-up with his primary. He'll also need follow-up with us in the office to ensure complete resolution of the right- sided pneumonia. Objective - Vital Signs Vital signs: Vital Signs Temp 97.5 F L 02/16/18 05:25 Pulse 80 02/16/18 07:17 Resp 16 02/16/18 08:00 BP 115/68 02/16/18 05:25 Pulse Ox 96 02/16/18 07:06 Intake & Output 02/15/18 02/16/18 02/16/18 18:59 06:59 18:59 Intake Total 810 Balance 810 Intake: Intake, IV Titration 210 Amount Piperacillin-Tazobactam 3 50 .375 gm In Dextrose/Water 1 50ml.bag @ 12.5 mls/hr IVPB Q8HR [place] Rx#: [id number] Sodium Chloride 0.9% 1, 160 000 ml @ 20 mls/hr IV . Q24H [place] Rx#:[id number] Oral 600 Other: Voiding Method Toilet Urinal # Voids 3 - Exam No acute distress, oriented 3. No supplemental oxygen being used. HEENT examination is grossly unremarkable. Mucous membranes are moist. No oral lesions. Neck supple. Full range of motion. No adenopathy thyromegaly or neck vein distention. Cardiovascular examination reveals regular rhythm rate. S1-S2 normal. No S3 or S4. No discernible murmur noted. There are a few premature beats. Lungs reveal a few scattered rhonchi. Breath sounds are diminished. Some crackles at the bases. Breath sounds equal bilaterally. Abdomen soft bowel sounds are heard. No masses or tenderness. Extremities are intact. No cyanosis clubbing or edema. Skin is without rash or lesion. Neurologic examination is brief but nonfocal. - Labs CBC & Chem 7: 02/16/18 06:45 02/16/18 06:45 Labs: Abnormal Lab Results - Last 24 Hours (Table) 02/16/18 02/16/18 Range/Units 06:45 06:45 Hgb 11.6 L (13.0-17.5) gm/dL Hct 36.4 L (39.0-53.0) % Lymphocytes # 0.8 L (1.0-4.8) k/uL Potassium 3.1 L (3.5-5.1) mmol/L Glucose 122 H (74-99) mg/dL Microbiology - Last 24 Hours (Table) 02/13/18 22:21 Blood Culture - Preliminary Blood No Growth after 48 hours 02/12/18 08:50 Blood Culture - Preliminary Blood No Growth after 72 hours Assessment and Plan Assessment: Assessment Pneumonia, right lung, clinically improved. Hypoxemic respiratory failure Sepsis with lactic acidosis, resolved Radiation proctitis Atrial fibrillation CAD with previous bypass grafting Previous history of aortic valve replacement. Ischemic cardiomyopathy History of prostate cancer History of hypertension History of hyperlipidemia Plan: Plan dated 02/16/2018 The patient's labs x-rays a medications are reviewed. Additional recommendations and suggestions are forthcoming. Culture data will be reviewed. The patient could be discharged home. The patient will need a follow -up with his primary. Should also follow up with us to have a follow-up x-ray to ensure complete resolution of his right-sided infiltrate. Time with Patient: Less than 30
--- NOTE | 2018-02-16 11:57 | P.CONS ---
History of Present Illness - Reason for Consult Consult date: 02/15/18 Rectal bleeding - History of Present Illness The patient is a 72-year-old male with history of CAD/CABG and bioprosthetic aortic valve maintained on aspirin Plavix, prostate carcinoma status post radiation completed around 1 year ago, possible atrial fibrillation, hypothyroidism, hypertension, tuberculosis, and COPD. the patient was admitted for shortness of breath and was found to have right-sided pneumonia and congestive heart failure and he has been recuperating well. I was asked to see him regarding rectal bleeding. The patient was evaluated earlier this year for rectal bleeding and underwent colonoscopies that revealed radiation proctitis and sigmoid diverticulosis. I was involved in his care in November of this year where I performed argon plasma coagulation with good control of his bleeding. I have seen the patient recently in the office because of recurrent bleeding and there was planning to repeat his endoscopy and coagulation later this month. The patient's hemoglobin has been stable around 11.6. His Plavix has been on hold and aspirin resume all. We are asked to see him for consideration of argon plasma coagulation or other intervention if indicated. The patient's prefers that he undergoes bowel evaluation as outpatient if it can wait. Review of Systems Constitutional: Denied fever, chills or unintentional weight loss Neurologic: No headaches, double vision or other sensory or motor changes Cardiopulmonary: No chest pains, shortness of breath or palpitations Gastrointestinal: See present illness above Genitourinary: No hematuria, dysuria or frequency Musculoskeletal:No joint swelling or pain Skin: No rashes Hematologic: No bleeding tendency Psychiatric: No anxiety or depression 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 History of Any Multi-Drug Resistant Organisms: None Reported Past Surgical History: Coronary Bypass/CABG Additional Past Surgical History / Comment(s): thyroid, 3 valve replacements stomach surgery unsure what kind Past Anesthesia/Blood Transfusion Reactions: No Reported Reaction Past Psychological History: No Psychological Hx Reported Smoking Status: Former smoker Past Alcohol Use History: None Reported, Rare Past Drug Use History: None Reported - Past Family History Father Family Medical History: Cancer Additional Family Medical History / Comment(s): Patient has 2 brothers alive and doing fine. One sister of congestive heart failure. He is not and does not have any kids Mother Family Medical History: Cancer Additional Family Medical History / Comment(s): Mother had history of leukemia and is . Medications and Allergies Home Medications Medication Instructions Recorded Confirmed Type Levothyroxine Sodium [Synthroid] 25 mcg PO DAILY 03/06/15 02/12/18 History Lisinopril [Zestril] 2.5 mg PO HS 03/06/15 02/12/18 History Lovastatin [Mevacor] 20 mg PO HS 03/06/15 02/12/18 History Pantoprazole Sodium 40 mg PO DAILY 03/06/15 02/12/18 History Latanoprost Ophth [Xalatan 0.005%] 1 drop BOTH EYES HS 03/17/16 02/12/18 History Multivitamin with Iron 1 tab PO DAILY 07/16/16 02/12/18 History [Multivitamins with Iron] Ondansetron [Zofran] 4 mg PO Q8H 07/16/16 02/12/18 History Potassium Chloride [Klor-Con 10] 10 meq PO DAILY 08/18/16 02/12/18 History Furosemide [Lasix] 20 mg PO BID 11/09/17 02/12/18 History Aspirin EC [Ecotrin Low Dose] 81 mg PO DAILY #0 11/27/17 02/12/18 Rx Clopidogrel [Plavix] 75 mg PO DAILY #0 11/27/17 02/12/18 Rx Ferrous Sulfate [Iron (65 MG 325 mg PO W/LUNCH #30 tab 11/27/17 02/12/18 Rx Elemental)] Metoprolol Tartrate [Lopressor] 25 mg PO BID 02/12/18 02/12/18 History Allergies Allergy/AdvReac Type Severity Reaction Status Date / Time No Known Allergies Allergy Verified 02/12/18 14:16 Physical Exam Vitals: Vital Signs Temp Pulse Pulse Resp BP Pulse Ox 02/15/18 15:10 98.3 F 108 H 18 135/79 93 L 02/15/18 07:25 100 02/15/18 07:15 103 H 95 02/15/18 05:59 98.9 F 95 17 129/75 96 02/15/18 00:13 99.6 F 02/14/18 22:30 101.7 F H 94 24 120/72 97 02/14/18 19:24 73 02/14/18 19:14 71 02/14/18 17:25 101.4 F H Intake and Output 02/15/18 02/15/18 02/15/18 06:59 14:59 22:59 Intake Total 810 Balance 810 Intake: Intake, IV Titration 210 Amount Piperacillin-Tazobactam 3 50 .375 gm In Dextrose/Water 1 50ml.bag @ 12.5 mls/hr IVPB Q8HR [place] Rx#: [id number] Sodium Chloride 0.9% 1, 160 000 ml @ 20 mls/hr IV . Q24H [place] Rx#:[id number] Oral 600 Other: # Voids 1 General: Appears stated age, very pleasant in no acute distress Head and neck: Normocephalic and atraumatic, conjunctivae pink and sclerae not icteric, mucous membranes moist and pink. No masses in the neck or tracheal shifts Lungs: Clear to auscultation with no dullness to percussion Heart: Iregular, no abnormal sounds, murmurs, gallops or friction Abdomen: Soft, no masses or organomegalies. No tenderness. Bowel sounds present Extremities: No clubbing, cyanosis or edema Neurologic: Alert and oriented 3. Cranial nerves grossly intact. No gross sensory or motor abnormalities Results CBC & Chem 7: 02/16/18 06:45 02/16/18 06:45 Labs: Abnormal Lab Results - Last 24 Hours (Table) 02/15/18 Range/Units 07:51 WBC 14.0 H (3.8-10.6) k/uL Hgb 12.1 L (13.0-17.5) gm/dL Hct 37.7 L (39.0-53.0) % Neutrophils # 11.9 H (1.3-7.7) k/uL Lymphocytes # 0.9 L (1.0-4.8) k/uL Microbiology - Last 24 Hours (Table) 02/12/18 08:50 Blood Culture - Preliminary Blood No Growth after 72 hours 02/13/18 22:21 Blood Culture - Preliminary Blood No Growth after 24 hours Assessment and Plan Assessment: Rectal bleeding likely related to his radiation proctitis. The patient is scheduled for repeat lower endoscopy and possible argon plasma coagulation as outpatient later this month. Plan: Agree with your current management. I discussed with the patient the option of performing the procedure before discharge if cleared by you and the cardio pulmonary teams. The patient prefers to defer this until after discharge and after he further recuperates from his pneumonia. I will discuss with you.
[2018-02-16] MEDS: MULTIVITAMINS, THERA 1 EACH TAB PO SCH (12:04)
--- NOTE | 2018-02-16 14:22 | P.PN ---
Subjective Progress Note Date: 02/16/18 72 years old pleasant gentleman patient of. of Dr. Kohler underlying history of hyperlipidemia, hypertension, hypothyroidism, history of recent prostate cancer status post radiation History of coronary artery disease status artery artery bypass, history of bioprosthetic valve paroxysmal atrial fibrillation hypothyroidism cardiomyopathy EF 45%. Congestive heart failure, radiation proctitis with acute on chronic blood loss anemia, colonoscopy last November 2017 confirming radiation proctitis He presented to emergency room after he complained of shortness of breath, difficulty breathing, pleurisy, fever of 101 no chills, patient has slightly nonproductive minimal cough, patient also noted that he had bright red blood streaks however with his hemorrhoids, he had hemorrhoid surgery last October 2017 , no abominal cramps, no diarrhea no motor or sensory changes, no lightheadedness, no syncope. No hematuria but has dysuria and urine frequence. x-rays shows COPD changes, thickening of the fissure again seen, was compression deformity at the lower thoracic spine, findings that can represent congestive heart Rate failure, correlate for possible pneumonia with interval development of perihilar increased attenuation. No pleural effusion. EKG shows PVCs normal sinus rhythm sinus tachycardia heart rate of 129, urinalysis significant for urinary tract infection urine wBC over 180 02/14: Patient evaluated today. States he had two bowel movements yesterday noticed some bright red blood in his stools. Aspirin was held, GI consult placed, hemoglobin stable at 12.1. White count trending downwards 13.7, lactic acid 0.9. Patient had a temperature of 101.6 last night. He continues on Rocephin, urine culture positive for aeroccus urinae, blood cultures show no growth to date. 02/15, patient still remains to be febrile intermittently over the past 24 hours, aerococcus does not have any sensitivities at all, we called the lab, also with small nephrolithiasis, possibility off infected struvite stone, patient would be consulted our the infectious disease doctor see, antibiotic changed to IV Zosyn secondary to non-response to Rocephin. 02/16: Temperature maximum 100.9. Patient is seen walking from the bathroom to the bed and appears to be in no acute distress. Room air pulse ox is 96%. White count is down to 7.6. Dr. campos is changed antibiotics to Unasyn. Patient was previously on ceftriaxone and briefly on Zosyn yesterday. GI consult is pending. Aspirin and Plavix are on hold. Objective - Vital Signs Vital signs: Vital Signs Temp 97.5 F L 02/16/18 05:25 Pulse 80 02/16/18 07:17 Resp 16 02/16/18 05:25 BP 115/68 02/16/18 05:25 Pulse Ox 96 02/16/18 07:06 Intake & Output 02/15/18 02/16/18 02/16/18 18:59 06:59 18:59 Intake Total 810 Balance 810 Intake: Intake, IV Titration 210 Amount Piperacillin-Tazobactam 3 50 .375 gm In Dextrose/Water 1 50ml.bag @ 12.5 mls/hr IVPB Q8HR [place] Rx#: [id number] Sodium Chloride 0.9% 1, 160 000 ml @ 20 mls/hr IV . Q24H [place] Rx#:[id number] Oral 600 Other: Voiding Method Toilet Urinal # Voids 3 - Exam General appearance: Present: cooperative, no acute distress - EENT Eyes: Present: anicteric sclerae, EOMI, normal appearance ENT: Present: hard of hearing, NA/AT - Neck Neck: Present: normal ROM - Respiratory Respiratory: bilateral: CTA, negative: diminished, dullness, rales - Cardiovascular Rhythm: regular Heart sounds: normal: S1, S2 Abnormal Heart Sounds: Absent: systolic murmur, diastolic murmur, rub, S3 Gallop , S4 Gallop, click, other - Gastrointestinal General gastrointestinal: Present: normal bowel sounds, soft - Integumentary Integumentary: Present: decreased turgor, normal - Neurologic Neurologic: Present: CNII-XII intact - Musculoskeletal Musculoskeletal: Present: gait normal - Psychiatric Psychiatric: Present: A&O x's 3, intact judgment & insight - Labs CBC & Chem 7: 02/16/18 06:45 02/16/18 06:45 Labs: Abnormal Lab Results - Last 24 Hours (Table) 02/15/18 02/16/18 02/16/18 Range/Units 07:51 06:45 06:45 WBC 14.0 H (3.8-10.6) k/uL Hgb 12.1 L 11.6 L (13.0-17.5) gm/dL Hct 37.7 L 36.4 L (39.0-53.0) % Neutrophils # 11.9 H (1.3-7.7) k/uL Lymphocytes # 0.9 L 0.8 L (1.0-4.8) k/uL Potassium 3.1 L (3.5-5.1) mmol/L Glucose 122 H (74-99) mg/dL Microbiology - Last 24 Hours (Table) 02/13/18 22:21 Blood Culture - Preliminary Blood No Growth after 48 hours 02/12/18 08:50 Blood Culture - Preliminary Blood No Growth after 72 hours Assessment and Plan Plan: 1. Acute urinary tract infection with SIRS pyelonephritis, possible pneumonia, clinically not highly suspicious for pneumonia, antibiotics changed to Zosyn per Dr. Rosas. 2. Chronic radiation proctitis, with recent endoscopy both upper scope and lower scope during his last admission November 2017, on both Plavix and aspirin, we will temporarily discontinue plavix and aspirin. Metamucil started, if with enteritis, might need asacol, none currently needed, GI consulted 3. History of coronary artery disease status post CABG. metoprolol 12.5 mg in the morning and 25 mg at bedtime, atorvastatin 10 mg daily. 4. Chronic blood loss anemia monitor hemoglobin, currently anemia has resolved at 13.8 hemoglobin on entry. 5. History of aortic bioprosthetic valve, stable 6 Mild metabolic acidosis, , possibly related to radiation enteritis fluid for hydration, patient might need surgical bicarb 7. Hypothyroidism. Continue levothyroxine 25 mg daily. 8. Benign prostatic hypertrophy. Continue Flomax or 0.5 mg daily. 9. Hypertension. Continue lisinopril 5 mg daily and Lopressor. 10. Hyperlipidemia. Continue Lipitor. dvt prophyalxis: mechanical, chronic blood losses thru lower gi gi prophylaxis pepcid or ppi Discharge plan: Home with [facility] Impression and plan of care have been directed as dictated by the signing physician. Charmaine Joseph nurse practitioner acting as scribe for signing physician.
[2018-02-16] MEDS ORDERED: Potassium Replacement Protocol 1 EACH MISC MISCELLANE PRN (15:43)
[2018-02-16] MEDS: POTASSIUM CHLORIDE ER 20 MEQ TAB.ER PO SCH ×2 (16:25→17:03)
[2018-02-16] MEDS: LISINOPRIL 2.5 MG TAB PO SCH (20:31)
[2018-02-16] MEDS: LATANOPROST 0.005% OPHTH DROPS 2.5 ML BTL BOTH EYES SCH (20:31)
[2018-02-16] MEDS: SODIUM CHLORIDE 0.9% 1,000 ML IV SCH (20:31)
[2018-02-16] MEDS: ATORVASTATIN 10 MG TAB PO SCH (20:31)
[2018-02-16] MEDS ORDERED: POTASSIUM CHLORIDE 10 MEQ in WATER FOR INJECTION 1 100ML.BAG IVPB ONE ×2 (21:00→22:00)
[2018-02-16] MEDS ORDERED: POTASSIUM CHLORIDE ER 20 MEQ TAB.ER PO STA (21:43)
--- NOTE | 2018-02-16 23:47 | PN ---
PROGRESS NOTE DATE OF SERVICE: 02/16/2018. REASON FOR FOLLOWUP: Sepsis secondary to urinary source. INTERVAL HISTORY: The patient is afebrile. He has been breathing comfortably. The patient denies significant chest pain. No cough. No abdominal pain or any diarrhea. EXAMINATION: Blood pressure 111/52 with a pulse of 95, temperature 98.4. He is 95% on room air. General description is an elderly male lying in bed in no distress. RESPIRATORY SYSTEM: Unlabored breathing. Clear to auscultation anteriorly. HEART: S1, S2. Regular rate and rhythm. ABDOMEN: Soft. No tenderness. LABS: Hemoglobin is 11.3, white count 7.3 with a BUN of 10, creatinine 0.84. DIAGNOSTIC IMPRESSION AND PLAN: Patient admitted to the hospital with sepsis. Source is urinary. The patient did have Enterococcus in the urine sensitive pathogen currently on Unasyn. Will be transitioned to antibiotic therapy to amoxicillin on discharge to finish a course of therapy. Continue supportive care. MMODL / IJN: [id number] /
[2018-02-17] MEDS: ONDANSETRON 4 MG TAB PO SCH (05:08)
[2018-02-17 06:08] VITALS: BP 132/78; TEMP 98
[2018-02-17] MEDS: LEVOTHYROXINE 25 MCG TAB PO SCH (06:19)
[2018-02-17] MEDS: AMPICILLIN-SULBACTAM 3 GM in SODIUM CHLORIDE 0.9% 100 ML IVPB SCH ×2 (06:19→12:20)
[2018-02-17] MEDS: METOPROLOL TARTRATE 25 MG TAB PO SCH (07:26)
[2018-02-17] MEDS: PANTOPRAZOLE 40 MG TABLET PO SCH (07:26)
[2018-02-17] MEDS: FUROSEMIDE 40 MG TAB PO SCH (07:26)
[2018-02-17 08:18] LABS: Basophils % (A) 0 %; Eosinophils # (A) 0.3 k/uL (0-0.7); Eosinophils % (A) 5 %; HCT 37.6 % (39.0-53.0); HGB 11.9 gm/dL (13.0-17.5); Hypochromasia Slight; Lymphocytes # (A) 0.7 k/uL (1.0-4.8); Lymphocytes % (A) 9 %; MCH 27.2 pg (25.0-35.0); MCHC 31.7 g/dL (31.0-37.0); MCV 85.9 fL (80.0-100.0); Mean Platelet Volume 8.8; Monocytes # (A) 0.4 k/uL (0-1.0); Monocytes % (A) 6 %; Neutrophils # (A) 5.6 k/uL (1.3-7.7); Neutrophils % (A) 78 %; Platelet Count 217 k/uL (150-450); RBC 4.37 m/uL (4.30-5.90); RDW 13.5 % (11.5-15.5); WBC 7.1 k/uL (3.8-10.6)
[2018-02-17 08:21] LABS: Anion Gap 14 mmol/L; Blood Urea Nitrogen 14 mg/dL (9-20); Calcium 9.4 mg/dL (8.4-10.2); Carbon Dioxide 26 mmol/L (22-30); Chloride 106 mmol/L (98-107); Glucose 127 mg/dL (74-99); Potassium 4.2 mmol/L (3.5-5.1); Sodium 146 mmol/L (137-145)
[2018-02-17] MEDS: ALBUTEROL NEBULIZED 2.5 MG/3 ML INHALATION SCH ×2 (08:21→11:56)
[2018-02-17 08:34] VITALS: PULSE 76
--- NOTE | 2018-02-17 11:56 | P.PN ---
Subjective Progress Note Date: 02/17/18 Principal diagnosis: Acute hypoxic respiratory failure secondary to right middle and lower lobe pneumonia, community-acquired Mr. Blake 72-year-old -[place] male patient of Dr. Dennis, who presented to the emergency department on 02/12/2017 with complaints of dyspnea, chest pain, abdominal cramping, fever. In addition patient stated he had been having some blood-tinged bowel movements. Patient's fever was 101.7 in the emergency department. Chest x-ray in the ED showed increased interstitium, and increased perihilar attenuation. Pulse ox was 89% on room air in the ED, the patient was started on supplemental oxygen. She was started on empiric antibiotics in the form of Zithromax and Rocephin, nebulized bronchodilators. Initial lab work showed mild leukocytosis, WBC of 12.3, CO2 17, chloride is 108 , renal profile was within normal limits, lactic acid was 4.1, she was given a liter of IV fluid bolus, and lactic acid subsequently came down to 2.6. Urinalysis showed large amount of leukocyte esterase, bacteriurea and WBC. Blood, urine cultures were collected and sent, and are pending at this time, sputum culture was ordered, but has not been collected. Patient denied any urinary complaints. Past medical history is positive for prostate cancer status post radiation treatments, hypertension, hyperlipidemia, osteoarthritis, hypothyroidism, coronary artery disease status post carotid artery bypass grafting, history of bioprosthetic aortic valve replacement, paroxysmal atrial fibrillation, GI bleeding, scaly cardiomyopathy. Patient had a recent hospitalization for lower GI bleeding in November 2017 found to have radiation proctitis lower GI bleed. Today's chest x-ray has been reviewed by Dr. Dr. Ren and shows to show densities on the left and airspace opacity on the right mid to lower lung, small pleural effusions. We're asked to see the patient in consultation for right mid and lower lung pneumonia. On 02/14/2018 patient seen in follow-up on medical surgical floor. Denies any worsening dyspnea, continues to diurese, room air pulse ox is 95%. Patient is hemodynamically stable, was febrile last night with a T-max of 101.6F. No sputum production, he was cultures positive for aerococcus urinae. Patient is on Rocephin. Today's labs were reviewed, WBC is trending down, down to 13.7 and today's labs. Electrolytes and renal profile are all within normal limits. The patient is seen again today 02/15/2018 in follow-up on the regular medical floor. He is currently awake and alert in no acute distress. He is breathing easier today as compared to yesterday. He is maintaining good O2 saturations in the 90s on room air. She's been afebrile. Hemodynamically stable. Blood cultures reveal no growth. White count 14.0. Hemoglobin 12.1. Progress note dated 02/16/2018 72-year-old white male with a diagnosis of pneumonia and possible mild CHF. The patient clinically much improved. Chest x-ray seemed be lagging behind clinical improvement of the patient. The patient is not requiring any supplemental oxygen. He is not particularly short of breath or having difficulty right now. Denies any wheezing coughing phlegm production shortness of breath chest tightness or other complaints for that matter. The patient could be discharged home. He will need follow-up with his primary. He'll also need follow-up with us in the office to ensure complete resolution of the right- sided pneumonia. The patient is seen again today 02/17/2018 in follow-up on the regular medical floor. He is currently resting quite comfortably in bed. He is awake and alert in no acute distress. He states he is feeling back to his baseline. No further shortness of breath, coughing or congestion. He is maintaining good O2 saturations in the upper 90s on room air. He's been afebrile. Hemodynamically stable. No leukocytosis. He is maintained on Unasyn, bronchodilators, diuretics. Objective - Vital Signs Vital signs: Vital Signs Temp 98.0 F 02/17/18 05:50 Pulse 76 02/17/18 08:33 Resp 16 02/17/18 08:00 BP 132/78 02/17/18 05:50 Pulse Ox 97 02/17/18 05:50 Intake & Output 02/16/18 02/17/18 02/17/18 18:59 06:59 18:59 Other: Voiding Method Toilet Toilet # Voids 2 3 # Bowel Movements 2 - Exam GENERAL EXAM: Alert, pleasant, 72-year-old [place]ian male comfortable in no apparent distress. HEAD: Normocephalic/atraumatic. EYES: Normal reaction of pupils, equal size. Conjunctiva pink, sclera white. NOSE: Clear with pink turbinates. THROAT: No erythema or exudates. NECK: No masses, no JVD, no thyroid enlargement, no adenopathy. CHEST: No chest wall deformity. Symmetrical expansion. LUNGS: Diminished breath sounds at bases CVS: Regular rate and rhythm, normal S1 and S2, no gallops, no murmurs, no rubs ABDOMEN: Soft, nontender. No hepatosplenomegaly, normal bowel sounds, no guarding or rigidity. EXTREMITIES: No clubbing, no edema, no cyanosis, 2+ pulses and upper and lower extremities. MUSCULOSKELETAL: Muscle strength and tone normal. SPINE: No scoliosis or deformity SKIN: No rashes CENTRAL NERVOUS SYSTEM: Alert and oriented -3. No focal deficits, tone is normal in all 4 extremities. PSYCHIATRIC: Alert and oriented -3. Appropriate affect. Intact judgment and insight. - Labs CBC & Chem 7: 02/17/18 06:54 02/17/18 06:54 Labs: Abnormal Lab Results - Last 24 Hours (Table) 02/16/18 02/17/18 02/17/18 Range/Units 19:26 06:54 06:54 Hgb 11.9 L (13.0-17.5) gm/dL Hct 37.6 L (39.0-53.0) % Lymphocytes # 0.7 L (1.0-4.8) k/uL Sodium 146 H (137-145) mmol/L Potassium 3.4 L (3.5-5.1) mmol/L Glucose 127 H (74-99) mg/dL Microbiology - Last 24 Hours (Table) 02/13/18 22:21 Blood Culture - Preliminary Blood No Growth after 72 hours 02/12/18 08:50 Blood Culture - Preliminary Blood No Growth after 96 hours Assessment and Plan Assessment: Assessment: #1. Acute hypoxic respiratory failure secondary to right mid and lower lung pneumonia, community-acquired, recovered. #2. Lactic acidosis, secondary to sepsis, possibly related to urinary tract infection and right lung pneumonia #3. Dyspnea, fever, chest pain, related to above, #4. Chronic radiation proctitis #5. Paroxysmal A. fib, patient is on aspirin for anticoagulation in view of his recent history of GI bleeding #6. Disease, status post coronary artery bypass graft #7. Ischemic cardiomyopathy #8. History of aortic valve replacement with bioprosthetic valve #9. Prostate cancer status post radiation treatment #10. Hypertension, hyperlipidemia Plan: The patient was seen and evaluated by Dr. Ren. He remains stable and cleared for discharge from the pulmonary standpoint. Continue oral diuretics. Complete course of prednisone burst and taper. Complete course of antibiotics. He will follow-up in our office in 1-2 weeks' time. I, the cosigning physician, performed a history & physical examination of the patient. Lungs sounds with faint crackles in the right posterior base.. Maintaining good O2 saturations in the 90s on room air. I discussed the assessment and plan of care with my nurse practitioner, Emmy Jones. I attest to the above note as dictated by her.
--- NOTE | 2018-02-17 14:37 | P.DS ---
Providers Date of admission: 02/12/18 10:35 Expected date of discharge: 02/17/18 Attending physician: Roxanne Nicole Consults: 02/12/18 15:50 Consult Physician Routine Consulting Provider: Charline Brennan Consult Reason/Comments: pneumonia Do you want consulting provider notified?: Yes 02/14/18 10:15 Consult Physician Routine Consulting Provider: Leobardo Barrios Consult Reason/Comments: radiation proctitis, possible argon coagulation RPT Do you want consulting provider notified?: Yes 02/15/18 11:39 Consult Physician Routine Consulting Provider: Abiel Rosas Consult Reason/Comments: pyelonephritis, nephrolithiasis persistent fever Do you want consulting provider notified?: Yes Primary care physician: [facility] Course: 72 years old pleasant gentleman patient of. of Dr. Kohler underlying history of hyperlipidemia, hypertension, hypothyroidism, history of recent prostate cancer status post radiation History of coronary artery disease status artery artery bypass, history of bioprosthetic valve paroxysmal atrial fibrillation hypothyroidism cardiomyopathy EF 45%. Congestive heart failure, radiation proctitis with acute on chronic blood loss anemia, colonoscopy last November 2017 confirming radiation proctitis He presented to emergency room after he complained of shortness of breath, difficulty breathing, pleurisy, fever of 101 no chills, patient has slightly nonproductive minimal cough, patient also noted that he had bright red blood streaks however with his hemorrhoids, he had hemorrhoid surgery last October 2017 , no abominal cramps, no diarrhea no motor or sensory changes, no lightheadedness, no syncope. No hematuria but has dysuria and urine frequence. x-rays shows COPD changes, thickening of the fissure again seen, was compression deformity at the lower thoracic spine, findings that can represent congestive heart Rate failure, correlate for possible pneumonia with interval development of perihilar increased attenuation. No pleural effusion. EKG shows PVCs normal sinus rhythm sinus tachycardia heart rate of 129, urinalysis significant for urinary tract infection urine wBC over 180 02/14: Patient evaluated today. States he had two bowel movements yesterday noticed some bright red blood in his stools. Aspirin was held, GI consult placed, hemoglobin stable at 12.1. White count trending downwards 13.7, lactic acid 0.9. Patient had a temperature of 101.6 last night. He continues on Rocephin, urine culture positive for aeroccus urinae, blood cultures show no growth to date. 02/15, patient still remains to be febrile intermittently over the past 24 hours, aerococcus does not have any sensitivities at all, we called the lab, also with small nephrolithiasis, possibility off infected struvite stone, patient would be consulted our the infectious disease doctor see, antibiotic changed to IV Zosyn secondary to non-response to Rocephin. 02/16: Temperature maximum 100.9. Patient is seen walking from the bathroom to the bed and appears to be in no acute distress. Room air pulse ox is 96%. White count is down to 7.6. Dr. campos is changed antibiotics to Unasyn. Patient was previously on ceftriaxone and briefly on Zosyn yesterday. GI consult is pending. Aspirin and Plavix are on hold. 02/17: Patient has been afebrile for the past day and a half. He is anxious to be discharged home. Patient was cleared for discharge by Dr. Ren. Dr. Rosas is recommended amoxicillin. Patient will be instructed to resume Plavix and hold aspirin for 4 weeks. Myoglobin is stable. Patient has been seen by Dr. Barrios with recommendations for scheduled repeat lower endoscopy and possible argon plasma coagulation as outpatient later this month. Discharge Diagnoses: 1. Acute urinary tract infection with SIRS pyelonephritis, pneumonia 2. Chronic radiation proctitis 3. History of coronary artery disease status post CABG. 4. Chronic blood loss anemia 5. History of aortic bioprosthetic valve, stable 6 Mild metabolic acidosis 7. Hypothyroidism. 8. Benign prostatic hypertrophy. 9. Hypertension. 10. Hyperlipidemia. Discharge plan: Home with [facility] Impression and plan of care have been directed as dictated by the signing physician. Charmaine Joseph nurse practitioner acting as scribe for signing physician. Patient Condition at Discharge: Good Plan - Discharge Summary New Discharge Prescriptions: New Amoxicillin 875 mg PO Q12HR #20 tablet Continue Pantoprazole Sodium 40 mg PO DAILY Lovastatin [Mevacor] 20 mg PO HS Lisinopril [Zestril] 2.5 mg PO HS Levothyroxine Sodium [Synthroid] 25 mcg PO DAILY Latanoprost Ophth [Xalatan 0.005%] 1 drop BOTH EYES HS Ondansetron [Zofran] 4 mg PO Q8H Multivitamin with Iron [Multivitamins with Iron] 1 tab PO DAILY Potassium Chloride [Klor-Con 10] 10 meq PO DAILY Furosemide [Lasix] 20 mg PO BID Ferrous Sulfate [Iron (65 MG Elemental)] 325 mg PO W/LUNCH #30 tab Clopidogrel [Plavix] 75 mg PO DAILY #0 Metoprolol Tartrate [Lopressor] 25 mg PO BID Discontinued Aspirin EC [Ecotrin Low Dose] 81 mg PO DAILY #0 Discharge Medication List Levothyroxine Sodium [Synthroid] 25 mcg PO DAILY 03/06/15 [History] Lisinopril [Zestril] 2.5 mg PO HS 03/06/15 [History] Lovastatin [Mevacor] 20 mg PO HS 03/06/15 [History] Pantoprazole Sodium 40 mg PO DAILY 03/06/15 [History] Latanoprost Ophth [Xalatan 0.005%] 1 drop BOTH EYES HS 03/17/16 [History] Multivitamin with Iron [Multivitamins with Iron] 1 tab PO DAILY 07/16/16 [ History] Ondansetron [Zofran] 4 mg PO Q8H 07/16/16 [History] Potassium Chloride [Klor-Con 10] 10 meq PO DAILY 08/18/16 [History] Furosemide [Lasix] 20 mg PO BID 11/09/17 [History] Clopidogrel [Plavix] 75 mg PO DAILY #0 11/27/17 [Rx] Ferrous Sulfate [Iron (65 MG Elemental)] 325 mg PO W/LUNCH #30 tab 11/27/17 [Rx] Metoprolol Tartrate [Lopressor] 25 mg PO BID 02/12/18 [History] Amoxicillin 875 mg PO Q12HR #20 tablet 02/17/18 [Rx] Follow up Appointment(s)/Referral(s): Edy Kohler MD [Primary Care Provider] - 02/21/18 10:00 am () Mynor Ren DO [Doctor of Osteopathic Medicine] - 03/10/18 9:30 am [facility], [NON-STAFF] - Abiel Rosas MD [STAFF PHYSICIAN] - 02/23/18 11:00 am Patient Instructions/Handouts: Urinary Tract Infection in Men (DC), Pneumonia ( DC) Activity/Diet/Wound Care/Special Instructions: Resume aspirin 81 mg daily in 4 weeks. Cardiac diet. Activity as tolerated. Discharge Disposition: HOME WITH HOME HEALTH SERVICES
--- NOTE | 2018-02-22 10:06 | CDI ---
Last Revision, July 2017 Documentation Clarification Form Date: 02/22/18 From: Leah Davis Phone: If you have a question , please contact Peace Lomas at [phone] between 8am and 5pm. Admit Date: 02/12/2018 Patient Name: Naveen Blake Visit Number: [id number] Discharge Date: 02/17/18 ATTENTION: The Clinical Documentation Specialists (CDI) and [facility] Coding Staff appreciate your assistance in clarifying documentation. Please respond to the clarification below the line at the bottom and electronically sign. The CDI & [facility] Coding staff will review the response and follow-up if needed. Please note: Queries are made part of the Legal Health Record. If you have any questions, please contact the author of this message via ITS. Dr. Roxanne Nicole Congestive heart failure is documented in the ED note, Sophie Cabrera's consult note, Dr. Rosas's consult note, H&P, discharge summary and in the 02/14, 02/15 and 02/16 progress notes. History/Risk Factors: Patient has a hx of ischemic cardiomyopathy with an ejection fraction of 45%, CAD and hypertension. Clinical Indicators: shortness of breath, possible pulmonary edema per x-ray. VS/Pulse OX: T. 101.7, P. 124, R. 24, BP 170/96, O2 sat. 89% BNP: 475 Chest X Ray: 02/12: Findings may represent congestive heart failure, correlate for possible pneumonia. 02/13: Correlate for CHF with atypical pulmonary edema vs. right mid and lower lung pneumonia. Continued small effusions. Treatment: IV Lasix In your professional opinion, can you please clarify the acuity and type of CHF if known? Acute Systolic Heart Failure Acute on Chronic systolic heart failure Acute Diastolic Heart Failure Acute on Chronic diastolic heart failure Acute Systolic & Diastolic Heart Failure: Acute on Chronic systolic & diastolic Heart Failure Unable to Determine Other, please specify ACUTE ON CHRONIC SYSTOLIC AND DIASTOLIC CHF MTDD
== END 2018-02-17 12:11 | disposition home health service (06) | DRG 871 ==
LOC: EC 08:22 → 4MS4W 10:35
PROVIDERS: ADMIT Family Medicine; ATTEND Family Medicine
DX: A41.81 Sepsis due to Enterococcus (principal); J18.9 Pneumonia, unspecified organism; J96.01 Acute respiratory failure with hypoxia; I50.43 Acute on chronic combined systolic (congestive) and diastolic (congestive) heart failure; N10 Acute pyelonephritis; E87.2 Acidosis; J44.0 Chronic obstructive pulmonary disease with (acute) lower respiratory infection; D50.0 Iron deficiency anemia secondary to blood loss (chronic); E78.5 Hyperlipidemia, unspecified; E03.9 Hypothyroidism, unspecified; I11.0 Hypertensive heart disease with heart failure; I25.10 Atherosclerotic heart disease of native coronary artery without angina pectoris; I25.5 Ischemic cardiomyopathy; I44.7 Left bundle-branch block, unspecified; I48.0 Paroxysmal atrial fibrillation; K57.30 Diverticulosis of large intestine without perforation or abscess without bleeding; K62.7 Radiation proctitis; K64.9 Unspecified hemorrhoids; N40.0 Benign prostatic hyperplasia without lower urinary tract symptoms; M19.90 Unspecified osteoarthritis, unspecified site; H91.90 Unspecified hearing loss, unspecified ear; Z79.02 Long term (current) use of antithrombotics/antiplatelets; Z79.82 Long term (current) use of aspirin; Z79.899 Other long term (current) drug therapy; Z79.890 Hormone replacement therapy; Z95.3 Presence of xenogenic heart valve; Z95.1 Presence of aortocoronary bypass graft; Z92.3 Personal history of irradiation; Z87.891 Personal history of nicotine dependence; Z85.46 Personal history of malignant neoplasm of prostate; Z82.49 Family history of ischemic heart disease and other diseases of the circulatory system; Z80.9 Family history of malignant neoplasm, unspecified; Z80.6 Family history of leukemia
CPT/HCPCS: 36415; 71045; 71046; 76770; 80048; 80053; 81001; 82550; 82553; 83605; 83735; 83880; 84132; 84484; 85025; 85610; 85730; 87040; 87086; 87324; 93005; 94640; 94760; 96365; 96366; 96375; 99291

== ENCOUNTER 2018-03-28 11:15 | Day surgery (SDC) | payer MEDICARE, OTHER ==
[2018-03-23 14:46] VITALS: BMI 20.7
[~2018-03-28 11:15] MED LIST: LACTATED RINGERS 1,000 ML IV SCH; LIDOCAINE 1% 20 ML VIAL (10MG/ML) FOR IV START INTRADERMA PRN; MIDAZOLAM 2 MG/2 ML VIAL IV PRN; NA PHOS,M-B/NA PHOS,DI-BA 133 ML ENEMA RECTAL ONE
[2018-03-28 12:09] VITALS: RESP 16; TEMP 97.9
[2018-03-28] MEDS ORDERED: PROPOFOL 10 MG/ML 20 ML VIAL IV ONE (13:28)
[2018-03-28] MEDS: HYDROmorphone 1 MG/ML 1 ML SYRINGE IVP ONE ×2 (14:20→14:30)
--- NOTE | 2018-03-28 14:22 | P.PCN ---
Date of Procedure: 03/28/18 Procedure(s) Performed: Procedure: Flexible sigmoidoscopy with argon plasma coagulation of telangiectatic blood vessels in the rectum with active bleeding secondary to radiation proctitis. Preoperative diagnosis: Recurrent rectal bleeding. Postoperative diagnosis: 1. Telangiectatic blood vessels in the rectum consistent with radiation proctitis with evidence of active bleeding at the time of this exam, S/P argon plasma coagulation with control of bleeding. 2. Sigmoid diverticulosis with no evidence of acute diverticulitis or bleeding. Preparation: GoLYTELY prep. Sedation: Was provided by anesthesia. Brief clinical history: The patient is a 73-year-old male with history of prostate cancer status post radiation and history of radiation proctitis with bleeding. The patient underwent flexible sigmoidoscopy with argon plasma coagulation in November of this year. This evaluation is scheduled because of recurrence of his symptoms. Procedure: With the patient on his left lateral decubitus position and after informed consent and adequate sedation, the perianal area was inspected and it did not show any fissures or fistulas. There were no masses felt on digital rectal examination and there was blood noted on the gloved examining finger after the rectal examination. The Olympus CFQ 160L video colonoscope was then inserted in the rectum, I saw fresh blood originating in the distal rectum and there was circumferential telangiectatic vessels consistent with radiation proctitis. The endoscope was advanced in the sigmoid and descending colon in the usual fashion. I did not complete a colonoscopy since he has had a prior exam. There were several diverticular orifices seen scattered in the sigmoid with no evidence of acute diverticulitis or strictures. At this point, I proceeded to use the argon plasma broom builder with 40 W energy. I used the straight firing catheter and treated circumferentially all the telangiectatic vessels noted in the distal rectum with good control of bleeding at the conclusion of the treatment. The patient tolerated the procedure well. Plan: The patient was reassured. Discussed dietary measures. Will continue to monitor closely and consider further treatments based on his course.
[2018-03-28 15:01] VITALS: BP 145/66; PULSE 58
== END 2018-03-28 15:13 | disposition home or self-care (01) ==
LOC: ORWHC2ENDO 11:15
DX: K62.7 Radiation proctitis (principal); K57.30 Diverticulosis of large intestine without perforation or abscess without bleeding; Z85.46 Personal history of malignant neoplasm of prostate; Z92.3 Personal history of irradiation; I10 Essential (primary) hypertension; E07.9 Disorder of thyroid, unspecified; M19.90 Unspecified osteoarthritis, unspecified site; Z95.1 Presence of aortocoronary bypass graft; Z95.2 Presence of prosthetic heart valve
CPT/HCPCS: 45334; J1170; J2704

== ENCOUNTER 2018-04-11 11:08 | Emergency (ER) | payer MEDICARE, OTHER ==
[2018-04-11 11:16] VITALS: RESP 18; TEMP 97.7
[2018-04-11] MEDS ORDERED: PANTOPRAZOLE 40 MG/10 ML VIAL IVP STA (11:20)
--- NOTE | 2018-04-11 11:24 | ED ---
General Adult HPI - General Chief complaint: GI Bleed Stated complaint: Abd.pain Time Seen by Provider: 04/11/18 11:08 Source: patient, RN notes reviewed Mode of arrival: EMS Limitations: no limitations - History of Present Illness Initial comments: This is a 73-year-old male was brought in by EMS because of persistent nausea vomiting this morning. He does state that he had a prostate surgery done on the of this month. He also states she's been having some blood per rectum when he wiped himself. He did have some chest pain this morning after vomiting when later asked she states that she started before the vomiting did. He denies any fevers chills. He is not nauseated this time is chest pain is resolved. No dysuria hematuria. - Related Data Home Medications Medication Instructions Recorded Confirmed Levothyroxine Sodium [Synthroid] 25 mcg PO DAILY 03/06/15 04/11/18 Lisinopril [Zestril] 2.5 mg PO DAILY 03/06/15 04/11/18 Lovastatin [Mevacor] 20 mg PO HS 03/06/15 04/11/18 Pantoprazole Sodium 40 mg PO DAILY 03/06/15 04/11/18 Multivitamin with Iron 1 tab PO DAILY 07/16/16 04/11/18 [Multivitamins with Iron] Ondansetron [Zofran] 4 mg PO Q8H 07/16/16 04/11/18 Potassium Chloride [Klor-Con 10] 10 meq PO DAILY 08/18/16 04/11/18 Furosemide [Lasix] 20 mg PO BID 11/09/17 04/11/18 Aspirin EC [Ecotrin Low Dose] 81 mg PO DAILY 03/23/18 04/11/18 Ferrous Sulfate [Iron (65 MG 325 mg PO BID 04/11/18 04/11/18 Elemental)] Metoprolol Tartrate [Lopressor] 50 mg PO BID 04/11/18 04/11/18 Previous Rx's Medication Instructions Recorded Clopidogrel [Plavix] 75 mg PO DAILY #0 11/27/17 Ondansetron Odt [Zofran Odt] 4 mg PO Q8HR PRN #10 tab 04/11/18 Allergies Allergy/AdvReac Type Severity Reaction Status Date / Time No Known Allergies Allergy Verified 04/11/18 11:45 Review of Systems ROS Statement: Those systems with pertinent positive or pertinent negative responses have been documented in the HPI. ROS Other: All systems not noted in ROS Statement are negative. 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 History of Any Multi-Drug Resistant Organisms: None Reported Past Surgical History: Coronary Bypass/CABG Additional Past Surgical History / Comment(s): thyroid, 3 valve replacements stomach surgery unsure what kind,blanca cataract surgery Past Anesthesia/Blood Transfusion Reactions: No Reported Reaction Past Psychological History: No Psychological Hx Reported Smoking Status: Former smoker Past Alcohol Use History: None Reported Past Drug Use History: None Reported - Past Family History Father Family Medical History: Cancer Additional Family Medical History / Comment(s): Patient has 2 brothers alive and doing fine. One sister of congestive heart failure. He is not and does not have any kids Mother Family Medical History: Cancer Additional Family Medical History / Comment(s): Mother had history of leukemia and is . General Exam - General Exam Comments Initial Comments: This is a well-developed well-nourished awake alert oriented 3 male Limitations: no limitations General appearance: alert, in no apparent distress Head exam: Present: atraumatic, normocephalic, normal inspection Eye exam: Present: normal appearance, PERRL, EOMI. Absent: scleral icterus, conjunctival injection, periorbital swelling ENT exam: Present: normal exam, mucous membranes moist Neck exam: Present: normal inspection. Absent: tenderness, meningismus, lymphadenopathy Respiratory exam: Present: normal lung sounds bilaterally. Absent: respiratory distress, wheezes, rales, rhonchi, stridor Cardiovascular Exam: Present: regular rate, normal rhythm, normal heart sounds. Absent: systolic murmur, diastolic murmur, rubs, gallop, clicks GI/Abdominal exam: Present: soft, tenderness (Mild epigastric tenderness palpation no guarding rebound masses or bruits), normal bowel sounds. Absent: distended, guarding, rebound, rigid Extremities exam: Present: normal inspection, full ROM, normal capillary refill. Absent: tenderness, pedal edema, joint swelling, calf tenderness Back exam: Present: normal inspection Neurological exam: Present: alert, oriented X3, CN II-XII intact Psychiatric exam: Present: normal affect, normal mood Skin exam: Present: warm, dry, intact, normal color. Absent: rash Course Vital Signs 04/11/18 04/11/18 11:11 13:12 Temperature 97.7 F Pulse Rate 72 64 Respiratory 18 18 Rate Blood Pressure 163/77 134/65 O2 Sat by Pulse 99 99 Oximetry EKG Findings - EKG Results: EKG: interpreted by ERMD (EKG shows sinus rhythm a 63 evidence a left exodeviation left bundle-branch block, QRS of 156 MA interval 148 QT since QTC 460/470. This is compared with an EKG dated 02/16/18 showing no changes) Medical Decision Making - Medical Decision Making Patient is feeling improved this time I did a long discussion with him regarding the findings. Patient will follow-up with his doctors as planned. He will receive oral Zofran. The presentation currently is consistent with a gastritis. He does state he does seem to have a lot of bowel movements. I did recommend if he has issues with swelling on his pants that he get some of the disposable briefs. He is in agreement with this - Lab Data Result diagrams: 04/11/18 11:18 04/11/18 11:18 Lab Results 04/11/18 04/11/18 04/11/18 Range/Units 11:18 11:18 11:18 WBC 6.7 (3.8-10.6) k/uL RBC 5.11 (4.30-5.90) m/uL Hgb 13.7 (13.0-17.5) gm/dL Hct 44.3 (39.0-53.0) % MCV 86.8 (80.0-100.0) fL MCH 26.9 (25.0-35.0) pg MCHC 31.0 (31.0-37.0) g/dL RDW 13.9 (11.5-15.5) % Plt Count 163 (150-450) k/uL Neutrophils % 79 % Lymphocytes % 11 % Monocytes % 5 % Eosinophils % 3 % Basophils % 0 % Neutrophils # 5.3 (1.3-7.7) k/uL Lymphocytes # 0.8 L (1.0-4.8) k/uL Monocytes # 0.4 (0-1.0) k/uL Eosinophils # 0.2 (0-0.7) k/uL Basophils # 0.0 (0-0.2) k/uL Hypochromasia Slight PT (9.0-12.0) sec INR (<1.2) APTT (22.0-30.0) sec Sodium 142 (137-145) mmol/L Potassium 4.9 (3.5-5.1) mmol/L Chloride 105 (98-107) mmol/L Carbon Dioxide 28 (22-30) mmol/L Anion Gap 9 mmol/L BUN 14 (9-20) mg/dL Creatinine 0.91 (0.66-1.25) mg/dL Est GFR (CKD-EPI)AfAm >90 (>60 ml/min/1.73 sqM) Est GFR (CKD-EPI)NonAf 83 (>60 ml/min/1.73 sqM) Glucose 106 H (74-99) mg/dL Calcium 9.2 (8.4-10.2) mg/dL Magnesium 1.9 (1.6-2.3) mg/dL Total Bilirubin 0.4 (0.2-1.3) mg/dL AST 31 (17-59) U/L ALT 41 (21-72) U/L Alkaline Phosphatase 74 (38-126) U/L Total Creatine Kinase 66 (55-170) U/L CK-MB (CK-2) 1.1 (0.0-2.4) ng/mL CK-MB (CK-2) Rel Index 1.7 Troponin I 0.013 (0.000-0.034) ng/mL Total Protein 7.4 (6.3-8.2) g/dL Albumin 4.1 (3.5-5.0) g/dL Lipase 255 (23-300) U/L Stool Occult Blood (Negative) 04/11/18 04/11/18 Range/Units 11:18 12:20 WBC (3.8-10.6) k/uL RBC (4.30-5.90) m/uL Hgb (13.0-17.5) gm/dL Hct (39.0-53.0) % MCV (80.0-100.0) fL MCH (25.0-35.0) pg MCHC (31.0-37.0) g/dL RDW (11.5-15.5) % Plt Count (150-450) k/uL Neutrophils % % Lymphocytes % % Monocytes % % Eosinophils % % Basophils % % Neutrophils # (1.3-7.7) k/uL Lymphocytes # (1.0-4.8) k/uL Monocytes # (0-1.0) k/uL Eosinophils # (0-0.7) k/uL Basophils # (0-0.2) k/uL Hypochromasia PT 10.4 (9.0-12.0) sec INR 1.1 (<1.2) APTT 25.0 (22.0-30.0) sec Sodium (137-145) mmol/L Potassium (3.5-5.1) mmol/L Chloride (98-107) mmol/L Carbon Dioxide (22-30) mmol/L Anion Gap mmol/L BUN (9-20) mg/dL Creatinine (0.66-1.25) mg/dL Est GFR (CKD-EPI)AfAm (>60 ml/min/1.73 sqM) Est GFR (CKD-EPI)NonAf (>60 ml/min/1.73 sqM) Glucose (74-99) mg/dL Calcium (8.4-10.2) mg/dL Magnesium (1.6-2.3) mg/dL Total Bilirubin (0.2-1.3) mg/dL AST (17-59) U/L ALT (21-72) U/L Alkaline Phosphatase (38-126) U/L Total Creatine Kinase (55-170) U/L CK-MB (CK-2) (0.0-2.4) ng/mL CK-MB (CK-2) Rel Index Troponin I (0.000-0.034) ng/mL Total Protein (6.3-8.2) g/dL Albumin (3.5-5.0) g/dL Lipase (23-300) U/L Stool Occult Blood Negative (Negative) - Radiology Data Radiology results: report reviewed (I did review the imaging and report no acute findings.), image reviewed Disposition Clinical Impression: Gastritis Disposition: HOME SELF-CARE Condition: Good Instructions: Gastritis (ED) Prescriptions: Ondansetron Odt [Zofran Odt] 4 mg PO Q8HR PRN #10 tab PRN Reason: Nausea Is patient prescribed a controlled substance at d/c from ED?: No Referrals: Edy Kohler MD [Primary Care Provider] - 1-2 days
[2018-04-11 11:31] LABS: Basophils % (A) 0 %; Eosinophils # (A) 0.2 k/uL (0-0.7); Eosinophils % (A) 3 %; HCT 44.3 % (39.0-53.0); HGB 13.7 gm/dL (13.0-17.5); Hypochromasia Slight; Lymphocytes # (A) 0.8 k/uL (1.0-4.8); Lymphocytes % (A) 11 %; MCH 26.9 pg (25.0-35.0); MCV 86.8 fL (80.0-100.0); Mean Platelet Volume 7.9; Monocytes # (A) 0.4 k/uL (0-1.0); Monocytes % (A) 5 %; Neutrophils # (A) 5.3 k/uL (1.3-7.7); Neutrophils % (A) 79 %; Platelet Count 163 k/uL (150-450); RBC 5.11 m/uL (4.30-5.90); RDW 13.9 % (11.5-15.5); WBC 6.7 k/uL (3.8-10.6)
[2018-04-11 11:39] LABS: INR 1.1 (<1.2); Prothrombin Time 10.4 sec (9.0-12.0)
[2018-04-11 11:43] LABS: ALT 41 U/L (21-72); AST 31 U/L (17-59); Albumin 4.1 g/dL (3.5-5.0); Alkaline Phosphatase 74 U/L (38-126); Anion Gap 9 mmol/L; Blood Urea Nitrogen 14 mg/dL (9-20); Calcium 9.2 mg/dL (8.4-10.2); Carbon Dioxide 28 mmol/L (22-30); Chloride 105 mmol/L (98-107); Glucose 106 mg/dL (74-99); Lipase 255 U/L (23-300); Magnesium 1.9 mg/dL (1.6-2.3); Potassium 4.9 mmol/L (3.5-5.1); Sodium 142 mmol/L (137-145); Total Bilirubin 0.4 mg/dL (0.2-1.3); Total Protein 7.4 g/dL (6.3-8.2)
[2018-04-11 12:02] LABS: Creatine Kinase MB 1.1 ng/mL (0.0-2.4); Troponin I 0.013 ng/mL (0.000-0.034)
--- NOTE | 2018-04-11 12:36 | XR ---
EXAMINATION TYPE: XR chest 2V DATE OF EXAM: 04/11/2018 COMPARISON: 02/15/2018 HISTORY: 73-year-old male with pain TECHNIQUE: AP and lateral views FINDINGS: Heart is upper limits of normal in size. Aorta within normal limits. There is biapical pleural parenc hymal scarring. The previous trace effusion has resolved. Median sternotomy wires with prosthetic aor tic valve. IMPRESSION: Residual interstitial densities appear chronic with biapical pleural-parenchymal scarring. Previous t race effusion has resolved. No acute change seen.
[2018-04-11 13:13] VITALS: BP 134/65; PULSE 64
== END 2018-04-11 13:33 | disposition home or self-care (01) ==
LOC: EC 11:08
DX: K29.70 Gastritis, unspecified, without bleeding (principal); E78.5 Hyperlipidemia, unspecified; I10 Essential (primary) hypertension; E07.9 Disorder of thyroid, unspecified; Z87.891 Personal history of nicotine dependence; Z85.46 Personal history of malignant neoplasm of prostate; Z79.82 Long term (current) use of aspirin; Z79.899 Other long term (current) drug therapy; Z95.1 Presence of aortocoronary bypass graft
CPT/HCPCS: 36415; 93005; 80053; 82550; 82553; 83690; 83735; 84484; 85025; 85610; 85730; 82272; 71046; 99284; 96374; C9113

== ENCOUNTER 2018-07-05 07:23 | Day surgery (SDC) | payer MEDICARE, OTHER ==
[2018-07-03 09:07] VITALS: BMI 21.2
[~2018-07-05 07:23] MED LIST changes: -LIDOCAINE 1% 20 ML VIAL (10MG/ML) FOR IV START INTRADERMA PRN; -MIDAZOLAM 2 MG/2 ML VIAL IV PRN; -NA PHOS,M-B/NA PHOS,DI-BA 133 ML ENEMA RECTAL ONE
[2018-07-05 08:04] VITALS: RESP 18
[2018-07-05 08:14] VITALS: TEMP 97.2
[2018-07-05] MEDS ORDERED: LIDOCAINE 1% INJ 10MG/ML (20 ML MDV) ONE (08:21)
[2018-07-05] MEDS ORDERED: PROPOFOL 10 MG/ML 20 ML VIAL IV ONE (08:21)
--- NOTE | 2018-07-05 08:28 | P.GSHP ---
History of Present Illness H&P Date: 07/05/18 Chief Complaint: Abdominal pain Patient here today for upper endoscopy. Patient has mild reflux. Apparently at times has had some difficulty swallowing. Denies significant dysphagia currently. Past Medical History Past Medical History: Cancer, Chest Pain / Angina, GI Bleed, Hyperlipidemia, Hypertension, Osteoarthritis (OA), Pneumonia, Thyroid Disorder Additional Past Medical History / Comment(s): prostate cancer HAD RADIATION TREATMENTS ,recent kidney stones- saw Dr Kohler for blood in urine-told due to kidney stones, 06/21/18-cystoscopy at [facility] for kidney stone, frequent diarrhea, History of Any Multi-Drug Resistant Organisms: None Reported Past Surgical History: Coronary Bypass/CABG, Heart Catheterization Additional Past Surgical History / Comment(s): thyroidectomy, 3 cardiac valve ( bovine) replacements, stomach surgery unsure what kind, blanca cataract surgery, bowel surgery-not sure what kind, 06/21/18 cystoscopy for kidney stone Past Anesthesia/Blood Transfusion Reactions: No Reported Reaction Smoking Status: Former smoker - Past Family History Father Family Medical History: Cancer Additional Family Medical History / Comment(s): . Mother Family Medical History: Cancer Additional Family Medical History / Comment(s): Mother had history of leukemia and is . Medications and Allergies Home Medications Medication Instructions Recorded Confirmed Type Levothyroxine Sodium [Synthroid] 25 mcg PO DAILY 03/06/15 07/05/18 History Lisinopril [Zestril] 5 mg PO DAILY 03/06/15 07/05/18 History Lovastatin [Mevacor] 20 mg PO HS 03/06/15 07/05/18 History Pantoprazole Sodium 40 mg PO DAILY 03/06/15 07/05/18 History Multivitamin with Iron 1 tab PO DAILY 07/16/16 07/05/18 History [Multivitamins with Iron] Ondansetron [Zofran] 4 mg PO Q8H PRN 07/16/16 07/03/18 History Potassium Chloride [Klor-Con 10] 10 meq PO DAILY 08/18/16 07/05/18 History Furosemide [Lasix] 20 mg PO BID 11/09/17 07/05/18 History Aspirin EC [Ecotrin Low Dose] 81 mg PO DAILY 03/23/18 07/03/18 History Ferrous Sulfate [Iron (65 MG 325 mg PO BID 04/11/18 07/05/18 History Elemental)] Metoprolol Tartrate [Lopressor] 50 mg PO BID 04/11/18 07/05/18 History Latanoprost [Xalatan 0.005%] 1 drop BOTH EYES HS 06/18/18 07/05/18 History Tamsulosin [Flomax] 0.4 mg PO PC-[id number] #30 cap.er.24h 06/22/18 07/05/18 Rx Clopidogrel [Plavix] 75 mg PO DAILY 07/03/18 07/03/18 History Allergies Allergy/AdvReac Type Severity Reaction Status Date / Time No Known Allergies Allergy Verified 07/05/18 08:04 Surgical - Exam Vital Signs Temp Pulse Resp BP Pulse Ox 97.2 F L 71 18 130/61 99 07/05/18 08:02 07/05/18 08:02 07/05/18 08:02 07/05/18 08:02 07/05/18 08:02 Physical exam: General: Well-developed, malnourished HEENT: Normocephalic, sclerae nonicteric Abdomen: Nontender, nondistended Extremities: No edema Neuro: Alert and oriented Assessment and Plan (1) GERD (gastroesophageal reflux disease) Narrative/Plan: Will proceed with upper endoscopy Current Visit: Yes Status: Acute Code(s): K21.9 - GASTRO-ESOPHAGEAL REFLUX DISEASE WITHOUT ESOPHAGITIS SNOMED Code(s): 580066491
--- NOTE | 2018-07-05 08:35 | P.PCN ---
Date of Procedure: 07/05/18 Procedure(s) Performed: Preoperative Dx: GERD, dysphagia Postoperative Dx: Retained food throughout stomach consistent with gastroparesis , mild gastritis Procedure: EGD with Bx Anesthesia: Sedation Endoscopist: Dr. Fine Specimens: Antrum Endoscopic Procedure: The patient was on the endoscopy table in the left decubitus position. The Olympus gastroscope was inserted into the oropharynx and passed under direct visualization to the distal stomach. The patient had retained solid food seen scattered throughout the entire stomach. I could visualize the pylorus but I was concerned about the possibility of aspiration given the large volume of food. No neoplastic changes were seen however the visualization the mucosa was poor. There may have been a small sliding hiatal hernia. The patient's esophagus likewise contained some food but no inflammatory changes were seen. I did take a biopsy of the antrum. The patient was then taken to the recovery room in stable condition per anesthesia guidelines. Recommendations: Continue antiacids. We'll add Reglan. Will discuss findings with the patient and his family.
[2018-07-05 08:52] VITALS: BP 114/61; PULSE 69
== END 2018-07-05 09:11 | disposition home or self-care (01) ==
LOC: ORWHC2ENDO 07:23
PROVIDERS: ATTEND Surgery
DX: K29.50 Unspecified chronic gastritis without bleeding (principal); E78.5 Hyperlipidemia, unspecified; I10 Essential (primary) hypertension; Z85.46 Personal history of malignant neoplasm of prostate; E07.9 Disorder of thyroid, unspecified; I20.8 Other forms of angina pectoris; E78.49 Other hyperlipidemia; Z92.3 Personal history of irradiation; Z87.442 Personal history of urinary calculi; Z95.1 Presence of aortocoronary bypass graft; Z87.891 Personal history of nicotine dependence; Z79.02 Long term (current) use of antithrombotics/antiplatelets; Z79.82 Long term (current) use of aspirin; Z79.890 Hormone replacement therapy; Z79.899 Other long term (current) drug therapy
CPT/HCPCS: 88305; 43239; J2001; J2704

== ENCOUNTER → 2018-07-31 | Outpatient (CLI) | payer MEDICARE, OTHER ==
--- NOTE | 2018-08-01 07:18 | US ---
EXAMINATION TYPE: US kidneys/renal and bladder DATE OF EXAM: 07/31/2018 COMPARISON: CT 06/18/2018 and ultrasound CLINICAL HISTORY: History of hydronephrosis R93.4. EXAM MEASUREMENTS: Right Kidney: 9.1 x 3.9 x 4.4 cm Left Kidney: 9.6 x 5.1 x 4.5 cm Patient emptied bladder during evaluation of bladder. Right Kidney: No hydronephrosis or masses seen, inferior pole obscured by bowel gas . No discrete nep hrolithiasis. Left Kidney: No hydronephrosis or nephrolithiasis. Bladder: somewhat limited visualization, see above Bilateral Jets seen: no There is no evidence for hydronephrosis at this point in time. No nephrolithiasis is seen. No sofiya s are identified. The urinary bladder is anechoic. Thickened urinary bladder olson are less apprecia stefania on today's examination although there is some trabeculation. IMPRESSION: 1. The previously seen left sided hydronephrosis has resolved in the interim secondary to passage of the previously seen left 6 mm calculus, no longer visualized. 2. Persistent mildly trabeculated urinary bladder wall that could be on the basis of chronic urinary bladder outlet obstruction or chronic cystitis.
== END ==
LOC: RADUSWWP 13:54
PROVIDERS: ATTEND Hospitalist
DX: Z09 Encounter for follow-up examination after completed treatment for conditions other than malignant neoplasm (principal); N32.89 Other specified disorders of bladder; Z87.442 Personal history of urinary calculi; Z87.448 Personal history of other diseases of urinary system
CPT/HCPCS: 76770

== ENCOUNTER 2018-11-23 20:00 | Inpatient (IN) | payer MEDICARE, OTHER ==
[2018-11-23] MEDS ORDERED: IPRATROPIUM-ALBUTEROL 3 ML NEB INHALATION STA (20:18)
[2018-11-23] MEDS ORDERED: IPRATROPIUM-ALBUTEROL 3 ML NEB INHALATION PRN (20:19)
[2018-11-23] MEDS ORDERED: LORazepam 2 MG/ML INJ IV PRN (20:19)
[2018-11-23] MEDS ORDERED: SUCCINYLCHOLINE CHLORIDE VIAL 200 MG/10 ML VIAL IV STA (20:23)
[2018-11-23] MEDS ORDERED: MIDAZOLAM (PF) 2 MG/2 ML VIAL IV ONE (20:23)
--- NOTE | 2018-11-23 20:23 | ED ---
General Adult HPI - General Stated complaint: BHASKAR Hx CHF Time Seen by Provider: 11/23/18 20:16 Source: patient, EMS, RN notes reviewed Mode of arrival: EMS Limitations: physical limitation - History of Present Illness Initial comments: Patient is a 73-year-old male presenting to the emergency department priority one by EMS for respiratory distress. Patient is extremely dyspneic and offers little history. Patient can speak in one word sentences. Patient states dyspnea has progressed throughout the day. Patient states he does have a history of previously associated dyspnea associated with CHF. Patient admits to having some chest discomfort earlier. EMS helps provide history. - Related Data Home Medications Medication Instructions Recorded Confirmed Levothyroxine Sodium [Synthroid] 25 mcg PO DAILY 03/06/15 11/23/18 Pantoprazole Sodium 40 mg PO DAILY 03/06/15 11/23/18 Multivitamin with Iron 1 tab PO DAILY 07/16/16 11/23/18 [Multivitamins with Iron] Ondansetron [Zofran] 4 mg PO Q8H PRN 07/16/16 11/23/18 Potassium Chloride [Klor-Con 10] 10 meq PO DAILY 08/18/16 11/23/18 Furosemide [Lasix] 20 mg PO BID 11/09/17 11/23/18 Ferrous Sulfate [Iron (65 MG 325 mg PO DAILY 04/11/18 11/23/18 Elemental)] Metoprolol Tartrate [Lopressor] 50 mg PO BID 04/11/18 11/23/18 Latanoprost [Xalatan 0.005%] 1 drop BOTH EYES HS 06/18/18 11/23/18 Clopidogrel [Plavix] 75 mg PO DAILY 07/03/18 11/23/18 Lisinopril [Zestril] 2.5 mg PO DAILY 11/23/18 11/23/18 Allergies Allergy/AdvReac Type Severity Reaction Status Date / Time No Known Allergies Allergy Verified 07/05/18 08:04 Review of Systems ROS Statement: Those systems with pertinent positive or pertinent negative responses have been documented in the HPI. ROS Other: All systems not noted in ROS Statement are negative. Constitutional: Denies: fever Eyes: Denies: eye pain ENT: Denies: ear pain Respiratory: Reports: cough, dyspnea Cardiovascular: Reports: chest pain Endocrine: Reports: fatigue Gastrointestinal: Denies: abdominal pain Genitourinary: Denies: dysuria Musculoskeletal: Denies: back pain Skin: Denies: rash Neurological: Denies: headache Past Medical History Past Medical History: Cancer, Chest Pain / Angina, GI Bleed, Hyperlipidemia, Hypertension, Osteoarthritis (OA), Pneumonia, Thyroid Disorder Additional Past Medical History / Comment(s): prostate cancer HAD RADIATION TREATMENTS ,recent kidney stones- saw Dr Kohler for blood in urine-told due to kidney stones, 06/21/18-cystoscopy at [facility] for kidney stone, frequent diarrhea, History of Any Multi-Drug Resistant Organisms: None Reported Past Surgical History: Coronary Bypass/CABG, Heart Catheterization Additional Past Surgical History / Comment(s): thyroidectomy, 3 cardiac valve (bovine) replacements, stomach surgery unsure what kind, blanca cataract surgery, bowel surgery-not sure what kind, 06/21/18 cystoscopy for kidney stone Past Anesthesia/Blood Transfusion Reactions: No Reported Reaction Smoking Status: Former smoker - Past Family History Father Family Medical History: Cancer Additional Family Medical History / Comment(s): . Mother Family Medical History: Cancer Additional Family Medical History / Comment(s): Mother had history of leukemia and is . General Exam Limitations: physical limitation General appearance: anxious, in distress Head exam: Present: atraumatic Eye exam: Present: normal appearance Neck exam: Present: normal inspection Respiratory exam: Present: respiratory distress, rales, accessory muscle use, decreased breath sounds Cardiovascular Exam: Present: tachycardia Expanded Peripheral pulses: 2+: Radial (R), Radial (L), Posterior Tibialis (R), Posterior Tibialis (L) GI/Abdominal exam: Present: soft. Absent: tenderness Extremities exam: Present: normal inspection. Absent: pedal edema, calf tenderness Back exam: Present: normal inspection Neurological exam: Present: alert Psychiatric exam: Present: anxious Skin exam: Present: diaphoretic Course Vital Signs 11/23/18 11/23/18 11/23/18 20:13 20:15 20:20 Temperature 97.9 F Pulse Rate 147 H 145 H 142 H Respiratory 40 H Rate Blood Pressure 172/125 167/113 O2 Sat by Pulse 85 L 93 L Oximetry 11/23/18 11/23/18 11/23/18 20:30 20:40 20:50 Temperature Pulse Rate 120 H 107 H 100 Respiratory Rate Blood Pressure 167/113 80/30 120/89 O2 Sat by Pulse 96 100 100 Oximetry 11/23/18 11/23/18 11/23/18 21:00 21:10 21:20 Temperature Pulse Rate 98 87 91 Respiratory Rate Blood Pressure 55/41 78/68 92/62 O2 Sat by Pulse 75 L 100 100 Oximetry 11/23/18 11/23/18 11/23/18 21:30 21:40 21:50 Temperature Pulse Rate 84 91 83 Respiratory Rate Blood Pressure 81/42 117/55 74/62 O2 Sat by Pulse 99 100 100 Oximetry 11/23/18 11/23/18 11/23/18 22:00 22:10 22:20 Temperature Pulse Rate 79 78 83 Respiratory Rate Blood Pressure 98/79 97/78 120/64 O2 Sat by Pulse 100 100 94 L Oximetry 11/23/18 11/23/18 11/23/18 22:30 22:40 22:50 Temperature Pulse Rate 78 74 83 Respiratory Rate Blood Pressure 110/95 96/68 O2 Sat by Pulse 90 L 100 95 Oximetry 11/23/18 11/23/18 11/23/18 23:00 23:10 23:20 Temperature Pulse Rate 81 80 74 Respiratory Rate Blood Pressure 95/75 96/69 96/67 O2 Sat by Pulse 100 94 L 100 Oximetry 11/23/18 11/23/18 11/23/18 23:30 23:40 23:50 Temperature Pulse Rate 71 72 70 Respiratory Rate Blood Pressure 97/58 92/59 89/59 O2 Sat by Pulse 100 100 100 Oximetry - Reevaluation(s) Reevaluation #1: 11/23/18 20:21 Patient was immediately transferred to a trauma bay and intubated. Patient did give consent 11/23/18 21:21 Case was discussed with Dr. Wharton, who will consult. He does recommend Zosyn and Levaquin. 11/23/18 21:27 Suspicion for septic shock diagnosed at 2127. Second liter of fluid bolus has been ordered, greater than 30 mL/kg. Blood culture and lactic acid and IV an tibiotics have all been ordered. 11/23/18 21:37 Patient reevaluated 11/23/18 21:42 belt tender: Patient was placed on robotics specialist secondary chest pain and dyspnea and to monitor for arrhythmia. Monitor does show sinus rhythm rate of 90 with bundle-branch block. EKG Findings - EKG Comments: EKG Findings:: Sinus rhythm at 94. MI 152. QRS 160. QT 4:30. QTC 537. Left axis. Left bundle branch block. Nonspecific ST-T. Procedures - ABG Interpretation Ph: 7.334 PCO2: 40.1 PO2: 192 Bicarbonate: 21.3 Interpretation: normal - Central Line Placement Right SC Consent Obtained: emergent situation Patient Placed on Monitor/Pulse Ox: Yes MD Prep: mask, gown, gloves Central Line Prep: Chlorhexidine scrub Local Anesthesia Used: Lidocaine 1% Ultrasound Used for Placement: No Central Line Lumen Inserted: triple Central Line Position: good blood return, all ports aspirated, flushed, capped, sutured in place with 3-0 nylon Dressing Applied: Tegaderm Post Procedure X-Ray: tip of catheter in good position Patient Tolerated Procedure: well, no complications Complications: none - Intubation Sedative: Versed Paralytic: Succinylcholine Laryngoscope: Domingo Size: 3 ET Tube Size: 7.5 Tube Secured Location: lips Tube Placement Confirmation: visualized tube passing through cords, equal breath sounds bilaterally, no breath sounds over epigastrium, confirmation by capnometry Patient Tolerated Procedure: well, no complications Intubation Complications: none - Sepsis Sepsis Focused Exam #1 Time Sepsis Criteria Met: 21:27 Sepsis Focused Exam Date: 11/23/18 Sepsis Focused Exam Time: 21:45 Sepsis Focused Exam Complete: Yes Vital Signs & RN Notes Reviewed: Yes Capillary Refill: < 2 Seconds: Fingers, Toes Peripheral Pulses: Normal: Radial (R), Radial (L) Skin Color: Normal for Patient Respiratory Exam: rales Cardiovascular Exam: tachycardia Sepsis Focused Exam #2 Time Sepsis Criteria Met: 21:27 Sepsis Focused Exam Date: 11/24/18 Sepsis Focused Exam Time: 00:08 Sepsis Focused Exam Complete: Yes Vital Signs & RN Notes Reviewed: Yes Capillary Refill: < 2 Seconds: Fingers, Toes Peripheral Pulses: Normal: Radial (R), Radial (L) Skin Color: Normal for Patient Respiratory Exam: rales Cardiovascular Exam: regular rate, normal rhythm Medical Decision Making - Medical Decision Making Patient again reevaluated. Case was also discussed in detail with Dr. Nicole who has previously seen this patient and will admit. - Lab Data Result diagrams: 11/23/18 20:15 11/23/18 20:15 Lab Results 11/23/18 11/23/18 11/23/18 Range/Units 20:15 20:15 20:15 WBC 19.1 H (3.8-10.6) k/uL RBC 5.29 (4.30-5.90) m/uL Hgb 14.9 (13.0-17.5) gm/dL Hct 47.9 (39.0-53.0) % MCV 90.7 (80.0-100.0) fL MCH 28.2 (25.0-35.0) pg MCHC 31.1 (31.0-37.0) g/dL RDW 13.4 (11.5-15.5) % Plt Count 188 (150-450) k/uL Neutrophils % 76 % Lymphocytes % 15 % Monocytes % 6 % Eosinophils % 1 % Basophils % 0 % Neutrophils # 14.5 H (1.3-7.7) k/uL Lymphocytes # 2.8 (1.0-4.8) k/uL Monocytes # 1.1 H (0-1.0) k/uL Eosinophils # 0.2 (0-0.7) k/uL Basophils # 0.0 (0-0.2) k/uL Hypochromasia Moderate PT (9.0-12.0) sec INR (<1.2) APTT (22.0-30.0) sec Sample Site ABG pH (7.35-7.45) ABG pCO2 (35-45) mmHg ABG pO2 (83-108) mmHg ABG HCO3 (21-25) mmol/L ABG Total CO2 (19-24) mmol/L ABG O2 Saturation (94-97) % ABG Base Excess mmol/L Larry Test FiO2 % Sodium 140 (137-145) mmol/L Potassium 4.1 (3.5-5.1) mmol/L Chloride 105 (98-107) mmol/L Carbon Dioxide 21 L (22-30) mmol/L Anion Gap 14 mmol/L BUN 9 (9-20) mg/dL Creatinine 1.13 (0.66-1.25) mg/dL Est GFR (CKD-EPI)AfAm 74 (>60 ml/min/1.73 sqM) Est GFR (CKD-EPI)NonAf 64 (>60 ml/min/1.73 sqM) Glucose 180 H (74-99) mg/dL Plasma Lactic Acid Hiram (0.7-2.0) mmol/L Calcium 9.1 (8.4-10.2) mg/dL Magnesium 1.8 (1.6-2.3) mg/dL Total Bilirubin 1.0 (0.2-1.3) mg/dL AST 38 (17-59) U/L ALT 36 (21-72) U/L Alkaline Phosphatase 87 (38-126) U/L Creatine Kinase 80 (55-170) U/L Troponin I (0.000-0.034) ng/mL NT-Pro-B Natriuret Pep 2950 pg/mL Total Protein 7.6 (6.3-8.2) g/dL Albumin 4.4 (3.5-5.0) g/dL Urine Color Urine Appearance (Clear) Urine pH (5.0-8.0) Ur Specific Plover (1.001-1.035) Urine Protein (Negative) Urine Glucose (UA) (Negative) Urine Ketones (Negative) Urine Blood (Negative) Urine Nitrite (Negative) Urine Bilirubin (Negative) Urine Urobilinogen (<2.0) mg/dL Ur Leukocyte Esterase (Negative) Influenza Type A RNA (Not Detectd) Influenza Type B (PCR) (Not Detectd) 11/23/18 11/23/18 11/23/18 Range/Units 20:15 20:15 20:45 WBC (3.8-10.6) k/uL RBC (4.30-5.90) m/uL Hgb (13.0-17.5) gm/dL Hct (39.0-53.0) % MCV (80.0-100.0) fL MCH (25.0-35.0) pg MCHC (31.0-37.0) g/dL RDW (11.5-15.5) % Plt Count (150-450) k/uL Neutrophils % % Lymphocytes % % Monocytes % % Eosinophils % % Basophils % % Neutrophils # (1.3-7.7) k/uL Lymphocytes # (1.0-4.8) k/uL Monocytes # (0-1.0) k/uL Eosinophils # (0-0.7) k/uL Basophils # (0-0.2) k/uL Hypochromasia PT 10.9 (9.0-12.0) sec INR 1.0 (<1.2) APTT 20.8 L (22.0-30.0) sec Sample Site ABG pH (7.35-7.45) ABG pCO2 (35-45) mmHg ABG pO2 (83-108) mmHg ABG HCO3 (21-25) mmol/L ABG Total CO2 (19-24) mmol/L ABG O2 Saturation (94-97) % ABG Base Excess mmol/L Larry Test FiO2 % Sodium (137-145) mmol/L Potassium (3.5-5.1) mmol/L Chloride (98-107) mmol/L Carbon Dioxide (22-30) mmol/L Anion Gap mmol/L BUN (9-20) mg/dL Creatinine (0.66-1.25) mg/dL Est GFR (CKD-EPI)AfAm (>60 ml/min/1.73 sqM) Est GFR (CKD-EPI)NonAf (>60 ml/min/1.73 sqM) Glucose (74-99) mg/dL Plasma Lactic Acid Hiram (0.7-2.0) mmol/L Calcium (8.4-10.2) mg/dL Magnesium (1.6-2.3) mg/dL Total Bilirubin (0.2-1.3) mg/dL AST (17-59) U/L ALT (21-72) U/L Alkaline Phosphatase (38-126) U/L Creatine Kinase (55-170) U/L Troponin I 0.027 (0.000-0.034) ng/mL NT-Pro-B Natriuret Pep pg/mL Total Protein (6.3-8.2) g/dL Albumin (3.5-5.0) g/dL Urine Color Yellow Urine Appearance Clear (Clear) Urine pH 6.5 (5.0-8.0) Ur Specific Plover 1.012 (1.001-1.035) Urine Protein Trace H (Negative) Urine Glucose (UA) Negative (Negative) Urine Ketones Negative (Negative) Urine Blood Negative (Negative) Urine Nitrite Negative (Negative) Urine Bilirubin Negative (Negative) Urine Urobilinogen <2.0 (<2.0) mg/dL Ur Leukocyte Esterase Negative (Negative) Influenza Type A RNA (Not Detectd) Influenza Type B (PCR) (Not Detectd) 11/23/18 11/23/18 11/23/18 Range/Units 20:46 21:25 22:10 WBC (3.8-10.6) k/uL RBC (4.30-5.90) m/uL Hgb (13.0-17.5) gm/dL Hct (39.0-53.0) % MCV (80.0-100.0) fL MCH (25.0-35.0) pg MCHC (31.0-37.0) g/dL RDW (11.5-15.5) % Plt Count (150-450) k/uL Neutrophils % % Lymphocytes % % Monocytes % % Eosinophils % % Basophils % % Neutrophils # (1.3-7.7) k/uL Lymphocytes # (1.0-4.8) k/uL Monocytes # (0-1.0) k/uL Eosinophils # (0-0.7) k/uL Basophils # (0-0.2) k/uL Hypochromasia PT (9.0-12.0) sec INR (<1.2) APTT (22.0-30.0) sec Sample Site Right Brachial ABG pH 7.33 L (7.35-7.45) ABG pCO2 40 (35-45) mmHg ABG pO2 192 H (83-108) mmHg ABG HCO3 21 (21-25) mmol/L ABG Total CO2 23 (19-24) mmol/L ABG O2 Saturation 97.4 H (94-97) % ABG Base Excess -4.6 mmol/L Larry Test Yes FiO2 100 % Sodium (137-145) mmol/L Potassium (3.5-5.1) mmol/L Chloride (98-107) mmol/L Carbon Dioxide (22-30) mmol/L Anion Gap mmol/L BUN (9-20) mg/dL Creatinine (0.66-1.25) mg/dL Est GFR (CKD-EPI)AfAm (>60 ml/min/1.73 sqM) Est GFR (CKD-EPI)NonAf (>60 ml/min/1.73 sqM) Glucose (74-99) mg/dL Plasma Lactic Acid Hiram 6.7 H* (0.7-2.0) mmol/L Calcium (8.4-10.2) mg/dL Magnesium (1.6-2.3) mg/dL Total Bilirubin (0.2-1.3) mg/dL AST (17-59) U/L ALT (21-72) U/L Alkaline Phosphatase (38-126) U/L Creatine Kinase (55-170) U/L Troponin I (0.000-0.034) ng/mL NT-Pro-B Natriuret Pep pg/mL Total Protein (6.3-8.2) g/dL Albumin (3.5-5.0) g/dL Urine Color Urine Appearance (Clear) Urine pH (5.0-8.0) Ur Specific Plover (1.001-1.035) Urine Protein (Negative) Urine Glucose (UA) (Negative) Urine Ketones (Negative) Urine Blood (Negative) Urine Nitrite (Negative) Urine Bilirubin (Negative) Urine Urobilinogen (<2.0) mg/dL Ur Leukocyte Esterase (Negative) Influenza Type A RNA Not Detected (Not Detectd) Influenza Type B (PCR) Not Detected (Not Detectd) Critical Care Time Critical Care Time: Yes Total Critical Care Time: 80 Disposition Clinical Impression: Pneumonia, Septic shock Disposition: ADMITTED IP TO THIS [facility] Condition: Critical Is patient prescribed a controlled substance at d/c from ED?: No Referrals: Charline Brennan MD [Primary Care Provider] - 1-2 days Decision Time: 00:09
[2018-11-23] MEDS: PROPOFOL 1,000 MG in EMPTY BAG 1 BAG IV SCH (20:29)
[2018-11-23] MEDS ORDERED: MIDAZOLAM 1 MG/ML 5 ML VIAL IV STA (20:30)
[2018-11-23] MEDS ORDERED: SODIUM CHLORIDE 0.9% 1,000 ML IV STA ×2 (20:36→21:26)
[2018-11-23 20:40] LABS: Basophils % (A) 0 %; Eosinophils # (A) 0.2 k/uL (0-0.7); Eosinophils % (A) 1 %; HCT 47.9 % (39.0-53.0); HGB 14.9 gm/dL (13.0-17.5); Hypochromasia Moderate; Lymphocytes # (A) 2.8 k/uL (1.0-4.8); Lymphocytes % (A) 15 %; MCH 28.2 pg (25.0-35.0); MCHC 31.1 g/dL (31.0-37.0); MCV 90.7 fL (80.0-100.0); Mean Platelet Volume 9.3; Monocytes # (A) 1.1 k/uL (0-1.0); Monocytes % (A) 6 %; Neutrophils # (A) 14.5 k/uL (1.3-7.7); Neutrophils % (A) 76 %; Platelet Count 188 k/uL (150-450); RBC 5.29 m/uL (4.30-5.90); RDW 13.4 % (11.5-15.5); WBC 19.1 k/uL (3.8-10.6)
[2018-11-23] MEDS ORDERED: LEVOFLOXACIN 750MG-D5W PMX 750 MG in DEXTROSE/WATER 1 150ML.BAG IVPB STA (20:46)
[2018-11-23] MEDS ORDERED: PNEUMONIA PROTOCOL UTILIZED 1 EACH MISC PO PRN (20:46)
[2018-11-23] MEDS ORDERED: PIPERACILLIN-TAZOBACTAM 3.375 GM in SODIUM CHLORIDE 0.9% 100 ML IVPB STA (20:46)
[2018-11-23 20:49] LABS: Albumin 4.4 g/dL (3.5-5.0); Calcium 9.1 mg/dL (8.4-10.2); Magnesium 1.8 mg/dL (1.6-2.3); Potassium 4.1 mmol/L (3.5-5.1); Total Protein 7.6 g/dL (6.3-8.2)
[2018-11-23 20:50] LABS: Appearance,Urine Clear (Clear); Bilirubin,Urine Negative (Negative); Blood,Urine Negative (Negative); Color,Urine Yellow; Glucose,Urine (UA) Negative (Negative); Ketones,Urine Negative (Negative); Leukocyte Esterase,Urine Negative (Negative); Nitrite,Urine Negative (Negative); PH, Urine 6.5 (5.0-8.0); Protein,Urine Trace (Negative); Specific Gravity,Urine 1.012 (1.001-1.035); Urobilinogen,Urine <2.0 mg/dL (<2.0)
--- NOTE | 2018-11-23 20:57 | XR ---
EXAMINATION TYPE: XR chest 1V portable DATE OF EXAM: 11/23/2018 COMPARISON: 06/18/2018 HISTORY: Check tube placement TECHNIQUE: Single frontal view of the chest is obtained. FINDINGS: Endotracheal tube is 4 cm from the francisco. Nasogastric tube appears in good position in th e stomach. There is airspace consolidation in the right lung. There is general coarsening of the chidi g markings. There are fibrotic changes in the upper lobes. There is slight blunting of right costophr enic angle. There are sternal wires. There are chest leads. IMPRESSION: There is new extensive airspace consolidation in the right lung compared to last exam. T here is underlying pulmonary fibrosis.
[2018-11-23 20:58] LABS: Prothrombin Time 10.9 sec (9.0-12.0)
[2018-11-23 21:06] LABS: Partial Thromboplastin Time 20.8 sec (22.0-30.0)
[2018-11-23] MEDS: SODIUM CHLORIDE 0.9% 1,000 ML IV SCH (21:25)
[2018-11-23 21:30] LABS: ABG Base Excess -4.6 mmol/L; ABG HCO3 21 mmol/L (21-25); ABG Oxygen Saturation 97.4 % (94-97); ABG PCO2 40 mmHg (35-45); ABG PH 7.33 (7.35-7.45); ABG PO2 192 mmHg (83-108); ABG TCO2 23 mmol/L (19-24)
[2018-11-23] MEDS: NOREPINEPHRINE 8 MG in SODIUM CHLORIDE 0.9% 250 ML IV SCH (22:54)
--- NOTE | 2018-11-23 23:00 | XR ---
EXAM: XR Chest, 1 View CLINICAL HISTORY: Placement line TECHNIQUE: Frontal view of the chest. COMPARISON: 11/23/18 2016 hrs. FINDINGS: Lungs: Unchanged from prior study Pleural space: Unremarkable. No pneumothorax. Heart: Unremarkable. No cardiomegaly. Mediastinum: Unremarkable. Interval placement of right-sided intravenous catheter. The distal tip is appropriately positioned at the junction superior vena cava and the right atrium. Endotracheal tube remains in good position. Gastric tube remains in the proximal stomach with the side-port at the level of the GE junction IMPRESSION: Right-sided central venous catheter in appropriate position. No evidence of pneumothorax. Gastric tube remains in the proximal stomach with the side-port at the level of the GE junction. Endotracheal tube is unchanged
[2018-11-24] MEDS ORDERED: ACETAMINOPHEN SUPPOSITORY 650 MG SUPP RECTAL PRN (00:09)
[2018-11-24] MEDS ORDERED: NALOXONE 0.4 MG/ML 1 ML VIAL IV PRN (00:09)
[2018-11-24] MEDS: IPRATROPIUM-ALBUTEROL 3 ML NEB INHALATION SCH ×7 (01:30→23:21)
[2018-11-24 01:52] LABS: Glucose,Whole Blood 114 mg/dL (75-99)
[2018-11-24 04:33] LABS: ABG Base Excess -4.1 mmol/L; ABG HCO3 21 mmol/L (21-25); ABG Oxygen Saturation 96.8 % (94-97); ABG PCO2 38 mmHg (35-45); ABG PH 7.36 (7.35-7.45); ABG PO2 128 mmHg (83-108); ABG TCO2 23 mmol/L (19-24)
[2018-11-24] MEDS: CHLORHEXIDINE GLUCONATE 15 ML CUP MUCOUS MEM SCH ×3 (04:36→20:27)
[2018-11-24] MEDS: PROPOFOL 1,000 MG in EMPTY BAG 1 BAG IV SCH ×3 (05:50→17:04)
[2018-11-24 06:29] LABS: HCT 36.8 % (39.0-53.0); MCH 28.1 pg (25.0-35.0); MCV 87.9 fL (80.0-100.0); Mean Platelet Volume 9.6; Platelet Count 140 k/uL (150-450); RBC 4.18 m/uL (4.30-5.90); RDW 13.5 % (11.5-15.5); WBC 17.5 k/uL (3.8-10.6)
[2018-11-24 06:31] LABS: ALT 34 U/L (21-72); AST 33 U/L (17-59); Alkaline Phosphatase 62 U/L (38-126); Anion Gap 8 mmol/L; Blood Urea Nitrogen 12 mg/dL (9-20); Calcium 7.9 mg/dL (8.4-10.2); Carbon Dioxide 20 mmol/L (22-30); Chloride 111 mmol/L (98-107); Glucose 138 mg/dL (74-99); Magnesium 1.4 mg/dL (1.6-2.3); Potassium 4.7 mmol/L (3.5-5.1); Sodium 139 mmol/L (137-145); Total Protein 5.7 g/dL (6.3-8.2)
[2018-11-24 06:37] LABS: HGB 11.8 gm/dL (13.0-17.5)
[2018-11-24] MEDS ORDERED: Magnesium Replacement Protocol 1 EACH MISC MISCELLANE PRN (07:30)
--- NOTE | 2018-11-24 07:34 | XR ---
EXAMINATION TYPE: XR chest 1V portable DATE OF EXAM: 11/24/2018 COMPARISON: 11/23/2018 HISTORY: SOB, Follow Up FINDINGS: Indwelling tubes and catheters are unchanged. Persistent perihilar and basilar infiltrates greater on the right. Stable appearance of the cardio-mediastinal structures at this time. Pleural effusion unchanged. IMPRESSION: 1. Stable portable chest. Clinical correlation and follow up until resolution is recommended.
[2018-11-24] MEDS: LORazepam 2 MG/ML INJ IV PRN (08:34)
[2018-11-24] MEDS: PANTOPRAZOLE 40 MG/10 ML VIAL IV SCH (08:36)
[2018-11-24] MEDS: SODIUM CHLORIDE 0.9% 1,000 ML IV SCH ×3 (08:37→20:27)
[2018-11-24] MEDS: PIPERACILLIN-TAZOBACTAM 3.375 GM in SODIUM CHLORIDE 0.9% 100 ML IVPB SCH ×2 (08:39→15:14)
[2018-11-24] MEDS ORDERED: SODIUM CHLORIDE 0.9% 1,000 ML IV ONE (09:27)
[2018-11-24] MEDS: MAGNESIUM SULFATE-D5W PMX 1 GM in DEXTROSE/WATER 1 100ML.BAG IVPB SCH ×3 (10:12→12:57)
--- NOTE | 2018-11-24 10:17 | PCN ---
PROCEDURE NOTE LEFT RADIAL ARTERIAL LINE PLACEMENT: Indications: Hemodynamic monitoring. A time-out was completed verifying correct patient, procedure, site, positioning, and implant(s) or special equipment if applicable. Larry's test was performed to ensure adequate perfusion. The patient?s right/left wrist or right/left groin was prepped and draped in sterile fashion. 1% Lidocaine was used to anesthetize the area. An 18G Arrow arterial line was introduced into the radial/femoral artery. The catheter was threaded over the guide wire and the needle was removed with appropriate pulsatile blood return. Blood loss was minimal. The catheter was then sutured in place to the skin and a sterile dressing applied. Perfusion to the extremity distal to the point of catheter insertion was checked and found to be adequate. Patient tolerated procedure well, good waveform was noted, the line was flushed, sterile dressing was applied, no immediate complications. MMODL / IJN: [id number] /
[2018-11-24 11:50] LABS: Glucose,Whole Blood 127 mg/dL (75-99)
--- NOTE | 2018-11-24 14:14 | P.CNPUL ---
History of Present Illness Consult date: 11/24/18 Reason for consult: pneumonia History of present illness: This is a 73-year-old male patient who came into the hospital because of acute respiratory failure. The patient was extremely dyspneic and using excessive muscle breathing. A tree was intubated and placed on a mechanical ventilator in the emergency department. The post intubation chest x-ray showed an extensive right lung consolidation occupying the lower two thirds of the right lung. The patient also had some cardiomegaly. Post intubation, the patient was given a total of 2 L of IV fluids a sinus sepsis protocol. He continued to be hypotensive. The triple-lumen catheter was inserted in his right subclavian vein and the patient was continued on fluids and pressors. Currently levo fed is running at a low-dose. Did not like it was inserted today. Overnight the patient was started on broad-spectrum antibiotics utilizing a combination of Zosyn and Levaquin. Influenza screen is negative. The patient is producing adequate amount of urine output. This morning, the patient's blood gas showed a pH of 7.36 with a pCO2 of 38 and pO2 of 128 and this was on FiO2 of 40% and a PEEP of 5. His rate is at 12 with tidal volume of 400. Renal function is stable. LFTs are within normal limits. No previous history of chronic lung disease. He is known to have cardiac disease with coronary artery disease, previous aortic valve replacement, previous mitral valve repair, paroxysmal atrial fibrillation the patient has been on no anticoagulants due to concerns of Miguel A GI bleed. Review of Systems ROS unobtainable: due to endotracheal tube Past Medical History Past Medical History: Coronary Artery Disease (CAD), Cancer, Chest Pain / Angina, GI Bleed, Hyperlipidemia, Hypertension, Osteoarthritis (OA), Pneumonia, Thyroid Disorder Additional Past Medical History / Comment(s): CAD, aortic valve replacement, mitral valve repair, proximal atrial fibrillation, left bundle branch block pattern, hypothyroidism, hypertension, hyperlipidemia, osteoporosis cancer treated by radiation therapy, nephrolithiasis/kidney stones him a the patient has CHF with an ejection fraction of 40-45% and the patient has 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 No peric ardial effusion. Moderate concentric left ventricular hypertrophy. History of Any Multi-Drug Resistant Organisms: None Reported Past Surgical History: Coronary Bypass/CABG, Heart Catheterization Additional Past Surgical History / Comment(s): thyroidectomy, 3 cardiac valve (bovine) replacements, stomach surgery unsure what kind, blanca cataract surgery, bowel surgery-not sure what kind, 06/21/18 cystoscopy for kidney stone Past Anesthesia/Blood Transfusion Reactions: No Reported Reaction Past Psychological History: No Psychological Hx Reported Additional Psychological History / Comment(s): . Smoking Status: Former smoker Past Alcohol Use History: None Reported Additional Past Alcohol Use History / Comment(s): smoker for 40 years 3ppd quitt 1998 Past Drug Use History: None Reported - Past Family History Father Family Medical History: Cancer Additional Family Medical History / Comment(s): . Mother Family Medical History: Cancer Additional Family Medical History / Comment(s): Mother had history of leukemia and is . Medications and Allergies Home Medications Medication Instructions Recorded Confirmed Type Levothyroxine Sodium [Synthroid] 25 mcg PO DAILY 03/06/15 11/23/18 History Pantoprazole Sodium 40 mg PO DAILY 03/06/15 11/23/18 History Multivitamin with Iron 1 tab PO DAILY 07/16/16 11/23/18 History [Multivitamins with Iron] Ondansetron [Zofran] 4 mg PO Q8H PRN 07/16/16 11/23/18 History Potassium Chloride [Klor-Con 10] 10 meq PO DAILY 08/18/16 11/23/18 History Furosemide [Lasix] 20 mg PO BID 11/09/17 11/23/18 History Ferrous Sulfate [Iron (65 MG 325 mg PO DAILY 04/11/18 11/23/18 History Elemental)] Metoprolol Tartrate [Lopressor] 50 mg PO BID 04/11/18 11/23/18 History Latanoprost [Xalatan 0.005%] 1 drop BOTH EYES HS 06/18/18 11/23/18 History Clopidogrel [Plavix] 75 mg PO DAILY 07/03/18 11/23/18 History Lisinopril [Zestril] 2.5 mg PO DAILY 11/23/18 11/23/18 History Allergies Allergy/AdvReac Type Severity Reaction Status Date / Time No Known Allergies Allergy Verified 07/05/18 08:04 Physical Exam Vitals: Vital Signs Temp Pulse Resp BP Pulse Ox 11/24/18 13:00 60 20 111/58 100 11/24/18 12:45 61 20 109/56 100 11/24/18 12:30 60 21 112/58 100 11/24/18 12:16 18 11/24/18 12:15 62 19 103/54 100 11/24/18 12:00 98.4 F 63 21 104/53 100 11/24/18 11:45 62 19 109/52 100 11/24/18 11:40 64 11/24/18 11:30 61 21 109/56 100 11/24/18 11:29 61 11/24/18 11:15 61 19 97/52 100 11/24/18 11:00 61 21 137/71 100 11/24/18 10:45 62 19 111/56 97 11/24/18 10:30 60 19 120/59 100 11/24/18 10:15 61 21 112/59 99 11/24/18 10:00 64 20 102/54 100 11/24/18 09:45 65 17 100 11/24/18 09:30 64 22 98/60 99 11/24/18 09:15 69 21 94/56 99 11/24/18 09:00 69 19 94/55 100 11/24/18 08:45 70 19 100/56 100 11/24/18 08:30 67 20 112/61 100 11/24/18 08:15 69 20 112/61 100 11/24/18 08:05 21 11/24/18 08:00 97.8 F 70 21 95/54 100 11/24/18 07:44 65 11/24/18 07:34 65 11/24/18 07:30 63 19 105/60 100 11/24/18 07:00 64 19 110/59 100 11/24/18 06:00 64 22 103/61 100 11/24/18 05:30 64 23 100/56 99 11/24/18 05:00 64 24 96/58 99 11/24/18 04:48 62 11/24/18 04:38 63 11/24/18 04:30 61 21 102/59 77 L 11/24/18 04:00 65 22 102/59 99 11/24/18 03:30 63 23 96/58 98 11/24/18 03:00 66 23 94/58 98 11/24/18 02:30 98.6 F 68 26 H 99/60 98 11/24/18 02:00 73 23 83/59 99 11/24/18 01:33 71 11/24/18 01:30 71 32 H 120/74 100 11/24/18 01:20 103/62 11/24/18 01:10 100/61 11/24/18 01:00 70 99/61 100 11/24/18 00:53 69 100/61 100 11/24/18 00:50 69 97/60 100 11/24/18 00:40 71 91/64 100 11/24/18 00:30 70 97/61 100 11/24/18 00:20 69 108/69 100 11/24/18 00:17 73 12 108/69 100 11/24/18 00:10 71 102/66 100 11/24/18 00:00 90 99/65 100 11/23/18 23:50 70 89/59 100 11/23/18 23:40 72 92/59 100 11/23/18 23:30 71 97/58 100 11/23/18 23:20 74 96/67 100 11/23/18 23:10 80 96/69 94 L 11/23/18 23:00 81 95/75 100 11/23/18 22:50 83 95 11/23/18 22:40 74 96/68 100 11/23/18 22:30 78 110/95 90 L 11/23/18 22:20 83 120/64 94 L 11/23/18 22:10 78 97/78 100 11/23/18 22:00 79 98/79 100 11/23/18 21:50 83 74/62 100 11/23/18 21:40 91 117/55 100 11/23/18 21:30 84 81/42 99 11/23/18 21:20 91 92/62 100 11/23/18 21:10 87 78/68 100 11/23/18 21:00 98 55/41 75 L 11/23/18 20:50 100 120/89 100 11/23/18 20:40 107 H 80/30 100 11/23/18 20:30 120 H 167/113 96 11/23/18 20:23 40 H 11/23/18 20:20 142 H 167/113 93 L 11/23/18 20:15 97.9 F 145 H 40 H 172/125 85 L 11/23/18 20:13 147 H Intake and Output 11/23/18 11/24/18 11/24/18 22:59 06:59 14:59 Intake Total 544.244 2135.883 Output Total 1225 975 Balance -663.044 4534.883 Intake: IV 500 2118 CVP/ART 18 Magnesium Sulfate-D5w Pmx 300 1 gm In Dextrose/Water 1 100ml.bag @ 100 mls/hr IVPB Q1H [place] Rx#: [id number] Piperacillin-Tazobactam 3 100 .375 gm In Sodium Chloride 0.9% 100 ml @ 25 mls/hr IVPB ONCE [facility] Rx# :[id number] Sodium Chloride 0.9% 1, 500 700 000 ml @ 100 mls/hr IV . Q10H [place] Rx#:[id number] Sodium Chloride 0.9% 1, 1000 000 ml @ 999 mls/hr IV . Q1H1M [facility] Rx#:[id number] Intake, IV Titration 118.728 177.883 Amount Norepinephrine 8 mg In 18.728 100.771 Sodium Chloride 0.9% 250 ml @ 0.05 MCG/KG/MIN 5. 486 mls/hr IV .Q24H [place] Rx#:[id number] Propofol 1,000 mg In 100.000 77.112 Empty Bag 1 bag @ Titrate IV .Q0M [facility] Rx#: [id number] Output: Gastric Drainage 350 Urine 875 975 Other: Voiding Method Indwelling Catheter Indwelling Catheter Weight 56.699 kg 62.6 kg ABP, PAP, CO, CI - Last 8 Hours Arterial Blood Pressure 105/44 Arterial Blood Pressure 102/45 Arterial Blood Pressure 99/40 Arterial Blood Pressure 103/45 Arterial Blood Pressure 95/41 Arterial Blood Pressure 96/42 Arterial Blood Pressure 96/44 Arterial Blood Pressure 101/44 Arterial Blood Pressure 110/46 Arterial Blood Pressure 103/44 Arterial Blood Pressure 111/48 Arterial Blood Pressure 99/46 Gen. appearance Ms. sedated, comfortable , nonacute distress. Head exam was generally normal. There was no scleral icterus or corneal arcus. Mucous membranes were moist. Neck was supple and without jugular venous distension, thyromegaly, or carotid bruits. Carotids were easily palpable bilaterally. There was no adenopathy. The patient has an orogastric and orotracheal tube are both of them are in place. Lungs were clear to auscultation and percussion, and with normal diaphragmatic excursion. No wheezes or rales were noted. Cardiac exam revealed the PMI to be normally situated and sized. The rhythm was regular and no extrasystoles were noted during several minutes of auscultation. The first and second heart sounds were normal and physiologic splitting of the second heart sound was noted. There were no murmurs, rubs, clicks, or gallops. The patient has a sternotomy scar over the anterior chest area. No significant murmurs appreciated. Abdominal exam revealed normal bowel sounds. The abdomen was soft, non-tender, and without masses, organomegaly, or appreciable enlargement of the abdominal aorta. Examination of the extremities revealed easily palpable radial, femoral and pedal pulses. There was no cyanosis, clubbing or edema. The pulses are essentially diminished in lower eczematous bilaterally but they're palpable. Examination of the skin revealed no evidence of significant rashes, suspicious appearing nevi or other concerning lesions. Neurologically the patient is sedated the patient withdraws to painful stimulation to all 4 extremities. Pupils are equal and reactive to light. No facial asymmetry. Results - Laboratory Findings CBC and BMP: 11/24/18 05:00 11/24/18 05:00 ABG ABG pH 7.36 (7.35-7.45) 11/24/18 04:31 ABG pCO2 38 mmHg (35-45) 11/24/18 04:31 ABG pO2 128 mmHg (83-108) H 11/24/18 04:31 ABG O2 Saturation 96.8 % (94-97) 11/24/18 04:31 PT/INR, D-dimer PT 10.9 sec (9.0-12.0) 11/23/18 20:15 INR 1.0 (<1.2) 11/23/18 20:15 Abnormal lab findings: Abnormal Labs 11/23/18 11/23/18 11/23/18 20:15 20:15 20:15 WBC 19.1 H RBC Hgb Hct Plt Count Neutrophils # 14.5 H Monocytes # 1.1 H APTT 20.8 L ABG pH ABG pO2 ABG O2 Saturation Chloride Carbon Dioxide 21 L Glucose 180 H POC Glucose (mg/dL) Plasma Lactic Acid Hiram Calcium Magnesium Total Protein Albumin Urine Protein 11/23/18 11/23/18 11/23/18 20:45 20:46 21:25 WBC RBC Hgb Hct Plt Count Neutrophils # Monocytes # APTT ABG pH 7.33 L ABG pO2 192 H ABG O2 Saturation 97.4 H Chloride Carbon Dioxide Glucose POC Glucose (mg/dL) Plasma Lactic Acid Hiram 6.7 H* Calcium Magnesium Total Protein Albumin Urine Protein Trace H 11/24/18 11/24/18 11/24/18 01:30 04:31 05:00 WBC 17.5 H RBC 4.18 L Hgb 11.8 L D Hct 36.8 L Plt Count 140 L Neutrophils # Monocytes # APTT ABG pH ABG pO2 128 H ABG O2 Saturation Chloride Carbon Dioxide Glucose POC Glucose (mg/dL) 114 H Plasma Lactic Acid Hiram Calcium Magnesium Total Protein Albumin Urine Protein 11/24/18 11/24/18 05:00 11:38 WBC RBC Hgb Hct Plt Count Neutrophils # Monocytes # APTT ABG pH ABG pO2 ABG O2 Saturation Chloride 111 H Carbon Dioxide 20 L Glucose 138 H POC Glucose (mg/dL) 127 H Plasma Lactic Acid Hiram Calcium 7.9 L Magnesium 1.4 L Total Protein 5.7 L Albumin 3.0 L Urine Protein - Diagnostic Findings Chest x-ray: image reviewed Assessment and Plan Plan: 1 right lung pneumonia, multilobar, complicated by acute hypoxic history failure requiring intubation mechanical ventilation 2 acute hypoxic respiratory failure secondary to above, currently intubated on a mechanical ventilator 3 sepsis secondary to right lung pneumonia, resuscitated IV fluids and the patient is currently on pressors 4 leukocytosis 5 CAD 6 paroxysmal atrial fibrillation current rhythm is sinus with LBBB pattern 7 aortic valve replacement/bioprosthetic valve with mitral valve repair. The patient has moderate degree of stenosis of the aortic valve that has been replaced 8 prostate cancer with previous radiation therapy to the prostate 9 hypertension 10 hyperlipidemia 11 hypothyroidism 13 previous history of GI bleed Plan Continue vent support. Continue Zosyn and Levaquin. Sputum Gram stain and culture. Blood culture. Legionella urine antigen. Influenza screen is negative. Continue pressors and discontinue as the patient's mean artery pressure continues to improve. Incidental triple-lumen catheter. Insert an outlying catheter. Wean off pressors and discontinue if possible. The ventilator was checked. No adjustments were made. Initiate tube feeds per dietary recommendations. DVT and GI prophylaxis. Keep propofol. Case was discussed with the family. An echocardiogram will be needed later stage. Continue to follow.. Condition is critical.
--- NOTE | 2018-11-24 15:59 | P.HPIM ---
History of Present Illness H&P Date: 11/24/18 Chief Complaint: Breathing difficulty, persistent cough, dyspnea This is a 73-year-old -[place] male patient of Dr. Kohler with past medical history of hyperlipidemia, hypertension, hypothyroidism, history of recent prostate cancer status post radiation, coronary artery disease status CABG, history of bioprosthetic valve, paroxysmal atrial fibrillation, hypothyroidism, cardiomyopathy EF 45%, chronic systolic heart failure, radiation proctitis with acute on chronic blood loss anemia, colonoscopy last November 2017 confirming radiation proctitis. Patient comes in to the emergency room secondary to increasing difficulty of breathing, was in respiratory distress when seen in the ER, patient was extremely dyspneic, unable to provide history, the niece was there that provided some information, patient has had difficulties with upper respiratory for the past several years with dry cough however few hours prior to admission, patient has declined rapidly with significant dyspnea, tachypnea, patient was subsequently intubated in the emergency room. And admitted to ICU with sepsis and septic shock, and a large right pneumonia.. She he is currently followed by Dr. Wharton from critical care medicine, chest x-ray in emergency room shows extensive consolidation right lung with underlying pulmonary fibrosis, upper lobes. Patient requires pressor support, along with fluid resuscitation, required 2 L of boluses in the emergency room, and is currently on Zosyn, Levaquin,l evophed secondary to sepsis with pneumonia, aspirative events is under consideration, patient has dysphagia to foods. Review of Systems ROS unobtainable: due to endotracheal tube, due to mental status Constitutional: Reports as per HPI Ears, nose, mouth and throat: Reports as per HPI Cardiovascular: Reports as per HPI Respiratory: Reports as per HPI, Reports cough, Reports cough with sputum Gastrointestinal: Reports as per HPI Genitourinary: Reports as per HPI Musculoskeletal: Reports as per HPI Neurological: Reports as per HPI, Reports change in mentation Psychiatric: Reports as per HPI Endocrine: Reports as per HPI Hematologic/Lymphatic: Reports as per HPI Allergic/Immunologic: Reports as per HPI, Reports persistent infections Past Medical History Past Medical History: Cancer, Chest Pain / Angina, GI Bleed, Hyperlipidemia, Hypertension, Osteoarthritis (OA), Pneumonia, Thyroid Disorder Additional Past Medical History / Comment(s): prostate cancer HAD RADIATION AMELIA ATMENTS ,recent kidney stones- saw Dr Kohler for blood in urine-told due to kidney stones, 06/21/18-cystoscopy at [facility] for kidney stone, frequent diarrhea, History of Any Multi-Drug Resistant Organisms: None Reported Past Surgical History: Coronary Bypass/CABG, Heart Catheterization Additional Past Surgical History / Comment(s): thyroidectomy, 3 cardiac valve (bovine) replacements, stomach surgery unsure what kind, blanca cataract surgery, bowel surgery-not sure what kind, 06/21/18 cystoscopy for kidney stone Past Anesthesia/Blood Transfusion Reactions: No Reported Reaction Past Psychological History: No Psychological Hx Reported Additional Psychological History / Comment(s): . Smoking Status: Former smoker Past Alcohol Use History: None Reported Additional Past Alcohol Use History / Comment(s): smoker for 40 years 3ppd quitt 1998 Past Drug Use History: None Reported - Past Family History Father Family Medical History: Cancer Additional Family Medical History / Comment(s): . Mother Family Medical History: Cancer Additional Family Medical History / Comment(s): Mother had history of leukemia and is . Medications and Allergies Home Medications Medication Instructions Recorded Confirmed Type Levothyroxine Sodium [Synthroid] 25 mcg PO DAILY 03/06/15 11/23/18 History Pantoprazole Sodium 40 mg PO DAILY 03/06/15 11/23/18 History Multivitamin with Iron 1 tab PO DAILY 07/16/16 11/23/18 History [Multivitamins with Iron] Ondansetron [Zofran] 4 mg PO Q8H PRN 07/16/16 11/23/18 History Potassium Chloride [Klor-Con 10] 10 meq PO DAILY 08/18/16 11/23/18 History Furosemide [Lasix] 20 mg PO BID 11/09/17 11/23/18 History Ferrous Sulfate [Iron (65 MG 325 mg PO DAILY 04/11/18 11/23/18 History Elemental)] Metoprolol Tartrate [Lopressor] 50 mg PO BID 04/11/18 11/23/18 History Latanoprost [Xalatan 0.005%] 1 drop BOTH EYES HS 06/18/18 11/23/18 History Clopidogrel [Plavix] 75 mg PO DAILY 07/03/18 11/23/18 History Lisinopril [Zestril] 2.5 mg PO DAILY 11/23/18 11/23/18 History Allergies Allergy/AdvReac Type Severity Reaction Status Date / Time No Known Allergies Allergy Verified 07/05/18 08:04 Physical Exam Vitals: Vital Signs Temp Pulse Resp BP Pulse Ox 11/24/18 13:00 60 20 111/58 100 11/24/18 12:45 61 20 109/56 100 11/24/18 12:30 60 21 112/58 100 11/24/18 12:16 18 11/24/18 12:15 62 19 103/54 100 11/24/18 12:00 98.4 F 63 21 104/53 100 11/24/18 11:45 62 19 109/52 100 11/24/18 11:40 64 11/24/18 11:30 61 21 109/56 100 11/24/18 11:29 61 11/24/18 11:15 61 19 97/52 100 11/24/18 11:00 61 21 137/71 100 11/24/18 10:45 62 19 111/56 97 11/24/18 10:30 60 19 120/59 100 11/24/18 10:15 61 21 112/59 99 11/24/18 10:00 64 20 102/54 100 11/24/18 09:45 65 17 100 11/24/18 09:30 64 22 98/60 99 11/24/18 09:15 69 21 94/56 99 11/24/18 09:00 69 19 94/55 100 11/24/18 08:45 70 19 100/56 100 11/24/18 08:30 67 20 112/61 100 11/24/18 08:15 69 20 112/61 100 11/24/18 08:05 21 11/24/18 08:00 97.8 F 70 21 95/54 100 11/24/18 07:44 65 11/24/18 07:34 65 11/24/18 07:30 63 19 105/60 100 11/24/18 07:00 64 19 110/59 100 11/24/18 06:00 64 22 103/61 100 11/24/18 05:30 64 23 100/56 99 11/24/18 05:00 64 24 96/58 99 11/24/18 04:48 62 11/24/18 04:38 63 11/24/18 04:30 61 21 102/59 77 L 11/24/18 04:00 65 22 102/59 99 11/24/18 03:30 63 23 96/58 98 11/24/18 03:00 66 23 94/58 98 11/24/18 02:30 98.6 F 68 26 H 99/60 98 11/24/18 02:00 73 23 83/59 99 11/24/18 01:33 71 11/24/18 01:30 71 32 H 120/74 100 11/24/18 01:20 103/62 11/24/18 01:10 100/61 11/24/18 01:00 70 99/61 100 11/24/18 00:53 69 100/61 100 11/24/18 00:50 69 97/60 100 11/24/18 00:40 71 91/64 100 11/24/18 00:30 70 97/61 100 11/24/18 00:20 69 108/69 100 11/24/18 00:17 73 12 108/69 100 11/24/18 00:10 71 102/66 100 11/24/18 00:00 90 99/65 100 11/23/18 23:50 70 89/59 100 11/23/18 23:40 72 92/59 100 11/23/18 23:30 71 97/58 100 11/23/18 23:20 74 96/67 100 11/23/18 23:10 80 96/69 94 L 11/23/18 23:00 81 95/75 100 11/23/18 22:50 83 95 11/23/18 22:40 74 96/68 100 11/23/18 22:30 78 110/95 90 L 11/23/18 22:20 83 120/64 94 L 11/23/18 22:10 78 97/78 100 11/23/18 22:00 79 98/79 100 11/23/18 21:50 83 74/62 100 11/23/18 21:40 91 117/55 100 11/23/18 21:30 84 81/42 99 11/23/18 21:20 91 92/62 100 11/23/18 21:10 87 78/68 100 11/23/18 21:00 98 55/41 75 L 11/23/18 20:50 100 120/89 100 11/23/18 20:40 107 H 80/30 100 11/23/18 20:30 120 H 167/113 96 11/23/18 20:23 40 H 11/23/18 20:20 142 H 167/113 93 L 11/23/18 20:15 97.9 F 145 H 40 H 172/125 85 L 11/23/18 20:13 147 H Intake and Output 11/23/18 11/24/18 11/24/18 22:59 06:59 14:59 Intake Total 666.151 8785.883 Output Total 1225 975 Balance -640.066 2656.883 Intake: IV 500 2118 CVP/ART 18 Magnesium Sulfate-D5w Pmx 300 1 gm In Dextrose/Water 1 100ml.bag @ 100 mls/hr IVPB Q1H [facility] Rx#: [id number] Piperacillin-Tazobactam 3 100 .375 gm In Sodium Chloride 0.9% 100 ml @ 25 mls/hr IVPB ONCE STA Rx# :[id number] Sodium Chloride 0.9% 1, 500 700 000 ml @ 100 mls/hr IV . Q10H [facility] Rx#:[id number] Sodium Chloride 0.9% 1, 1000 000 ml @ 999 mls/hr IV . Q1H1M [facility] Rx#:[id number] Intake, IV Titration 118.728 177.883 Amount Norepinephrine 8 mg In 18.728 100.771 Sodium Chloride 0.9% 250 ml @ 0.05 MCG/KG/MIN 5. 486 mls/hr IV .Q24H [facility] Rx#:[id number] Propofol 1,000 mg In 100.000 77.112 Empty Bag 1 bag @ Titrate IV .Q0M [facility] Rx#: [id number] Output: Gastric Drainage 350 Urine 875 975 Other: Voiding Method Indwelling Catheter Indwelling Catheter Weight 56.699 kg 62.6 kg ABP, PAP, CO, CI - Last 8 Hours Arterial Blood Pressure 105/44 Arterial Blood Pressure 102/45 Arterial Blood Pressure 99/40 Arterial Blood Pressure 103/45 Arterial Blood Pressure 95/41 Arterial Blood Pressure 96/42 Arterial Blood Pressure 96/44 Arterial Blood Pressure 101/44 Arterial Blood Pressure 110/46 Arterial Blood Pressure 103/44 Arterial Blood Pressure 111/48 Arterial Blood Pressure 99/46 Intubated, mechanical ventilation, sedated - EENT Eyes: anicteric sclerae, PERRLA, normal appearance - Respiratory Respiratory: bilateral: diminished, rhonchi - Cardiovascular Rhythm: regular Heart sounds: normal: S1, S2 Abnormal Heart Sounds: no systolic murmur, no diastolic murmur, no rub, no S3 Gallop, no S4 Gallop, no click, no other - Gastrointestinal General gastrointestinal: normal bowel sounds, soft - Integumentary Integumentary: decreased turgor - Psychiatric Sedated on vent Results CBC & Chem 7: 11/24/18 05:00 11/24/18 05:00 Labs: Abnormal Lab Results - Last 24 Hours (Table) 11/23/18 11/23/18 11/23/18 Range/Units 20:15 20:15 20:15 WBC 19.1 H (3.8-10.6) k/uL RBC (4.30-5.90) m/uL Hgb (13.0-17.5) gm/dL Hct (39.0-53.0) % Plt Count (150-450) k/uL Neutrophils # 14.5 H (1.3-7.7) k/uL Monocytes # 1.1 H (0-1.0) k/uL APTT 20.8 L (22.0-30.0) sec ABG pH (7.35-7.45) ABG pO2 (83-108) mmHg ABG O2 Saturation (94-97) % Chloride (98-107) mmol/L Carbon Dioxide 21 L (22-30) mmol/L Glucose 180 H (74-99) mg/dL POC Glucose (mg/dL) (75-99) mg/dL Plasma Lactic Acid Hiram (0.7-2.0) mmol/L Calcium (8.4-10.2) mg/dL Magnesium (1.6-2.3) mg/dL Total Protein (6.3-8.2) g/dL Albumin (3.5-5.0) g/dL Urine Protein (Negative) 11/23/18 11/23/18 11/23/18 Range/Units 20:45 20:46 21:25 WBC (3.8-10.6) k/uL RBC (4.30-5.90) m/uL Hgb (13.0-17.5) gm/dL Hct (39.0-53.0) % Plt Count (150-450) k/uL Neutrophils # (1.3-7.7) k/uL Monocytes # (0-1.0) k/uL APTT (22.0-30.0) sec ABG pH 7.33 L (7.35-7.45) ABG pO2 192 H (83-108) mmHg ABG O2 Saturation 97.4 H (94-97) % Chloride (98-107) mmol/L Carbon Dioxide (22-30) mmol/L Glucose (74-99) mg/dL POC Glucose (mg/dL) (75-99) mg/dL Plasma Lactic Acid Hiram 6.7 H* (0.7-2.0) mmol/L Calcium (8.4-10.2) mg/dL Magnesium (1.6-2.3) mg/dL Total Protein (6.3-8.2) g/dL Albumin (3.5-5.0) g/dL Urine Protein Trace H (Negative) 11/24/18 11/24/18 11/24/18 Range/Units 01:30 04:31 05:00 WBC 17.5 H (3.8-10.6) k/uL RBC 4.18 L (4.30-5.90) m/uL Hgb 11.8 L D (13.0-17.5) gm/dL Hct 36.8 L (39.0-53.0) % Plt Count 140 L (150-450) k/uL Neutrophils # (1.3-7.7) k/uL Monocytes # (0-1.0) k/uL APTT (22.0-30.0) sec ABG pH (7.35-7.45) ABG pO2 128 H (83-108) mmHg ABG O2 Saturation (94-97) % Chloride (98-107) mmol/L Carbon Dioxide (22-30) mmol/L Glucose (74-99) mg/dL POC Glucose (mg/dL) 114 H (75-99) mg/dL Plasma Lactic Acid Hiram (0.7-2.0) mmol/L Calcium (8.4-10.2) mg/dL Magnesium (1.6-2.3) mg/dL Total Protein (6.3-8.2) g/dL Albumin (3.5-5.0) g/dL Urine Protein (Negative) 04/12/19 04/12/19 Range/Units 05:00 11:38 WBC (3.8-10.6) k/uL RBC (4.30-5.90) m/uL Hgb (13.0-17.5) gm/dL Hct (39.0-53.0) % Plt Count (150-450) k/uL Neutrophils # (1.3-7.7) k/uL Monocytes # (0-1.0) k/uL APTT (22.0-30.0) sec ABG pH (7.35-7.45) ABG pO2 (83-108) mmHg ABG O2 Saturation (94-97) % Chloride 111 H (98-107) mmol/L Carbon Dioxide 20 L (22-30) mmol/L Glucose 138 H (74-99) mg/dL POC Glucose (mg/dL) 127 H (75-99) mg/dL Plasma Lactic Acid Hiram (0.7-2.0) mmol/L Calcium 7.9 L (8.4-10.2) mg/dL Magnesium 1.4 L (1.6-2.3) mg/dL Total Protein 5.7 L (6.3-8.2) g/dL Albumin 3.0 L (3.5-5.0) g/dL Urine Protein (Negative) Microbiology - Last 24 Hours (Table) 11/23/18 20:25 Gram Stain - Preliminary Sputum Sputum Culture - Preliminary Thrombosis Risk Factor Assmnt - DVT/VTE Prophylaxis DVT/VTE Prophylaxis: Pharmacologic Prophylaxis ordered - Choose All That Apply Each Factor Represents 1 point: Medical pt on bed rest, Sepsis (< 1month) Each Risk Factor Represents 2 Points: Age 61-74 years, Malignancy Thrombosis Risk Factor Assessment Total Risk Factor Score: 6 Thrombosis Risk Factor Assessment Level: High Risk Assessment and Plan Plan: 1. Extensive right-sided pneumonia, with acute respiratory failure, with Hypoxemic respiratory failure presenting with extreme distress requiring mechanical ventilation started 11/23/2018. Vent Dependent respiratory failure. Patient currently is in ICU, IV Zosyn, IV Levaquin, try to obtain sputum cultures, Dr. Wharton from critical care medicine, patient currently is on FiO2 of 40% and PEEP of 5, tidal volume of 400, rate of 12, influenza was negative, patient has adequate urine output. Legionella IgG and IgM was requested 2. Septic shock, secondary to extensive right pneumonia, patient has been provided, pressor agents with Levophed, currently maintained in ICU 3. Chronic cough, reports of dysphagia by a niece, patient needs to be evaluated with modified barium swallow eval once intubation has been resolved 4 Chronic radiation proctitis, with recent endoscopy both upper scope and lower scope during admission November 2017. Patient started on Senokot 2 daily scheduled 3. History of coronary artery disease status post CABG. continue aspirin 81 mg daily, Lopressor 50 mg twice daily, lisinopril 2.5 mg daily, atorvastatin 10 mg daily. 4. Chronic blood loss anemia monitor hemoglobin, currently stable. 5. History of aortic bioprosthetic valve replacement with previous mitral valve repair 6 History of paroxysmal atrial fibrillation not on anticoagulation secondary to concerns of GI bleed in the past, continue metoprolol , plavix 7 Ischemic cardiomyelopathy with previous EF of 40-45%, prior coronary bypass surgery 8 Hypothyroidism. Continue levothyroxine 25 mg daily., Levothyroxine IV 12.5 g till feedings are initiated 9 Hypertension with current hypotension,. Continue lisinopril 5 mg daily on hold and Lopressor on hold secondary to bradycardia. 10. Hyperlipidemia. was Lipitor. 12. Chronic systolic heart failure. Lasix and potassium on hold. DVT prophylaxis. Heparin subcu.
[2018-11-24 18:21] LABS: Glucose,Whole Blood 90 mg/dL (75-99)
[2018-11-24] MEDS: LEVOFLOXACIN 750MG-D5W PMX 750 MG in DEXTROSE/WATER 1 150ML.BAG IVPB SCH (20:27)
[2018-11-25] MEDS: NOREPINEPHRINE 8 MG in SODIUM CHLORIDE 0.9% 250 ML IV SCH ×2 (00:29→12:08)
[2018-11-25] MEDS: PIPERACILLIN-TAZOBACTAM 3.375 GM in SODIUM CHLORIDE 0.9% 100 ML IVPB SCH ×4 (00:29→23:39)
[2018-11-25 00:58] LABS: Glucose,Whole Blood 110 mg/dL (75-99)
[2018-11-25] MEDS: IPRATROPIUM-ALBUTEROL 3 ML NEB INHALATION SCH ×6 (03:17→23:08)
[2018-11-25 04:02] LABS: Basophils % (A) 0 %; Eosinophils # (A) 0.3 k/uL (0-0.7); Eosinophils % (A) 2 %; HCT 35.7 % (39.0-53.0); HGB 11.3 gm/dL (13.0-17.5); Lymphocytes # (A) 0.8 k/uL (1.0-4.8); Lymphocytes % (A) 7 %; MCH 27.9 pg (25.0-35.0); MCHC 31.7 g/dL (31.0-37.0); MCV 88.1 fL (80.0-100.0); Mean Platelet Volume 9.5; Monocytes # (A) 0.7 k/uL (0-1.0); Monocytes % (A) 6 %; Neutrophils # (A) 9.8 k/uL (1.3-7.7); Neutrophils % (A) 83 %; Platelet Count 102 k/uL (150-450); RBC 4.05 m/uL (4.30-5.90); RDW 13.6 % (11.5-15.5); WBC 11.7 k/uL (3.8-10.6)
[2018-11-25 04:16] LABS: ALT 35 U/L (21-72); AST 30 U/L (17-59); Albumin 2.7 g/dL (3.5-5.0); Alkaline Phosphatase 52 U/L (38-126); Anion Gap 4 mmol/L; Blood Urea Nitrogen 9 mg/dL (9-20); Calcium 8.3 mg/dL (8.4-10.2); Carbon Dioxide 21 mmol/L (22-30); Chloride 114 mmol/L (98-107); Glucose 120 mg/dL (74-99); Magnesium 2.2 mg/dL (1.6-2.3); Phosphorus 2.6 mg/dL (2.5-4.5); Potassium 4.2 mmol/L (3.5-5.1); Sodium 139 mmol/L (137-145); Total Bilirubin 0.7 mg/dL (0.2-1.3); Total Protein 5.3 g/dL (6.3-8.2)
[2018-11-25 04:24] LABS: ABG Base Excess -3.9 mmol/L; ABG HCO3 21 mmol/L (21-25); ABG Oxygen Saturation 98.6 % (94-97); ABG PCO2 36 mmHg (35-45); ABG PH 7.38 (7.35-7.45); ABG PO2 149 mmHg (83-108); ABG TCO2 22 mmol/L (19-24)
[2018-11-25 05:12] LABS: T4, Free (Free Thyroxine) 0.97 ng/dL (0.78-2.19)
[2018-11-25] MEDS: PROPOFOL 1,000 MG in EMPTY BAG 1 BAG IV SCH ×4 (06:35→22:22)
[2018-11-25] MEDS: LEVOTHYROXINE 25 MCG TAB PO SCH (06:35)
--- NOTE | 2018-11-25 06:40 | XR ---
EXAMINATION TYPE: XR chest 1V portable DATE OF EXAM: 11/25/2018 HISTORY: Tube placement. REFERENCE: Previous study dated 11/24/2018. FINDINGS: There has been a previous midline sternotomy. The patient is ET tube and NG tube remain in place, unchanged in appearance. There is vascular congestion and mild pulmonary edema. There is confl uent bibasilar airspace disease which may represent confluent edema or pneumonia. There are bilateral effusions. There has been little change in the appearance of the chest. IMPRESSION: NO SIGNIFICANT INTERVAL CHANGE IN THE APPEARANCE OF THE CHEST.
[2018-11-25 06:45] LABS: Glucose,Whole Blood 118 mg/dL (75-99)
[2018-11-25] MEDS: CHLORHEXIDINE GLUCONATE 15 ML CUP MUCOUS MEM SCH ×2 (08:22→20:51)
[2018-11-25] MEDS: PANTOPRAZOLE 40 MG/10 ML VIAL IV SCH (08:22)
[2018-11-25] MEDS: CLOPIDOGREL 75 MG TAB PO SCH (08:22)
[2018-11-25] MEDS: ACETAMINOPHEN TAB 325 MG TAB PO PRN (10:50)
[2018-11-25 12:17] LABS: Glucose,Whole Blood 116 mg/dL (75-99)
--- NOTE | 2018-11-25 12:57 | P.PN ---
Subjective Progress Note Date: 11/25/18 This is a 73-year-old -[place] male patient of Dr. Kohler with past medical history of hyperlipidemia, hypertension, hypothyroidism, history of recent prostate cancer status post radiation, coronary artery disease status CABG, history of bioprosthetic valve, paroxysmal atrial fibrillation, hypothyr oidism, cardiomyopathy EF 45%, chronic systolic heart failure, radiation proctitis with acute on chronic blood loss anemia, colonoscopy last November 2017 confirming radiation proctitis. Patient comes in to the emergency room secondary to increasing difficulty of breathing, was in respiratory distress when seen in the ER, patient was extremely dyspneic, unable to provide history, the niece was there that provided some information, patient has had difficulties with upper respiratory for the past several years with dry cough however few hours prior to admission, patient has declined rapidly with significant dyspnea, tachypnea, patient was subsequently intubated in the emergency room. And admitted to ICU with sepsis and septic shock, and a large right pneumonia.. She he is currently followed by Dr. Wharton from critical care medicine, chest x-ray in emergency room shows extensive consolidation right lung with underlying pulmonary fibrosis, upper lobes. Patient requires pressor support, along with fluid resuscitation, required 2 L of boluses in the emergency room, and is currently on Zosyn, Levaquin,l evophed secondary to sepsis with pneumonia, aspirative events is under consideration, patient has dysphagia to foods. 11/25: Patient remains in the intensive care unit intubated and on mechanical ventilation. Dr. Wharton is following and plan to try extubating today. Patient is continued on Zosyn and Levaquin. Morning chest x-ray reveals no significant interval change. monitoring engineer has been sinus rhythm. Lab work reveals white count of 11.7, hemoglobin 11.2 and platelet count 102. Chloride 114, CO2 21, BUN 9 and creatinine 0.71. Blood sugars running between 110 and 120. TSH 0.176 and free T4 0.97. Blood cultures showing no growth after 24 hours. Sputum cultures in progress. Legionella testing is pending. Patient has been started on tube feedings. Review Of Systems: Unable to be obtained due to intubation Objective - Vital Signs Vital signs: Vital Signs Temp 98.6 F 11/25/18 08:00 Pulse 73 11/25/18 11:09 Resp 23 04/13/19 10:00 BP 108/53 11/25/18 08:00 Pulse Ox 100 11/25/18 10:00 Intake & Output 11/24/18 11/25/18 11/25/18 18:59 06:59 18:59 Intake Total 3074.213 2078.300 802.858 Output Total 1480 915 250 Balance 9822.619 5239.300 552.858 Weight 62.6 kg 65.9 kg Intake: IV 2648 1466 424 CVP/ART 48 66 24 Levofloxacin 750Mg-D5w 200 Pmx 750 mg In Dextrose/ Water 1 150ml.bag @ 100 mls/hr IVPB Q24H [facility] Rx#: [id number] Magnesium Sulfate-D5w Pmx 300 1 gm In Dextrose/Water 1 100ml.bag @ 100 mls/hr IVPB Q1H [facility] Rx#: [id number] Piperacillin-Tazobactam 3 100 .375 gm In Sodium Chloride 0.9% 100 ml @ 25 mls/hr IVPB ONCE STA Rx# :[id number] Sodium Chloride 0.9% 1, 1100 1200 400 000 ml @ 100 mls/hr IV . Q10H [facility] Rx#:[id number] Sodium Chloride 0.9% 1, 1100 000 ml @ 999 mls/hr IV . Q1H1M [facility] Rx#:[id number] Intake, IV Titration 336.213 252.300 163.858 Amount Norepinephrine 8 mg In 159.101 152.300 0 Sodium Chloride 0.9% 250 ml @ 0.05 MCG/KG/MIN 5. 486 mls/hr IV .Q24H [facility] Rx#:[id number] Piperacillin-Tazobactam 3 100 .375 gm In Sodium Chloride 0.9% 100 ml @ 25 mls/hr IVPB Q8HR [facility] Rx# :[id number] Propofol 1,000 mg In 177.112 100 63.858 Empty Bag 1 bag @ Titrate IV .Q0M [facility] Rx#: [id number] Tube Feeding 60 270 140 Other 30 90 75 Output: Urine 1480 915 250 Other: Voiding Method Indwelling Catheter Indwelling Catheter Indwelling Catheter ABP, PAP, CO, CI - Last Documented Arterial Blood Pressure 105/44 - Exam ntubated, mechanical ventilation, sedated, appears to be comfortable - EENT Eyes: anicteric sclerae, PERRLA, normal appearance - Respiratory Respiratory: bilateral: diminished, rhonchi - Cardiovascular Rhythm: regular Heart sounds: normal: S1, S2 Abnormal Heart Sounds: no systolic murmur, no diastolic murmur, no rub, no S3 Gallop, no S4 Gallop, no click, no other - Gastrointestinal General gastrointestinal: normal bowel sounds, soft - Integumentary Integumentary: decreased turgor - Psychiatric Sedated on vent - Labs CBC & Chem 7: 11/25/18 03:55 11/25/18 03:55 Labs: Abnormal Lab Results - Last 24 Hours (Table) 11/24/18 11/25/18 11/25/18 Range/Units 11:38 00:46 03:55 WBC 11.7 H (3.8-10.6) k/uL RBC 4.05 L (4.30-5.90) m/uL Hgb 11.3 L (13.0-17.5) gm/dL Hct 35.7 L (39.0-53.0) % Plt Count 102 L (150-450) k/uL Neutrophils # 9.8 H (1.3-7.7) k/uL Lymphocytes # 0.8 L (1.0-4.8) k/uL ABG pO2 (83-108) mmHg ABG O2 Saturation (94-97) % Chloride (98-107) mmol/L Carbon Dioxide (22-30) mmol/L Glucose (74-99) mg/dL POC Glucose (mg/dL) 127 H 110 H (75-99) mg/dL Calcium (8.4-10.2) mg/dL Total Protein (6.3-8.2) g/dL Albumin (3.5-5.0) g/dL TSH (0.465-4.680) mIU/L 11/25/18 11/25/18 11/25/18 Range/Units 03:55 04:22 06:34 WBC (3.8-10.6) k/uL RBC (4.30-5.90) m/uL Hgb (13.0-17.5) gm/dL Hct (39.0-53.0) % Plt Count (150-450) k/uL Neutrophils # (1.3-7.7) k/uL Lymphocytes # (1.0-4.8) k/uL ABG pO2 149 H (83-108) mmHg ABG O2 Saturation 98.6 H (94-97) % Chloride 114 H (98-107) mmol/L Carbon Dioxide 21 L (22-30) mmol/L Glucose 120 H (74-99) mg/dL POC Glucose (mg/dL) 118 H (75-99) mg/dL Calcium 8.3 L (8.4-10.2) mg/dL Total Protein 5.3 L (6.3-8.2) g/dL Albumin 2.7 L (3.5-5.0) g/dL TSH 0.176 L (0.465-4.680) mIU/L Microbiology - Last 24 Hours (Table) 11/23/18 22:10 Blood Culture - Preliminary Blood No Growth after 24 hours Assessment and Plan Plan: 1. Acute hypoxic respiratory failure secondary to most likely gram-negative pn eumonia requiring intubation and mechanical ventilation. Continue Zosyn and Levaquin. Consult with Dr. Suresh Zaragoza and is appreciated. Sputum culture and blood culture in progress. Legionella testing pending. 2. Septic shock, secondary to aspiration/gram-negative pneumonia. Patient has required vasopressors. 3. Chronic cough, reports of dysphagia by a niece, patient needs to be evaluated with modified barium swallow eval once intubation has been resolved 4. Chronic radiation proctitis, with recent endoscopy both upper scope and lower scope during admission November 2017. Patient started on Senokot 2 daily scheduled 5. History of coronary artery disease status post CABG. 6. Chronic blood loss anemia monitor hemoglobin, currently stable. 7. History of aortic bioprosthetic valve replacement with previous mitral valve repair 8. History of paroxysmal atrial fibrillation not on anticoagulation secondary to concerns of GI bleed in the past. Continue Plavix 75 mg daily. 9. Ischemic cardiomyopathy with previous EF of 40-45%. 10. Hypothyroidism. Continue levothyroxine 25 mg daily. 11. Hypertension with current hypotension. Hold home antihypertensive medications. 12. Hyperlipidemia. 13. Chronic systolic heart failure. Lasix and potassium on hold. 14. DVT prophylaxis. Heparin subcu. 15. GI prophylaxis. Protonix IV. Discharge plan: To be determined. Most likely patient will require subacute rehab Impression and plan of care have been directed as dictated by the signing physician. Charmaine Joseph nurse practitioner acting as scribe for signing physi ren.
--- NOTE | 2018-11-25 14:22 | P.PN ---
Subjective Progress Note Date: 11/25/18 This is a 73-year-old male patient who came into the hospital because of acute respiratory failure. The patient was extremely dyspneic and using excessive muscle breathing. A tree was intubated and placed on a mechanical ventilator in the emergency department. The post intubation chest x-ray showed an extensive right lung consolidation occupying the lower two thirds of the right lung. The patient also had some cardiomegaly. Post intubation, the patient was given a total of 2 L of IV fluids a sinus sepsis protocol. He continued to be hypotensive. The triple-lumen catheter was inserted in his right subclavian vein and the patient was continued on fluids and pressors. Currently levo fed is running at a low-dose. Did not like it was inserted today. Overnight the patient was started on broad-spectrum antibiotics utilizing a combination of Zosyn and Levaquin. Influenza screen is negative. The patient is producing adequate amount of urine output. This morning, the patient's blood gas showed a pH of 7.36 with a pCO2 of 38 and pO2 of 128 and this was on FiO2 of 40% and a PEEP of 5. His rate is at 12 with tidal volume of 400. Renal function is stable. LFTs are within normal limits. No previous history of chronic lung disease. He is known to have cardiac disease with coronary artery disease, previous aortic valve replacement, previous mitral valve repair, paroxysmal atrial fibrillation the patient has been on no anticoagulants due to concerns of Miguel A GI bleed. On comfort 11/25/2018 I'm seeing this patient for a follow-up. The patient has extensive right lung pneumonia still on examination Zosyn and Levaquin and no cultures have been obtained yet. Meanwhile, the patient remains intubated on a mechanical ventilator. No vent changes have been done as the patient is oxygenating and ventilating well. The patient has been on sedation and the patient was given a brief sedation holiday today and the patient showed adequate neurologic functions and the patient was able to move all 4 extremities without any limitation. The patient is also tolerating tube feeds. The patient has on few mics of norepinephrine infusion at the pressors are being gradually weaned off. No fever. No chills. Sputum cultures still in progress. Legionella ur ine antigen still pending. The follow-up chest x-ray from today shows improvement in the right lower lobe consolidation. Blood gases from today showed a pH of 7.38 with a pCO2 of 36 and pO2 of 149 while on a 40% FiO2. White cell count is 11.7. Rest of the blood work and electrodes are all within normal limits. Objective - Vital Signs Vital signs: Vital Signs Temp 98.5 F 11/25/18 12:00 Pulse 61 11/25/18 14:00 Resp 17 11/25/18 14:00 BP 108/53 11/25/18 12:00 Pulse Ox 98 11/25/18 14:00 Intake & Output 11/24/18 11/25/18 11/25/18 18:59 06:59 18:59 Intake Total 3074.213 2078.300 1157.596 Output Total 1480 915 600 Balance 2364.235 9469.300 557.596 Weight 62.6 kg 65.9 kg Intake: IV 2648 1466 698 CVP/ART 48 66 48 Levofloxacin 750Mg-D5w 200 Pmx 750 mg In Dextrose/ Water 1 150ml.bag @ 100 mls/hr IVPB Q24H [facility] Rx#: [id number] Magnesium Sulfate-D5w Pmx 300 1 gm In Dextrose/Water 1 100ml.bag @ 100 mls/hr IVPB Q1H [place] Rx#: [id number] Piperacillin-Tazobactam 3 100 .375 gm In Sodium Chloride 0.9% 100 ml @ 25 mls/hr IVPB ONCE [facility] Rx# :[id number] Sodium Chloride 0.9% 1, 1100 1200 650 000 ml @ 50 mls/hr IV . Q20H [place] Rx#:[id number] Sodium Chloride 0.9% 1, 1100 000 ml @ 999 mls/hr IV . Q1H1M [facility] Rx#:[id number] Intake, IV Titration 336.213 252.300 184.596 Amount Norepinephrine 8 mg In 159.101 152.300 11.117 Sodium Chloride 0.9% 250 ml @ 0.05 MCG/KG/MIN 5. 486 mls/hr IV .Q24H [facility] Rx#:[id number] Piperacillin-Tazobactam 3 100 .375 gm In Sodium Chloride 0.9% 100 ml @ 25 mls/hr IVPB Q8HR [place] Rx# :[id number] Propofol 1,000 mg In 177.112 100 73.479 Empty Bag 1 bag @ Titrate IV .Q0M [facility] Rx#: [id number] Tube Feeding 60 270 200 Other 30 90 75 Output: Urine 1480 915 600 Other: Voiding Method Indwelling Catheter Indwelling Catheter Indwelling Catheter ABP, PAP, CO, CI - Last Documented Arterial Blood Pressure 117/50 - Exam Gen. appearance Ms. sedated, comfortable , nonacute distress. Head exam was generally normal. There was no scleral icterus or corneal arcus. Mucous membranes were moist. Neck was supple and without jugular venous distension, thyromegaly, or carotid bruits. Carotids were easily palpable bilaterally. There was no adenopathy. The patient has an orogastric and orotracheal tube are both of them are in place. Lungs were clear to auscultation and percussion, and with normal diaphragmatic excursion. No wheezes or rales were noted. Cardiac exam revealed the PMI to be normally situated and sized. The rhythm was regular and no extrasystoles were noted during several minutes of auscultation. The first and second heart sounds were normal and physiologic splitting of the second heart sound was noted. There were no murmurs, rubs, clicks, or gallops. The patient has a sternotomy scar over the anterior chest area. No significant murmurs appreciated. Abdominal exam revealed normal bowel sounds. The abdomen was soft, non-tender, and without masses, organomegaly, or appreciable enlargement of the abdominal aorta. Examination of the extremities revealed easily palpable radial, femoral and pedal pulses. There was no cyanosis, clubbing or edema. The pulses are essentially diminished in lower eczematous bilaterally but they're palpable. Examination of the skin revealed no evidence of significant rashes, suspicious appearing nevi or other concerning lesions. Neurologically the patient is sedated the patient withdraws to painful stimulation to all 4 extremities. Pupils are equal and reactive to light. No facial asymmetry. - Labs CBC & Chem 7: 11/25/18 03:55 11/25/18 03:55 Labs: Abnormal Lab Results - Last 24 Hours (Table) 11/25/18 11/25/18 11/25/18 Range/Units 00:46 03:55 03:55 WBC 11.7 H (3.8-10.6) k/uL RBC 4.05 L (4.30-5.90) m/uL Hgb 11.3 L (13.0-17.5) gm/dL Hct 35.7 L (39.0-53.0) % Plt Count 102 L (150-450) k/uL Neutrophils # 9.8 H (1.3-7.7) k/uL Lymphocytes # 0.8 L (1.0-4.8) k/uL ABG pO2 (83-108) mmHg ABG O2 Saturation (94-97) % Chloride 114 H (98-107) mmol/L Carbon Dioxide 21 L (22-30) mmol/L Glucose 120 H (74-99) mg/dL POC Glucose (mg/dL) 110 H (75-99) mg/dL Calcium 8.3 L (8.4-10.2) mg/dL Total Protein 5.3 L (6.3-8.2) g/dL Albumin 2.7 L (3.5-5.0) g/dL TSH 0.176 L (0.465-4.680) mIU/L 11/25/18 11/25/18 11/25/18 Range/Units 04:22 06:34 12:04 WBC (3.8-10.6) k/uL RBC (4.30-5.90) m/uL Hgb (13.0-17.5) gm/dL Hct (39.0-53.0) % Plt Count (150-450) k/uL Neutrophils # (1.3-7.7) k/uL Lymphocytes # (1.0-4.8) k/uL ABG pO2 149 H (83-108) mmHg ABG O2 Saturation 98.6 H (94-97) % Chloride (98-107) mmol/L Carbon Dioxide (22-30) mmol/L Glucose (74-99) mg/dL POC Glucose (mg/dL) 118 H 116 H (75-99) mg/dL Calcium (8.4-10.2) mg/dL Total Protein (6.3-8.2) g/dL Albumin (3.5-5.0) g/dL TSH (0.465-4.680) mIU/L Microbiology - Last 24 Hours (Table) 11/23/18 22:10 Blood Culture - Preliminary Blood No Growth after 24 hours Assessment and Plan Plan: 1 right lung pneumonia, multilobar, complicated by acute hypoxic history failure requiring intubation mechanical ventilation, improving on today's chest x-ray, s till intubated on a mechanical ventilator 2 acute hypoxic respiratory failure secondary to above, currently intubated on a mechanical ventilator, and there has been significant improvement in patient's oxygenation while intubated on a mechanical ventilator. 3 sepsis secondary to right lung pneumonia, resuscitated IV fluids and the patient is currently on pressors 4 leukocytosis, improving 5 CAD 6 paroxysmal atrial fibrillation current rhythm is sinus with LBBB pattern 7 aortic valve replacement/bioprosthetic valve with mitral valve repair. The patient has moderate degree of stenosis of the aortic valve that has been replaced 8 prostate cancer with previous radiation therapy to the prostate 9 hypertension 10 hyperlipidemia 11 hypothyroidism 13 previous history of GI bleed 14 evolving thrombocytopenia, likely consumptive secondary to pneumonia/sepsis and this will be monitored. 15 acute lactic acidosis improved and lactic acid level is up from 6.7 down to 1.9. Plan Continue vent support. Continue Zosyn and Levaquin. Awaiting the results of the cultures from sputum in the blood. Awaiting Legionella urine antigen. The patient's acidosis is improved. The patient is oxidation is also improved. The patient was felt count is improving. Continue Zosyn and Levaquin. Continue bronchodilators. Cardiac rhythm is sinus. Keep the patient sedated and the patient was given a brief sedation holiday and he demonstrated adequate neurologic functions. We'll give the patient another 24 hours on a mechanical ventilator and consider weaning off the mechanical ventilatory of the chest x- ray findings are improved further by tomorrow. This is an extended to the brother. We'll continue rest of the supportive care. We'll wean off the pressors. We'll make further recommendations based on his progress. We'll monitor the platelet count which is likely dropped compared to yesterday. This is a critically care evaluation that was done and more than 30 minutes. Family has been updated. Work is still in progress. Time with Patient: Greater than 30
[2018-11-25] MEDS: SODIUM CHLORIDE 0.9% 1,000 ML IV SCH (16:49)
[2018-11-25 19:19] LABS: Glucose,Whole Blood 121 mg/dL (75-99)
[2018-11-25] MEDS: LEVOFLOXACIN 750MG-D5W PMX 750 MG in DEXTROSE/WATER 1 150ML.BAG IVPB SCH (20:51)
[2018-11-25] MEDS: HEPARIN SODIUM,PORCINE 5,000 UNIT/ML 1 ML VIAL SQ SCH (20:51)
[2018-11-25] MEDS: LORazepam 2 MG/ML INJ IV PRN (22:17)
[2018-11-26 00:05] LABS: Glucose,Whole Blood 132 mg/dL (75-99)
[2018-11-26] MEDS: IPRATROPIUM-ALBUTEROL 3 ML NEB INHALATION SCH ×6 (03:17→23:15)
[2018-11-26 04:14] LABS: HCT 35.1 % (39.0-53.0); HGB 11.5 gm/dL (13.0-17.5); MCH 28.5 pg (25.0-35.0); MCHC 32.6 g/dL (31.0-37.0); MCV 87.3 fL (80.0-100.0); Mean Platelet Volume 9.1; RBC 4.02 m/uL (4.30-5.90); RDW 13.7 % (11.5-15.5); WBC 7.2 k/uL (3.8-10.6)
[2018-11-26 04:26] LABS: Anion Gap 3 mmol/L; Blood Urea Nitrogen 9 mg/dL (9-20); Calcium 8.5 mg/dL (8.4-10.2); Carbon Dioxide 22 mmol/L (22-30); Chloride 117 mmol/L (98-107); Glucose 120 mg/dL (74-99); Phosphorus 2.3 mg/dL (2.5-4.5); Potassium 3.7 mmol/L (3.5-5.1); Sodium 142 mmol/L (137-145)
[2018-11-26 04:27] LABS: ABG Base Excess -1.8 mmol/L; ABG HCO3 24 mmol/L (21-25); ABG PCO2 41 mmHg (35-45); ABG PH 7.37 (7.35-7.45); ABG PO2 96 mmHg (83-108); ABG TCO2 25 mmol/L (19-24)
[2018-11-26 04:46] LABS: Platelet Count 96 k/uL (150-450)
[2018-11-26] MEDS ORDERED: Potassium Replacement Protocol 1 EACH MISC MISCELLANE PRN (05:04)
[2018-11-26] MEDS ORDERED: POTASSIUM BICARBONATE/CIT AC 20 MEQ TABLET.EFF NG-TUBE SCH (06:00)
[2018-11-26] MEDS: LEVOTHYROXINE 25 MCG TAB PO SCH (06:04)
--- NOTE | 2018-11-26 06:20 | XR ---
EXAMINATION TYPE: XR chest 1V portable DATE OF EXAM: 11/26/2018 HISTORY: Tube placement. REFERENCE: Previous study dated 11/25/2018. FINDINGS: There has been a midline sternotomy. The patient is ET tube and NG tube remain in place, un changed in appearance. There is worsening bibasilar airspace disease. There is vascular congestion and pulmonary edema. Ther e are small, bilateral effusions. IMPRESSION: 1. WORSENING BIBASILAR AIRSPACE DISEASE. 2. CHANGES CONSISTENT WITH MILD PULMONARY EDEMA. 3. SMALL, BILATERAL EFFUSIONS.
[2018-11-26 06:57] LABS: Glucose,Whole Blood 113 mg/dL (75-99)
[2018-11-26] MEDS: PROPOFOL 1,000 MG in EMPTY BAG 1 BAG IV SCH ×2 (08:30→15:05)
[2018-11-26] MEDS: PANTOPRAZOLE 40 MG/10 ML VIAL IV SCH (08:34)
[2018-11-26] MEDS: CHLORHEXIDINE GLUCONATE 15 ML CUP MUCOUS MEM SCH ×2 (08:34→21:32)
[2018-11-26] MEDS: PIPERACILLIN-TAZOBACTAM 3.375 GM in SODIUM CHLORIDE 0.9% 100 ML IVPB SCH ×2 (08:35→16:12)
[2018-11-26] MEDS: SODIUM CHLORIDE 0.9% 1,000 ML IV SCH (08:39)
[2018-11-26] MEDS: CLOPIDOGREL 75 MG TAB PO SCH (10:11)
[2018-11-26] MEDS: HEPARIN SODIUM,PORCINE 5,000 UNIT/ML 1 ML VIAL SQ SCH ×2 (10:11→21:32)
[2018-11-26] MEDS: LORazepam 2 MG/ML INJ IV PRN ×2 (10:58→12:01)
--- NOTE | 2018-11-26 10:58 | P.PN ---
Subjective Progress Note Date: 11/26/18 This is a 73-year-old -[place] male patient of Dr. Kohler with past medical history of hyperlipidemia, hypertension, hypothyroidism, history of recent prostate cancer status post radiation, coronary artery disease status CABG, history of bioprosthetic valve, paroxysmal atrial fibrillation, hypothyr oidism, cardiomyopathy EF 45%, chronic systolic heart failure, radiation proctitis with acute on chronic blood loss anemia, colonoscopy last November 2017 confirming radiation proctitis. Patient comes in to the emergency room secondary to increasing difficulty of breathing, was in respiratory distress when seen in the ER, patient was extremely dyspneic, unable to provide history, the niece was there that provided some information, patient has had difficulties with upper respiratory for the past several years with dry cough however few hours prior to admission, patient has declined rapidly with significant dyspnea, tachypnea, patient was subsequently intubated in the emergency room. And admitted to ICU with sepsis and septic shock, and a large right pneumonia.. She he is currently followed by Dr. Wharton from critical care medicine, chest x-ray in emergency room shows extensive consolidation right lung with underlying pulmonary fibrosis, upper lobes. Patient requires pressor support, along with fluid resuscitation, required 2 L of boluses in the emergency room, and is currently on Zosyn, Levaquin,l evophed secondary to sepsis with pneumonia, aspirative events is under consideration, patient has dysphagia to foods. 11/25: Patient remains in the intensive care unit intubated and on mechanical ventilation. Dr. Wharton is following and plan to try extubating today. Patient is continued on Zosyn and Levaquin. Morning chest x-ray reveals no significant interval change. health support specialist has been sinus rhythm. Lab work reveals white count of 11.7, hemoglobin 11.2 and platelet count 102. Chloride 114, CO2 21, BUN 9 and creatinine 0.71. Blood sugars running between 110 and 120. TSH 0.176 and free T4 0.97. Blood cultures showing no growth after 24 hours. Sputum cultures in progress. Legionella testing is pending. Patient has been started on tube feedings. 11/26: Patient has been afebrile, heart rate in the 70s and 80s, blood pressure 130/59. Patient remains intubated and on mechanical ventilation. WBC 7.2, hemoglobin 11.5, platelet count 96, creatinine 0.62. Blood sugars running between 113 -132. All blood cultures were no growth at 48 hours and sputum c ultures in progress. Repeat chest x-ray shows worsening bibasilar airspace disease. Changes consistent with mild pulmonary edema area and small bilateral effusions. Patient underwent bronchoscopy this morning and bloody fluid was sent for cultures. There is concern today percussively. Patient has been off norepinephrine since 3 AM. He is on tube feedings. Review Of Systems: Unable to be obtained due to intubation Objective - Vital Signs Vital signs: Vital Signs Temp 98.3 F 11/26/18 08:00 Pulse 82 11/26/18 09:00 Resp 22 11/26/18 09:00 BP 108/53 11/25/18 19:00 Pulse Ox 99 11/26/18 09:00 Intake & Output 11/25/18 11/26/18 11/26/18 18:59 06:59 18:59 Intake Total 0608.807 4373.510 503 Output Total 1545 885 115 Balance 367.975 927.510 388 Weight 65.9 kg Intake: IV 922 872 268 CVP/ART 72 72 18 Levofloxacin 750Mg-D5w 100 Pmx 750 mg In Dextrose/ Water 1 150ml.bag @ 100 mls/hr IVPB Q24H [place] Rx#: [id number] Piperacillin-Tazobactam 3 100 100 .375 gm In Sodium Chloride 0.9% 100 ml @ 25 mls/hr IVPB ONCE ST[facility] Rx# :[id number] Sodium Chloride 0.9% 1, 850 600 150 000 ml @ 50 mls/hr IV . Q20H [place] Rx#:[id number] Intake, IV Titration 374.975 276.510 Amount Norepinephrine 8 mg In 11.117 76.510 Sodium Chloride 0.9% 250 ml @ 0.05 MCG/KG/MIN 5. 486 mls/hr IV .Q24H [place] Rx#:[id number] Piperacillin-Tazobactam 3 200 .375 gm In Sodium Chloride 0.9% 100 ml @ 25 mls/hr IVPB Q8HR [place] Rx# :[id number] Propofol 1,000 mg In 163.858 200.000 Empty Bag 1 bag @ Titrate IV .Q0M [facility] Rx#: [id number] Tube Feeding 481 574 205 Other 135 90 30 Output: Urine 1545 885 115 Other: Voiding Method Indwelling Catheter Indwelling Catheter Indwelling Catheter ABP, PAP, CO, CI - Last Documented Arterial Blood Pressure 130/59 - Exam ntubated, mechanical ventilation, sedated, appears to be comfortable and in no acute distress - EENT Eyes: anicteric sclerae, PERRLA, normal appearance - Respiratory Respiratory: bilateral: diminished, rhonchi - Cardiovascular Rhythm: regular Heart sounds: normal: S1, S2 Abnormal Heart Sounds: no systolic murmur, no diastolic murmur, no rub, no S3 Gallop, no S4 Gallop, no click, no other - Gastrointestinal General gastrointestinal: normal bowel sounds, soft - Integumentary Integumentary: decreased turgor - Psychiatric Sedated on vent - Labs CBC & Chem 7: 11/26/18 04:00 11/26/18 04:00 Labs: Abnormal Lab Results - Last 24 Hours (Table) 11/25/18 11/25/18 11/25/18 Range/Units 12:04 19:07 23:53 RBC (4.30-5.90) m/uL Hgb (13.0-17.5) gm/dL Hct (39.0-53.0) % Plt Count (150-450) k/uL ABG Total CO2 (19-24) mmol/L Chloride (98-107) mmol/L Creatinine (0.66-1.25) mg/dL Glucose (74-99) mg/dL POC Glucose (mg/dL) 116 H 121 H 132 H (75-99) mg/dL Phosphorus (2.5-4.5) mg/dL 11/26/18 11/26/18 11/26/18 Range/Units 04:00 04:00 04:26 RBC 4.02 L (4.30-5.90) m/uL Hgb 11.5 L (13.0-17.5) gm/dL Hct 35.1 L (39.0-53.0) % Plt Count 96 L (150-450) k/uL ABG Total CO2 25 H (19-24) mmol/L Chloride 117 H (98-107) mmol/L Creatinine 0.62 L (0.66-1.25) mg/dL Glucose 120 H (74-99) mg/dL POC Glucose (mg/dL) (75-99) mg/dL Phosphorus 2.3 L (2.5-4.5) mg/dL 11/26/18 Range/Units 06:45 RBC (4.30-5.90) m/uL Hgb (13.0-17.5) gm/dL Hct (39.0-53.0) % Plt Count (150-450) k/uL ABG Total CO2 (19-24) mmol/L Chloride (98-107) mmol/L Creatinine (0.66-1.25) mg/dL Glucose (74-99) mg/dL POC Glucose (mg/dL) 113 H (75-99) mg/dL Phosphorus (2.5-4.5) mg/dL Microbiology - Last 24 Hours (Table) 11/23/18 22:10 Blood Culture - Preliminary Blood No Growth after 48 hours Assessment and Plan Plan: 1. Acute hypoxic respiratory failure secondary to most likely gram-negative pneumonia requiring intubation and mechanical ventilation. Continue Zosyn and Levaquin. Consult with is appreciated. Sputum culture and blood culture in progress. Legionella testing pending. 2. Septic shock, secondary to aspiration/gram-negative pneumonia. Patient has required vasopressors and discontinued this morning. 3. Chronic cough, reports of dysphagia by a niece, patient needs to be evaluated with modified barium swallow eval once intubation has been resolved 4. Chronic radiation proctitis, with recent endoscopy both upper scope and lower scope during admission November 2017. Patient started on Senokot 2 daily scheduled 5. History of coronary artery disease status post CABG. 6. Chronic blood loss anemia monitor hemoglobin, currently stable. 7. History of aortic bioprosthetic valve replacement with previous mitral valve repair 8. History of paroxysmal atrial fibrillation not on anticoagulation secondary to concerns of GI bleed in the past. Continue Plavix 75 mg daily. 9. Ischemic cardiomyopathy with previous EF of 40-45%. 10. Hypothyroidism. Continue levothyroxine 25 mg daily. 11. Hypertension with current hypotension. Hold home antihypertensive medications. 12. Hyperlipidemia. 13. Chronic systolic heart failure. 14. DVT prophylaxis. Heparin subcu. 15. GI prophylaxis. Protonix IV. Discharge plan: To be determined. Most likely patient will require subacute rehab Impression and plan of care have been directed as dictated by the signing physician. Charmaine Joseph nurse practitioner acting as scribe for signing physician.
[2018-11-26] MEDS: NOREPINEPHRINE 8 MG in SODIUM CHLORIDE 0.9% 250 ML IV SCH (11:12)
[2018-11-26] MEDS: ACETAMINOPHEN TAB 325 MG TAB PO PRN (11:44)
--- NOTE | 2018-11-26 12:00 | P.PN ---
Subjective Progress Note Date: 11/26/18 This is a 73-year-old male patient who came into the hospital because of acute respiratory failure. The patient was extremely dyspneic and using excessive muscle breathing. A tree was intubated and placed on a mechanical ventilator in the emergency department. The post intubation chest x-ray showed an extensive right lung consolidation occupying the lower two thirds of the right lung. The patient also had some cardiomegaly. Post intubation, the patient was given a total of 2 L of IV fluids a sinus sepsis protocol. He continued to be hypotensive. The triple-lumen catheter was inserted in his right subclavian vein and the patient was continued on fluids and pressors. Currently levo fed is running at a low-dose. Did not like it was inserted today. Overnight the patient was started on broad-spectrum antibiotics utilizing a combination of Zosyn and Levaquin. Influenza screen is negative. The patient is producing adequate amount of urine output. This morning, the patient's blood gas showed a pH of 7.36 with a pCO2 of 38 and pO2 of 128 and this was on FiO2 of 40% and a PEEP of 5. His rate is at 12 with tidal volume of 400. Renal function is stable. LFTs are within normal limits. No previous history of chronic lung disease. He is known to have cardiac disease with coronary artery disease, previous aortic valve replacement, previous mitral valve repair, paroxysmal atrial fibrillation the patient has been on no anticoagulants due to concerns of Miguel A GI bleed. On comfort 11/25/2018 I'm seeing this patient for a follow-up. The patient has extensive right lung pneumonia still on examination Zosyn and Levaquin and no cultures have been obtained yet. Meanwhile, the patient remains intubated on a mechanical ventilator. No vent changes have been done as the patient is oxygenating and ventilating well. The patient has been on sedation and the patient was given a brief sedation holiday today and the patient showed adequate neurologic functions and the patient was able to move all 4 extremities without any limitation. The patient is also tolerating tube feeds. The patient has on few mics of norepinephrine infusion at the pressors are being gradually weaned off. No fever. No chills. Sputum cultures still in progress. Legionella ur ine antigen still pending. The follow-up chest x-ray from today shows improvement in the right lower lobe consolidation. Blood gases from today showed a pH of 7.38 with a pCO2 of 36 and pO2 of 149 while on a 40% FiO2. White cell count is 11.7. Rest of the blood work and electrodes are all within normal limits. On 11/26/2018 I'm seeing this patient for a follow-up. The patient remains on a mechanical ventilator and this morning the patient is still in a assist-control mode at the rate of 12 with tidal volume of 400 and FiO2 of 40% and a PEEP of 5. The patient's chest x-ray still showing a dense consolidation of the right lower lobe and there is no significant improvement in his right lower lobe pneumonia. Based on this, the patient was kept on a combination of Zosyn and Levaquin. The patient's cultures of been all negative for and the patient had a bronchoscopy earlier this morning with a bronchioloalveolar lavage of the right lobe of the right lower lobe was done with a total of 30cc is a bronchioloalveolar aspirate was obtained from these lobes. The patient remains sedated with propofol and is calm and comfortable. Enteral feeding has been also initiated. He was off the pressors earlier this morning and following the bronchoscopy had been placed on low-dose levothyroid for hemodynamic support. He is very symptoms with the mechanical ventilator. No significant orotracheal secretions. No fever or chills. No other issues otherwise for now. His cardiac rhythm is showing frequent PACs and PVCs. The blood gases from today showed a pH of 7.37 with a pCO2 of 41 and pO2 of 96 and this was on FiO2 of 40%. Objective - Vital Signs Vital signs: Vital Signs Temp 98.3 F 11/26/18 08:00 Pulse 85 11/26/18 11:25 Resp 29 H 11/26/18 11:14 BP 108/53 11/25/18 19:00 Pulse Ox 99 11/26/18 11:01 Intake & Output 11/25/18 11/26/18 11/26/18 18:59 06:59 18:59 Intake Total 3743.069 7957.510 738.769 Output Total 1545 885 210 Balance 367.975 927.510 528.769 Weight 65.9 kg Intake: IV 922 872 380 CVP/ART 72 72 30 Levofloxacin 750Mg-D5w 100 Pmx 750 mg In Dextrose/ Water 1 150ml.bag @ 100 mls/hr IVPB Q24H [place] Rx#: [id number] Piperacillin-Tazobactam 3 100 100 .375 gm In Sodium Chloride 0.9% 100 ml @ 25 mls/hr IVPB ONCE STA Rx# :[id number] Sodium Chloride 0.9% 1, 850 600 250 000 ml @ 50 mls/hr IV . Q20H [place] Rx#:[id number] Intake, IV Titration 374.975 276.510 0.769 Amount Norepinephrine 8 mg In 11.117 76.510 0.769 Sodium Chloride 0.9% 250 ml @ 0.05 MCG/KG/MIN 5. 486 mls/hr IV .Q24H [place] Rx#:[id number] Piperacillin-Tazobactam 3 200 .375 gm In Sodium Chloride 0.9% 100 ml @ 25 mls/hr IVPB Q8HR [place] Rx# :[id number] Propofol 1,000 mg In 163.858 200.000 Empty Bag 1 bag @ Titrate IV .Q0M [place] Rx#: [id number] Tube Feeding 481 574 328 Other 135 90 30 Output: Urine 1545 885 210 Other: Voiding Method Indwelling Catheter Indwelling Catheter Indwelling Catheter ABP, PAP, CO, CI - Last Documented Arterial Blood Pressure 95/46 - Exam Gen. appearance Ms. sedated, comfortable , nonacute distress. Head exam was generally normal. There was no scleral icterus or corneal arcus. Mucous membranes were moist. Neck was supple and without jugular venous distension, thyromegaly, or carotid bruits. Carotids were easily palpable bilaterally. There was no adenopathy. The patient has an orogastric and orotracheal tube are both of them are in place. Lungs were clear to auscultation and percussion, and with normal diaphragmatic excursion. No wheezes or rales were noted. Cardiac exam revealed the PMI to be normally situated and sized. The rhythm was regular and no extrasystoles were noted during several minutes of auscultation. The first and second heart sounds were normal and physiologic splitting of the second heart sound was noted. There were no murmurs, rubs, clicks, or gallops. The patient has a sternotomy scar over the anterior chest area. No significant murmurs appreciated. Abdominal exam revealed normal bowel sounds. The abdomen was soft, non-tender, and without masses, organomegaly, or appreciable enlargement of the abdominal aorta. Examination of the extremities revealed easily palpable radial, femoral and pedal pulses. There was no cyanosis, clubbing or edema. The pulses are esse ntially diminished in lower eczematous bilaterally but they're palpable. Examination of the skin revealed no evidence of significant rashes, suspicious appearing nevi or other concerning lesions. Neurologically the patient is sedated the patient withdraws to painful stimulation to all 4 extremities. Pupils are equal and reactive to light. No facial asymmetry. - Labs CBC & Chem 7: 11/26/18 04:00 11/26/18 04:00 Labs: Abnormal Lab Results - Last 24 Hours (Table) 11/25/18 11/25/18 11/25/18 Range/Units 12:04 19:07 23:53 RBC (4.30-5.90) m/uL Hgb (13.0-17.5) gm/dL Hct (39.0-53.0) % Plt Count (150-450) k/uL ABG Total CO2 (19-24) mmol/L Chloride (98-107) mmol/L Creatinine (0.66-1.25) mg/dL Glucose (74-99) mg/dL POC Glucose (mg/dL) 116 H 121 H 132 H (75-99) mg/dL Phosphorus (2.5-4.5) mg/dL 11/26/18 11/26/18 11/26/18 Range/Units 04:00 04:00 04:26 RBC 4.02 L (4.30-5.90) m/uL Hgb 11.5 L (13.0-17.5) gm/dL Hct 35.1 L (39.0-53.0) % Plt Count 96 L (150-450) k/uL ABG Total CO2 25 H (19-24) mmol/L Chloride 117 H (98-107) mmol/L Creatinine 0.62 L (0.66-1.25) mg/dL Glucose 120 H (74-99) mg/dL POC Glucose (mg/dL) (75-99) mg/dL Phosphorus 2.3 L (2.5-4.5) mg/dL 11/26/18 Range/Units 06:45 RBC (4.30-5.90) m/uL Hgb (13.0-17.5) gm/dL Hct (39.0-53.0) % Plt Count (150-450) k/uL ABG Total CO2 (19-24) mmol/L Chloride (98-107) mmol/L Creatinine (0.66-1.25) mg/dL Glucose (74-99) mg/dL POC Glucose (mg/dL) 113 H (75-99) mg/dL Phosphorus (2.5-4.5) mg/dL Microbiology - Last 24 Hours (Table) 11/23/18 20:25 Gram Stain - Final Sputum Sputum Culture - Final 11/23/18 22:10 Blood Culture - Preliminary Blood No Growth after 48 hours Assessment and Plan Plan: 1 right lung pneumonia, multilobar, complicated by acute hypoxic history failure requiring intubation mechanical ventilation,. Cultures of been all negative. No major improvement in the right lower lobe consolidation and the patient is post bronchoscopy 2 acute hypoxic respiratory failure secondary to above, currently intubated on a mechanical ventilator, and there has been significant improvement in patient's oxygenation while intubated on a mechanical ventilator. 3 sepsis secondary to right lung pneumonia, resuscitated IV fluids and the patient is currently on pressors. He was briefly taken off pressors earlier this morning and had to place back on. 4 leukocytosis, improving 5 CAD 6 paroxysmal atrial fibrillation current rhythm is sinus with LBBB pattern 7 aortic valve replacement/bioprosthetic valve with mitral valve repair. The patient has moderate degree of stenosis of the aortic valve that has been replaced 8 prostate cancer with previous radiation therapy to the prostate 9 hypertension 10 hyperlipidemia 11 hypothyroidism 13 previous history of GI bleed 14 evolving thrombocytopenia, likely consumptive secondary to pneumonia/sepsis and this will be monitored. 15 acute lactic acidosis improved and lactic acid level is up from 6.7 down to 1.9. Plan Continue vent support. Continue Zosyn and Levaquin. Bronchoscopy was performed and the bronchioloalveolar lavage of the right middle lobe and the right lower lobe was also done. We'll send the bronchioloalveolar lavage for microbial cultures and analysis. Continue same antibiotic coverage for now. Continue vent support. Continue pressors. Monitor blood gases. Monitor electrolytes. Repeat chest x-ray in the morning. Enteral feeding for nutritional support. No weaning trials for today. We'll continue to follow. Condition is critical and this evaluation was done more than 30 minutes of recording time to do any procedures. Treatment still in progress. Condition is critical. Time with Patient: Greater than 30
--- NOTE | 2018-11-26 12:04 | P.PCN ---
Date of Procedure: 11/26/18 Preoperative Diagnosis: Right middle lobe/lower lobe pneumonia. Postoperative Diagnosis: Right middle lobe/lower lobe pneumonia Procedure(s) Performed: Flexible bronchoscopy and the bronchioloalveolar lavage of the right middle lobe and the right lower lobe Anesthesia: TRELL Surgeon: David Wharton Estimated Blood Loss (ml): 0 Pathology: other Condition: stable Disposition: ICU Operative Findings: This is a flexible bronchoscopy that was done in the intensive care unit. The patient was already sedated with propofol. The patient was intubated and on mechanical ventilator. Add Aggrastat was essentially orotracheal tube and following that a flexible bronchoscope was introduced into the orotracheal tube and was advanced into the lower trachea. The tip of the orotracheal tube was seen around 2 cm above the francisco. There was copious amount of rest or secretions in the right mainstem bronchus and bronchus intermedius. I performed a bronchoscopy and airway inspection. The visualized airways into the distal trachea, bilateral mainstem bronchi, right upper lobe bronchus, right middle lobe bronchus, right lower lobe bronchus, left upper lobe bronchus and left lower lobe bronchus along with various segments and subsegments. Most of the secretions originating from the right middle lobe and the right lower lobe area. At that point, the bronchoscope was wedged in the right middle lobe with a total of 60 mL of fluid was infused in 15 mL was suctioned back. Aspirate was bloody. Similarly, bronchioloalveolar lavage of the right lower lobe anterior segment was done without a total of cc of fluid was infused and 50 mL was suctioned back. Addendum of the procedure, and therapeutic airway suctioning was done and the rest or secretions were all removed. The bronchoscope was removed and the patient underwent the procedure without any complications. He had to be placed back on levo fed following the bronchoscopy for hemodynamic support. His FiO2 was at 100% during the procedure and following that was weaned down slowly to maintain a saturation above 90%. The bronchioloalveolar lavage will be sent for microbial cultures and analysis. We'll continue to follow.
[2018-11-26 12:10] LABS: Glucose,Whole Blood 144 mg/dL (75-99)
[2018-11-26 15:17] LABS: Appearance,BF Hazy; Color,BF Red; Nucleated Cells, Body Fluid 400 /uL; RBC, Body Fluid 308400 /uL
[2018-11-26 15:43] LABS: Mononuclear WBC,Body Fluid 96 %; Polynuclear WBC,Body Fluid 4 %; Total Cells Counted,Body Fluid 100
[2018-11-26 17:53] LABS: Glucose,Whole Blood 112 mg/dL (75-99)
[2018-11-26] MEDS: LEVOFLOXACIN 750MG-D5W PMX 750 MG in DEXTROSE/WATER 1 150ML.BAG IVPB SCH (21:32)
[2018-11-27] MEDS: PIPERACILLIN-TAZOBACTAM 3.375 GM in SODIUM CHLORIDE 0.9% 100 ML IVPB SCH ×3 (00:17→15:55)
[2018-11-27] MEDS: LORazepam 2 MG/ML INJ IV PRN (01:11)
[2018-11-27 02:06] LABS: Glucose,Whole Blood 106 mg/dL (75-99)
[2018-11-27] MEDS: PROPOFOL 1,000 MG in EMPTY BAG 1 BAG IV SCH ×3 (02:44→19:01)
[2018-11-27] MEDS: IPRATROPIUM-ALBUTEROL 3 ML NEB INHALATION SCH ×5 (03:21→19:26)
[2018-11-27 04:54] LABS: HCT 33.8 % (39.0-53.0); HGB 10.7 gm/dL (13.0-17.5); MCH 27.6 pg (25.0-35.0); MCHC 31.8 g/dL (31.0-37.0); MCV 86.9 fL (80.0-100.0); Mean Platelet Volume 9.9; Platelet Count 101 k/uL (150-450); RBC 3.89 m/uL (4.30-5.90); RDW 13.8 % (11.5-15.5); WBC 7.7 k/uL (3.8-10.6)
[2018-11-27 05:04] LABS: ABG Base Excess -0.4 mmol/L; ABG HCO3 24 mmol/L (21-25); ABG Oxygen Saturation 96.3 % (94-97); ABG PCO2 38 mmHg (35-45); ABG PH 7.42 (7.35-7.45); ABG PO2 98 mmHg (83-108); ABG TCO2 25 mmol/L (19-24)
[2018-11-27 05:05] LABS: Anion Gap 3 mmol/L; Blood Urea Nitrogen 11 mg/dL (9-20); Calcium 8.6 mg/dL (8.4-10.2); Carbon Dioxide 23 mmol/L (22-30); Chloride 114 mmol/L (98-107); Glucose 139 mg/dL (74-99); Magnesium 1.7 mg/dL (1.6-2.3); Phosphorus 2.9 mg/dL (2.5-4.5); Potassium 3.8 mmol/L (3.5-5.1); Sodium 140 mmol/L (137-145)
[2018-11-27] MEDS: MAGNESIUM SULFATE-D5W PMX 1 GM in DEXTROSE/WATER 1 100ML.BAG IVPB SCH ×2 (05:57→08:16)
[2018-11-27] MEDS: LEVOTHYROXINE 25 MCG TAB PO SCH (05:58)
[2018-11-27] MEDS: SODIUM CHLORIDE 0.9% 1,000 ML IV SCH (05:58)
[2018-11-27] MEDS ORDERED: POTASSIUM BICARBONATE/CIT AC 20 MEQ TABLET.EFF NG-TUBE SCH (06:00)
[2018-11-27 06:11] LABS: Glucose,Whole Blood 101 mg/dL (75-99)
--- NOTE | 2018-11-27 07:47 | XR ---
EXAMINATION TYPE: XR chest 1V portable DATE OF EXAM: 11/27/2018 Comparison: 11/26/2018 Clinical History: 73-year-old male Tube placement Findings: ET and NG tubes are satisfactory. Median sternotomy wires are present. Prosthetic aortic valve. Heart upper limits of normal in size. Worsening infiltrate mid and lower lung airspace opacities with unde rlying small effusions. Impression: Slight worsening in mid and lower lung confluent airspace disease, likely sequela of CHF with pulmona ry edema. Underlying small effusions persist.
[2018-11-27] MEDS: PANTOPRAZOLE 40 MG/10 ML VIAL IV SCH (08:16)
[2018-11-27] MEDS: CLOPIDOGREL 75 MG TAB PO SCH (08:16)
[2018-11-27] MEDS: CHLORHEXIDINE GLUCONATE 15 ML CUP MUCOUS MEM SCH ×2 (08:16→20:19)
[2018-11-27] MEDS: HEPARIN SODIUM,PORCINE 5,000 UNIT/ML 1 ML VIAL SQ SCH ×2 (08:17→20:19)
[2018-11-27] MEDS: FUROSEMIDE 10 MG/ML 2 ML VIAL IV SCH ×2 (10:19→20:19)
--- NOTE | 2018-11-27 10:35 | P.PN ---
Subjective Progress Note Date: 11/27/18 This is a 73-year-old -[place] male patient of Dr. Kohler with past medical history of hyperlipidemia, hypertension, hypothyroidism, history of recent prostate cancer status post radiation, coronary artery disease status CABG, history of bioprosthetic valve, paroxysmal atrial fibrillation, hypothyr oidism, cardiomyopathy EF 45%, chronic systolic heart failure, radiation proctitis with acute on chronic blood loss anemia, colonoscopy last November 2017 confirming radiation proctitis. Patient comes in to the emergency room secondary to increasing difficulty of breathing, was in respiratory distress when seen in the ER, patient was extremely dyspneic, unable to provide history, the niece was there that provided some information, patient has had difficulties with upper respiratory for the past several years with dry cough however few hours prior to admission, patient has declined rapidly with significant dyspnea, tachypnea, patient was subsequently intubated in the emergency room. And admitted to ICU with sepsis and septic shock, and a large right pneumonia.. She he is currently followed by Dr. Wharton from critical care medicine, chest x-ray in emergency room shows extensive consolidation right lung with underlying pulmonary fibrosis, upper lobes. Patient requires pressor support, along with fluid resuscitation, required 2 L of boluses in the emergency room, and is currently on Zosyn, Levaquin,l evophed secondary to sepsis with pneumonia, aspirative events is under consideration, patient has dysphagia to foods. 11/25: Patient remains in the intensive care unit intubated and on mechanical ventilation. Dr. Wharton is following and plan to try extubating today. Patient is continued on Zosyn and Levaquin. Morning chest x-ray reveals no significant interval change. 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 Lab work reveals white count of 11.7, hemoglobin 11.2 and platelet count 102. Chloride 114, CO2 21, BUN 9 and creatinine 0.71. Blood sugars running between 110 and 120. TSH 0.176 and free T4 0.97. Blood cultures showing no growth after 24 hours. Sputum cultures in progress. Legionella testing is pending. Patient has been started on tube feedings. 11/26: Patient has been afebrile, heart rate in the 70s and 80s, blood pressure 130/59. Patient remains intubated and on mechanical ventilation. WBC 7.2, hemoglobin 11.5, platelet count 96, creatinine 0.62. Blood sugars running between 113 -132. All blood cultures were no growth at 48 hours and sputum c ultures in progress. Repeat chest x-ray shows worsening bibasilar airspace disease. Changes consistent with mild pulmonary edema area and small bilateral effusions. Patient underwent bronchoscopy this morning and bloody fluid was sent for cultures. There is concern today percussively. Patient has been off norepinephrine since 3 AM. He is on tube feedings. 11/27: Patient remains intubated and on mechanical ventilation. He has been hemodynamically stable since he has been off norepinephrine. White count is normal, hemoglobin 10.7 and platelet count 101. Creatinine 0.55. Blood sugars running between 08/15/1939. Bronchial washing cultures are in progress. Sputum culture was finalized with normal respiratory julien. Blood cultures no growth after 72 hours. Repeat chest x-ray shows slight worsening in the mid and lower lung confluent airspace disease likely sequela of heart failure with pulmonary edema. Underlying small effusions persist. Ultrasound of the chest has been ordered for today. Patient remains on tube feedings and dietitian is following. telephone services sales representative has been a sinus rhythm. Review Of Systems: Unable to be obtained due to intubation Objective - Vital Signs Vital signs: Vital Signs Temp 98.1 F 11/27/18 08:00 Pulse 79 11/27/18 08:00 Resp 28 H 11/27/18 08:00 BP 108/53 11/27/18 08:00 Pulse Ox 99 11/27/18 08:00 Intake & Output 11/26/18 11/27/18 11/27/18 18:59 06:59 18:59 Intake Total 5732.030 4925.692 197 Output Total 515 440 30 Balance 4198.978 1563.692 167 Weight 65.7 kg Intake: IV 772 772 56 CVP/ART 72 72 6 Levofloxacin 750Mg-D5w 100 Pmx 750 mg In Dextrose/ Water 1 150ml.bag @ 100 mls/hr IVPB Q24H [place] Rx#: [id number] Piperacillin-Tazobactam 3 100 .375 gm In Sodium Chloride 0.9% 100 ml @ 25 mls/hr IVPB ONCE STA Rx# :[id number] Sodium Chloride 0.9% 1, 600 600 50 000 ml @ 50 mls/hr IV . Q20H [place] Rx#:[id number] Intake, IV Titration 147.689 106.692 100 Amount Norepinephrine 8 mg In 47.689 6.692 Sodium Chloride 0.9% 250 ml @ 0.05 MCG/KG/MIN 5. 486 mls/hr IV .Q24H [place] Rx#:[id number] Propofol 1,000 mg In 100 100 100 Empty Bag 1 bag @ Titrate IV .Q0M [place] Rx#: [id number] Tube Feeding 738 574 41 Other 90 60 Output: Urine 515 440 30 Other: Voiding Method Indwelling Catheter Indwelling Catheter # Bowel Movements 1 1 ABP, PAP, CO, CI - Last Documented Arterial Blood Pressure 123/56 - Exam ntubated, mechanical ventilation, sedated, appears to be comfortable and in no acute distress, family member at bedside - EENT Eyes: anicteric sclerae, PERRLA, normal appearance - Respiratory Respiratory: bilateral: diminished, rhonchi - Cardiovascular Rhythm: regular Heart sounds: normal: S1, S2 Abnormal Heart Sounds: no systolic murmur, no diastolic murmur, no rub, no S3 Gallop, no S4 Gallop, no click, no other - Gastrointestinal General gastrointestinal: normal bowel sounds, soft - Integumentary Integumentary: decreased turgor - Psychiatric Sedated on vent - Labs CBC & Chem 7: 11/27/18 04:30 11/27/18 04:30 Labs: Abnormal Lab Results - Last 24 Hours (Table) 11/26/18 11/26/18 11/27/18 Range/Units 11:59 17:40 01:54 RBC (4.30-5.90) m/uL Hgb (13.0-17.5) gm/dL Hct (39.0-53.0) % Plt Count (150-450) k/uL ABG Total CO2 (19-24) mmol/L Chloride (98-107) mmol/L Creatinine (0.66-1.25) mg/dL Glucose (74-99) mg/dL POC Glucose (mg/dL) 144 H 112 H 106 H (75-99) mg/dL 11/27/18 11/27/18 11/27/18 Range/Units 04:30 04:30 05:02 RBC 3.89 L (4.30-5.90) m/uL Hgb 10.7 L (13.0-17.5) gm/dL Hct 33.8 L (39.0-53.0) % Plt Count 101 L (150-450) k/uL ABG Total CO2 25 H (19-24) mmol/L Chloride 114 H (98-107) mmol/L Creatinine 0.55 L (0.66-1.25) mg/dL Glucose 139 H (74-99) mg/dL POC Glucose (mg/dL) (75-99) mg/dL 11/27/18 Range/Units 06:00 RBC (4.30-5.90) m/uL Hgb (13.0-17.5) gm/dL Hct (39.0-53.0) % Plt Count (150-450) k/uL ABG Total CO2 (19-24) mmol/L Chloride (98-107) mmol/L Creatinine (0.66-1.25) mg/dL Glucose (74-99) mg/dL POC Glucose (mg/dL) 101 H (75-99) mg/dL Microbiology - Last 24 Hours (Table) 11/23/18 22:10 Blood Culture - Preliminary Blood No Growth after 72 hours 11/26/18 09:57 Gram Stain - Preliminary Lung Aspirate - Right Bronchial Washings Culture - Preliminary 11/26/18 09:57 Acid Fast Bacilli Culture - Preliminary Lung - Right 11/26/18 10:08 Fungal Culture - Preliminary Lung - Right 11/23/18 20:25 Gram Stain - Final Sputum Sputum Culture - Final Assessment and Plan Plan: 1. Acute hypoxic respiratory failure secondary to most likely gram-negative pneumonia requiring intubation and mechanical ventilation. Continue Zosyn and Levaquin. Consult with is appreciated. Sputum culture and blood culture in progress. Ultrasound of the chest ordered for today for pleural effusions 2. Septic shock, secondary to aspiration/gram-negative pneumonia. Patient has required vasopressors and discontinued this morning. 3. Chronic cough, reports of dysphagia by a niece, patient needs to be evaluated with modified barium swallow eval once intubation has been resolved 4. Chronic radiation proctitis, with recent endoscopy both upper scope and lower scope during admission November 2017. Patient started on Senokot 2 daily scheduled 5. History of coronary artery disease status post CABG. 6. Chronic blood loss anemia monitor hemoglobin, currently stable. 7. History of aortic bioprosthetic valve replacement with previous mitral valve repair 8. History of paroxysmal atrial fibrillation not on anticoagulation secondary to concerns of GI bleed in the past. Continue Plavix 75 mg daily. 9. Ischemic cardiomyopathy with previous EF of 40-45%. 10. Hypothyroidism. Continue levothyroxine 25 mg daily. 11. Hypertension with current hypotension. Hold home antihypertensive medications. 12. Hyperlipidemia. 13. Chronic systolic heart failure. 14. DVT prophylaxis. Heparin subcu. 15. GI prophylaxis. Protonix IV. Discharge plan: To be determined. Most likely patient will require subacute rehab Impression and plan of care have been directed as dictated by the signing physician. Charmaine Joseph nurse practitioner acting as scribe for signing physician.
--- NOTE | 2018-11-27 11:09 | P.PN ---
Subjective Progress Note Date: 11/27/18 Principal diagnosis: Acute hypoxic respiratory failure secondary to pneumonia, community-acquired. This is a 73-year-old male patient who came into the hospital because of acute respiratory failure. The patient was extremely dyspneic and using excessive muscle breathing.He was intubated and placed on a mechanical ventilator in the emergency department. The post intubation chest x-ray showed an extensive right lung consolidation occupying the lower two thirds of the right lung. The patient also had some cardiomegaly. Post intubation, the patient was given a total of 2 L of IV fluids . As. per sepsis protocol. He continued to be hypotensive. The triple-lumen catheter was inserted in his right subclavian vein and the patient was continued on fluids and pressors. Currently levo fed is running at a low-dose. Overnight the patient was started on broad-spectrum antibiotics utilizing a combination of Zosyn and Levaquin. Influenza screen is negative. The patient is producing adequate amount of urine output. This morning, the patient's blood gas showed a pH of 7.36 with a pCO2 of 38 and pO2 of 128 and this was on FiO2 of 40% and a PEEP of 5. His rate is at 12 with tidal volume of 400. Renal function is stable. LFTs are within normal limits. No previous history of chronic lung disease. He is known to have cardiac disease with coronary artery disease, previous aortic valve replacement, previous mitral valve repair, paroxysmal atrial fibrillation the patient has been on no anticoagulants due to concerns of Miguel A GI bleed. On 11/26/2018 I'm seeing this patient for a follow-up. The patient remains on a mechanical ventilator and this morning the patient is still in a assist-control mode at the rate of 12 with tidal volume of 400 and FiO2 of 40% and a PEEP of 5. The patient's chest x-ray still showing a dense consolidation of the right lower lobe and there is no significant improvement in his right lower lobe pneumonia. Based on this, the patient was kept on a combination of Zosyn and Levaquin. The patient's cultures of been all negative for and the patient had a bronchoscopy earlier this morning with a bronchioloalveolar lavage of the right lobe of the right lower lobe was done with a total of 30cc is a bronchioloalveolar aspirate was obtained from these lobes. The patient remains sedated with propofol and is calm and comfortable. Enteral feeding has been also initiated. He was off the pressors earlier this morning and following the bronchoscopy had been placed on low-dose levothyroid for hemodynamic support. He is very symptoms with the mechanical ventilator. No significant orotracheal secretions. No fever or chills. No other issues otherwise for now. His cardiac rhythm is showing frequent PACs and PVCs. The blood gases from today showed a pH of 7.37 with a pCO2 of 41 and pO2 of 96 and this was on FiO2 of 40%. On 11/27/2018, patient was seen on follow-up, and he remains in the ICU, on mechanical ventilation. Presently his ventilator settings are assist control rate of 12 tidal volume 400 FiO2 of 40% PEEP of 5. He is on propofol at 50 mcg/kg/m, off norepinephrine this morning, ABG showed a pO2 of 98 pCO2 of 38 pH of 7.42 and this was on 40% FiO2. WBC count is 7.7 hemoglobin 10.7. Electrolytes were normal BUN is 11 creatinine 0.55. Cultures from his bronchoscopy yesterday are pending. Patient remains on broad-spectrum antibiotics. Maintained on Levaquin and Zosyn for now. Patient is sedated, noted to be comfortable on mechanical ventilation. My plan today is to wean sedation, assess mental status, but considering the abnormal findings on the chest x-ray, clearly the patient is not ready for any form of weaning at present. Objective - Vital Signs Vital signs: Vital Signs Temp 98.1 F 11/27/18 08:00 Pulse 86 11/27/18 10:57 Resp 20 11/27/18 10:00 BP 108/53 11/27/18 10:00 Pulse Ox 97 11/27/18 10:00 Intake & Output 11/26/18 11/27/18 11/27/18 18:59 06:59 18:59 Intake Total 8908.167 2982.692 680 Output Total 515 440 130 Balance 2289.992 5764.692 550 Weight 65.7 kg 65.7 kg Intake: IV 772 772 224 CVP/ART 72 72 24 Levofloxacin 750Mg-D5w 100 Pmx 750 mg In Dextrose/ Water 1 150ml.bag @ 100 mls/hr IVPB Q24H [facility] Rx#: [id number] Piperacillin-Tazobactam 3 100 .375 gm In Sodium Chloride 0.9% 100 ml @ 25 mls/hr IVPB [facility] Rx# :[id number] Sodium Chloride 0.9% 1, 600 600 200 000 ml @ 50 mls/hr IV . Q20H [facility] Rx#:[id number] Intake, IV Titration 147.689 106.692 300 Amount Magnesium Sulfate-D5w Pmx 100 1 gm In Dextrose/Water 1 100ml.bag @ 100 mls/hr IVPB Q1H [facility] Rx#: [id number] Norepinephrine 8 mg In 47.689 6.692 Sodium Chloride 0.9% 250 ml @ 0.05 MCG/KG/MIN 5. 486 mls/hr IV .Q24H [place] Rx#:[id number] Piperacillin-Tazobactam 3 100 .375 gm In Sodium Chloride 0.9% 100 ml @ 25 mls/hr IVPB Q8HR [place] Rx# :[id number] Propofol 1,000 mg In 100 100 100 Empty Bag 1 bag @ Titrate IV .Q0M [facility] Rx#: [id number] Tube Feeding 738 574 156 Other 90 60 Output: Urine 515 440 130 Other: Voiding Method Indwelling Catheter Indwelling Catheter Indwelling Catheter # Bowel Movements 1 1 ABP, PAP, CO, CI - Last Documented Arterial Blood Pressure 100/47 - Exam Physical Exam: Revealed a 73-year-old -[place] male on mechanical ventilation, in no distress, sedated. Head: Atraumatic, normocephalic. HEENT:[Neck is supple.] [No neck masses.] [No thyromegaly.] [No JVD.] PERRLA, EOMI, endotracheal tube is intact, orogastric tube is intact. Chest: [Diffuse rhonchi and harsh breath sound bilaterally especially on the right side. Symmetrical chest expansion is noted, no chest wall deformity. Cardiac Exam: [Normal S1 and S2, no S3 gallop, 2/6 systolic murmur thought the precordium. Abdomen: [Soft, nontender, no megaly, no rebound, no guarding, normal bowel sounds.] Extremities: [No clubbing, trace of edema edema, no cyanosis.] Neurological Exam: Cannot be assessed, fully sedated, on propofol. Psychiatric: Cannot be assessed fully sedated on propofol. Lymphatics: No lymphadenopathy. Skin: No rashes. - Labs CBC & Chem 7: 11/27/18 04:30 11/27/18 04:30 Labs: Abnormal Lab Results - Last 24 Hours (Table) 11/26/18 11/26/18 11/27/18 Range/Units 11:59 17:40 01:54 RBC (4.30-5.90) m/uL Hgb (13.0-17.5) gm/dL Hct (39.0-53.0) % Plt Count (150-450) k/uL ABG Total CO2 (19-24) mmol/L Chloride (98-107) mmol/L Creatinine (0.66-1.25) mg/dL Glucose (74-99) mg/dL POC Glucose (mg/dL) 144 H 112 H 106 H (75-99) mg/dL 11/27/18 11/27/18 11/27/18 Range/Units 04:30 04:30 05:02 RBC 3.89 L (4.30-5.90) m/uL Hgb 10.7 L (13.0-17.5) gm/dL Hct 33.8 L (39.0-53.0) % Plt Count 101 L (150-450) k/uL ABG Total CO2 25 H (19-24) mmol/L Chloride 114 H (98-107) mmol/L Creatinine 0.55 L (0.66-1.25) mg/dL Glucose 139 H (74-99) mg/dL POC Glucose (mg/dL) (75-99) mg/dL 11/27/18 Range/Units 06:00 RBC (4.30-5.90) m/uL Hgb (13.0-17.5) gm/dL Hct (39.0-53.0) % Plt Count (150-450) k/uL ABG Total CO2 (19-24) mmol/L Chloride (98-107) mmol/L Creatinine (0.66-1.25) mg/dL Glucose (74-99) mg/dL POC Glucose (mg/dL) 101 H (75-99) mg/dL Microbiology - Last 24 Hours (Table) 11/23/18 22:10 Blood Culture - Preliminary Blood No Growth after 72 hours 11/26/18 09:57 Gram Stain - Preliminary Lung Aspirate - Right Bronchial Washings Culture - Preliminary 11/26/18 09:57 Acid Fast Bacilli Culture - Preliminary Lung - Right 11/26/18 10:08 Fungal Culture - Preliminary Lung - Right 11/23/18 20:25 Gram Stain - Final Sputum Sputum Culture - Final Assessment and Plan Assessment: Impression: 1 acute hypoxic respiratory failure secondary to multilobar pneumonia, community-acquired. Suspect Streptococcus pneumonia. 2 acute sepsis and septic shock requiring fluids and pressors however today he is off levo fed. 3 paroxysmal atrial fibrillation 4 underlying coronary artery disease 5 history of aortic valve replacement with bioprosthetic valve and mitral valve repair. 6 thrombocytopenia secondary to sepsis and pneumonia 7 acute lactic acidosis on presentation secondary to sepsis and septic shock. 8 history of aspergilloma, monitored for many years. 9 Essential hypertension 10 hypothyroidism 11 prostate cancer and previous radiation treatment. Recommendation: Continue ventilatory support, hemodynamic support, nutritional support, GI and DVT prophylaxis, continue antibiotics and adjust accordingly based on the bronchoalveolar lavage cultures checked ultrasound to consider thoracentesis, however the ultrasound showed minimal pleural effusions bilaterally, patient will be placed on diuretics, had previous history of conges tive heart failure, and his urine output today seems to be a bit marginal. Hence the Lasix will be of value. Continue enteral feeding, continue supportive care measures, patient is critically ill, instructed the nurses to hold sedation, addressed mental status, but clearly is not ready for weaning or extubation today. We'll continue to follow, patient is critically ill, critical care time is 35 minutes. Time with Patient: Greater than 30
[2018-11-27 11:58] LABS: Glucose,Whole Blood 100 mg/dL (75-99)
--- NOTE | 2018-11-27 15:08 | US ---
EXAMINATION TYPE: US chest DATE OF EXAM: 11/27/2018 COMPARISON: Radiograph same day CLINICAL HISTORY: 73-year-old male with pleural effusions, Markings for thoracentesis by pulmonary st aff. Effusions TECHNIQUE: Targeted ultrasound of the posterior lower bilateral hemithoraces FINDINGS: EXAM MEASUREMENTS: Right Pleural Effusion pocket size: 1.1 cm Left Pleural Effusion pocket size: 2.2 cm Right side NOT marked for possible thoracentesis outside the dept. Left side NOT marked for possible thoracentesis outside the dept. Pulmonologists are able to review the images in the patient?s EMR. IMPRESSIONS: Trace to small effusions, left greater than right. Markings not performed.
[2018-11-27] MEDS: ACETAMINOPHEN TAB 325 MG TAB PO PRN (15:58)
[2018-11-27] MEDS: POTASSIUM CHLORIDE 10 MEQ in WATER FOR INJECTION 1 100ML.BAG IVPB SCH ×2 (17:56→18:58)
[2018-11-27 18:02] LABS: Glucose,Whole Blood 103 mg/dL (75-99)
[2018-11-27] MEDS: LEVOFLOXACIN 750MG-D5W PMX 750 MG in DEXTROSE/WATER 1 150ML.BAG IVPB SCH (20:18)
[2018-11-27 23:52] LABS: Glucose,Whole Blood 120 mg/dL (75-99)
[2018-11-28] MEDS: PIPERACILLIN-TAZOBACTAM 3.375 GM in SODIUM CHLORIDE 0.9% 100 ML IVPB SCH ×3 (00:12→16:21)
[2018-11-28] MEDS: SODIUM CHLORIDE 0.9% 1,000 ML IV SCH ×2 (00:15→20:28)
[2018-11-28] MEDS: PROPOFOL 1,000 MG in EMPTY BAG 1 BAG IV SCH ×4 (01:03→18:11)
[2018-11-28] MEDS: IPRATROPIUM-ALBUTEROL 3 ML NEB INHALATION SCH ×7 (03:19→23:45)
[2018-11-28] MEDS: NOREPINEPHRINE 8 MG in SODIUM CHLORIDE 0.9% 250 ML IV SCH (03:24)
[2018-11-28] MEDS: LEVOTHYROXINE 25 MCG TAB PO SCH (05:50)
[2018-11-28] MEDS: INSULIN ASPART (NovoLOG) 100 UNIT/ML VIAL SQ SCH ×3 (05:51→20:22)
[2018-11-28 05:52] LABS: Glucose,Whole Blood 170 mg/dL (75-99)
[2018-11-28 05:52] LABS: Basophils % (A) 0 %; Eosinophils # (A) 0.3 k/uL (0-0.7); Eosinophils % (A) 3 %; HCT 33.3 % (39.0-53.0); Lymphocytes # (A) 0.7 k/uL (1.0-4.8); Lymphocytes % (A) 7 %; MCH 28.4 pg (25.0-35.0); MCHC 32.9 g/dL (31.0-37.0); MCV 86.2 fL (80.0-100.0); Mean Platelet Volume 9.8; Monocytes # (A) 0.8 k/uL (0-1.0); Monocytes % (A) 7 %; Neutrophils # (A) 8.7 k/uL (1.3-7.7); Neutrophils % (A) 81 %; Platelet Count 146 k/uL (150-450); RBC 3.86 m/uL (4.30-5.90); RDW 14.2 % (11.5-15.5); WBC 10.8 k/uL (3.8-10.6)
[2018-11-28 06:12] LABS: Anion Gap 5 mmol/L; Blood Urea Nitrogen 16 mg/dL (9-20); Calcium 8.8 mg/dL (8.4-10.2); Carbon Dioxide 27 mmol/L (22-30); Chloride 108 mmol/L (98-107); Glucose 154 mg/dL (74-99); Potassium 3.8 mmol/L (3.5-5.1); Sodium 140 mmol/L (137-145)
[2018-11-28] MEDS ORDERED: POTASSIUM BICARBONATE/CIT AC 20 MEQ TABLET.EFF NG-TUBE SCH (07:00)
[2018-11-28 07:27] LABS: ABG HCO3 28 mmol/L (21-25); ABG Oxygen Saturation 97.1 % (94-97); ABG PCO2 40 mmHg (35-45); ABG PH 7.46 (7.35-7.45); ABG PO2 123 mmHg (83-108); ABG TCO2 29 mmol/L (19-24)
[2018-11-28] MEDS ORDERED: INSULIN ASPART (NovoLOG) 100 UNIT/ML VIAL SQ SCH (07:30)
[2018-11-28] MEDS: PANTOPRAZOLE 40 MG/10 ML VIAL IV SCH (08:07)
[2018-11-28] MEDS: FUROSEMIDE 10 MG/ML 2 ML VIAL IV SCH ×2 (08:07→20:27)
[2018-11-28] MEDS: CHLORHEXIDINE GLUCONATE 15 ML CUP MUCOUS MEM SCH ×2 (08:08→20:27)
[2018-11-28] MEDS: CLOPIDOGREL 75 MG TAB PO SCH (08:08)
[2018-11-28] MEDS: HEPARIN SODIUM,PORCINE 5,000 UNIT/ML 1 ML VIAL SQ SCH ×2 (08:08→20:27)
--- NOTE | 2018-11-28 08:42 | XR ---
EXAMINATION TYPE: XR chest 1V portable DATE OF EXAM: 11/28/2018 COMPARISON: 11/27/2018 INDICATION: Tube placement TECHNIQUE: Single frontal view of the chest is obtained. FINDINGS: The heart size is normal. The pulmonary vasculature is normal. There is a consolidation in the right lower lobe laterally. Some infrahilar infiltrate is present on the right. Retrocardiac infiltrate is present on the left. Findings are improving from comparison. Right central venous catheter is present stable in position with the tip in superior vena cava region . A endotracheal tube is present with the tip above the francisco. Nasogastric tube is present with the tip near the gastroesophageal junction, stable in position. This could be advanced for more typical positioning. IMPRESSION: 1. Improving right lower lobe retrocardiac infiltrate. 2. Multiple lines and catheters discussed above. 3. The nasogastric tube tip is near the gastroesophageal junction. More typically this is more advanc ed into the left upper quadrant of the abdomen. Correlate for the intended positioning.
[2018-11-28 11:50] LABS: Glucose,Whole Blood 147 mg/dL (75-99)
--- NOTE | 2018-11-28 12:05 | P.PN ---
Subjective Progress Note Date: 11/28/18 Principal diagnosis: Acute hypoxic respiratory failure secondary to pneumonia, community-acquired. This is a 73-year-old male patient who came into the hospital because of acute respiratory failure. The patient was extremely dyspneic and using excessive muscle breathing.He was intubated and placed on a mechanical ventilator in the emergency department. The post intubation chest x-ray showed an extensive right lung consolidation occupying the lower two thirds of the right lung. The patient also had some cardiomegaly. Post intubation, the patient was given a total of 2 L of IV fluids . As. per sepsis protocol. He continued to be hypotensive. The triple-lumen catheter was inserted in his right subclavian vein and the patient was continued on fluids and pressors. Currently levo fed is running at a low-dose. Overnight the patient was started on broad-spectrum antibiotics utilizing a combination of Zosyn and Levaquin. Influenza screen is negative. The patient is producing adequate amount of urine output. This morning, the patient's blood gas showed a pH of 7.36 with a pCO2 of 38 and pO2 of 128 and this was on FiO2 of 40% and a PEEP of 5. His rate is at 12 with tidal volume of 400. Renal function is stable. LFTs are within normal limits. No previous history of chronic lung disease. He is known to have cardiac disease with coronary artery disease, previous aortic valve replacement, previous mitral valve repair, paroxysmal atrial fibrillation the patient has been on no anticoagulants due to concerns of Miguel A GI bleed. On 11/26/2018 I'm seeing this patient for a follow-up. The patient remains on a mechanical ventilator and this morning the patient is still in a assist-control mode at the rate of 12 with tidal volume of 400 and FiO2 of 40% and a PEEP of 5. The patient's chest x-ray still showing a dense consolidation of the right lower lobe and there is no significant improvement in his right lower lobe pneumonia. Based on this, the patient was kept on a combination of Zosyn and Levaquin. The patient's cultures of been all negative for and the patient had a bronchoscopy earlier this morning with a bronchioloalveolar lavage of the right lobe of the right lower lobe was done with a total of 30cc is a bronchioloalveolar aspirate was obtained from these lobes. The patient remains sedated with propofol and is calm and comfortable. Enteral feeding has been also initiated. He was off the pressors earlier this morning and following the bronchoscopy had been placed on low-dose levothyroid for hemodynamic support. He is very symptoms with the mechanical ventilator. No significant orotracheal secretions. No fever or chills. No other issues otherwise for now. His cardiac rhythm is showing frequent PACs and PVCs. The blood gases from today showed a pH of 7.37 with a pCO2 of 41 and pO2 of 96 and this was on FiO2 of 40%. On 11/27/2018, patient was seen on follow-up, and he remains in the ICU, on mechanical ventilation. Presently his ventilator settings are assist control rate of 12 tidal volume 400 FiO2 of 40% PEEP of 5. He is on propofol at 50 mcg/kg/m, off norepinephrine this morning, ABG showed a pO2 of 98 pCO2 of 38 pH of 7.42 and this was on 40% FiO2. WBC count is 7.7 hemoglobin 10.7. Electrolytes were normal BUN is 11 creatinine 0.55. Cultures from his bronchoscopy yesterday are pending. Patient remains on broad-spectrum antibiotics. Maintained on Levaquin and Zosyn for now. Patient is sedated, noted to be comfortable on mechanical ventilation. My plan today is to wean sedation, assess mental status, but considering the abnormal findings on the chest x-ray, clearly the patient is not ready for any form of weaning at present. On 11/28/2018, patient remains in the ICU and on mechanical ventilation. His ventilator settings are tidal volume of 400 assist control rate of 12 FiO2 of 40% and PEEP of 5. Patient remains on multiple drips including propofol 50 mcg/kg/m, norepinephrine at 0.04 mcg/kg/m. ABG showed a pO2 of 123 pCO2 40, pH of 7.46. CBC is relatively normal WBC count is 10.8 hemoglobin is 11 lites are normal, renal profile is normal chest x-ray showed improving right lower lobe infiltrate, tubes and lines seem to be in proper positions including nasogastric tube, central lines and catheters. Endotracheal tube. Patient is sedated, and my plan today is to hold sedation, and assess mental status, doubt if the patient will wean today, continues to have significant airspace disease involving the right lung, but will assess mental status at least today, and hopefully start addressing weaning in the next 24 hours. Microbiology from his lavage/bronchoscopy is pending. Patient remains on broad-spectrum empiric antibiotics. Blood cultures have been negative. Objective - Vital Signs Vital signs: Vital Signs Temp 99.1 F 11/28/18 08:00 Pulse 92 11/28/18 11:34 Resp 30 H 11/28/18 11:00 BP 129/68 11/28/18 09:00 Pulse Ox 98 11/28/18 11:00 Intake & Output 11/27/18 11/28/18 11/28/18 18:59 06:59 18:59 Intake Total 2083.968 5097.356 613.541 Output Total 1738 1885 975 Balance 116.949 -104.644 -361.459 Weight 65.7 kg 65.8 kg Intake: IV 808 772 224 CVP/ART 78 72 24 Levofloxacin 750Mg-D5w 100 Pmx 750 mg In Dextrose/ Water 1 150ml.bag @ 100 mls/hr IVPB Q24H [facility] Rx#: [id number] Sodium Chloride 0.9% 1, 730 600 200 000 ml @ 50 mls/hr IV . Q20H [facility] Rx#:[id number] Intake, IV Titration 706.949 350.356 175.541 Amount Magnesium Sulfate-D5w Pmx 100 1 gm In Dextrose/Water 1 100ml.bag @ 100 mls/hr IVPB Q1H [facility] Rx#: [id number] Norepinephrine 8 mg In 6.949 53.777 31.745 Sodium Chloride 0.9% 250 ml @ 0.05 MCG/KG/MIN 5. 486 mls/hr IV .Q24H [facility] Rx#:[id number] Piperacillin-Tazobactam 3 200 100 50 .375 gm In Sodium Chloride 0.9% 100 ml @ 25 mls/hr IVPB Q8HR [facility] Rx# :[id number] Potassium Chloride 10 meq 200 In Water For Injection 1 100ml.bag @ 100 mls/hr IVPB Q1H [facility] Rx#: [id number] Propofol 1,000 mg In 200 196.579 93.796 Empty Bag 1 bag @ Titrate IV .Q0M [facility] Rx#: [id number] Tube Feeding 340 598 184 Other 60 30 Output: Urine 1738 1885 975 Other: Voiding Method Indwelling Catheter Indwelling Catheter Indwelling Catheter # Bowel Movements 1 ABP, PAP, CO, CI - Last Documented Arterial Blood Pressure 97/54 - Exam Physical Exam: Revealed a 73-year-old -[place] male on mechanical ventilation, on propofol drip Head: Atraumatic, normocephalic. HEENT:[Neck is supple.] [No neck masses.] [No thyromegaly.] [No JVD.] PERRLA, EOMI, endotracheal tube is intact, orogastric tube is intact. Chest: [Diffuse rhonchi and harsh breath sound bilaterally especially on the right side. Symmetrical chest expansion is noted, no chest wall deformity. Cardiac Exam: [Normal S1 and S2, no S3 gallop, 2/6 systolic murmur thought the precordium. Abdomen: [Soft, nontender, no megaly, no rebound, no guarding, normal bowel sounds.] Extremities: [No clubbing, trace of edema edema, no cyanosis.] Neurological Exam: Cannot be assessed, fully sedated, on propofol. Psychiatric: Cannot be assessed fully sedated on propofol. Plan to assess mental status today off propofol. Lymphatics: No lymphadenopathy. Skin: No rashes. - Labs CBC & Chem 7: 11/28/18 05:20 11/28/18 05:20 Labs: Abnormal Lab Results - Last 24 Hours (Table) 11/27/18 11/27/18 11/28/18 Range/Units 17:51 23:40 05:20 WBC (3.8-10.6) k/uL RBC (4.30-5.90) m/uL Hgb (13.0-17.5) gm/dL Hct (39.0-53.0) % Plt Count (150-450) k/uL Neutrophils # (1.3-7.7) k/uL Lymphocytes # (1.0-4.8) k/uL ABG pH (7.35-7.45) ABG pO2 (83-108) mmHg ABG HCO3 (21-25) mmol/L ABG Total CO2 (19-24) mmol/L ABG O2 Saturation (94-97) % Chloride 108 H (98-107) mmol/L Creatinine 0.63 L (0.66-1.25) mg/dL Glucose 154 H (74-99) mg/dL POC Glucose (mg/dL) 103 H 120 H (75-99) mg/dL 11/28/18 11/28/18 11/28/18 Range/Units 05:20 05:40 07:22 WBC 10.8 H (3.8-10.6) k/uL RBC 3.86 L (4.30-5.90) m/uL Hgb 11.0 L (13.0-17.5) gm/dL Hct 33.3 L (39.0-53.0) % Plt Count 146 L (150-450) k/uL Neutrophils # 8.7 H (1.3-7.7) k/uL Lymphocytes # 0.7 L (1.0-4.8) k/uL ABG pH 7.46 H (7.35-7.45) ABG pO2 123 H (83-108) mmHg ABG HCO3 28 H (21-25) mmol/L ABG Total CO2 29 H (19-24) mmol/L ABG O2 Saturation 97.1 H (94-97) % Chloride (98-107) mmol/L Creatinine (0.66-1.25) mg/dL Glucose (74-99) mg/dL POC Glucose (mg/dL) 170 H (75-99) mg/dL 11/28/18 Range/Units 11:36 WBC (3.8-10.6) k/uL RBC (4.30-5.90) m/uL Hgb (13.0-17.5) gm/dL Hct (39.0-53.0) % Plt Count (150-450) k/uL Neutrophils # (1.3-7.7) k/uL Lymphocytes # (1.0-4.8) k/uL ABG pH (7.35-7.45) ABG pO2 (83-108) mmHg ABG HCO3 (21-25) mmol/L ABG Total CO2 (19-24) mmol/L ABG O2 Saturation (94-97) % Chloride (98-107) mmol/L Creatinine (0.66-1.25) mg/dL Glucose (74-99) mg/dL POC Glucose (mg/dL) 147 H (75-99) mg/dL Microbiology - Last 24 Hours (Table) 11/26/18 09:57 Gram Stain - Final Lung Aspirate - Right Bronchial Washings Culture - Final 11/23/18 22:10 Blood Culture - Preliminary Blood No Growth after 96 hours 11/26/18 09:57 Acid Fast Bacilli Smear - Final Lung - Right Acid Fast Bacilli Culture - Preliminary Assessment and Plan Assessment: Impression: 1 acute hypoxic respiratory failure secondary to multilobar pneumonia, community-acquired. Suspect Streptococcus pneumonia. 2 acute sepsis and septic shock requiring fluids and pressors remains on a small dose of norepinephrine today. 0.04 mcg/kg per 3 paroxysmal atrial fibrillation 4 underlying coronary artery disease 5 history of aortic valve replacement with bioprosthetic valve and mitral valve repair. 6 thrombocytopenia secondary to sepsis and pneumonia 7 acute lactic acidosis on presentation secondary to sepsis and septic shock. 8 history of aspergilloma, monitored for many years. 9 Essential hypertension 10 hypothyroidism 11 prostate cancer and previous radiation treatment. Recommendation: Continue mechanical ventilation, continue norepinephrine, continue nutritional support/enteral feeding, GI and DVT prophylaxis, antibiotics, will adjust antibiotics according to the final cultures from the BAL, ultrasound of the chest did not reveal significant fluid to be drained, hence no need for thoracentesis. Continue diuretics, continue all supportive care measures including GI and DVT prophylaxis, we'll hold propofol today and assess mental status. Prognosis remains extremely guarded, we'll continue to follow closely in the ICU. Critical care time is 34 minutes. Time with Patient: Greater than 30
--- NOTE | 2018-11-28 12:26 | P.PN ---
Subjective Progress Note Date: 11/28/18 This is a 73-year-old -Indian male patient of Dr. Kohler with past medical history of hyperlipidemia, hypertension, hypothyroidism, history of recent prostate cancer status post radiation, coronary artery disease status CABG, history of bioprosthetic valve, paroxysmal atrial fibrillation, hypothyr oidism, cardiomyopathy EF 45%, chronic systolic heart failure, radiation proctitis with acute on chronic blood loss anemia, colonoscopy last November 2017 confirming radiation proctitis. Patient comes in to the emergency room secondary to increasing difficulty of breathing, was in respiratory distress when seen in the ER, patient was extremely dyspneic, unable to provide history, the niece was there that provided some information, patient has had difficulties with upper respiratory for the past several years with dry cough however few hours prior to admission, patient has declined rapidly with significant dyspnea, tachypnea, patient was subsequently intubated in the emergency room. And admitted to ICU with sepsis and septic shock, and a large right pneumonia.. She he is currently followed by Dr. Wharton from critical care medicine, chest x-ray in emergency room shows extensive consolidation right lung with underlying pulmonary fibrosis, upper lobes. Patient requires pressor support, along with fluid resuscitation, required 2 L of boluses in the emergency room, and is currently on Zosyn, Levaquin,l evophed secondary to sepsis with pneumonia, aspirative events is under consideration, patient has dysphagia to foods. 11/25: Patient remains in the intensive care unit intubated and on mechanical ventilation. Dr. Wharton is following and plan to try extubating today. Patient is continued on Zosyn and Levaquin. Morning chest x-ray reveals no significant interval change. night monitor has been sinus rhythm. Lab work reveals white count of 11.7, hemoglobin 11.2 and platelet count 102. Chloride 114, CO2 21, BUN 9 and creatinine 0.71. Blood sugars running between 110 and 120. TSH 0.176 and free T4 0.97. Blood cultures showing no growth after 24 hours. Sputum cultures in progress. Legionella testing is pending. Patient has been started on tube feedings. 11/26: Patient has been afebrile, heart rate in the 70s and 80s, blood pressure 130/59. Patient remains intubated and on mechanical ventilation. WBC 7.2, hemoglobin 11.5, platelet count 96, creatinine 0.62. Blood sugars running between 113 -132. All blood cultures were no growth at 48 hours and sputum c ultures in progress. Repeat chest x-ray shows worsening bibasilar airspace disease. Changes consistent with mild pulmonary edema area and small bilateral effusions. Patient underwent bronchoscopy this morning and bloody fluid was sent for cultures. There is concern today percussively. Patient has been off norepinephrine since 3 AM. He is on tube feedings. 11/27: Patient remains intubated and on mechanical ventilation. He has been hemodynamically stable since he has been off norepinephrine. White count is normal, hemoglobin 10.7 and platelet count 101. Creatinine 0.55. Blood sugars running between 08/15/1939. Bronchial washing cultures are in progress. Sputum culture was finalized with normal respiratory julien. Blood cultures no growth after 72 hours. Repeat chest x-ray shows slight worsening in the mid and lower lung confluent airspace disease likely sequela of heart failure with pulmonary edema. Underlying small effusions persist. Ultrasound of the chest has been ordered for today. Patient remains on tube feedings and dietitian is following. night monitor has been a sinus rhythm. 11/28: Patient remains intubated and on mechanical ventilation and intensive care unit. Plan is for sedation holiday today in no extubation. Patient is on a very low dose of norepinephrine which is being weaned off. Temperature max 100.8, heart rate 102, blood pressure 107/59, pulse ox 97%. WBC is 10.8, hemoglobin 11, platelet count 146. Creatinine 0.63. Blood sugars are between 120 and 170. Chest x-ray showed improving right lower lobe infiltrate. Cytology remains pending. Bronchial washing cultures in progress. Chest ultrasound done yesterday showed a right pleural effusion of 1.1 cm and left 2.2 cm. Patient's brother is at the bedside and has been updated. Review Of Systems: Unable to be obtained due to intubation Objective - Vital Signs Vital signs: Vital Signs Temp 99.1 F 11/28/18 08:00 Pulse 85 11/28/18 08:00 Resp 26 H 11/28/18 08:00 BP 108/53 11/28/18 00:42 Pulse Ox 100 11/28/18 08:00 Intake & Output 11/27/18 11/28/18 11/28/18 18:59 06:59 18:59 Intake Total 9260.225 5260.356 121.53 Output Total 1738 1885 50 Balance 116.949 -104.644 71.53 Weight 65.7 kg 65.8 kg Intake: IV 808 772 56 CVP/ART 78 72 6 Levofloxacin 750Mg-D5w 100 Pmx 750 mg In Dextrose/ Water 1 150ml.bag @ 100 mls/hr IVPB Q24H [place] Rx#: [id number] Sodium Chloride 0.9% 1, 730 600 50 000 ml @ 50 mls/hr IV . Q20H [place] Rx#:[id number] Intake, IV Titration 706.949 350.356 19.53 Amount Magnesium Sulfate-D5w Pmx 100 1 gm In Dextrose/Water 1 100ml.bag @ 100 mls/hr IVPB Q1H [place] Rx#: [id number] Norepinephrine 8 mg In 6.949 53.777 19.53 Sodium Chloride 0.9% 250 ml @ 0.05 MCG/KG/MIN 5. 486 mls/hr IV .Q24H [place] Rx#:[id number] Piperacillin-Tazobactam 3 200 100 .375 gm In Sodium Chloride 0.9% 100 ml @ 25 mls/hr IVPB Q8HR [place] Rx# :[id number] Potassium Chloride 10 meq 200 In Water For Injection 1 100ml.bag @ 100 mls/hr IVPB Q1H [place] Rx#: [id number] Propofol 1,000 mg In 200 196.579 Empty Bag 1 bag @ Titrate IV .Q0M [place] Rx#: [id number] Tube Feeding 340 598 46 Other 60 Output: Urine 1738 1885 50 Other: Voiding Method Indwelling Catheter Indwelling Catheter ABP, PAP, CO, CI - Last Documented Arterial Blood Pressure 112/55 - Exam Patient remains intubated, mechanical ventilation, sedated, appears to be comfortable and in no acute distress - EENT Eyes: anicteric sclerae, PERRLA, normal appearance - Respiratory Respiratory: bilateral: diminished, rhonchi - Cardiovascular Rhythm: regular Heart sounds: normal: S1, S2 Abnormal Heart Sounds: no systolic murmur, no diastolic murmur, no rub, no S3 Ga llop, no S4 Gallop, no click, no other - Gastrointestinal General gastrointestinal: normal bowel sounds, soft - Integumentary Integumentary: decreased turgor - Psychiatric Sedated on vent - Labs CBC & Chem 7: 11/28/18 05:20 11/28/18 11:36 Labs: Abnormal Lab Results - Last 24 Hours (Table) 11/27/18 11/27/18 11/27/18 Range/Units 11:46 17:51 23:40 WBC (3.8-10.6) k/uL RBC (4.30-5.90) m/uL Hgb (13.0-17.5) gm/dL Hct (39.0-53.0) % Plt Count (150-450) k/uL Neutrophils # (1.3-7.7) k/uL Lymphocytes # (1.0-4.8) k/uL ABG pH (7.35-7.45) ABG pO2 (83-108) mmHg ABG HCO3 (21-25) mmol/L ABG Total CO2 (19-24) mmol/L ABG O2 Saturation (94-97) % Chloride (98-107) mmol/L Creatinine (0.66-1.25) mg/dL Glucose (74-99) mg/dL POC Glucose (mg/dL) 100 H 103 H 120 H (75-99) mg/dL 11/28/18 11/28/18 11/28/18 Range/Units 05:20 05:20 05:40 WBC 10.8 H (3.8-10.6) k/uL RBC 3.86 L (4.30-5.90) m/uL Hgb 11.0 L (13.0-17.5) gm/dL Hct 33.3 L (39.0-53.0) % Plt Count 146 L (150-450) k/uL Neutrophils # 8.7 H (1.3-7.7) k/uL Lymphocytes # 0.7 L (1.0-4.8) k/uL ABG pH (7.35-7.45) ABG pO2 (83-108) mmHg ABG HCO3 (21-25) mmol/L ABG Total CO2 (19-24) mmol/L ABG O2 Saturation (94-97) % Chloride 108 H (98-107) mmol/L Creatinine 0.63 L (0.66-1.25) mg/dL Glucose 154 H (74-99) mg/dL POC Glucose (mg/dL) 170 H (75-99) mg/dL 11/28/18 Range/Units 07:22 WBC (3.8-10.6) k/uL RBC (4.30-5.90) m/uL Hgb (13.0-17.5) gm/dL Hct (39.0-53.0) % Plt Count (150-450) k/uL Neutrophils # (1.3-7.7) k/uL Lymphocytes # (1.0-4.8) k/uL ABG pH 7.46 H (7.35-7.45) ABG pO2 123 H (83-108) mmHg ABG HCO3 28 H (21-25) mmol/L ABG Total CO2 29 H (19-24) mmol/L ABG O2 Saturation 97.1 H (94-97) % Chloride (98-107) mmol/L Creatinine (0.66-1.25) mg/dL Glucose (74-99) mg/dL POC Glucose (mg/dL) (75-99) mg/dL Microbiology - Last 24 Hours (Table) 11/23/18 22:10 Blood Culture - Preliminary Blood No Growth after 96 hours 11/26/18 09:57 Acid Fast Bacilli Smear - Final Lung - Right Acid Fast Bacilli Culture - Preliminary 11/26/18 09:57 Gram Stain - Preliminary Lung Aspirate - Right Bronchial Washings Culture - Preliminary Assessment and Plan Plan: 1. Acute hypoxic respiratory failure secondary to most likely gram-negative pneumonia requiring intubation and mechanical ventilation. Continue Zosyn and Levaquin. Consult with is appreciated. Sputum culture and blood culture in progress. Ultrasound of the chest film no sizable pleural effusion. 2. Septic shock, secondary to aspiration/gram-negative pneumonia. Patient has required vasopressors and discontinued this morning. 3. Chronic cough, reports of dysphagia by a niece, patient needs to be evaluated with modified barium swallow eval once intubation has been resolved 4. Chronic radiation proctitis, with recent endoscopy both upper scope and lower scope during admission November 2017. Patient started on Senokot 2 daily scheduled 5. History of coronary artery disease status post CABG. 6. Chronic blood loss anemia monitor hemoglobin, currently stable. 7. History of aortic bioprosthetic valve replacement with previous mitral valve repair 8. History of paroxysmal atrial fibrillation not on anticoagulation secondary to concerns of GI bleed in the past. Continue Plavix 75 mg daily. 9. Ischemic cardiomyopathy with previous EF of 40-45%. 10. Hypothyroidism. Continue levothyroxine 25 mg daily. 11. Hypertension with current hypotension. Hold home antihypertensive medications. 12. Hyperlipidemia. 13. Chronic systolic heart failure. 14. DVT prophylaxis. Heparin subcu. 15. GI prophylaxis. Protonix IV. Discharge plan: To be determined. Most likely patient will require subacute rehab Impression and plan of care have been directed as dictated by the signing physician. Charmaine Joseph nurse practitioner acting as scribe for signing physician.
[2018-11-28] MEDS: ACETAMINOPHEN TAB 325 MG TAB PO PRN (16:21)
[2018-11-28 18:40] LABS: Glucose,Whole Blood 123 mg/dL (75-99)
[2018-11-28] MEDS: LEVOFLOXACIN 750MG-D5W PMX 750 MG in DEXTROSE/WATER 1 150ML.BAG IVPB SCH (20:27)
[2018-11-29 00:05] LABS: Glucose,Whole Blood 113 mg/dL (75-99)
[2018-11-29] MEDS: NOREPINEPHRINE 8 MG in SODIUM CHLORIDE 0.9% 250 ML IV SCH ×2 (00:14→21:54)
[2018-11-29] MEDS: PIPERACILLIN-TAZOBACTAM 3.375 GM in SODIUM CHLORIDE 0.9% 100 ML IVPB SCH ×3 (00:16→15:30)
[2018-11-29] MEDS: INSULIN ASPART (NovoLOG) 100 UNIT/ML VIAL SQ SCH ×4 (00:16→17:34)
[2018-11-29] MEDS: IPRATROPIUM-ALBUTEROL 3 ML NEB INHALATION SCH ×6 (04:20→23:50)
[2018-11-29 04:28] LABS: HCT 32.8 % (39.0-53.0); HGB 10.5 gm/dL (13.0-17.5); MCH 27.8 pg (25.0-35.0); MCV 86.7 fL (80.0-100.0); Mean Platelet Volume 9.4; Platelet Count 111 k/uL (150-450); RBC 3.78 m/uL (4.30-5.90); RDW 13.9 % (11.5-15.5); WBC 8.7 k/uL (3.8-10.6)
[2018-11-29 04:38] LABS: Anion Gap 8 mmol/L; Blood Urea Nitrogen 20 mg/dL (9-20); Calcium 8.6 mg/dL (8.4-10.2); Carbon Dioxide 31 mmol/L (22-30); Chloride 100 mmol/L (98-107); Glucose 145 mg/dL (74-99); Magnesium 1.9 mg/dL (1.6-2.3); Phosphorus 3.6 mg/dL (2.5-4.5); Potassium 3.7 mmol/L (3.5-5.1); Sodium 139 mmol/L (137-145)
[2018-11-29] MEDS ORDERED: POTASSIUM BICARBONATE/CIT AC 20 MEQ TABLET.EFF NG-TUBE SCH (05:00)
[2018-11-29 05:27] LABS: Glucose,Whole Blood 130 mg/dL (75-99)
[2018-11-29] MEDS: MAGNESIUM SULFATE-D5W PMX 1 GM in DEXTROSE/WATER 1 100ML.BAG IVPB SCH ×2 (05:37→06:39)
[2018-11-29] MEDS: PROPOFOL 1,000 MG in EMPTY BAG 1 BAG IV SCH ×2 (05:38→14:16)
[2018-11-29] MEDS: LEVOTHYROXINE 25 MCG TAB PO SCH (05:38)
[2018-11-29 07:15] LABS: ABG Base Excess 7.4 mmol/L; ABG HCO3 31 mmol/L (21-25); ABG Oxygen Saturation 96.1 % (94-97); ABG PCO2 43 mmHg (35-45); ABG PH 7.47 (7.35-7.45); ABG PO2 92 mmHg (83-108); ABG TCO2 32 mmol/L (19-24)
[2018-11-29] MEDS: CLOPIDOGREL 75 MG TAB PO SCH (08:17)
[2018-11-29] MEDS: FUROSEMIDE 10 MG/ML 2 ML VIAL IV SCH ×2 (08:17→21:53)
[2018-11-29] MEDS: CHLORHEXIDINE GLUCONATE 15 ML CUP MUCOUS MEM SCH ×2 (08:17→21:53)
[2018-11-29] MEDS: HEPARIN SODIUM,PORCINE 5,000 UNIT/ML 1 ML VIAL SQ SCH ×2 (08:18→21:53)
[2018-11-29] MEDS: PANTOPRAZOLE 40 MG/10 ML VIAL IV SCH (08:18)
--- NOTE | 2018-11-29 09:15 | XR ---
EXAMINATION TYPE: XR chest 1V portable DATE OF EXAM: 11/29/2018 COMPARISON: 11/28/2018 INDICATION: Tube placement TECHNIQUE: Single frontal view of the chest is obtained. FINDINGS: The heart size is normal. The pulmonary vasculature is indistinct. There is opacification to the posterior lateral right lung base present previously. Some improving in filtrate is at the bilateral lung bases. Endotracheal tube tip is above the francisco. Nasogastric tube tip is within the left upper quadrant of the abdomen is been advanced. Right central venous catheter tip is in the superior vena cava region. IMPRESSION: 1. Persistence of a peripheral right lower lobe consolidation. Some milder infiltrate remaining lung bases is improving. 2. Lines and catheters discussed above.
[2018-11-29] MEDS ORDERED: FUROSEMIDE 10 MG/ML 4 ML VIAL IV STA (09:18)
--- NOTE | 2018-11-29 11:37 | P.PN ---
Subjective Progress Note Date: 11/29/18 Principal diagnosis: Acute hypoxic respiratory failure secondary to pneumonia, community-acquired. This is a 73-year-old male patient who came into the hospital because of acute respiratory failure. The patient was extremely dyspneic and using excessive muscle breathing.He was intubated and placed on a mechanical ventilator in the emergency department. The post intubation chest x-ray showed an extensive right lung consolidation occupying the lower two thirds of the right lung. The patient also had some cardiomegaly. Post intubation, the patient was given a total of 2 L of IV fluids . As. per sepsis protocol. He continued to be hypotensive. The triple-lumen catheter was inserted in his right subclavian vein and the patient was continued on fluids and pressors. Currently levo fed is running at a low-dose. Overnight the patient was started on broad-spectrum antibiotics utilizing a combination of Zosyn and Levaquin. Influenza screen is negative. The patient is producing adequate amount of urine output. This morning, the patient's blood gas showed a pH of 7.36 with a pCO2 of 38 and pO2 of 128 and this was on FiO2 of 40% and a PEEP of 5. His rate is at 12 with tidal volume of 400. Renal function is stable. LFTs are within normal limits. No previous history of chronic lung disease. He is known to have cardiac disease with coronary artery disease, previous aortic valve replacement, previous mitral valve repair, paroxysmal atrial fibrillation the patient has been on no anticoagulants due to concerns of Miguel A GI bleed. On 11/26/2018 I'm seeing this patient for a follow-up. The patient remains on a mechanical ventilator and this morning the patient is still in a assist-control mode at the rate of 12 with tidal volume of 400 and FiO2 of 40% and a PEEP of 5. The patient's chest x-ray still showing a dense consolidation of the right lower lobe and there is no significant improvement in his right lower lobe pneumonia. Based on this, the patient was kept on a combination of Zosyn and Levaquin. The patient's cultures of been all negative for and the patient had a bronchoscopy earlier this morning with a bronchioloalveolar lavage of the right lobe of the right lower lobe was done with a total of 30cc is a bronchioloalveolar aspirate was obtained from these lobes. The patient remains sedated with propofol and is calm and comfortable. Enteral feeding has been also initiated. He was off the pressors earlier this morning and following the bronchoscopy had been placed on low-dose levothyroid for hemodynamic support. He is very symptoms with the mechanical ventilator. No significant orotracheal secretions. No fever or chills. No other issues otherwise for now. His cardiac rhythm is showing frequent PACs and PVCs. The blood gases from today showed a pH of 7.37 with a pCO2 of 41 and pO2 of 96 and this was on FiO2 of 40%. On 11/27/2018, patient was seen on follow-up, and he remains in the ICU, on mechanical ventilation. Presently his ventilator settings are assist control rate of 12 tidal volume 400 FiO2 of 40% PEEP of 5. He is on propofol at 50 mcg/kg/m, off norepinephrine this morning, ABG showed a pO2 of 98 pCO2 of 38 pH of 7.42 and this was on 40% FiO2. WBC count is 7.7 hemoglobin 10.7. Electrolytes were normal BUN is 11 creatinine 0.55. Cultures from his bronchoscopy yesterday are pending. Patient remains on broad-spectrum antibiotics. Maintained on Levaquin and Zosyn for now. Patient is sedated, noted to be comfortable on mechanical ventilation. My plan today is to wean sedation, assess mental status, but considering the abnormal findings on the chest x-ray, clearly the patient is not ready for any form of weaning at present. On 11/28/2018, patient remains in the ICU and on mechanical ventilation. His ventilator settings are tidal volume of 400 assist control rate of 12 FiO2 of 40% and PEEP of 5. Patient remains on multiple drips including propofol 50 mcg/kg/m, norepinephrine at 0.04 mcg/kg/m. ABG showed a pO2 of 123 pCO2 40, pH of 7.46. CBC is relatively normal WBC count is 10.8 hemoglobin is 11 lites are normal, renal profile is normal chest x-ray showed improving right lower lobe infiltrate, tubes and lines seem to be in proper positions including nasogastric tube, central lines and catheters. Endotracheal tube. Patient is sedated, and my plan today is to hold sedation, and assess mental status, doubt if the patient will wean today, continues to have significant airspace disease involving the right lung, but will assess mental status at least today, and hopefully start addressing weaning in the next 24 hours. Microbiology from his lavage/bronchoscopy is pending. Patient remains on broad-spectrum empiric antibiotics. Blood cultures have been negative. Reevaluated today on 11/29/2018, remains on mechanical ventilation, same ventilator settings as noted above, however his FiO2 is down to 35%. Patient is off norepinephrine, remains on propofol which I have discontinued this morning and would like to assess weaning parameters and determine whether the patient could be weaned and extubated today. Chest x-ray is showing some improvement but continues to have significant consolidation in the right lower lobe. There is also evidence of interstitial edema, hence I recommended an extra dose of Lasix this morning. ABG today showed a pO2 of 92 pCO2 of 43 pH of 7.47. Electrolytes and renal profile are normal WBC count is 8.7 hemoglobin is 10.5. Off propofol, patient was noted to be arousable, follows simple instructions, but does not maintain a good eye contact. All his meds were reviewed, and his labs as well as x-ray was reviewed today. Objective - Vital Signs Vital signs: Vital Signs Temp 98.0 F 11/29/18 08:00 Pulse 89 11/29/18 11:00 Resp 15 11/29/18 11:00 BP 122/59 11/29/18 11:00 Pulse Ox 96 11/29/18 11:00 Intake & Output 11/28/18 11/29/18 11/29/18 18:59 06:59 18:59 Intake Total 3405.615 8500.793 597.410 Output Total 1390 2070 2275 Balance 199.488 -126.207 -1677.590 Weight 64.3 kg Intake: IV 616 1128 299 CVP/ART 66 78 24 Levofloxacin 750Mg-D5w 100 Pmx 750 mg In Dextrose/ Water 1 150ml.bag @ 100 mls/hr IVPB Q24H [place] Rx#: [id number] Magnesium Sulfate-D5w Pmx 200 1 gm In Dextrose/Water 1 100ml.bag @ 100 mls/hr IVPB Q1H [place] Rx#: [id number] Piperacillin-Tazobactam 3 100 .375 gm In Sodium Chloride 0.9% 100 ml @ 25 mls/hr IVPB [facility] Rx# :[id number] Piperacillin-Tazobactam 3 75 .375 gm In Sodium Chloride 0.9% 100 ml @ 25 mls/hr IVPB Q8HR [place] Rx# :[id number] Sodium Chloride 0.9% 1, 550 650 200 000 ml @ 50 mls/hr IV . Q20H [facility] Rx#:[id number] Intake, IV Titration 377.488 111.793 70.410 Amount Norepinephrine 8 mg In 40.338 11.793 Sodium Chloride 0.9% 250 ml @ 0.05 MCG/KG/MIN 5. 486 mls/hr IV .Q24H [facility] Rx#:[id number] Piperacillin-Tazobactam 3 150 .375 gm In Sodium Chloride 0.9% 100 ml @ 25 mls/hr IVPB Q8HR [place] Rx# :[id number] Propofol 1,000 mg In 187.150 100 70.410 Empty Bag 1 bag @ Titrate IV .Q0M [facility] Rx#: [id number] Tube Feeding 506 644 138 Other 90 60 90 Output: Urine 1390 2070 2275 Other: Voiding Method Indwelling Catheter Indwelling Catheter Indwelling Catheter # Bowel Movements 1 ABP, PAP, CO, CI - Last Documented Arterial Blood Pressure 122/64 - Exam Physical Exam: Revealed a 73-year-old -[place]ian male on mechanical ventilation, on propofol drip, I will discontinue propofol and assess for weaning Head: Atraumatic, normocephalic. HEENT:[Neck is supple.] [No neck masses.] [No thyromegaly.] [No JVD.] PERRLA, EOMI, endotracheal tube is intact, orogastric tube is intact. Chest: [Diffuse rhonchi and harsh breath sound bilaterally especially on the right side. Symmetrical chest expansion is noted, no chest wall deformity. Cardiac Exam: [Normal S1 and S2, no S3 gallop, 2/6 systolic murmur thought the precordium. Abdomen: [Soft, nontender, no megaly, no rebound, no guarding, normal bowel sounds.] Extremities: [No clubbing, trace of edema edema, no cyanosis.] Neurological Exam: Assessed shortly after propofol was discontinued, patient is arousable, follows simple instructions, but could not maintain a good eye contact. And seems to be generally weak. Psychiatric: Cannot be assessed fully Lymphatics: No lymphadenopathy. Skin: No rashes. - Labs CBC & Chem 7: 11/29/18 04:00 11/29/18 04:00 Labs: Abnormal Lab Results - Last 24 Hours (Table) 11/28/18 11/28/18 11/28/18 Range/Units 11:36 18:17 23:54 RBC (4.30-5.90) m/uL Hgb (13.0-17.5) gm/dL Hct (39.0-53.0) % Plt Count (150-450) k/uL ABG pH (7.35-7.45) ABG HCO3 (21-25) mmol/L ABG Total CO2 (19-24) mmol/L Carbon Dioxide (22-30) mmol/L Creatinine (0.66-1.25) mg/dL Glucose (74-99) mg/dL POC Glucose (mg/dL) 147 H 123 H 113 H (75-99) mg/dL 11/29/18 11/29/18 11/29/18 Range/Units 04:00 04:00 05:16 RBC 3.78 L (4.30-5.90) m/uL Hgb 10.5 L (13.0-17.5) gm/dL Hct 32.8 L (39.0-53.0) % Plt Count 111 L (150-450) k/uL ABG pH (7.35-7.45) ABG HCO3 (21-25) mmol/L ABG Total CO2 (19-24) mmol/L Carbon Dioxide 31 H (22-30) mmol/L Creatinine 0.55 L (0.66-1.25) mg/dL Glucose 145 H (74-99) mg/dL POC Glucose (mg/dL) 130 H (75-99) mg/dL 11/29/18 Range/Units 07:09 RBC (4.30-5.90) m/uL Hgb (13.0-17.5) gm/dL Hct (39.0-53.0) % Plt Count (150-450) k/uL ABG pH 7.47 H (7.35-7.45) ABG HCO3 31 H (21-25) mmol/L ABG Total CO2 32 H (19-24) mmol/L Carbon Dioxide (22-30) mmol/L Creatinine (0.66-1.25) mg/dL Glucose (74-99) mg/dL POC Glucose (mg/dL) (75-99) mg/dL Microbiology - Last 24 Hours (Table) 11/23/18 22:10 Blood Culture - Preliminary Blood No Growth after 120 hours 11/26/18 09:57 Gram Stain - Final Lung Aspirate - Right Bronchial Washings Culture - Final Assessment and Plan Assessment: Impression: 1 acute hypoxic respiratory failure secondary to multilobar pneumonia, community-acquired. Suspect Streptococcus pneumonia. Cultures from the BAL are nondiagnostic. 2 acute sepsis and septic shock requiring fluids and pressors, today he is off norepinephrine. 3 paroxysmal atrial fibrillation 4 underlying coronary artery disease 5 history of aortic valve replacement with bioprosthetic valve and mitral valve repair. 6 thrombocytopenia secondary to sepsis and pneumonia 7 acute lactic acidosis on presentation secondary to sepsis and septic shock. 8 history of aspergilloma, monitored for many years. 9 Essential hypertension 10 hypothyroidism 11 prostate cancer and previous radiation treatment. Recommendation: After reviewing his chest x-ray, labs, all his meds, ordered to stopping propofol, and I will likely address weaning trial if possible later today. In the meantime I will continue ventilatory support, hemodynamic support, nutritional support/enteral feeding, continue diuretics, given an extra dose of Lasix 40 mg IV push this morning, continue GI and DVT prophylaxis, overall prognosis remains definitely poor and guarded, but will likely give the patient sedation holiday, assess weaning parameters, and assess if he is ready for weaning today. We'll continue to follow closely. Critical care time is 35 minutes C Time with Patient: Greater than 30
[2018-11-29 12:08] LABS: Glucose,Whole Blood 113 mg/dL (75-99)
[2018-11-29] MEDS: METOPROLOL TARTRATE 12.5 MG TAB PO SCH ×2 (12:23→21:53)
--- NOTE | 2018-11-29 13:04 | P.PN ---
Subjective Progress Note Date: 11/29/18 This is a 73-year-old -[place] male patient of Dr. Kohler with past medical history of hyperlipidemia, hypertension, hypothyroidism, history of recent prostate cancer status post radiation, coronary artery disease status CABG, history of bioprosthetic valve, paroxysmal atrial fibrillation, hypothyr oidism, cardiomyopathy EF 45%, chronic systolic heart failure, radiation proctitis with acute on chronic blood loss anemia, colonoscopy last November 2017 confirming radiation proctitis. Patient comes in to the emergency room secondary to increasing difficulty of breathing, was in respiratory distress when seen in the ER, patient was extremely dyspneic, unable to provide history, the niece was there that provided some information, patient has had difficulties with upper respiratory for the past several years with dry cough however few hours prior to admission, patient has declined rapidly with significant dyspnea, tachypnea, patient was subsequently intubated in the emergency room. And admitted to ICU with sepsis and septic shock, and a large right pneumonia.. She he is currently followed by Dr. Wharton from critical care medicine, chest x-ray in emergency room shows extensive consolidation right lung with underlying pulmonary fibrosis, upper lobes. Patient requires pressor support, along with fluid resuscitation, required 2 L of boluses in the emergency room, and is currently on Zosyn, Levaquin,l evophed secondary to sepsis with pneumonia, aspirative events is under consideration, patient has dysphagia to foods. 11/25: Patient remains in the intensive care unit intubated and on mechanical ventilation. Dr. Wharton is following and plan to try extubating today. Patient is continued on Zosyn and Levaquin. Morning chest x-ray reveals no significant interval change. personnel monitor has been sinus rhythm. Lab work reveals white count of 11.7, hemoglobin 11.2 and platelet count 102. Chloride 114, CO2 21, BUN 9 and creatinine 0.71. Blood sugars running between 110 and 120. TSH 0.176 and free T4 0.97. Blood cultures showing no growth after 24 hours. Sputum cultures in progress. Legionella testing is pending. Patient has been started on tube feedings. 11/26: Patient has been afebrile, heart rate in the 70s and 80s, blood pressure 130/59. Patient remains intubated and on mechanical ventilation. WBC 7.2, hemoglobin 11.5, platelet count 96, creatinine 0.62. Blood sugars running between 113 -132. All blood cultures were no growth at 48 hours and sputum c ultures in progress. Repeat chest x-ray shows worsening bibasilar airspace disease. Changes consistent with mild pulmonary edema area and small bilateral effusions. Patient underwent bronchoscopy this morning and bloody fluid was sent for cultures. There is concern today percussively. Patient has been off norepinephrine since 3 AM. He is on tube feedings. 11/27: Patient remains intubated and on mechanical ventilation. He has been hemodynamically stable since he has been off norepinephrine. White count is normal, hemoglobin 10.7 and platelet count 101. Creatinine 0.55. Blood sugars running between 08/15/1939. Bronchial washing cultures are in progress. Sputum culture was finalized with normal respiratory julien. Blood cultures no growth after 72 hours. Repeat chest x-ray shows slight worsening in the mid and lower lung confluent airspace disease likely sequela of heart failure with pulmonary edema. Underlying small effusions persist. Ultrasound of the chest has been ordered for today. Patient remains on tube feedings and dietitian is following. personnel monitor has been a sinus rhythm. 11/28: Patient remains intubated and on mechanical ventilation and intensive care unit. Plan is for sedation holiday today in no extubation. Patient is on a very low dose of norepinephrine which is being weaned off. Temperature max 100.8, heart rate 102, blood pressure 107/59, pulse ox 97%. WBC is 10.8, hemoglobin 11, platelet count 146. Creatinine 0.63. Blood sugars are between 120 and 170. Chest x-ray showed improving right lower lobe infiltrate. Cytology remains pending. Bronchial washing cultures in progress. Chest ultrasound done yesterday showed a right pleural effusion of 1.1 cm and left 2.2 cm. Patient's brother is at the bedside and has been updated. 11/29: Patient remains intubated and on mechanical ventilation patient is to be off propofol this morning and possible weaning. Repeat chest x-ray reveals persistence of peripheral right lower lobe consolidation. Small milder infiltrate remaining lung bases is improving. Temperature max 100.4 yesterday afternoon, heart rate in the 90s, blood pressure 122/59. WBC 8.7, hemoglobin 10.5, platelet count 111. CO2 31, creatinine 0.55. Blood sugars running between 113-145. Patient's brother is at the bedside and has been updated. Review Of Systems: Unable to be obtained due to intubation Objective - Vital Signs Vital signs: Vital Signs Temp 98.0 F 11/29/18 08:00 Pulse 88 11/29/18 10:00 Resp 20 11/29/18 10:00 BP 122/59 11/29/18 09:00 Pulse Ox 97 11/29/18 10:00 Intake & Output 11/28/18 11/29/18 11/29/18 18:59 06:59 18:59 Intake Total 6782.703 5009.793 516.410 Output Total 1390 2070 1800 Balance 199.488 -126.207 -1283.590 Weight 64.3 kg Intake: IV 616 1128 218 CVP/ART 66 78 18 Levofloxacin 750Mg-D5w 100 Pmx 750 mg In Dextrose/ Water 1 150ml.bag @ 100 mls/hr IVPB Q24H [place] Rx#: [id number] Magnesium Sulfate-D5w Pmx 200 1 gm In Dextrose/Water 1 100ml.bag @ 100 mls/hr IVPB Q1H [place] Rx#: [id number] Piperacillin-Tazobactam 3 100 .375 gm In Sodium Chloride 0.9% 100 ml @ 25 mls/hr IVPB ONCE [facility] Rx# :[id number] Piperacillin-Tazobactam 3 50 .375 gm In Sodium Chloride 0.9% 100 ml @ 25 mls/hr IVPB Q8HR [place] Rx# :[id number] Sodium Chloride 0.9% 1, 550 650 150 000 ml @ 50 mls/hr IV . Q20H [place] Rx#:[id number] Intake, IV Titration 377.488 111.793 70.410 Amount Norepinephrine 8 mg In 40.338 11.793 Sodium Chloride 0.9% 250 ml @ 0.05 MCG/KG/MIN 5. 486 mls/hr IV .Q24H [place] Rx#:[id number] Piperacillin-Tazobactam 3 150 .375 gm In Sodium Chloride 0.9% 100 ml @ 25 mls/hr IVPB Q8HR [place] Rx# :[id number] Propofol 1,000 mg In 187.150 100 70.410 Empty Bag 1 bag @ Titrate IV .Q0M [place] Rx#: [id number] Tube Feeding 506 644 138 Other 90 60 90 Output: Urine 1390 2070 1800 Other: Voiding Method Indwelling Catheter Indwelling Catheter Indwelling Catheter # Bowel Movements 1 ABP, PAP, CO, CI - Last Documented Arterial Blood Pressure 137/73 - Exam Patient remains intubated, mechanical ventilation, sedated, appears to be comfortable and in no acute distress - EENT Eyes: anicteric sclerae, PERRLA, normal appearance - Respiratory Respiratory: bilateral: diminished, rhonchi - Cardiovascular Rhythm: regular Heart sounds: normal: S1, S2 Abnormal Heart Sounds: no systolic murmur, no diastolic murmur, no rub, no S3 Gallop, no S4 Gallop, no click, no other - Gastrointestinal General gastrointestinal: normal bowel sounds, soft - Integumentary Integumentary: decreased turgor - Psychiatric Sedated on vent - Labs CBC & Chem 7: 11/29/18 04:00 11/29/18 04:00 Labs: Abnormal Lab Results - Last 24 Hours (Table) 11/28/18 11/28/18 11/28/18 Range/Units 11:36 18:17 23:54 RBC (4.30-5.90) m/uL Hgb (13.0-17.5) gm/dL Hct (39.0-53.0) % Plt Count (150-450) k/uL ABG pH (7.35-7.45) ABG HCO3 (21-25) mmol/L ABG Total CO2 (19-24) mmol/L Carbon Dioxide (22-30) mmol/L Creatinine (0.66-1.25) mg/dL Glucose (74-99) mg/dL POC Glucose (mg/dL) 147 H 123 H 113 H (75-99) mg/dL 11/29/18 11/29/18 11/29/18 Range/Units 04:00 04:00 05:16 RBC 3.78 L (4.30-5.90) m/uL Hgb 10.5 L (13.0-17.5) gm/dL Hct 32.8 L (39.0-53.0) % Plt Count 111 L (150-450) k/uL ABG pH (7.35-7.45) ABG HCO3 (21-25) mmol/L ABG Total CO2 (19-24) mmol/L Carbon Dioxide 31 H (22-30) mmol/L Creatinine 0.55 L (0.66-1.25) mg/dL Glucose 145 H (74-99) mg/dL POC Glucose (mg/dL) 130 H (75-99) mg/dL 11/29/18 Range/Units 07:09 RBC (4.30-5.90) m/uL Hgb (13.0-17.5) gm/dL Hct (39.0-53.0) % Plt Count (150-450) k/uL ABG pH 7.47 H (7.35-7.45) ABG HCO3 31 H (21-25) mmol/L ABG Total CO2 32 H (19-24) mmol/L Carbon Dioxide (22-30) mmol/L Creatinine (0.66-1.25) mg/dL Glucose (74-99) mg/dL POC Glucose (mg/dL) (75-99) mg/dL Microbiology - Last 24 Hours (Table) 11/23/18 22:10 Blood Culture - Preliminary Blood No Growth after 120 hours 11/26/18 09:57 Gram Stain - Final Lung Aspirate - Right Bronchial Washings Culture - Final Assessment and Plan Plan: 1. Acute hypoxic respiratory failure secondary to most likely gram-negative pneumonia requiring intubation and mechanical ventilation. Continue Zosyn and Levaquin. Consult with is appreciated. Sputum culture and blood culture in progress. Ultrasound of the chest film no sizable pleural effusion. Possible weaning today. 2. Septic shock, secondary to aspiration/gram-negative pneumonia. Patient has required vasopressors and discontinued this morning. 3. Chronic cough, reports of dysphagia by a niece, patient needs to be evaluated with modified barium swallow eval once intubation has been resolved 4. Chronic radiation proctitis, with recent endoscopy both upper scope and lower scope during admission November 2017. Patient started on Senokot 2 daily scheduled 5. History of coronary artery disease status post CABG. 6. Chronic blood loss anemia monitor hemoglobin, currently stable. 7. History of aortic bioprosthetic valve replacement with previous mitral valve repair 8. History of paroxysmal atrial fibrillation not on anticoagulation secondary to concerns of GI bleed in the past. Continue Plavix 75 mg daily. 9. Ischemic cardiomyopathy with previous EF of 40-45%. 10. Hypothyroidism. Continue levothyroxine 25 mg daily. 11. Hypertension with current hypotension. Hold home antihypertensive medications. 12. Hyperlipidemia. 13. Chronic systolic heart failure. 14. DVT prophylaxis. Heparin subcu. 15. GI prophylaxis. Protonix IV. Discharge plan: To be determined. Most likely patient will require subacute rehab Impression and plan of care have been directed as dictated by the signing physician. Charmaine Joseph nurse practitioner acting as scribe for signing physician.
[2018-11-29 13:48] LABS: ABG HCO3 34 mmol/L (21-25); ABG Oxygen Saturation 94.7 % (94-97); ABG PCO2 43 mmHg (35-45); ABG PH 7.51 (7.35-7.45); ABG PO2 80 mmHg (83-108); ABG TCO2 35 mmol/L (19-24)
[2018-11-29] MEDS: ACETAMINOPHEN TAB 325 MG TAB PO PRN (15:30)
[2018-11-29] MEDS: SODIUM CHLORIDE 0.9% 1,000 ML IV SCH (16:39)
[2018-11-29 17:44] LABS: Glucose,Whole Blood 119 mg/dL (75-99)
[2018-11-29] MEDS: LEVOFLOXACIN 750MG-D5W PMX 750 MG in DEXTROSE/WATER 1 150ML.BAG IVPB SCH (21:53)
[2018-11-30 00:13] LABS: Glucose,Whole Blood 125 mg/dL (75-99)
[2018-11-30] MEDS: INSULIN ASPART (NovoLOG) 100 UNIT/ML VIAL SQ SCH ×4 (01:21→18:09)
[2018-11-30] MEDS: PIPERACILLIN-TAZOBACTAM 3.375 GM in SODIUM CHLORIDE 0.9% 100 ML IVPB SCH ×3 (02:18→16:02)
[2018-11-30] MEDS: IPRATROPIUM-ALBUTEROL 3 ML NEB INHALATION SCH ×6 (03:59→23:21)
[2018-11-30] MEDS: LEVOTHYROXINE 25 MCG TAB PO SCH (06:24)
[2018-11-30 06:29] LABS: Basophils % (A) 0 %; Eosinophils # (A) 0.2 k/uL (0-0.7); Eosinophils % (A) 2 %; HCT 32.1 % (39.0-53.0); HGB 10.4 gm/dL (13.0-17.5); Lymphocytes # (A) 0.6 k/uL (1.0-4.8); Lymphocytes % (A) 6 %; MCH 28.3 pg (25.0-35.0); MCHC 32.5 g/dL (31.0-37.0); MCV 87.1 fL (80.0-100.0); Mean Platelet Volume 10.1; Monocytes # (A) 0.5 k/uL (0-1.0); Monocytes % (A) 5 %; Neutrophils # (A) 7.8 k/uL (1.3-7.7); Neutrophils % (A) 84 %; Platelet Count 139 k/uL (150-450); RBC 3.68 m/uL (4.30-5.90); RDW 13.6 % (11.5-15.5); WBC 9.3 k/uL (3.8-10.6)
[2018-11-30 06:42] LABS: Anion Gap 7 mmol/L; Blood Urea Nitrogen 26 mg/dL (9-20); Calcium 8.8 mg/dL (8.4-10.2); Carbon Dioxide 31 mmol/L (22-30); Chloride 104 mmol/L (98-107); Glucose 121 mg/dL (74-99); Magnesium 2.2 mg/dL (1.6-2.3); Potassium 3.2 mmol/L (3.5-5.1); Sodium 142 mmol/L (137-145)
[2018-11-30] MEDS ORDERED: Potassium Replacement Protocol 1 EACH MISC MISCELLANE PRN (06:44)
[2018-11-30] MEDS: POTASSIUM BICARBONATE/CIT AC 20 MEQ TABLET.EFF NG-TUBE SCH ×2 (07:11→07:58)
[2018-11-30 07:12] LABS: ABG Base Excess 9.2 mmol/L; ABG HCO3 33 mmol/L (21-25); ABG Oxygen Saturation 95.5 % (94-97); ABG PCO2 43 mmHg (35-45); ABG PH 7.48 (7.35-7.45); ABG PO2 86 mmHg (83-108); ABG TCO2 34 mmol/L (19-24)
--- NOTE | 2018-11-30 07:19 | XR ---
EXAMINATION TYPE: XR chest 1V portable DATE OF EXAM: 11/30/2018 CLINICAL HISTORY: Difficulty breathing progress study. TECHNIQUE: Single AP portable semiupright view of the chest is obtained. COMPARISON: Chest x-ray from one day earlier and older studies. FINDINGS: There is stable appearance of endotracheal and orogastric tubes with side port above diaph ragm. There is stable right subclavian central venous catheter. Cardiac silhouette size is stable and upper limits of normal with metallic aortic valve. There is hyperdense mitral valve ring redemonstra stefania. Overlying sternal wires and mediastinal clips are redemonstrated. Overlying EKG leads are again seen. Chronic parenchymal changes bilaterally are present with more focal lateral mid to lower right lung o pacity and patchy left lung opacities all redemonstrated. Osseous structures are intact. IMPRESSION: Overall stable findings, lateral diffuse right mid to lower lung consolidation and ellis tional bilateral patchy areas of edema and/or infiltrate on background chronic parenchymal change.
[2018-11-30] MEDS: PROPOFOL 1,000 MG in EMPTY BAG 1 BAG IV SCH ×2 (08:00→16:03)
[2018-11-30] MEDS: PANTOPRAZOLE 40 MG/10 ML VIAL IV SCH (08:00)
[2018-11-30] MEDS: FUROSEMIDE 10 MG/ML 2 ML VIAL IV SCH ×2 (08:01→21:43)
[2018-11-30] MEDS: HEPARIN SODIUM,PORCINE 5,000 UNIT/ML 1 ML VIAL SQ SCH ×2 (08:01→21:43)
[2018-11-30] MEDS: CLOPIDOGREL 75 MG TAB PO SCH (08:01)
[2018-11-30] MEDS: METOPROLOL TARTRATE 12.5 MG TAB PO SCH ×2 (08:01→21:42)
[2018-11-30] MEDS: CHLORHEXIDINE GLUCONATE 15 ML CUP MUCOUS MEM SCH ×2 (08:19→21:43)
--- NOTE | 2018-11-30 12:10 | P.PN ---
Subjective Progress Note Date: 11/30/18 Principal diagnosis: Acute hypoxic respiratory failure secondary to pneumonia, community-acquired. This is a 73-year-old male patient who came into the hospital because of acute respiratory failure. The patient was extremely dyspneic and using excessive muscle breathing.He was intubated and placed on a mechanical ventilator in the emergency department. The post intubation chest x-ray showed an extensive right lung consolidation occupying the lower two thirds of the right lung. The patient also had some cardiomegaly. Post intubation, the patient was given a total of 2 L of IV fluids . As. per sepsis protocol. He continued to be hypotensive. The triple-lumen catheter was inserted in his right subclavian vein and the patient was continued on fluids and pressors. Currently levo fed is running at a low-dose. Overnight the patient was started on broad-spectrum antibiotics utilizing a combination of Zosyn and Levaquin. Influenza screen is negative. The patient is producing adequate amount of urine output. This morning, the patient's blood gas showed a pH of 7.36 with a pCO2 of 38 and pO2 of 128 and this was on FiO2 of 40% and a PEEP of 5. His rate is at 12 with tidal volume of 400. Renal function is stable. LFTs are within normal limits. No previous history of chronic lung disease. He is known to have cardiac disease with coronary artery disease, previous aortic valve replacement, previous mitral valve repair, paroxysmal atrial fibrillation the patient has been on no anticoagulants due to concerns of Miguel A GI bleed. On 11/26/2018 I'm seeing this patient for a follow-up. The patient remains on a mechanical ventilator and this morning the patient is still in a assist-control mode at the rate of 12 with tidal volume of 400 and FiO2 of 40% and a PEEP of 5. The patient's chest x-ray still showing a dense consolidation of the right lower lobe and there is no significant improvement in his right lower lobe pneumonia. Based on this, the patient was kept on a combination of Zosyn and Levaquin. The patient's cultures of been all negative for and the patient had a bronchoscopy earlier this morning with a bronchioloalveolar lavage of the right lobe of the right lower lobe was done with a total of 30cc is a bronchioloalveolar aspirate was obtained from these lobes. The patient remains sedated with propofol and is calm and comfortable. Enteral feeding has been also initiated. He was off the pressors earlier this morning and following the bronchoscopy had been placed on low-dose levothyroid for hemodynamic support. He is very symptoms with the mechanical ventilator. No significant orotracheal secretions. No fever or chills. No other issues otherwise for now. His cardiac rhythm is showing frequent PACs and PVCs. The blood gases from today showed a pH of 7.37 with a pCO2 of 41 and pO2 of 96 and this was on FiO2 of 40%. On 11/27/2018, patient was seen on follow-up, and he remains in the ICU, on mechanical ventilation. Presently his ventilator settings are assist control rate of 12 tidal volume 400 FiO2 of 40% PEEP of 5. He is on propofol at 50 mcg/kg/m, off norepinephrine this morning, ABG showed a pO2 of 98 pCO2 of 38 pH of 7.42 and this was on 40% FiO2. WBC count is 7.7 hemoglobin 10.7. Electrolytes were normal BUN is 11 creatinine 0.55. Cultures from his bronchoscopy yesterday are pending. Patient remains on broad-spectrum antibiotics. Maintained on Levaquin and Zosyn for now. Patient is sedated, noted to be comfortable on mechanical ventilation. My plan today is to wean sedation, assess mental status, but considering the abnormal findings on the chest x-ray, clearly the patient is not ready for any form of weaning at present. On 11/28/2018, patient remains in the ICU and on mechanical ventilation. His ventilator settings are tidal volume of 400 assist control rate of 12 FiO2 of 40% and PEEP of 5. Patient remains on multiple drips including propofol 50 mcg/kg/m, norepinephrine at 0.04 mcg/kg/m. ABG showed a pO2 of 123 pCO2 40, pH of 7.46. CBC is relatively normal WBC count is 10.8 hemoglobin is 11 lites are normal, renal profile is normal chest x-ray showed improving right lower lobe infiltrate, tubes and lines seem to be in proper positions including nasogastric tube, central lines and catheters. Endotracheal tube. Patient is sedated, and my plan today is to hold sedation, and assess mental status, doubt if the patient will wean today, continues to have significant airspace disease involving the right lung, but will assess mental status at least today, and hopefully start addressing weaning in the next 24 hours. Microbiology from his lavage/bronchoscopy is pending. Patient remains on broad-spectrum empiric antibiotics. Blood cultures have been negative. Reevaluated today on 11/29/2018, remains on mechanical ventilation, same ventilator settings as noted above, however his FiO2 is down to 35%. Patient is off norepinephrine, remains on propofol which I have discontinued this morning and would like to assess weaning parameters and determine whether the patient could be weaned and extubated today. Chest x-ray is showing some improvement but continues to have significant consolidation in the right lower lobe. There is also evidence of interstitial edema, hence I recommended an extra dose of Lasix this morning. ABG today showed a pO2 of 92 pCO2 of 43 pH of 7.47. Electrolytes and renal profile are normal WBC count is 8.7 hemoglobin is 10.5. Off propofol, patient was noted to be arousable, follows simple instructions, but does not maintain a good eye contact. All his meds were reviewed, and his labs as well as x-ray was reviewed today. Patient was reevaluated today on 11/30/2018, remains on mechanical ventilation, same ventilator settings as above, he is on FiO2 of 35%, assist control rate of 12, tidal volume of 400, PEEP of 5. His ABG is significantly improved with a pO2 of 86 pCO2 of 43 pH of 7.48 however his chest x-ray continues to show significant amount of consolidation in the right lower lobe. Patient's weaning parameters were reviewed this morning, his nurse is -18, however his respiratory rate is in the 30s, continues to have significant amount of secretions patient is close to be weaned, but considering the chest x-ray, and considering Remeron of secretions he has, and considering that his weaning parameters are marginal, I felt it would be best to keep him on mechanical ventilation for at least another day. Hoping that his secretions will become less, and his right lower lobe pneumonia improved. Patient is off norepinephrine, he has good urine output, he is hemodynamically stable, all labs including CBC and basic metabolic profile were noted, potassium is a bit low at 3.2, be corrected as per protocol. Patient is off propofol, awake, mentating good eye contact, looks generally weak, but follows all instructions. Objective - Vital Signs Vital signs: Vital Signs Temp 99.0 F 11/30/18 08:00 Pulse 108 H 11/30/18 11:35 Resp 11 L 11/30/18 11:00 BP 103/81 11/30/18 11:00 Pulse Ox 96 11/30/18 11:00 Intake & Output 11/29/18 11/30/18 11/30/18 18:59 06:59 18:59 Intake Total 1543.475 986.935 480.134 Output Total 3290 670 895 Balance -1746.525 316.935 -414.866 Weight 66.4 kg 66.4 kg Intake: IV 791 741 380 CVP/ART 66 66 30 Piperacillin-Tazobactam 3 175 125 100 .375 gm In Sodium Chloride 0.9% 100 ml @ 25 mls/hr IVPB Q8HR [place] Rx# :[id number] Sodium Chloride 0.9% 1, 550 550 250 000 ml @ 50 mls/hr IV . Q20H [place] Rx#:[id number] Intake, IV Titration 108.475 61.935 8.134 Amount Propofol 1,000 mg In 108.475 61.935 8.134 Empty Bag 1 bag @ Titrate IV .Q0M [place] Rx#: [id number] Tube Feeding 414 184 92 Other 230 Output: Urine 3290 670 895 Other: Voiding Method Indwelling Catheter Indwelling Catheter Indwelling Catheter # Bowel Movements 1 ABP, PAP, CO, CI - Last Documented Arterial Blood Pressure 166/91 - Exam Physical Exam: Revealed a 73-year-old -Japanese male on mechanical ventilation, awake, off propofol, following simple instructions. Head: Atraumatic, normocephalic. HEENT:[Neck is supple.] [No neck masses.] [No thyromegaly.] [No JVD.] PERRLA, EOMI, endotracheal tube is intact, orogastric tube is intact. Chest: [Crackles at the right rhonchi noted on the right side, left side is relatively clear. Symmetrical chest expansion noted chest wall deformity Cardiac Exam: [Normal S1 and S2, no S3 gallop, 2/6 systolic murmur thought the precordium. Abdomen: [Soft, nontender, no megaly, no rebound, no guarding, normal bowel so unds.] Extremities: [No clubbing, trace of edema edema, no cyanosis.] Neurological Exam: Generally weak, alert oriented 3, no gross focal neurologic deficit, except for generalized weakness. Psychiatric: Normal mood affect and mental status examination. Lymphatics: No lymphadenopathy. Skin: No rashes. - Labs CBC & Chem 7: 11/30/18 06:00 11/30/18 06:00 Labs: Abnormal Lab Results - Last 24 Hours (Table) 11/29/18 11/29/18 11/29/18 Range/Units 11:57 13:46 17:33 RBC (4.30-5.90) m/uL Hgb (13.0-17.5) gm/dL Hct (39.0-53.0) % Plt Count (150-450) k/uL Neutrophils # (1.3-7.7) k/uL Lymphocytes # (1.0-4.8) k/uL ABG pH 7.51 H (7.35-7.45) ABG pO2 80 L (83-108) mmHg ABG HCO3 34 H (21-25) mmol/L ABG Total CO2 35 H (19-24) mmol/L Potassium (3.5-5.1) mmol/L Carbon Dioxide (22-30) mmol/L BUN (9-20) mg/dL Glucose (74-99) mg/dL POC Glucose (mg/dL) 113 H 119 H (75-99) mg/dL 11/30/18 11/30/18 11/30/18 Range/Units 00:00 06:00 06:00 RBC 3.68 L (4.30-5.90) m/uL Hgb 10.4 L (13.0-17.5) gm/dL Hct 32.1 L (39.0-53.0) % Plt Count 139 L (150-450) k/uL Neutrophils # 7.8 H (1.3-7.7) k/uL Lymphocytes # 0.6 L (1.0-4.8) k/uL ABG pH (7.35-7.45) ABG pO2 (83-108) mmHg ABG HCO3 (21-25) mmol/L ABG Total CO2 (19-24) mmol/L Potassium 3.2 L (3.5-5.1) mmol/L Carbon Dioxide 31 H (22-30) mmol/L BUN 26 H (9-20) mg/dL Glucose 121 H (74-99) mg/dL POC Glucose (mg/dL) 125 H (75-99) mg/dL 11/30/18 Range/Units 07:05 RBC (4.30-5.90) m/uL Hgb (13.0-17.5) gm/dL Hct (39.0-53.0) % Plt Count (150-450) k/uL Neutrophils # (1.3-7.7) k/uL Lymphocytes # (1.0-4.8) k/uL ABG pH 7.48 H (7.35-7.45) ABG pO2 (83-108) mmHg ABG HCO3 33 H (21-25) mmol/L ABG Total CO2 34 H (19-24) mmol/L Potassium (3.5-5.1) mmol/L Carbon Dioxide (22-30) mmol/L BUN (9-20) mg/dL Glucose (74-99) mg/dL POC Glucose (mg/dL) (75-99) mg/dL Microbiology - Last 24 Hours (Table) 11/23/18 22:10 Blood Culture - Final Blood No Growth after 144 hours Assessment and Plan Assessment: Impression: 1 acute hypoxic respiratory failure secondary to multilobar pneumonia, community-acquired. Suspect Streptococcus pneumonia. Cultures from the BAL are nondiagnostic. 2 acute sepsis and septic shock, off norepinephrine today. 3 paroxysmal atrial fibrillation 4 underlying coronary artery disease 5 history of aortic valve replacement with bioprosthetic valve and mitral valve repair. 6 thrombocytopenia secondary to sepsis and pneumonia 7 acute lactic acidosis on presentation secondary to sepsis and septic shock. 8 history of aspergilloma, monitored for many years. 9 Essential hypertension 10 hypothyroidism 11 prostate cancer and previous radiation treatment. Recommendation: Continue ventilatory support, trial of weaning was attempted today, but the patient remains marginal at best. Continue antibiotics, off norepinephrine today, continue nutritional support, continue GI and DVT prophylaxis, continue diuretics, attempted a trial of weaning, placed on pressure support of 10 and CPAP, tolerated that both well, but he is marginal at best, and I don't believe he is ready for weaning at this point. Discussed his condition with family members at bedside, advised nurses to keep him on mecha nical ventilation, and we'll continue to address weaning and weaning trials on a daily basis. Chest x-ray is a bit concerning because of the significant consolidation noted in the right lower lobe, may even have to consider bronchoscopy again. He has significant amount of secretions. We will continue to follow. Critical care time is 33 minutes C Time with Patient: Greater than 30
[2018-11-30 12:30] LABS: Glucose,Whole Blood 124 mg/dL (75-99)
--- NOTE | 2018-11-30 13:35 | P.PN ---
Subjective Progress Note Date: 11/30/18 This is a 73-year-old -[place] male patient of Dr. Kohler with past medical history of hyperlipidemia, hypertension, hypothyroidism, history of recent prostate cancer status post radiation, coronary artery disease status CABG, history of bioprosthetic valve, paroxysmal atrial fibrillation, hypothyr oidism, cardiomyopathy EF 45%, chronic systolic heart failure, radiation proctitis with acute on chronic blood loss anemia, colonoscopy last November 2017 confirming radiation proctitis. Patient comes in to the emergency room secondary to increasing difficulty of breathing, was in respiratory distress when seen in the ER, patient was extremely dyspneic, unable to provide history, the niece was there that provided some information, patient has had difficulties with upper respiratory for the past several years with dry cough however few hours prior to admission, patient has declined rapidly with significant dyspnea, tachypnea, patient was subsequently intubated in the emergency room. And admitted to ICU with sepsis and septic shock, and a large right pneumonia.. She he is currently followed by Dr. Wharton from critical care medicine, chest x-ray in emergency room shows extensive consolidation right lung with underlying pulmonary fibrosis, upper lobes. Patient requires pressor support, along with fluid resuscitation, required 2 L of boluses in the emergency room, and is currently on Zosyn, Levaquin,l evophed secondary to sepsis with pneumonia, aspirative events is under consideration, patient has dysphagia to foods. 11/25: Patient remains in the intensive care unit intubated and on mechanical ventilation. Dr. Wharton is following and plan to try extubating today. Patient is continued on Zosyn and Levaquin. Morning chest x-ray reveals no significant interval change. media monitor has been sinus rhythm. Lab work reveals white count of 11.7, hemoglobin 11.2 and platelet count 102. Chloride 114, CO2 21, BUN 9 and creatinine 0.71. Blood sugars running between 110 and 120. TSH 0.176 and free T4 0.97. Blood cultures showing no growth after 24 hours. Sputum cultures in progress. Legionella testing is pending. Patient has been started on tube feedings. 11/26: Patient has been afebrile, heart rate in the 70s and 80s, blood pressure 130/59. Patient remains intubated and on mechanical ventilation. WBC 7.2, hemoglobin 11.5, platelet count 96, creatinine 0.62. Blood sugars running between 113 -132. All blood cultures were no growth at 48 hours and sputum c ultures in progress. Repeat chest x-ray shows worsening bibasilar airspace disease. Changes consistent with mild pulmonary edema area and small bilateral effusions. Patient underwent bronchoscopy this morning and bloody fluid was sent for cultures. There is concern today percussively. Patient has been off norepinephrine since 3 AM. He is on tube feedings. 11/27: Patient remains intubated and on mechanical ventilation. He has been hemodynamically stable since he has been off norepinephrine. White count is normal, hemoglobin 10.7 and platelet count 101. Creatinine 0.55. Blood sugars running between 08/15/1939. Bronchial washing cultures are in progress. Sputum culture was finalized with normal respiratory julien. Blood cultures no growth after 72 hours. Repeat chest x-ray shows slight worsening in the mid and lower lung confluent airspace disease likely sequela of heart failure with pulmonary edema. Underlying small effusions persist. Ultrasound of the chest has been ordered for today. Patient remains on tube feedings and dietitian is following. media monitor has been a sinus rhythm. 11/28: Patient remains intubated and on mechanical ventilation and intensive care unit. Plan is for sedation holiday today in no extubation. Patient is on a very low dose of norepinephrine which is being weaned off. Temperature max 100.8, heart rate 102, blood pressure 107/59, pulse ox 97%. WBC is 10.8, hemoglobin 11, platelet count 146. Creatinine 0.63. Blood sugars are between 120 and 170. Chest x-ray showed improving right lower lobe infiltrate. Cytology remains pending. Bronchial washing cultures in progress. Chest ultrasound done yesterday showed a right pleural effusion of 1.1 cm and left 2.2 cm. Patient's brother is at the bedside and has been updated. 11/29: Patient remains intubated and on mechanical ventilation patient is to be off propofol this morning and possible weaning. Repeat chest x-ray reveals persistence of peripheral right lower lobe consolidation. Small milder infiltrate remaining lung bases is improving. Temperature max 100.4 yesterday afternoon, heart rate in the 90s, blood pressure 122/59. WBC 8.7, hemoglobin 10.5, platelet count 111. CO2 31, creatinine 0.55. Blood sugars running between 113-145. Patient's brother is at the bedside and has been updated. 11/30: Patient remains intubated and on mechanical ventilation. He is currently off propofol and responding appropriately and following commands. He is not on vasopressors. Weaning attempt planned for tomorrow. Cytology report reveals no malignant cells identified. White count is 9.3, hemoglobin 10.4, platelet count 139. Sodium 142, potassium 3.2, chloride 104, CO2 31, BUN 26 and creatinine 0.68. Blood sugars running between 119 124. He needs him to 0.2. Repeat chest x-ray shows overall stable findings, bilateral diffuse right mid and lower lung consolidation and additional bilateral patchy areas of edema and/or infiltrates on the background of chronic parenchymal change. Review Of Systems: Unable to be obtained due to intubation Objective - Vital Signs Vital signs: Vital Signs Temp 99.0 F 11/30/18 08:00 Pulse 92 11/30/18 08:05 Resp 23 11/30/18 08:00 BP 99/72 11/30/18 08:00 Pulse Ox 100 11/30/18 08:00 Intake & Output 11/29/18 11/30/18 11/30/18 18:59 06:59 18:59 Intake Total 1543.475 986.935 258 Output Total 3290 670 95 Balance -1746.525 316.935 163 Weight 66.4 kg Intake: IV 791 741 212 CVP/ART 66 66 12 Piperacillin-Tazobactam 3 175 125 100 .375 gm In Sodium Chloride 0.9% 100 ml @ 25 mls/hr IVPB Q8HR [facility] Rx# :[id number] Sodium Chloride 0.9% 1, 550 550 100 000 ml @ 50 mls/hr IV . Q20H [facility] Rx#:[id number] Intake, IV Titration 108.475 61.935 Amount Propofol 1,000 mg In 108.475 61.935 Empty Bag 1 bag @ Titrate IV .Q0M [facility] Rx#: [id number] Tube Feeding 414 184 46 Other 230 Output: Urine 3290 670 95 Other: Voiding Method Indwelling Catheter Indwelling Catheter # Bowel Movements 1 ABP, PAP, CO, CI - Last Documented Arterial Blood Pressure 143/69 - Exam Patient remains intubated, mechanical ventilation, sedated, appears to be comfortable and in no acute distress - EENT Eyes: anicteric sclerae, PERRLA, normal appearance - Respiratory Respiratory: bilateral: diminished, rhonchi - Cardiovascular Rhythm: regular Heart sounds: normal: S1, S2 Abnormal Heart Sounds: no systolic murmur, no diastolic murmur, no rub, no S3 Gallop, no S4 Gallop, no click, no other - Gastrointestinal General gastrointestinal: normal bowel sounds, soft - Integumentary Integumentary: decreased turgor - Psychiatric Patient is able to follow commands while off sedation. - Labs CBC & Chem 7: 11/30/18 06:00 11/30/18 06:00 Labs: Abnormal Lab Results - Last 24 Hours (Table) 11/29/18 11/29/18 11/29/18 Range/Units 11:57 13:46 17:33 RBC (4.30-5.90) m/uL Hgb (13.0-17.5) gm/dL Hct (39.0-53.0) % Plt Count (150-450) k/uL Neutrophils # (1.3-7.7) k/uL Lymphocytes # (1.0-4.8) k/uL ABG pH 7.51 H (7.35-7.45) ABG pO2 80 L (83-108) mmHg ABG HCO3 34 H (21-25) mmol/L ABG Total CO2 35 H (19-24) mmol/L Potassium (3.5-5.1) mmol/L Carbon Dioxide (22-30) mmol/L BUN (9-20) mg/dL Glucose (74-99) mg/dL POC Glucose (mg/dL) 113 H 119 H (75-99) mg/dL 11/30/18 11/30/18 11/30/18 Range/Units 00:00 06:00 06:00 RBC 3.68 L (4.30-5.90) m/uL Hgb 10.4 L (13.0-17.5) gm/dL Hct 32.1 L (39.0-53.0) % Plt Count 139 L (150-450) k/uL Neutrophils # 7.8 H (1.3-7.7) k/uL Lymphocytes # 0.6 L (1.0-4.8) k/uL ABG pH (7.35-7.45) ABG pO2 (83-108) mmHg ABG HCO3 (21-25) mmol/L ABG Total CO2 (19-24) mmol/L Potassium 3.2 L (3.5-5.1) mmol/L Carbon Dioxide 31 H (22-30) mmol/L BUN 26 H (9-20) mg/dL Glucose 121 H (74-99) mg/dL POC Glucose (mg/dL) 125 H (75-99) mg/dL 11/30/18 Range/Units 07:05 RBC (4.30-5.90) m/uL Hgb (13.0-17.5) gm/dL Hct (39.0-53.0) % Plt Count (150-450) k/uL Neutrophils # (1.3-7.7) k/uL Lymphocytes # (1.0-4.8) k/uL ABG pH 7.48 H (7.35-7.45) ABG pO2 (83-108) mmHg ABG HCO3 33 H (21-25) mmol/L ABG Total CO2 34 H (19-24) mmol/L Potassium (3.5-5.1) mmol/L Carbon Dioxide (22-30) mmol/L BUN (9-20) mg/dL Glucose (74-99) mg/dL POC Glucose (mg/dL) (75-99) mg/dL Microbiology - Last 24 Hours (Table) 11/23/18 22:10 Blood Culture - Final Blood No Growth after 144 hours Assessment and Plan Plan: 1. Acute hypoxic respiratory failure secondary to most likely gram-negative pneumonia requiring intubation and mechanical ventilation. Continue Zosyn and Levaquin. Consult with is appreciated. Sputum culture and blood culture in progress. Ultrasound of the chest film no sizable pleural effusion. Weaning trial tomorrow. 2. Septic shock, secondary to aspiration/gram-negative pneumonia. Patient has required vasopressors and discontinued this morning. 3. Chronic cough, reports of dysphagia by a niece, patient needs to be evaluated with modified barium swallow eval once intubation has been resolved 4. Chronic radiation proctitis, with recent endoscopy both upper scope and lower scope during admission November 2017. Patient started on Senokot 2 daily scheduled 5. History of coronary artery disease status post CABG. 6. Chronic blood loss anemia monitor hemoglobin, currently stable. 7. History of aortic bioprosthetic valve replacement with previous mitral valve repair 8. History of paroxysmal atrial fibrillation not on anticoagulation secondary to concerns of GI bleed in the past. Continue Plavix 75 mg daily. 9. Ischemic cardiomyopathy with previous EF of 40-45%. 10. Hypothyroidism. Continue levothyroxine 25 mg daily. 11. Hypertension with current hypotension. Hold home antihypertensive medications. 12. Hyperlipidemia. 13. Chronic systolic heart failure. 14. DVT prophylaxis. Heparin subcu. 15. GI prophylaxis. Protonix IV. Discharge plan: To be determined. Most likely patient will require subacute marcial ab Impression and plan of care have been directed as dictated by the signing physician. Charmaine Joseph nurse practitioner acting as scribe for signing physician.
[2018-11-30] MEDS: SODIUM CHLORIDE 0.9% 1,000 ML IV SCH (13:58)
[2018-11-30 18:18] LABS: Glucose,Whole Blood 115 mg/dL (75-99)
[2018-11-30] MEDS: LEVOFLOXACIN 750MG-D5W PMX 750 MG in DEXTROSE/WATER 1 150ML.BAG IVPB SCH (21:42)
[2018-11-30] MEDS: NOREPINEPHRINE 8 MG in SODIUM CHLORIDE 0.9% 250 ML IV SCH (21:43)
[2018-12-01] MEDS: PIPERACILLIN-TAZOBACTAM 3.375 GM in SODIUM CHLORIDE 0.9% 100 ML IVPB SCH ×4 (01:01→23:16)
[2018-12-01] MEDS: INSULIN ASPART (NovoLOG) 100 UNIT/ML VIAL SQ SCH ×4 (01:02→18:10)
[2018-12-01 01:09] LABS: Glucose,Whole Blood 129 mg/dL (75-99)
[2018-12-01] MEDS: IPRATROPIUM-ALBUTEROL 3 ML NEB INHALATION SCH ×6 (03:12→23:32)
[2018-12-01 05:42] LABS: Basophils % (A) 0 %; Eosinophils # (A) 0.2 k/uL (0-0.7); Eosinophils % (A) 2 %; HCT 32.3 % (39.0-53.0); HGB 10.1 gm/dL (13.0-17.5); Hypochromasia Slight; Lymphocytes # (A) 0.7 k/uL (1.0-4.8); Lymphocytes % (A) 8 %; MCH 27.9 pg (25.0-35.0); MCHC 31.1 g/dL (31.0-37.0); MCV 89.5 fL (80.0-100.0); Mean Platelet Volume 9.5; Monocytes # (A) 0.5 k/uL (0-1.0); Monocytes % (A) 6 %; Neutrophils # (A) 6.7 k/uL (1.3-7.7); Neutrophils % (A) 81 %; Platelet Count 168 k/uL (150-450); RBC 3.61 m/uL (4.30-5.90); RDW 13.7 % (11.5-15.5); WBC 8.3 k/uL (3.8-10.6)
[2018-12-01 05:52] LABS: Anion Gap 7 mmol/L; Blood Urea Nitrogen 33 mg/dL (9-20); Calcium 8.9 mg/dL (8.4-10.2); Carbon Dioxide 29 mmol/L (22-30); Chloride 105 mmol/L (98-107); Glucose 128 mg/dL (74-99); Potassium 3.9 mmol/L (3.5-5.1); Sodium 141 mmol/L (137-145)
[2018-12-01 06:09] LABS: Glucose,Whole Blood 143 mg/dL (75-99)
[2018-12-01] MEDS: PROPOFOL 1,000 MG in EMPTY BAG 1 BAG IV SCH ×4 (06:35→22:11)
[2018-12-01] MEDS: LEVOTHYROXINE 25 MCG TAB PO SCH (06:35)
[2018-12-01] MEDS ORDERED: Potassium Replacement Protocol 1 EACH MISC MISCELLANE PRN (07:19)
--- NOTE | 2018-12-01 07:23 | XR ---
EXAMINATION TYPE: XR chest 1V portable DATE OF EXAM: 12/01/2018 COMPARISON: 11/30/2018 HISTORY: Ventilatory dependent respiratory failure TECHNIQUE: Single frontal view of the chest is obtained. FINDINGS: Endotracheal tube and enteric tube appear appropriately placed with interval advancement o f the enteric tube. Right-sided central venous catheter terminates in the superior vena cava distally . Post CABG changes are seen of the enlarged cardiac mediastinal silhouette. There is increasing confluence of opacity and stable right midlung and right basilar opacity. Mild in terstitial pulmonary edema is seen. IMPRESSION: Increasing left basilar opacity that may represent a small pleural effusion with atelect asis or pneumonia. Stable right midlung and right basilar opacities and stable mild interstitial pulm onary edema.
[2018-12-01 07:35] LABS: Basophils % (A) 0 %; Eosinophils # (A) 0.2 k/uL (0-0.7); Eosinophils % (A) 2 %; HCT 30.6 % (39.0-53.0); HGB 9.7 gm/dL (13.0-17.5); Hypochromasia Slight; Lymphocytes # (A) 0.7 k/uL (1.0-4.8); Lymphocytes % (A) 9 %; MCHC 31.6 g/dL (31.0-37.0); MCV 88.5 fL (80.0-100.0); Mean Platelet Volume 9.4; Monocytes # (A) 0.5 k/uL (0-1.0); Monocytes % (A) 7 %; Neutrophils # (A) 6.4 k/uL (1.3-7.7); Neutrophils % (A) 79 %; Platelet Count 164 k/uL (150-450); RBC 3.46 m/uL (4.30-5.90); RDW 13.8 % (11.5-15.5); WBC 8.1 k/uL (3.8-10.6)
[2018-12-01 07:48] LABS: Anion Gap 5 mmol/L; Blood Urea Nitrogen 33 mg/dL (9-20); Calcium 8.8 mg/dL (8.4-10.2); Carbon Dioxide 31 mmol/L (22-30); Chloride 106 mmol/L (98-107); Glucose 130 mg/dL (74-99); Magnesium 2.2 mg/dL (1.6-2.3); Potassium 3.6 mmol/L (3.5-5.1); Sodium 142 mmol/L (137-145)
[2018-12-01] MEDS ORDERED: POTASSIUM BICARBONATE/CIT AC 20 MEQ TABLET.EFF NG-TUBE SCH (08:00)
[2018-12-01 08:05] LABS: ABG Base Excess 8.4 mmol/L; ABG HCO3 32 mmol/L (21-25); ABG Oxygen Saturation 96.5 % (94-97); ABG PCO2 46 mmHg (35-45); ABG PH 7.46 (7.35-7.45); ABG PO2 85 mmHg (83-108); ABG TCO2 34 mmol/L (19-24)
[2018-12-01] MEDS: FUROSEMIDE 10 MG/ML 2 ML VIAL IV SCH (08:18)
[2018-12-01] MEDS: HEPARIN SODIUM,PORCINE 5,000 UNIT/ML 1 ML VIAL SQ SCH ×2 (08:18→20:26)
[2018-12-01] MEDS: CHLORHEXIDINE GLUCONATE 15 ML CUP MUCOUS MEM SCH ×2 (08:18→20:24)
[2018-12-01] MEDS: PANTOPRAZOLE 40 MG/10 ML VIAL IV SCH (08:18)
[2018-12-01] MEDS: CLOPIDOGREL 75 MG TAB PO SCH (08:19)
[2018-12-01] MEDS: METOPROLOL TARTRATE 12.5 MG TAB PO SCH ×2 (08:24→20:24)
[2018-12-01] MEDS: SODIUM CHLORIDE 0.9% 1,000 ML IV SCH (11:14)
[2018-12-01] MEDS ORDERED: FUROSEMIDE 10 MG/ML 2 ML VIAL IV ONE (11:30)
[2018-12-01 11:54] LABS: Glucose,Whole Blood 125 mg/dL (75-99)
--- NOTE | 2018-12-01 11:55 | P.PN ---
Subjective Progress Note Date: 12/01/18 This is a 73-year-old -[place] male patient of Dr. Kohler with past medical history of hyperlipidemia, hypertension, hypothyroidism, history of recent prostate cancer status post radiation, coronary artery disease status CABG, history of bioprosthetic valve, paroxysmal atrial fibrillation, hypothyr oidism, cardiomyopathy EF 45%, chronic systolic heart failure, radiation proctitis with acute on chronic blood loss anemia, colonoscopy last November 2017 confirming radiation proctitis. Patient comes in to the emergency room secondary to increasing difficulty of breathing, was in respiratory distress when seen in the ER, patient was extremely dyspneic, unable to provide history, the niece was there that provided some information, patient has had difficulties with upper respiratory for the past several years with dry cough however few hours prior to admission, patient has declined rapidly with significant dyspnea, tachypnea, patient was subsequently intubated in the emergency room. And admitted to ICU with sepsis and septic shock, and a large right pneumonia.. She he is currently followed by Dr. Wharton from critical care medicine, chest x-ray in emergency room shows extensive consolidation right lung with underlying pulmonary fibrosis, upper lobes. Patient requires pressor support, along with fluid resuscitation, required 2 L of boluses in the emergency room, and is currently on Zosyn, Levaquin,l evophed secondary to sepsis with pneumonia, aspirative events is under consideration, patient has dysphagia to foods. 11/25: Patient remains in the intensive care unit intubated and on mechanical ventilation. Dr. Wharton is following and plan to try extubating today. Patient is continued on Zosyn and Levaquin. Morning chest x-ray reveals no significant interval change. monitor car operator has been sinus rhythm. Lab work reveals white count of 11.7, hemoglobin 11.2 and platelet count 102. Chloride 114, CO2 21, BUN 9 and creatinine 0.71. Blood sugars running between 110 and 120. TSH 0.176 and free T4 0.97. Blood cultures showing no growth after 24 hours. Sputum cultures in progress. Legionella testing is pending. Patient has been started on tube feedings. 11/26: Patient has been afebrile, heart rate in the 70s and 80s, blood pressure 130/59. Patient remains intubated and on mechanical ventilation. WBC 7.2, hemoglobin 11.5, platelet count 96, creatinine 0.62. Blood sugars running between 113 -132. All blood cultures were no growth at 48 hours and sputum c ultures in progress. Repeat chest x-ray shows worsening bibasilar airspace disease. Changes consistent with mild pulmonary edema area and small bilateral effusions. Patient underwent bronchoscopy this morning and bloody fluid was sent for cultures. There is concern today percussively. Patient has been off norepinephrine since 3 AM. He is on tube feedings. 11/27: Patient remains intubated and on mechanical ventilation. He has been hemodynamically stable since he has been off norepinephrine. White count is normal, hemoglobin 10.7 and platelet count 101. Creatinine 0.55. Blood sugars running between 08/15/1939. Bronchial washing cultures are in progress. Sputum culture was finalized with normal respiratory julien. Blood cultures no growth after 72 hours. Repeat chest x-ray shows slight worsening in the mid and lower lung confluent airspace disease likely sequela of heart failure with pulmonary edema. Underlying small effusions persist. Ultrasound of the chest has been ordered for today. Patient remains on tube feedings and dietitian is following. monitor car operator has been a sinus rhythm. 11/28: Patient remains intubated and on mechanical ventilation and intensive care unit. Plan is for sedation holiday today in no extubation. Patient is on a very low dose of norepinephrine which is being weaned off. Temperature max 100.8, heart rate 102, blood pressure 107/59, pulse ox 97%. WBC is 10.8, hemoglobin 11, platelet count 146. Creatinine 0.63. Blood sugars are between 120 and 170. Chest x-ray showed improving right lower lobe infiltrate. Cytology remains pending. Bronchial washing cultures in progress. Chest ultrasound done yesterday showed a right pleural effusion of 1.1 cm and left 2.2 cm. Patient's brother is at the bedside and has been updated. 11/29: Patient remains intubated and on mechanical ventilation patient is to be off propofol this morning and possible weaning. Repeat chest x-ray reveals persistence of peripheral right lower lobe consolidation. Small milder infiltrate remaining lung bases is improving. Temperature max 100.4 yesterday afternoon, heart rate in the 90s, blood pressure 122/59. WBC 8.7, hemoglobin 10.5, platelet count 111. CO2 31, creatinine 0.55. Blood sugars running between 113-145. Patient's brother is at the bedside and has been updated. 11/30: Patient remains intubated and on mechanical ventilation. He is currently off propofol and responding appropriately and following commands. He is not on vasopressors. Weaning attempt planned for tomorrow. Cytology report reveals no malignant cells identified. White count is 9.3, hemoglobin 10.4, platelet count 139. Sodium 142, potassium 3.2, chloride 104, CO2 31, BUN 26 and creatinine 0.68. Blood sugars running between 119 124. He needs him to 0.2. Repeat chest x-ray shows overall stable findings, bilateral diffuse right mid and lower lung consolidation and additional bilateral patchy areas of edema and/or infiltrates on the background of chronic parenchymal change. 12/01: Patient remains intubated and on mechanical ventilation. He is currently off propofol and able to follow commands. Patient may be attempted on weaning today. Patient's brother is at the bedside and has been updated. Patient is not on any vasopressors. He has been afebrile, heart rate in the 90s to low 100s, blood pressure 133/74. WBC 8.1, hemoglobin 9.7, platelet count 164. CO2 31, BUN 33 and creatinine 0.82. Chest x-ray reveals increasing left basilar opacities may represent small pleural effusion and atelectasis or pneumonia. Stable right midlung and right basilar opacities and stable mild interstitial pulmonary edema. Review Of Systems: Unable to be obtained due to intubation Objective - Vital Signs Vital signs: Vital Signs Temp 99.1 F 12/01/18 08:00 Pulse 90 12/01/18 10:00 Resp 25 H 12/01/18 10:00 BP 136/97 12/01/18 10:00 Pulse Ox 95 12/01/18 10:00 Intake & Output 11/30/18 12/01/18 12/01/18 18:59 06:59 18:59 Intake Total 3430.024 3967.809 413.032 Output Total 1235 735 815 Balance -147.577 343.809 -401.968 Weight 66.4 kg 68.1 kg Intake: IV 872 822 324 CVP/ART 72 72 24 Levofloxacin 750Mg-D5w 150 Pmx 750 mg In Dextrose/ Water 1 150ml.bag @ 100 mls/hr IVPB Q24H [facility] Rx#: [id number] Piperacillin-Tazobactam 3 200 100 .375 gm In Sodium Chloride 0.9% 100 ml @ 25 mls/hr IVPB Q8HR [facility] Rx# :[id number] Sodium Chloride 0.9% 1, 600 600 200 000 ml @ 50 mls/hr IV . Q20H [place] Rx#:[id number] Intake, IV Titration 77.423 72.809 43.032 Amount Propofol 1,000 mg In 77.423 72.809 43.032 Empty Bag 1 bag @ Titrate IV .Q0M [place] Rx#: [id number] Tube Feeding 138 184 46 Output: Urine 1235 735 815 Other: Voiding Method Indwelling Catheter Indwelling Catheter ABP, PAP, CO, CI - Last Documented Arterial Blood Pressure 122/54 - Exam Patient remains intubated, mechanical ventilation, in no acute distress - EENT Eyes: anicteric sclerae, PERRLA, normal appearance - Respiratory Respiratory: bilateral: diminished, rhonchi - Cardiovascular Rhythm: regular Heart sounds: normal: S1, S2 Abnormal Heart Sounds: no systolic murmur, no diastolic murmur, no rub, no S3 Gallop, no S4 Gallop, no click, no other - Gastrointestinal General gastrointestinal: normal bowel sounds, soft - Integumentary Integumentary: decreased turgor - Psychiatric Patient is able to follow commands while off sedation. - Labs CBC & Chem 7: 12/01/18 06:15 12/01/18 06:15 Labs: Abnormal Lab Results - Last 24 Hours (Table) 11/30/18 11/30/18 12/01/18 Range/Units 12:17 18:06 00:58 RBC (4.30-5.90) m/uL Hgb (13.0-17.5) gm/dL Hct (39.0-53.0) % Lymphocytes # (1.0-4.8) k/uL ABG pH (7.35-7.45) ABG pCO2 (35-45) mmHg ABG HCO3 (21-25) mmol/L ABG Total CO2 (19-24) mmol/L Carbon Dioxide (22-30) mmol/L BUN (9-20) mg/dL Glucose (74-99) mg/dL POC Glucose (mg/dL) 124 H 115 H 129 H (75-99) mg/dL 04/12/01/18 12/01/18 Range/Units 05:09 05:09 05:58 RBC 3.61 L (4.30-5.90) m/uL Hgb 10.1 L (13.0-17.5) gm/dL Hct 32.3 L (39.0-53.0) % Lymphocytes # 0.7 L (1.0-4.8) k/uL ABG pH (7.35-7.45) ABG pCO2 (35-45) mmHg ABG HCO3 (21-25) mmol/L ABG Total CO2 (19-24) mmol/L Carbon Dioxide (22-30) mmol/L BUN 33 H (9-20) mg/dL Glucose 128 H (74-99) mg/dL POC Glucose (mg/dL) 143 H (75-99) mg/dL 12/01/18 12/01/18 12/01/18 Range/Units 06:15 06:15 08:00 RBC 3.46 L (4.30-5.90) m/uL Hgb 9.7 L (13.0-17.5) gm/dL Hct 30.6 L (39.0-53.0) % Lymphocytes # 0.7 L (1.0-4.8) k/uL ABG pH 7.46 H (7.35-7.45) ABG pCO2 46 H (35-45) mmHg ABG HCO3 32 H (21-25) mmol/L ABG Total CO2 34 H (19-24) mmol/L Carbon Dioxide 31 H (22-30) mmol/L BUN 33 H (9-20) mg/dL Glucose 130 H (74-99) mg/dL POC Glucose (mg/dL) (75-99) mg/dL Assessment and Plan Plan: 1. Acute hypoxic respiratory failure secondary to most likely gram-negative pneumonia requiring intubation and mechanical ventilation. Continue Zosyn and Levaquin. Consult with is appreciated. Sputum culture and blood culture in progress. Ultrasound of the chest film no sizable pleural effusion. Weaning trial possibly today. 2. Septic shock, secondary to aspiration/gram-negative pneumonia. Patient has required vasopressors and discontinued. 3. Chronic cough, reports of dysphagia by a niece, patient needs to be evaluated with modified barium swallow eval once intubation has been resolved 4. Chronic radiation proctitis, with recent endoscopy both upper scope and lower scope during admission November 2017. Patient started on Senokot 2 daily scheduled 5. History of coronary artery disease status post CABG. 6. Chronic blood loss anemia monitor hemoglobin, currently stable. 7. History of aortic bioprosthetic valve replacement with previous mitral valve repair 8. History of paroxysmal atrial fibrillation not on anticoagulation secondary to concerns of GI bleed in the past. Continue Plavix 75 mg daily. 9. Ischemic cardiomyopathy with previous EF of 40-45%. 10. Hypothyroidism. Continue levothyroxine 25 mg daily. 11. Hypertension with current hypotension. Hold home antihypertensive medications. 12. Hyperlipidemia. 13. Chronic systolic heart failure. 14. DVT prophylaxis. Heparin subcu. 15. GI prophylaxis. Protonix IV. Discharge plan: To be determined. Most likely patient will require subacute rehab Impression and plan of care have been directed as dictated by the signing physician. Charmaine Joseph nurse practitioner acting as scribe for signing physician.
--- NOTE | 2018-12-01 12:48 | P.PN ---
Subjective Progress Note Date: 12/01/18 Principal diagnosis: Acute hypoxic respiratory failure secondary to pneumonia, community-acquired. This is a 73-year-old male patient who came into the hospital because of acute respiratory failure. The patient was extremely dyspneic and using excessive muscle breathing.He was intubated and placed on a mechanical ventilator in the emergency department. The post intubation chest x-ray showed an extensive right lung consolidation occupying the lower two thirds of the right lung. The patient also had some cardiomegaly. Post intubation, the patient was given a total of 2 L of IV fluids . As. per sepsis protocol. He continued to be hypotensive. The triple-lumen catheter was inserted in his right subclavian vein and the patient was continued on fluids and pressors. Currently levo fed is running at a low-dose. Overnight the patient was started on broad-spectrum antibiotics utilizing a combination of Zosyn and Levaquin. Influenza screen is negative. The patient is producing adequate amount of urine output. This morning, the patient's blood gas showed a pH of 7.36 with a pCO2 of 38 and pO2 of 128 and this was on FiO2 of 40% and a PEEP of 5. His rate is at 12 with tidal volume of 400. Renal function is stable. LFTs are within normal limits. No previous history of chronic lung disease. He is known to have cardiac disease with coronary artery disease, previous aortic valve replacement, previous mitral valve repair, paroxysmal atrial fibrillation the patient has been on no anticoagulants due to concerns of Miguel A GI bleed. On 11/26/2018 I'm seeing this patient for a follow-up. The patient remains on a mechanical ventilator and this morning the patient is still in a assist-control mode at the rate of 12 with tidal volume of 400 and FiO2 of 40% and a PEEP of 5. The patient's chest x-ray still showing a dense consolidation of the right lower lobe and there is no significant improvement in his right lower lobe pneumonia. Based on this, the patient was kept on a combination of Zosyn and Levaquin. The patient's cultures of been all negative for and the patient had a bronchoscopy earlier this morning with a bronchioloalveolar lavage of the right lobe of the right lower lobe was done with a total of 30cc is a bronchioloalveolar aspirate was obtained from these lobes. The patient remains sedated with propofol and is calm and comfortable. Enteral feeding has been also initiated. He was off the pressors earlier this morning and following the bronchoscopy had been placed on low-dose levothyroid for hemodynamic support. He is very symptoms with the mechanical ventilator. No significant orotracheal secretions. No fever or chills. No other issues otherwise for now. His cardiac rhythm is showing frequent PACs and PVCs. The blood gases from today showed a pH of 7.37 with a pCO2 of 41 and pO2 of 96 and this was on FiO2 of 40%. On 11/27/2018, patient was seen on follow-up, and he remains in the ICU, on mechanical ventilation. Presently his ventilator settings are assist control rate of 12 tidal volume 400 FiO2 of 40% PEEP of 5. He is on propofol at 50 mcg/kg/m, off norepinephrine this morning, ABG showed a pO2 of 98 pCO2 of 38 pH of 7.42 and this was on 40% FiO2. WBC count is 7.7 hemoglobin 10.7. Electrolytes were normal BUN is 11 creatinine 0.55. Cultures from his bronchoscopy yesterday are pending. Patient remains on broad-spectrum antibiotics. Maintained on Levaquin and Zosyn for now. Patient is sedated, noted to be comfortable on mechanical ventilation. My plan today is to wean sedation, assess mental status, but considering the abnormal findings on the chest x-ray, clearly the patient is not ready for any form of weaning at present. On 11/28/2018, patient remains in the ICU and on mechanical ventilation. His ventilator settings are tidal volume of 400 assist control rate of 12 FiO2 of 40% and PEEP of 5. Patient remains on multiple drips including propofol 50 mcg/kg/m, norepinephrine at 0.04 mcg/kg/m. ABG showed a pO2 of 123 pCO2 40, pH of 7.46. CBC is relatively normal WBC count is 10.8 hemoglobin is 11 lites are normal, renal profile is normal chest x-ray showed improving right lower lobe infiltrate, tubes and lines seem to be in proper positions including nasogastric tube, central lines and catheters. Endotracheal tube. Patient is sedated, and my plan today is to hold sedation, and assess mental status, doubt if the patient will wean today, continues to have significant airspace disease involving the right lung, but will assess mental status at least today, and hopefully start addressing weaning in the next 24 hours. Microbiology from his lavage/bronchoscopy is pending. Patient remains on broad-spectrum empiric antibiotics. Blood cultures have been negative. Reevaluated today on 11/29/2018, remains on mechanical ventilation, same ventilator settings as noted above, however his FiO2 is down to 35%. Patient is off norepinephrine, remains on propofol which I have discontinued this morning and would like to assess weaning parameters and determine whether the patient could be weaned and extubated today. Chest x-ray is showing some improvement but continues to have significant consolidation in the right lower lobe. There is also evidence of interstitial edema, hence I recommended an extra dose of Lasix this morning. ABG today showed a pO2 of 92 pCO2 of 43 pH of 7.47. Electrolytes and renal profile are normal WBC count is 8.7 hemoglobin is 10.5. Off propofol, patient was noted to be arousable, follows simple instructions, but does not maintain a good eye contact. All his meds were reviewed, and his labs as well as x-ray was reviewed today. Patient was reevaluated today on 11/30/2018, remains on mechanical ventilation, same ventilator settings as above, he is on FiO2 of 35%, assist control rate of 12, tidal volume of 400, PEEP of 5. His ABG is significantly improved with a pO2 of 86 pCO2 of 43 pH of 7.48 however his chest x-ray continues to show significant amount of consolidation in the right lower lobe. Patient's weaning parameters were reviewed this morning, his nurse is -18, however his respiratory rate is in the 30s, continues to have significant amount of secretions patient is close to be weaned, but considering the chest x-ray, and considering Remeron of secretions he has, and considering that his weaning parameters are marginal, I felt it would be best to keep him on mechanical ventilation for at least another day. Hoping that his secretions will become less, and his right lower lobe pneumonia improved. Patient is off norepinephrine, he has good urine output, he is hemodynamically stable, all labs including CBC and basic metabolic profile were noted, potassium is a bit low at 3.2, be corrected as per protocol. Patient is off propofol, awake, mentating good eye contact, looks generally weak, but follows all instructions. Reevaluated today on 12/01/2018, remains on mechanical ventilation, same vent settings as noted above. ABG showed a pO2 of 85 pCO2 of 46 pH of 7.46. Chest x-ray is showing worsening right lower lobe consolidation, and suspect some component of interstitial edema/congestive heart failure. Patient is presently off propofol, however considering the abnormality on the chest x-ray and consi dering the patient became quite tachypneic and tachycardic on pressure support of 10 and CPAP, I decided to place him back on assist control mode of mechanical ventilation, keep him sedated, and I will arrange for bronchoscopy and lavage of the right lung. In the meantime his Lasix dose was increased to 40 mg twice a day. CBC showed a WBC count of 8.1 hemoglobin is 9.7. Lactulose are normal lainey al profile is normal. BUN is 33 creatinine is 0.82. Objective - Vital Signs Vital signs: Vital Signs Temp 99.1 F 12/01/18 08:00 Pulse 112 H 12/01/18 11:44 Resp 15 12/01/18 11:00 BP 154/82 12/01/18 11:00 Pulse Ox 96 12/01/18 11:00 Intake & Output 11/30/18 12/01/18 12/01/18 18:59 06:59 18:59 Intake Total 9090.996 7860.809 474.480 Output Total 1235 735 965 Balance -147.577 343.809 -490.520 Weight 66.4 kg 68.1 kg Intake: IV 872 822 380 CVP/ART 72 72 30 Levofloxacin 750Mg-D5w 150 Pmx 750 mg In Dextrose/ Water 1 150ml.bag @ 100 mls/hr IVPB Q24H [place] Rx#: [id number] Piperacillin-Tazobactam 3 200 100 .375 gm In Sodium Chloride 0.9% 100 ml @ 25 mls/hr IVPB Q8HR [place] Rx# :[id number] Sodium Chloride 0.9% 1, 600 600 250 000 ml @ 50 mls/hr IV . Q20H [place] Rx#:[id number] Intake, IV Titration 77.423 72.809 48.480 Amount Propofol 1,000 mg In 77.423 72.809 48.480 Empty Bag 1 bag @ Titrate IV .Q0M [place] Rx#: [id number] Tube Feeding 138 184 46 Output: Urine 1235 735 965 Other: Voiding Method Indwelling Catheter Indwelling Catheter Indwelling Catheter ABP, PAP, CO, CI - Last Documented Arterial Blood Pressure 133/74 - Exam Physical Exam: Revealed a 73-year-old -[place] male on mechanical ventilation, awake, off propofol, seems to be mentally intact, follows all simple instructions. Maintaining good eye contact. Seems to be generally weak. Head: Atraumatic, normocephalic. Endotracheal tube is intact. Orogastric tube is also intact. HEENT:[Neck is supple.] [No neck masses.] [No thyromegaly.] [No JVD.] PERRLA, EOMI, endotracheal tube is intact, orogastric tube is intact. Chest: [Crackles at the right rhonchi noted on the right side, left side is relatively clear. Symmetrical chest expansion noted chest wall deformity Cardiac Exam: [Normal S1 and S2, no S3 gallop, 2/6 systolic murmur thought the precordium. Abdomen: [Soft, nontender, no megaly, no rebound, no guarding, normal bowel sounds.] Extremities: [No clubbing, trace of edema edema, no cyanosis.] Neurological Exam: Generally weak, alert oriented 3, no gross focal neurologic deficit, except for generalized weakness. Psychiatric: Normal mood affect and mental status examination. Lymphatics: No lymphadenopathy. Skin: No rashes. - Labs CBC & Chem 7: 12/01/18 06:15 12/01/18 06:15 Labs: Abnormal Lab Results - Last 24 Hours (Table) 11/30/18 12/01/18 12/01/18 Range/Units 18:06 00:58 05:09 RBC 3.61 L (4.30-5.90) m/uL Hgb 10.1 L (13.0-17.5) gm/dL Hct 32.3 L (39.0-53.0) % Lymphocytes # 0.7 L (1.0-4.8) k/uL ABG pH (7.35-7.45) ABG pCO2 (35-45) mmHg ABG HCO3 (21-25) mmol/L ABG Total CO2 (19-24) mmol/L Carbon Dioxide (22-30) mmol/L BUN (9-20) mg/dL Glucose (74-99) mg/dL POC Glucose (mg/dL) 115 H 129 H (75-99) mg/dL 12/01/18 12/01/18 12/01/18 Range/Units 05:09 05:58 06:15 RBC 3.46 L (4.30-5.90) m/uL Hgb 9.7 L (13.0-17.5) gm/dL Hct 30.6 L (39.0-53.0) % Lymphocytes # 0.7 L (1.0-4.8) k/uL ABG pH (7.35-7.45) ABG pCO2 (35-45) mmHg ABG HCO3 (21-25) mmol/L ABG Total CO2 (19-24) mmol/L Carbon Dioxide (22-30) mmol/L BUN 33 H (9-20) mg/dL Glucose 128 H (74-99) mg/dL POC Glucose (mg/dL) 143 H (75-99) mg/dL 12/01/18 12/01/18 12/01/18 Range/Units 06:15 08:00 11:42 RBC (4.30-5.90) m/uL Hgb (13.0-17.5) gm/dL Hct (39.0-53.0) % Lymphocytes # (1.0-4.8) k/uL ABG pH 7.46 H (7.35-7.45) ABG pCO2 46 H (35-45) mmHg ABG HCO3 32 H (21-25) mmol/L ABG Total CO2 34 H (19-24) mmol/L Carbon Dioxide 31 H (22-30) mmol/L BUN 33 H (9-20) mg/dL Glucose 130 H (74-99) mg/dL POC Glucose (mg/dL) 125 H (75-99) mg/dL Assessment and Plan Assessment: Impression: 1 acute hypoxic respiratory failure secondary to multilobar pneumonia, community-acquired. Suspect Streptococcus pneumonia. Cultures from the BAL are nondiagnostic. 2 acute sepsis and septic shock, off norepinephrine today. 3 paroxysmal atrial fibrillation 4 underlying coronary artery disease 5 history of aortic valve replacement with bioprosthetic valve and mitral valve repair. 6 thrombocytopenia secondary to sepsis and pneumonia 7 acute lactic acidosis on presentation secondary to sepsis and septic shock. 8 history of aspergilloma, monitored for many years. 9 Essential hypertension 10 hypothyroidism 11 prostate cancer and previous radiation treatment. Recommendation: Would hold on further weaning at this point, patient was placed back on assist control mode, he was only briefly on a pressure support of 10 and CPAP. After reviewing the chest x-ray and noticing that the patient is not ready for weaning, I have recommended bronchoscopy and bronchoalveolar lavage of the right lung. Patient will remain on propofol, he will remain on the same cardiac meds same medications including antibiotics, bronchodilators, steroids, and based on the bronchoscopy findings today further recommendations will follow. Discussed his condition with his brother at bedside, and explained time the plan to perform bronchoscopy and BAL. His brother understands and consent was obtained. We'll continue to follow the patient closely, continue GI and DVT prophylaxis, we will readdress weaning and weaning trials in the next 24 hours. Patient remains critically ill. Critical care time is 35 minutes not including time spent on procedures/bronchoscopy Time with Patient: Greater than 30
[2018-12-01] MEDS ORDERED: IV FLUID CONTINUATION 1,000 ML IV ONE (13:07)
--- NOTE | 2018-12-01 14:10 | XR ---
EXAMINATION TYPE: XR chest 1V DATE OF EXAM: 12/01/2018 COMPARISON: NONE HISTORY: Status post bronchoscopy. No biopsy thickening. TECHNIQUE: Single frontal view of the chest is obtained. FINDINGS: Loculated right pleural effusion and bibasilar opacities are similar. Endotracheal tube an d enteric tubes appear appropriately placed with its fenestrated portion of the enteric tube just bey ond the gastroesophageal junction. Post CABG changes are seen of the chest. There is rotation of the cardiomediastinal silhouette secondary to patient positioning. Cardiomediastinal silhouette again nina ears upper limits of normal. Right-sided PICC again terminates in the distal superior vena cava. IMPRESSION: Similar bibasilar opacities and loculated multifocal right pleural effusion.
--- NOTE | 2018-12-01 16:52 | CT ---
EXAMINATION TYPE: CT chest wo con DATE OF EXAM: 12/01/2018 COMPARISON: 07/29/2017 HISTORY: Loculated pleural effusion, right mid lung. CT DLP: 325 mGycm, Automated exposure control for dose reduction was used. CONTRAST: None TECHNIQUE: Axial images were obtained at 5 mm thick sections. Reconstructed images are reviewed on [employer] [facility] [employer] computer in the coronal plane. FINDINGS: Patient is intubated. Nasogastric tube is evident. Endotracheal tube tip is above the jose a. Nasogastric tube tip is within the proximal stomach. Small bilateral pleural effusions are present. There may be a loculated effusion within the minor fis sure on the right. There is thickening at the bilateral lung apices. Some pulmonary fibrosis type changes appear to be p resent. Underlying nodularity is not excluded. This may be some fluid within the major fissure on the right at the apex. Compressive atelectasis at the dependent portions of the lungs bilaterally. No enlarged mediastinal or hilar adenopathy is evident. The ascending aorta diameter at the level o f the main pulmonary artery is cm. The main pulmonary artery diameter at the bifurcation is cm. Naa nary artery calcification best are calcification within the aorta is evident. Limited CT sections are obtained through the upper abdomen. No suspicious acute changes within the up per abdomen are evident. IMPRESSIONS: 1. Small bilateral pleural effusions. Some loculated effusion within the minor fissure on the right a nd minimal fluid within the major fissure on the right is likely present. 2. Changes compatible some pulmonary fibrosis. Underlying neoplasm is not excluded. Follow-up is jimy mmended. 3. Endotracheal tube and nasogastric tube in position.
[2018-12-01 18:16] LABS: Glucose,Whole Blood 112 mg/dL (75-99)
[2018-12-01] MEDS: LEVOFLOXACIN 750MG-D5W PMX 750 MG in DEXTROSE/WATER 1 150ML.BAG IVPB SCH (20:24)
[2018-12-01] MEDS: FUROSEMIDE 10 MG/ML 4 ML VIAL IV SCH (20:25)
[2018-12-01 20:59] LABS: Appearance,BF Cloudy; Color,BF Colorless; Nucleated Cells, Body Fluid 985 /uL
[2018-12-01 21:00] LABS: RBC, Body Fluid 6205 /uL
[2018-12-01 21:01] LABS: Mononuclear WBC,Body Fluid 3 %; Polynuclear WBC,Body Fluid 95 %
[2018-12-01] MEDS: NOREPINEPHRINE 8 MG in SODIUM CHLORIDE 0.9% 250 ML IV SCH (22:50)
[2018-12-01 23:54] LABS: Glucose,Whole Blood 103 mg/dL (75-99)
[2018-12-02] MEDS: IPRATROPIUM-ALBUTEROL 3 ML NEB INHALATION SCH ×6 (03:27→23:02)
[2018-12-02] MEDS: SODIUM CHLORIDE 0.9% 1,000 ML IV SCH (03:53)
[2018-12-02] MEDS: PROPOFOL 1,000 MG in EMPTY BAG 1 BAG IV SCH ×3 (03:53→23:05)
[2018-12-02 04:32] LABS: HCT 32.1 % (39.0-53.0); HGB 10.2 gm/dL (13.0-17.5); Hypochromasia Slight; MCHC 31.6 g/dL (31.0-37.0); MCV 88.4 fL (80.0-100.0); Mean Platelet Volume 9.3; Platelet Count 180 k/uL (150-450); RBC 3.63 m/uL (4.30-5.90); RDW 13.6 % (11.5-15.5); WBC 8.3 k/uL (3.8-10.6)
[2018-12-02 04:51] LABS: Anion Gap 5 mmol/L; Blood Urea Nitrogen 30 mg/dL (9-20); Calcium 9.1 mg/dL (8.4-10.2); Carbon Dioxide 31 mmol/L (22-30); Chloride 105 mmol/L (98-107); Glucose 125 mg/dL (74-99); Potassium 3.6 mmol/L (3.5-5.1); Sodium 141 mmol/L (137-145)
[2018-12-02] MEDS ORDERED: Potassium Replacement Protocol 1 EACH MISC MISCELLANE PRN (05:42)
[2018-12-02] MEDS: LEVOTHYROXINE 25 MCG TAB PO SCH (05:55)
[2018-12-02] MEDS: INSULIN ASPART (NovoLOG) 100 UNIT/ML VIAL SQ SCH ×4 (05:55→18:24)
[2018-12-02] MEDS ORDERED: POTASSIUM BICARBONATE/CIT AC 20 MEQ TABLET.EFF NG-TUBE SCH (06:00)
[2018-12-02 06:02] LABS: Glucose,Whole Blood 108 mg/dL (75-99)
--- NOTE | 2018-12-02 07:24 | XR ---
EXAMINATION TYPE: XR chest 1V portable DATE OF EXAM: 12/02/2018 Comparison: 12/01/2018 Clinical History: 73-year-old male Ventilator, ICU management Findings: Multiple overlying lines and tubes. ET tube appears satisfactory. NG tube courses below the diaphragm . The sidehole is at the GE junction and could be advanced further into the stomach by 4 cm. Heart mi ldly enlarged. Diffuse interstitial densities are increased. Continued bibasilar opacities and locula stefania appearing right pleural effusions. Biapical pleural-parenchymal scarring. Impression: 1. NG tube side hole at the GE junction. Consider further advancement in the stomach by 4 cm. 2. Cardiomegaly with worsening interstitial opacities, possible developing pulmonary edema. 3. Otherwise, there are continued bibasilar opacities and loculated appearing right pleural effusions .
[2018-12-02 07:44] LABS: ABG Base Excess 8.1 mmol/L; ABG HCO3 32 mmol/L (21-25); ABG Oxygen Saturation 97.2 % (94-97); ABG PCO2 42 mmHg (35-45); ABG PH 7.48 (7.35-7.45); ABG PO2 90 mmHg (83-108); ABG TCO2 33 mmol/L (19-24)
[2018-12-02] MEDS: PIPERACILLIN-TAZOBACTAM 3.375 GM in SODIUM CHLORIDE 0.9% 100 ML IVPB SCH ×2 (08:53→16:44)
[2018-12-02] MEDS: HEPARIN SODIUM,PORCINE 5,000 UNIT/ML 1 ML VIAL SQ SCH ×2 (08:54→20:42)
[2018-12-02] MEDS: CLOPIDOGREL 75 MG TAB PO SCH (08:54)
[2018-12-02] MEDS: CHLORHEXIDINE GLUCONATE 15 ML CUP MUCOUS MEM SCH (08:54)
[2018-12-02] MEDS: METOPROLOL TARTRATE 12.5 MG TAB PO SCH ×2 (08:54→20:43)
[2018-12-02] MEDS: PANTOPRAZOLE 40 MG/10 ML VIAL IV SCH (08:54)
[2018-12-02] MEDS: FUROSEMIDE 10 MG/ML 4 ML VIAL IV SCH ×2 (08:54→20:42)
--- NOTE | 2018-12-02 10:57 | P.PN ---
Subjective Progress Note Date: 12/02/18 Principal diagnosis: Acute hypoxic respiratory failure secondary to pneumonia, community-acquired. This is a 73-year-old male patient who came into the hospital because of acute respiratory failure. The patient was extremely dyspneic and using excessive muscle breathing.He was intubated and placed on a mechanical ventilator in the emergency department. The post intubation chest x-ray showed an extensive right lung consolidation occupying the lower two thirds of the right lung. The patient also had some cardiomegaly. Post intubation, the patient was given a total of 2 L of IV fluids . As. per sepsis protocol. He continued to be hypotensive. The triple-lumen catheter was inserted in his right subclavian vein and the patient was continued on fluids and pressors. Currently levo fed is running at a low-dose. Overnight the patient was started on broad-spectrum antibiotics utilizing a combination of Zosyn and Levaquin. Influenza screen is negative. The patient is producing adequate amount of urine output. This morning, the patient's blood gas showed a pH of 7.36 with a pCO2 of 38 and pO2 of 128 and this was on FiO2 of 40% and a PEEP of 5. His rate is at 12 with tidal volume of 400. Renal function is stable. LFTs are within normal limits. No previous history of chronic lung disease. He is known to have cardiac disease with coronary artery disease, previous aortic valve replacement, previous mitral valve repair, paroxysmal atrial fibrillation the patient has been on no anticoagulants due to concerns of Miguel A GI bleed. On 11/26/2018 I'm seeing this patient for a follow-up. The patient remains on a mechanical ventilator and this morning the patient is still in a assist-control mode at the rate of 12 with tidal volume of 400 and FiO2 of 40% and a PEEP of 5. The patient's chest x-ray still showing a dense consolidation of the right lower lobe and there is no significant improvement in his right lower lobe pneumonia. Based on this, the patient was kept on a combination of Zosyn and Levaquin. The patient's cultures of been all negative for and the patient had a bronchoscopy earlier this morning with a bronchioloalveolar lavage of the right lobe of the right lower lobe was done with a total of 30cc is a bronchioloalveolar aspirate was obtained from these lobes. The patient remains sedated with propofol and is calm and comfortable. Enteral feeding has been also initiated. He was off the pressors earlier this morning and following the bronchoscopy had been placed on low-dose levothyroid for hemodynamic support. He is very symptoms with the mechanical ventilator. No significant orotracheal secretions. No fever or chills. No other issues otherwise for now. His cardiac rhythm is showing frequent PACs and PVCs. The blood gases from today showed a pH of 7.37 with a pCO2 of 41 and pO2 of 96 and this was on FiO2 of 40%. On 11/27/2018, patient was seen on follow-up, and he remains in the ICU, on mechanical ventilation. Presently his ventilator settings are assist control rate of 12 tidal volume 400 FiO2 of 40% PEEP of 5. He is on propofol at 50 mcg/kg/m, off norepinephrine this morning, ABG showed a pO2 of 98 pCO2 of 38 pH of 7.42 and this was on 40% FiO2. WBC count is 7.7 hemoglobin 10.7. Electrolytes were normal BUN is 11 creatinine 0.55. Cultures from his bronchoscopy yesterday are pending. Patient remains on broad-spectrum antibiotics. Maintained on Levaquin and Zosyn for now. Patient is sedated, noted to be comfortable on mechanical ventilation. My plan today is to wean sedation, assess mental status, but considering the abnormal findings on the chest x-ray, clearly the patient is not ready for any form of weaning at present. On 11/28/2018, patient remains in the ICU and on mechanical ventilation. His ventilator settings are tidal volume of 400 assist control rate of 12 FiO2 of 40% and PEEP of 5. Patient remains on multiple drips including propofol 50 mcg/kg/m, norepinephrine at 0.04 mcg/kg/m. ABG showed a pO2 of 123 pCO2 40, pH of 7.46. CBC is relatively normal WBC count is 10.8 hemoglobin is 11 lites are normal, renal profile is normal chest x-ray showed improving right lower lobe infiltrate, tubes and lines seem to be in proper positions including nasogastric tube, central lines and catheters. Endotracheal tube. Patient is sedated, and my plan today is to hold sedation, and assess mental status, doubt if the patient will wean today, continues to have significant airspace disease involving the right lung, but will assess mental status at least today, and hopefully start addressing weaning in the next 24 hours. Microbiology from his lavage/bronchoscopy is pending. Patient remains on broad-spectrum empiric antibiotics. Blood cultures have been negative. Reevaluated today on 11/29/2018, remains on mechanical ventilation, same ventilator settings as noted above, however his FiO2 is down to 35%. Patient is off norepinephrine, remains on propofol which I have discontinued this morning and would like to assess weaning parameters and determine whether the patient could be weaned and extubated today. Chest x-ray is showing some improvement but continues to have significant consolidation in the right lower lobe. There is also evidence of interstitial edema, hence I recommended an extra dose of Lasix this morning. ABG today showed a pO2 of 92 pCO2 of 43 pH of 7.47. Electrolytes and renal profile are normal WBC count is 8.7 hemoglobin is 10.5. Off propofol, patient was noted to be arousable, follows simple instructions, but does not maintain a good eye contact. All his meds were reviewed, and his labs as well as x-ray was reviewed today. Patient was reevaluated today on 11/30/2018, remains on mechanical ventilation, same ventilator settings as above, he is on FiO2 of 35%, assist control rate of 12, tidal volume of 400, PEEP of 5. His ABG is significantly improved with a pO2 of 86 pCO2 of 43 pH of 7.48 however his chest x-ray continues to show significant amount of consolidation in the right lower lobe. Patient's weaning parameters were reviewed this morning, his nurse is -18, however his respiratory rate is in the 30s, continues to have significant amount of secretions patient is close to be weaned, but considering the chest x-ray, and considering Remeron of secretions he has, and considering that his weaning parameters are marginal, I felt it would be best to keep him on mechanical ventilation for at least another day. Hoping that his secretions will become less, and his right lower lobe pneumonia improved. Patient is off norepinephrine, he has good urine output, he is hemodynamically stable, all labs including CBC and basic metabolic profile were noted, potassium is a bit low at 3.2, be corrected as per protocol. Patient is off propofol, awake, mentating good eye contact, looks generally weak, but follows all instructions. Reevaluated today on 12/01/2018, remains on mechanical ventilation, same vent settings as noted above. ABG showed a pO2 of 85 pCO2 of 46 pH of 7.46. Chest x-ray is showing worsening right lower lobe consolidation, and suspect some component of interstitial edema/congestive heart failure. Patient is presently off propofol, however considering the abnormality on the chest x-ray and consi dering the patient became quite tachypneic and tachycardic on pressure support of 10 and CPAP, I decided to place him back on assist control mode of mechanical ventilation, keep him sedated, and I will arrange for bronchoscopy and lavage of the right lung. In the meantime his Lasix dose was increased to 40 mg twice a day. CBC showed a WBC count of 8.1 hemoglobin is 9.7. Lactulose are normal lainey al profile is normal. BUN is 33 creatinine is 0.82. Reevaluated today on 12/02/2018, patient remains on mechanical ventilation, same vent settings, ABG showeda pO2 of 90 pCO2 of 42 pH of 7.48. His CBC is relatively unremarkable. Electrolytes showed normal profile. BUN is up to 30 creatinine 0.78. Patient remains on enteral nutritional support, remains on antibiotics, and yesterday he underwent bronchoscopy and bronchoalveolar lavage. The findings from the bronchoscopy were not very impressive, hence I recommended a CT of the chest, and apparently the chest x-ray is showing right lower lobe opacity turned out to be actually fluid in the minor fissure seems to be increasing over time. May the patient required ultrasound-guided or CT- guided pigtail catheter placement. This will be decided upon once the patient is off mechanical ventilation. Today I plan to wean the patient, hence propofol was discontinued, patient will be given a weaning trial, we'll likely place him back on pressure support of 8 and CPAP, and we will repeat ABG in 1 hour on CPAP and pressure support. If the patient tolerates the weaning, may proceed to extubation today. In the meantime tube feeding is placed on hold. And propofol is also on hold. Off propofol, the patient was noted to be arousable, follows simple instructions, but seems to be generally weak. He is marginal for weaning at best. However if the patient fails weaning, May have to seriously considered tracheostomy in this patient. Objective - Vital Signs Vital signs: Vital Signs Temp 98.7 F 12/02/18 08:00 Pulse 79 12/02/18 10:00 Resp 14 12/02/18 10:00 BP 146/82 12/02/18 10:00 Pulse Ox 98 12/02/18 10:00 Intake & Output 12/01/18 12/02/18 12/02/18 18:59 06:59 18:59 Intake Total 8306.843 2847.978 358 Output Total 2365 1500 1140 Balance -1256.520 471.978 -782 Weight 62.7 kg Intake: IV 822 1122 358 0.9% NS @ KVO 100 80 CVP/ART 72 72 18 Levofloxacin 750Mg-D5w 150 Pmx 750 mg In Dextrose/ Water 1 150ml.bag @ 100 mls/hr IVPB Q24H [place] Rx#: [id number] Piperacillin-Tazobactam 3 100 200 100 .375 gm In Sodium Chloride 0.9% 100 ml @ 25 mls/hr IVPB Q8HR [place] Rx# :[id number] Sodium Chloride 0.9% 1, 600 600 160 000 ml @ 50 mls/hr IV . Q20H [place] Rx#:[id number] Intake, IV Titration 148.480 193.978 Amount Propofol 1,000 mg In 148.480 193.978 Empty Bag 1 bag @ Titrate IV .Q0M [place] Rx#: [id number] Tube Feeding 138 506 Other 150 Output: Urine 2365 1500 1140 Other: Voiding Method Indwelling Catheter Indwelling Catheter # Bowel Movements 1 ABP, PAP, CO, CI - Last Documented Arterial Blood Pressure 155/65 - Exam Physical Exam: Revealed a 73-year-old -[place] male on mechanical ventilation, follows instructions, generally weak Head: Atraumatic, normocephalic. HEENT:PERRLA, EOMI, endotracheal tube is intact, significant oral secretions noted no endotracheal tube secretions.moist mucous membranes. No JVD. Chest: [diminished breath sounds and crackles at the bases some rhonchi noted bilaterally Cardiac Exam: [Normal S1 and S2, no S3 gallop, 2/6 systolic murmur thought the precordium. Abdomen: [Soft, nontender, no megaly, no rebound, no guarding, normal bowel sounds.] Extremities: [No clubbing, trace of edema edema, no cyanosis.] Neurological Exam: Generally weak, alert oriented 3, no gross focal neurologic deficit, except for generalized weakness. Psychiatric: Normal mood affect and mental status examination. Lymphatics: No lymphadenopathy. Skin: No rashes. - Labs CBC & Chem 7: 12/02/18 04:00 12/02/18 04:00 Labs: Abnormal Lab Results - Last 24 Hours (Table) 12/01/18 12/01/18 12/01/18 Range/Units 11:42 18:04 23:41 RBC (4.30-5.90) m/uL Hgb (13.0-17.5) gm/dL Hct (39.0-53.0) % ABG pH (7.35-7.45) ABG HCO3 (21-25) mmol/L ABG Total CO2 (19-24) mmol/L ABG O2 Saturation (94-97) % Carbon Dioxide (22-30) mmol/L BUN (9-20) mg/dL Glucose (74-99) mg/dL POC Glucose (mg/dL) 125 H 112 H 103 H (75-99) mg/dL 12/02/18 12/02/18 12/02/18 Range/Units 04:00 04:00 05:51 RBC 3.63 L (4.30-5.90) m/uL Hgb 10.2 L (13.0-17.5) gm/dL Hct 32.1 L (39.0-53.0) % ABG pH (7.35-7.45) ABG HCO3 (21-25) mmol/L ABG Total CO2 (19-24) mmol/L ABG O2 Saturation (94-97) % Carbon Dioxide 31 H (22-30) mmol/L BUN 30 H (9-20) mg/dL Glucose 125 H (74-99) mg/dL POC Glucose (mg/dL) 108 H (75-99) mg/dL 12/02/18 Range/Units 07:42 RBC (4.30-5.90) m/uL Hgb (13.0-17.5) gm/dL Hct (39.0-53.0) % ABG pH 7.48 H (7.35-7.45) ABG HCO3 32 H (21-25) mmol/L ABG Total CO2 33 H (19-24) mmol/L ABG O2 Saturation 97.2 H (94-97) % Carbon Dioxide (22-30) mmol/L BUN (9-20) mg/dL Glucose (74-99) mg/dL POC Glucose (mg/dL) (75-99) mg/dL Microbiology - Last 24 Hours (Table) 12/01/18 12:50 Acid Fast Bacilli Smear - Final Bronchoalviolar Lavage - Right Acid Fast Bacilli Culture - Preliminary 12/01/18 12:50 Gram Stain - Preliminary Bronchoalviolar Lavage - Right Bronchial Washings Culture - Preliminary 12/01/18 12:50 Fungal Culture - Preliminary Bronchoalviolar Lavage - Right Assessment and Plan Assessment: Impression: 1 acute hypoxic respiratory failure secondary to multilobar pneumonia, community-acquired. BAL cultures have been nondiagnostic twice 2 acute sepsis and septic shock,improving, off pressors. 3 paroxysmal atrial fibrillation 4 underlying coronary artery disease 5 history of aortic valve replacement with bioprosthetic valve and mitral valve repair. 6 thrombocytopenia secondary to sepsis and pneumonia 7 acute lactic acidosis on presentation secondary to sepsis and septic shock.resolved. 8 history of aspergilloma, monitored for many years. 9 Essential hypertension 10 hypothyroidism 11 prostate cancer and previous radiation treatment. 12 loculated pleural effusion and the minor fissure may eventually require CT- guided or ultrasound-guided pigtail catheter placement. Recommendation: we'll hold propofol, we'll hold tube feeding, will awaken the patient fully, patient will be given weaning parameters, possibly a weaning trial with pressure support of 8 and CPAP, repeat ABG in 1 hour while on pressure support and CPAP, and if tolerated with decent or at least borderline weaning parameters, may consider a trial of extubation. Overall prognosis remains poor and guarded, we will continue to follow closely in the ICU. Continue the meantime antibiotics, bronchodilators, steroids, diuretics, GI and DVT prophylaxis. If patient fails weaning, will eventually recommend tracheostomy. Critical care time is 37 minutes Time with Patient: Greater than 30
[2018-12-02 12:18] LABS: Glucose,Whole Blood 126 mg/dL (75-99)
--- NOTE | 2018-12-02 13:08 | P.PN ---
Subjective Progress Note Date: 12/02/18 This is a 73-year-old -[place] male patient of Dr. Kohler with past medical history of hyperlipidemia, hypertension, hypothyroidism, history of recent prostate cancer status post radiation, coronary artery disease status CABG, history of bioprosthetic valve, paroxysmal atrial fibrillation, hypothyro idism, cardiomyopathy EF 45%, chronic systolic heart failure, radiation proctitis with acute on chronic blood loss anemia, colonoscopy last November 2017 confirming radiation proctitis. Patient comes in to the emergency room secondary to increasing difficulty of breathing, was in respiratory distress when seen in the ER, patient was extremely dyspneic, unable to provide history, the niece was there that provided some information, patient has had difficulties with upper respiratory for the past several years with dry cough however few hours prior to admission, patient has declined rapidly with significant dyspnea, tachypnea, patient was subsequently intubated in the emergency room. And admitted to ICU with sepsis and septic shock, and a large right pneumonia.. She he is currently followed by Dr. Wharton from critical care medicine, chest x-ray in emergency room shows extensive consolidation right lung with underlying pulmonary fibrosis, upper lobes. Patient requires pressor support, along with fluid resuscitation, required 2 L of boluses in the emergency room, and is currently on Zosyn, Levaquin,l evophed secondary to sepsis with pneumonia, aspirative events is under consideration, patient has dysphagia to foods. 11/25: Patient remains in the intensive care unit intubated and on mechanical ventilation. Dr. Wharton is following and plan to try extubating today. Patient is continued on Zosyn and Levaquin. Morning chest x-ray reveals no significant interval change. electronic device monitor has been sinus rhythm. Lab work reveals white count of 11.7, hemoglobin 11.2 and platelet count 102. Chloride 114, CO2 21, BUN 9 and creatinine 0.71. Blood sugars running between 110 and 120. TSH 0.176 and free T4 0.97. Blood cultures showing no growth after 24 hours. Sputum cultures in progress. Legionella testing is pending. Patient has been started on tube feedings. 11/26: Patient has been afebrile, heart rate in the 70s and 80s, blood pressure 130/59. Patient remains intubated and on mechanical ventilation. WBC 7.2, hemoglobin 11.5, platelet count 96, creatinine 0.62. Blood sugars running between 113 -132. All blood cultures were no growth at 48 hours and sputum cu ltures in progress. Repeat chest x-ray shows worsening bibasilar airspace disease. Changes consistent with mild pulmonary edema area and small bilateral effusions. Patient underwent bronchoscopy this morning and bloody fluid was sent for cultures. There is concern today percussively. Patient has been off norepinephrine since 3 AM. He is on tube feedings. 11/27: Patient remains intubated and on mechanical ventilation. He has been hemodynamically stable since he has been off norepinephrine. White count is normal, hemoglobin 10.7 and platelet count 101. Creatinine 0.55. Blood sugars running between 08/15/1939. Bronchial washing cultures are in progress. Sputum culture was finalized with normal respiratory julien. Blood cultures no growth after 72 hours. Repeat chest x-ray shows slight worsening in the mid and lower lung confluent airspace disease likely sequela of heart failure with pulmonary edema. Underlying small effusions persist. Ultrasound of the chest has been ordered for today. Patient remains on tube feedings and dietitian is following. electronic device monitor has been a sinus rhythm. 11/28: Patient remains intubated and on mechanical ventilation and intensive care unit. Plan is for sedation holiday today in no extubation. Patient is on a very low dose of norepinephrine which is being weaned off. Temperature max 100.8, heart rate 102, blood pressure 107/59, pulse ox 97%. WBC is 10.8, hemoglobin 11, platelet count 146. Creatinine 0.63. Blood sugars are between 120 and 170. Chest x-ray showed improving right lower lobe infiltrate. Cytology remains pending. Bronchial washing cultures in progress. Chest ultrasound done yesterday showed a right pleural effusion of 1.1 cm and left 2.2 cm. Patient's brother is at the bedside and has been updated. 11/29: Patient remains intubated and on mechanical ventilation patient is to be off propofol this morning and possible weaning. Repeat chest x-ray reveals persistence of peripheral right lower lobe consolidation. Small milder infiltrate remaining lung bases is improving. Temperature max 100.4 yesterday afternoon, heart rate in the 90s, blood pressure 122/59. WBC 8.7, hemoglobin 10.5, platelet count 111. CO2 31, creatinine 0.55. Blood sugars running between 113-145. Patient's brother is at the bedside and has been updated. 11/30: Patient remains intubated and on mechanical ventilation. He is currently off propofol and responding appropriately and following commands. He is not on vasopressors. Weaning attempt planned for tomorrow. Cytology report reveals no malignant cells identified. White count is 9.3, hemoglobin 10.4, platelet count 139. Sodium 142, potassium 3.2, chloride 104, CO2 31, BUN 26 and creatinine 0.68. Blood sugars running between 119 124. He needs him to 0.2. Repeat chest x-ray shows overall stable findings, bilateral diffuse right mid and lower lung consolidation and additional bilateral patchy areas of edema and/or infiltrates on the background of chronic parenchymal change. 12/01: Patient remains intubated and on mechanical ventilation. He is currently off propofol and able to follow commands. Patient may be attempted on weaning today. Patient's brother is at the bedside and has been updated. Patient is not on any vasopressors. He has been afebrile, heart rate in the 90s to low 100s, blood pressure 133/74. WBC 8.1, hemoglobin 9.7, platelet count 164. CO2 31, BUN 33 and creatinine 0.82. Chest x-ray reveals increasing left basilar opacities may represent small pleural effusion and atelectasis or pneumonia. Stable right midlung and right basilar opacities and stable mild interstitial pulmonary edema. 12/02: Patient remains intubated he is now on a breathing trial and a sedation holiday. Patient is able to follow commands. Brother is at the bedside and has been updated. Patient is no longer on vasopressors. He has been afebrile, heart rate in the 80s to 90s, blood pressure 136/70. W we see is a 0.3, hemoglobin 10.2, platelet count 32.1, BUN is 31, creatinine 0.78, BNP 3110. Chest x-ray shows cardiomegaly with worsening interstitial opacities. Small bilateral effusion. Some locally did effusion within the minor fissure on the right and minimal fluid within the major fissure of the right is likely present. Changes are compatible with some pulmonary fibrosis. Review Of Systems: Unable to be obtained due to intubation Objective - Vital Signs Vital signs: Vital Signs Temp 98.7 F 12/02/18 12:00 Pulse 92 12/02/18 12:06 Resp 23 12/02/18 12:00 BP 136/70 12/02/18 12:00 Pulse Ox 99 12/02/18 12:00 Intake & Output 12/01/18 12/02/18 12/02/18 18:59 06:59 18:59 Intake Total 0782.981 7894.978 516 Output Total 2365 1500 1790 Balance -1256.520 471.978 -1274 Weight 62.7 kg Intake: IV 822 1122 470 0.9% NS @ KVO 100 120 CVP/ART 72 72 30 Levofloxacin 750Mg-D5w 150 Pmx 750 mg In Dextrose/ Water 1 150ml.bag @ 100 mls/hr IVPB Q24H [place] Rx#: [id number] Piperacillin-Tazobactam 3 100 200 100 .375 gm In Sodium Chloride 0.9% 100 ml @ 25 mls/hr IVPB Q8HR [place] Rx# :[id number] Sodium Chloride 0.9% 1, 600 600 220 000 ml @ 50 mls/hr IV . Q20H [place] Rx#:[id number] Intake, IV Titration 148.480 193.978 Amount Propofol 1,000 mg In 148.480 193.978 Empty Bag 1 bag @ Titrate IV .Q0M [place] Rx#: [id number] Tube Feeding 138 506 46 Other 150 Output: Urine 2365 1500 1790 Other: Voiding Method Indwelling Catheter Indwelling Catheter Indwelling Catheter # Bowel Movements 1 ABP, PAP, CO, CI - Last Documented Arterial Blood Pressure 132/70 - Exam Patient remains intubated, mechanical ventilation, in no acute distress - Constitutional General appearance: Present: average body habitus, cooperative, no acute distress - EENT Eyes: Present: anicteric sclerae, PERRLA, normal appearance - Respiratory Respiratory: bilateral: diminished, rhonchi - Cardiovascular Rhythm: regular Heart sounds: normal: S1 Abnormal Heart Sounds: Absent: systolic murmur, diastolic murmur, rub, S3 Gallop, S4 Gallop, click, other - Gastrointestinal General gastrointestinal: Present: normal bowel sounds, soft. Absent: tenderness - Integumentary Integumentary: Present: decreased turgor - Neurologic Neurologic Comment(s): Patient is able to follow commands while on sedation holiday - Psychiatric Psychiatric Comment(s): alert to self - Labs CBC & Chem 7: 12/02/18 04:00 04/20/19 04:00 Labs: Abnormal Lab Results - Last 24 Hours (Table) 12/01/18 12/01/18 12/02/18 Range/Units 18:04 23:41 04:00 RBC 3.63 L (4.30-5.90) m/uL Hgb 10.2 L (13.0-17.5) gm/dL Hct 32.1 L (39.0-53.0) % ABG pH (7.35-7.45) ABG HCO3 (21-25) mmol/L ABG Total CO2 (19-24) mmol/L ABG O2 Saturation (94-97) % Carbon Dioxide (22-30) mmol/L BUN (9-20) mg/dL Glucose (74-99) mg/dL POC Glucose (mg/dL) 112 H 103 H (75-99) mg/dL 12/02/18 12/02/18 12/02/18 Range/Units 04:00 05:51 07:42 RBC (4.30-5.90) m/uL Hgb (13.0-17.5) gm/dL Hct (39.0-53.0) % ABG pH 7.48 H (7.35-7.45) ABG HCO3 32 H (21-25) mmol/L ABG Total CO2 33 H (19-24) mmol/L ABG O2 Saturation 97.2 H (94-97) % Carbon Dioxide 31 H (22-30) mmol/L BUN 30 H (9-20) mg/dL Glucose 125 H (74-99) mg/dL POC Glucose (mg/dL) 108 H (75-99) mg/dL 12/02/18 Range/Units 12:07 RBC (4.30-5.90) m/uL Hgb (13.0-17.5) gm/dL Hct (39.0-53.0) % ABG pH (7.35-7.45) ABG HCO3 (21-25) mmol/L ABG Total CO2 (19-24) mmol/L ABG O2 Saturation (94-97) % Carbon Dioxide (22-30) mmol/L BUN (9-20) mg/dL Glucose (74-99) mg/dL POC Glucose (mg/dL) 126 H (75-99) mg/dL Microbiology - Last 24 Hours (Table) 12/01/18 12:50 Acid Fast Bacilli Smear - Final Bronchoalviolar Lavage - Right Acid Fast Bacilli Culture - Preliminary 12/01/18 12:50 Gram Stain - Preliminary Bronchoalviolar Lavage - Right Bronchial Washings Culture - Preliminary 12/01/18 12:50 Fungal Culture - Preliminary Bronchoalviolar Lavage - Right Assessment and Plan Plan: 1. Acute hypoxic respiratory failure secondary to most likely gram-negative pneumonia requiring intubation and mechanical ventilation. Continue Zosyn and Levaquin. Consult with is appreciated. Blood cultures no growth after 144 hours, sputum culture moderate polymorphonuclear leukocytes. CT of chest shows small bilateral pleural effusion. Some loculated effusion within the minor fissure on the right and minimal fluid within the major fissure on the right is likely present. Changes compatible some pulmonary fibrosis. Patient is on a breathing trial today and sedation holiday. Ordered 2-D echo, procalcitonin. Awaiting results of bronchial wash cultures. Acid-fast bacilli smear negative. 2. Septic shock, secondary to aspiration/gram-negative pneumonia. Patient has required vasopressors and discontinued. 3. Chronic cough, reports of dysphagia by a niece, patient needs to be evaluated with modified barium swallow eval once intubation has been resolved 4. Chronic radiation proctitis, with recent endoscopy both upper scope and lower scope during admission November 2017. Patient started on Senokot 2 daily scheduled 5. History of coronary artery disease status post CABG. 6. Chronic blood loss anemia monitor hemoglobin, currently stable. 7. History of aortic bioprosthetic valve replacement with previous mitral valve repair 8. History of paroxysmal atrial fibrillation not on anticoagulation secondary to concerns of GI bleed in the past. Continue Plavix 75 mg daily. 9. Ischemic cardiomyopathy with previous EF of 40-45%. 10. Hypothyroidism. Continue levothyroxine 25 mg daily. 11. Hypertension with current hypotension. Hold home antihypertensive medications. 12. Hyperlipidemia. 13. Chronic systolic heart failure. 14. DVT prophylaxis. Heparin subcu. 15. GI prophylaxis. Protonix IV. Discharge plan: To be determined. Most likely patient will require subacute rehab Impression and plan of care have been directed as dictated by the signing physician. Em Gauthier nurse practitioner acting as scribe for signing physician.
--- NOTE | 2018-12-02 13:08 | ECHOF ---
Referral Reason:chf MEASUREMENTS -------- HEIGHT: 170.2 cm WEIGHT: 62.6 kg BP: IVSd: 0.9 cm (0.6 - 1.1) LVIDd: 3.6 cm (3.9 - 5.3) LVPWd: 1.7 cm (0.6 - 1.1) IVSs: 1.4 cm LVIDs: 2.3 cm LVPWs: 1.6 cm LAESV Index (A-L): 39.94 ml/m Ao Diam: 3.3 cm (2.0 - 3.7) AV Cusp: 1.0 cm (1.5 - 2.6) LA Diam: 2.7 cm (2.7 - 3.8) MV EXCURSION: 12.148 mm (> 18.000) MV EF SLOPE: 25 mm/s (70 - 150) EPSS: 1.5 cm MV E Kota: 2.32 m/s MV DecT: 443 ms MV A Kota: 1.88 m/s MV E/A Ratio: 1.23 AV maxP.53 mmHg AV meanP.98 mmHg RAP: 5.00 mmHg RVSP: 40.70 mmHg FINDINGS -------- Sinus rhythm. This was a technically difficult study with suboptimal views. The left ventricular size is normal. There is moderate concentric left ventricular hypertrophy. O verall left ventricular systolic function is moderately impaired with, an EF between 35 - 40 %. The right ventricle is normal in size. LA is moderately dilated 34-39 ml/m2 The right atrial size is normal. Aortic valve is trileaflet and is moderately thickened. Peak/mean gradient across the Aortic Valve is 49.53mmHg / 30.98mmHg. There is moderate stenosis of the bioprosthetic aortic valve. The mitral valve leaflets are mildly thickened. Mild mitral annular calcification present. Mild m itral regurgitation is present. Normally functioning bioprosthetic mitral valve. The peak and me an MV gradients are 19.73mmHg 13.10mmHg as measured by doppler. Mild tricuspid regurgitation present. There is mild pulmonary hypertension. The right ventricular systolic pressure, as measured by Doppler, is 40.70mmHg. There is no pulmonic regurgitation present. The aortic root size is normal. IVC Not well visulized. There is no pericardial effusion. CONCLUSIONS -------- 1. Sinus rhythm. 2. This was a technically difficult study with suboptimal views. 3. The left ventricular size is normal. 4. There is moderate concentric left ventricular hypertrophy. 5. Overall left ventricular systolic function is moderately impaired with, an EF between 35 - 40 %. 6. The right ventricle is normal in size. 7. LA is moderately dilated 34-39 ml/m2 8. The right atrial size is normal. 9. Aortic valve is trileaflet and is moderately thickened. 10. Peak/mean gradient across the Aortic Valve is 49.53mmHg / 30.98mmHg. 11. The mitral valve leaflets are mildly thickened. 12. Mild mitral annular calcification present. 13. Mild mitral regurgitation is present. 14. Normally functioning bioprosthetic mitral valve. 15. The peak and mean MV gradients are 19.73mmHg 13.10mmHg as measured by doppler. 16. Mild tricuspid regurgitation present. 17. There is mild pulmonary hypertension. 18. The right ventricular systolic pressure, as measured by Doppler, is 40.70mmHg. 19. There is no pulmonic regurgitation present. 20. The aortic root size is normal. 21. IVC Not well visulized. 22. There is no pericardial effusion. [employer] NUTRITION SCIENTIST: Brandie Bella RDCS
[2018-12-02] MEDS ORDERED: SUCCINYLCHOLINE CHLORIDE VIAL 200 MG/10 ML VIAL IV ONE (14:30)
[2018-12-02] MEDS ORDERED: MIDAZOLAM 1 MG/ML 5 ML VIAL ONE (14:30)
[2018-12-02 14:42] LABS: Anion Gap 8 mmol/L; Blood Urea Nitrogen 28 mg/dL (9-20); Calcium 9.6 mg/dL (8.4-10.2); Carbon Dioxide 31 mmol/L (22-30); Chloride 105 mmol/L (98-107); Glucose 206 mg/dL (74-99); Magnesium 2.5 mg/dL (1.6-2.3); Sodium 144 mmol/L (137-145)
[2018-12-02] MEDS ORDERED: METOPROLOL TARTRATE 5 MG/5 ML VIAL IVP STA (14:44)
[2018-12-02] MEDS ORDERED: DEXTROSE 5% IN WATER 250 ML with AMIODARONE 300 MG IV ONE (15:00)
--- NOTE | 2018-12-02 15:08 | XR ---
EXAMINATION TYPE: XR chest 1V portable DATE OF EXAM: 12/02/2018 Comparison: Earlier today Clinical History: 73-year-old male post intubation Findings: ET tube tip appears to be just entering the right mainstem bronchus. NG tube courses below the diaphr agm and has been pushed forward slightly in the interval, satisfactory. Right subclavian CVC tip in t he lower SVC. Heart remains mildly enlarged with continued diffuse interstitial changes loculated appearing right p leural effusions. Impression: 1. ET tube appears to have been advanced just into the proximal right mainstem bronchus. Appropriate adjustment recommended. Reassess after pulling back 3 cm. Called to nurse Ruiz on 2SICU at 3:04pm. 2. Satisfactory NG tube. 3. Continued cardiomegaly and interstitial changes, possible interstitial pulmonary edema. 4. Continued loculated appearing right pleural effusions.
[2018-12-02 15:41] LABS: ABG HCO3 30 mmol/L (21-25); ABG Oxygen Saturation 98.1 % (94-97); ABG PCO2 48 mmHg (35-45); ABG PO2 247 mmHg (83-108); ABG TCO2 31 mmol/L (19-24)
[2018-12-02] MEDS ORDERED: AMIODARONE 360 MG in DEXTROSE 5% IN WATER 200 ML IV ONE ×2 (17:00)
[2018-12-02 18:29] LABS: Glucose,Whole Blood 133 mg/dL (75-99)
[2018-12-02] MEDS: NOREPINEPHRINE 8 MG in SODIUM CHLORIDE 0.9% 250 ML IV SCH (18:45)
[2018-12-02] MEDS: LEVOFLOXACIN 750MG-D5W PMX 750 MG in DEXTROSE/WATER 1 150ML.BAG IVPB SCH (20:42)
[2018-12-02] MEDS: AMIODARONE 300 MG in DEXTROSE 5% IN WATER 250 ML IV SCH ×2 (23:00)
[2018-12-02 23:50] LABS: Glucose,Whole Blood 118 mg/dL (75-99)
[2018-12-03] MEDS: PIPERACILLIN-TAZOBACTAM 3.375 GM in SODIUM CHLORIDE 0.9% 100 ML IVPB SCH ×3 (00:48→16:14)
[2018-12-03] MEDS: SODIUM CHLORIDE 0.9% 1,000 ML IV SCH ×2 (01:53→20:52)
[2018-12-03] MEDS: IPRATROPIUM-ALBUTEROL 3 ML NEB INHALATION SCH ×6 (03:34→23:28)
[2018-12-03] MEDS: PROPOFOL 1,000 MG in EMPTY BAG 1 BAG IV SCH ×4 (04:12→22:06)
[2018-12-03 05:12] LABS: Glucose,Whole Blood 116 mg/dL (75-99)
[2018-12-03 05:24] LABS: HCT 30.2 % (39.0-53.0); HGB 9.9 gm/dL (13.0-17.5); Hypochromasia Slight; MCH 29.3 pg (25.0-35.0); MCHC 32.8 g/dL (31.0-37.0); MCV 89.2 fL (80.0-100.0); Platelet Count 205 k/uL (150-450); RBC 3.38 m/uL (4.30-5.90); RDW 13.6 % (11.5-15.5); WBC 9.7 k/uL (3.8-10.6)
[2018-12-03 05:39] LABS: Anion Gap 6 mmol/L; Blood Urea Nitrogen 26 mg/dL (9-20); Calcium 8.7 mg/dL (8.4-10.2); Carbon Dioxide 31 mmol/L (22-30); Chloride 104 mmol/L (98-107); Glucose 110 mg/dL (74-99); Potassium 3.4 mmol/L (3.5-5.1); Sodium 141 mmol/L (137-145)
[2018-12-03] MEDS: INSULIN ASPART (NovoLOG) 100 UNIT/ML VIAL SQ SCH ×4 (06:19→18:17)
[2018-12-03] MEDS ORDERED: Potassium Replacement Protocol 1 EACH MISC MISCELLANE PRN ×2 (06:35→22:08)
[2018-12-03 06:59] LABS: ABG Base Excess 8.1 mmol/L; ABG HCO3 32 mmol/L (21-25); ABG Oxygen Saturation 97.9 % (94-97); ABG PCO2 43 mmHg (35-45); ABG PH 7.48 (7.35-7.45); ABG PO2 94 mmHg (83-108); ABG TCO2 33 mmol/L (19-24)
--- NOTE | 2018-12-03 07:20 | XR ---
EXAMINATION TYPE: XR chest 1V portable DATE OF EXAM: 12/03/2018 HISTORY: Shortness of breath. COMPARISON: 12/02/2018 TECHNIQUE: Single view of the chest is submitted. FINDINGS: Endotracheal tube has been repositioned and is approximately 6 cm from the francisco. Right subclavian c entral venous line unchanged in position. NG tube seen coursing into the stomach. Right basilar eulalio ter unchanged. Persistent large infiltrate throughout the right mid and right lower lung zones with underlying effus ion and/or atelectasis not excluded. No evidence for pneumothorax. Patchy density left perihilar and left medial lung base unchanged. The heart is stable. Hilar and mediastinal structures are within normal limits. Degenerative changes are seen of the dorsal spine. IMPRESSION: 1. Stable appearance of the chest. Endotracheal tube has been repositioned.
[2018-12-03] MEDS: LEVOTHYROXINE 25 MCG TAB PO SCH (08:11)
[2018-12-03] MEDS: FUROSEMIDE 10 MG/ML 4 ML VIAL IV SCH ×2 (08:38→20:51)
[2018-12-03] MEDS: HEPARIN SODIUM,PORCINE 5,000 UNIT/ML 1 ML VIAL SQ SCH (08:38)
[2018-12-03] MEDS: PANTOPRAZOLE 40 MG/10 ML VIAL IV SCH (08:38)
[2018-12-03] MEDS: POTASSIUM BICARBONATE/CIT AC 20 MEQ TABLET.EFF NG-TUBE SCH ×2 (08:38→09:07)
[2018-12-03] MEDS: CHLORHEXIDINE GLUCONATE 15 ML CUP MUCOUS MEM SCH ×2 (08:38→20:51)
[2018-12-03] MEDS: AMIODARONE 300 MG in DEXTROSE 5% IN WATER 250 ML IV SCH ×4 (08:48→18:17)
[2018-12-03] MEDS: METOPROLOL TARTRATE 12.5 MG TAB PO SCH ×2 (09:07→20:51)
[2018-12-03] MEDS: CLOPIDOGREL 75 MG TAB PO SCH (09:07)
[2018-12-03] MEDS ORDERED: HEPARIN SODIUM,PORCINE 5,000 UNIT/ML 1 ML VIAL IV ONE (11:31)
--- NOTE | 2018-12-03 11:41 | P.PN ---
Subjective Progress Note Date: 12/03/18 Principal diagnosis: Acute hypoxic respiratory failure secondary to pneumonia, community-acquired. This is a 73-year-old male patient who came into the hospital because of acute respiratory failure. The patient was extremely dyspneic and using excessive muscle breathing.He was intubated and placed on a mechanical ventilator in the emergency department. The post intubation chest x-ray showed an extensive right lung consolidation occupying the lower two thirds of the right lung. The patient also had some cardiomegaly. Post intubation, the patient was given a total of 2 L of IV fluids . As. per sepsis protocol. He continued to be hypotensive. The triple-lumen catheter was inserted in his right subclavian vein and the patient was continued on fluids and pressors. Currently levo fed is running at a low-dose. Overnight the patient was started on broad-spectrum antibiotics utilizing a combination of Zosyn and Levaquin. Influenza screen is negative. The patient is producing adequate amount of urine output. This morning, the patient's blood gas showed a pH of 7.36 with a pCO2 of 38 and pO2 of 128 and this was on FiO2 of 40% and a PEEP of 5. His rate is at 12 with tidal volume of 400. Renal function is stable. LFTs are within normal limits. No previous history of chronic lung disease. He is known to have cardiac disease with coronary artery disease, previous aortic valve replacement, previous mitral valve repair, paroxysmal atrial fibrillation the patient has been on no anticoagulants due to concerns of Miguel A GI bleed. On 11/26/2018 I'm seeing this patient for a follow-up. The patient remains on a mechanical ventilator and this morning the patient is still in a assist-control mode at the rate of 12 with tidal volume of 400 and FiO2 of 40% and a PEEP of 5. The patient's chest x-ray still showing a dense consolidation of the right lower lobe and there is no significant improvement in his right lower lobe pneumonia. Based on this, the patient was kept on a combination of Zosyn and Levaquin. The patient's cultures of been all negative for and the patient had a bronchoscopy earlier this morning with a bronchioloalveolar lavage of the right lobe of the right lower lobe was done with a total of 30cc is a bronchioloalveolar aspirate was obtained from these lobes. The patient remains sedated with propofol and is calm and comfortable. Enteral feeding has been also initiated. He was off the pressors earlier this morning and following the bronchoscopy had been placed on low-dose levothyroid for hemodynamic support. He is very symptoms with the mechanical ventilator. No significant orotracheal secretions. No fever or chills. No other issues otherwise for now. His cardiac rhythm is showing frequent PACs and PVCs. The blood gases from today showed a pH of 7.37 with a pCO2 of 41 and pO2 of 96 and this was on FiO2 of 40%. On 11/27/2018, patient was seen on follow-up, and he remains in the ICU, on mechanical ventilation. Presently his ventilator settings are assist control rate of 12 tidal volume 400 FiO2 of 40% PEEP of 5. He is on propofol at 50 mcg/kg/m, off norepinephrine this morning, ABG showed a pO2 of 98 pCO2 of 38 pH of 7.42 and this was on 40% FiO2. WBC count is 7.7 hemoglobin 10.7. Electrolytes were normal BUN is 11 creatinine 0.55. Cultures from his bronchoscopy yesterday are pending. Patient remains on broad-spectrum antibiotics. Maintained on Levaquin and Zosyn for now. Patient is sedated, noted to be comfortable on mechanical ventilation. My plan today is to wean sedation, assess mental status, but considering the abnormal findings on the chest x-ray, clearly the patient is not ready for any form of weaning at present. On 11/28/2018, patient remains in the ICU and on mechanical ventilation. His ventilator settings are tidal volume of 400 assist control rate of 12 FiO2 of 40% and PEEP of 5. Patient remains on multiple drips including propofol 50 mcg/kg/m, norepinephrine at 0.04 mcg/kg/m. ABG showed a pO2 of 123 pCO2 40, pH of 7.46. CBC is relatively normal WBC count is 10.8 hemoglobin is 11 lites are normal, renal profile is normal chest x-ray showed improving right lower lobe infiltrate, tubes and lines seem to be in proper positions including nasogastric tube, central lines and catheters. Endotracheal tube. Patient is sedated, and my plan today is to hold sedation, and assess mental status, doubt if the patient will wean today, continues to have significant airspace disease involving the right lung, but will assess mental status at least today, and hopefully start addressing weaning in the next 24 hours. Microbiology from his lavage/bronchoscopy is pending. Patient remains on broad-spectrum empiric antibiotics. Blood cultures have been negative. Reevaluated today on 11/29/2018, remains on mechanical ventilation, same ventilator settings as noted above, however his FiO2 is down to 35%. Patient is off norepinephrine, remains on propofol which I have discontinued this morning and would like to assess weaning parameters and determine whether the patient could be weaned and extubated today. Chest x-ray is showing some improvement but continues to have significant consolidation in the right lower lobe. There is also evidence of interstitial edema, hence I recommended an extra dose of Lasix this morning. ABG today showed a pO2 of 92 pCO2 of 43 pH of 7.47. Electrolytes and renal profile are normal WBC count is 8.7 hemoglobin is 10.5. Off propofol, patient was noted to be arousable, follows simple instructions, but does not maintain a good eye contact. All his meds were reviewed, and his labs as well as x-ray was reviewed today. Patient was reevaluated today on 11/30/2018, remains on mechanical ventilation, same ventilator settings as above, he is on FiO2 of 35%, assist control rate of 12, tidal volume of 400, PEEP of 5. His ABG is significantly improved with a pO2 of 86 pCO2 of 43 pH of 7.48 however his chest x-ray continues to show significant amount of consolidation in the right lower lobe. Patient's weaning parameters were reviewed this morning, his nurse is -18, however his respiratory rate is in the 30s, continues to have significant amount of secretions patient is close to be weaned, but considering the chest x-ray, and considering Remeron of secretions he has, and considering that his weaning parameters are marginal, I felt it would be best to keep him on mechanical ventilation for at least another day. Hoping that his secretions will become less, and his right lower lobe pneumonia improved. Patient is off norepinephrine, he has good urine output, he is hemodynamically stable, all labs including CBC and basic metabolic profile were noted, potassium is a bit low at 3.2, be corrected as per protocol. Patient is off propofol, awake, mentating good eye contact, looks generally weak, but follows all instructions. Reevaluated today on 12/01/2018, remains on mechanical ventilation, same vent settings as noted above. ABG showed a pO2 of 85 pCO2 of 46 pH of 7.46. Chest x-ray is showing worsening right lower lobe consolidation, and suspect some component of interstitial edema/congestive heart failure. Patient is presently off propofol, however considering the abnormality on the chest x-ray and consi dering the patient became quite tachypneic and tachycardic on pressure support of 10 and CPAP, I decided to place him back on assist control mode of mechanical ventilation, keep him sedated, and I will arrange for bronchoscopy and lavage of the right lung. In the meantime his Lasix dose was increased to 40 mg twice a day. CBC showed a WBC count of 8.1 hemoglobin is 9.7. Lactulose are normal lainey al profile is normal. BUN is 33 creatinine is 0.82. Reevaluated today on 12/02/2018, patient remains on mechanical ventilation, same vent settings, ABG showeda pO2 of 90 pCO2 of 42 pH of 7.48. His CBC is relatively unremarkable. Electrolytes showed normal profile. BUN is up to 30 creatinine 0.78. Patient remains on enteral nutritional support, remains on antibiotics, and yesterday he underwent bronchoscopy and bronchoalveolar lavage. The findings from the bronchoscopy were not very impressive, hence I recommended a CT of the chest, and apparently the chest x-ray is showing right lower lobe opacity turned out to be actually fluid in the minor fissure seems to be increasing over time. May the patient required ultrasound-guided or CT- guided pigtail catheter placement. This will be decided upon once the patient is off mechanical ventilation. Today I plan to wean the patient, hence propofol was discontinued, patient will be given a weaning trial, we'll likely place him back on pressure support of 8 and CPAP, and we will repeat ABG in 1 hour on CPAP and pressure support. If the patient tolerates the weaning, may proceed to extubation today. In the meantime tube feeding is placed on hold. And propofol is also on hold. Off propofol, the patient was noted to be arousable, follows simple instructions, but seems to be generally weak. He is marginal for weaning at best. However if the patient fails weaning, May have to seriously considered tracheostomy in this patient. Patient was reevaluated today on 12/03/2018, he was extubated yesterday for few hours, then the patient went into a form of wide-complex tachycardia, ventricular tachycardia, he was shocked twice, and placed on amiodarone drip and he remains on the amiodarone drip at present. In the process of the patient was reintubated, placed back on his usual ventilator settings, presently on FiO2 of 40% assist control rate of 12 tidal volume of 400 and PEEP of 5.ABG this morning showed a pO2 of 94 pCO2 of 43 pH of 7.48. Basic metabolic profile is relatively normal except for low potassium of 3.4 being corrected as per protocol. Chest x-ray is basically about the same, and again the haziness noted in the right lower lobe is not truly parenchymal in nature, it is fluid loculated in the minor fissure as noted on the CT of the chest. May eventually require ultrasound or CT-guided needle aspiration and possibly a pigtail catheter placement by interventional radiology. However considering the events yesterday and considering the patient developed ventricular tachycardia post extubation, I strongly felt that the patient needs to be evaluated for tracheostomy, and I went ahead and placed a consultation to general surgery for tracheostomy and PEG tube placement to be done either tomorrow or Tuesday. Patient will be extremely difficult to wean, hence tracheostomy and PEG tube placement would be a ppropriate at this point. Today I plan to wean the patient off propofol, assess his mental status, but I have no plans to extubate the patient mostly because of the events that happened yesterday.patient is presently on propofol, he is also on norepinephrine at 2.5 mcg/m. Back on his enteral feeding via nasogastric tube. Back on his usual medications and antibiotics. Objective - Vital Signs Vital signs: Vital Signs Temp 98.1 F 12/03/18 08:00 Pulse 66 12/03/18 11:14 Resp 19 12/03/18 11:00 BP 100/61 12/03/18 11:00 Pulse Ox 100 12/03/18 11:00 Intake & Output 12/02/18 12/03/18 12/03/18 18:59 06:59 18:59 Intake Total 837 1627.490 859.050 Output Total 1970 1565 705 Balance -1133 62.490 154.050 Weight 60.2 kg Intake: IV 791 1329 490 0.9% NS @ KVO 120 80 100 Amiodarone 300 mg In 175 25 Dextrose 5% in Water 250 ml @ 0.5 MG/MIN 25 mls/hr IV .Q10H [facility] Rx#: [id number] Amiodarone 360 mg In 166 Dextrose 5% in Water 200 ml @ 1 MG/MIN 33.333 mls/ hr IV .Q6H [facility] Rx#: [id number] CVP/ART 51 33 15 Levofloxacin 750Mg-D5w 150 Pmx 750 mg In Dextrose/ Water 1 150ml.bag @ 100 mls/hr IVPB Q24H [facility] Rx#: [id number] Piperacillin-Tazobactam 3 200 125 100 .375 gm In Sodium Chloride 0.9% 100 ml @ 25 mls/hr IVPB Q8HR [facility] Rx# :[id number] Sodium Chloride 0.9% 1, 420 600 250 000 ml @ 50 mls/hr IV . Q20H [facility] Rx#:[id number] Intake, IV Titration 0 252.490 339.050 Amount Amiodarone 300 mg In 245 Dextrose 5% in Water 250 ml @ 0.5 MG/MIN 25 mls/hr IV .Q10H [facility] Rx#: [id number] Norepinephrine 8 mg In 0 76.616 Sodium Chloride 0.9% 250 ml @ 0.05 MCG/KG/MIN 5. 486 mls/hr IV .Q24H [facility] Rx#:[id number] Propofol 1,000 mg In 175.874 94.050 Empty Bag 1 bag @ Titrate IV .Q0M [facility] Rx#: [id number] Tube Feeding 46 46 Other 30 Output: Urine 1970 1565 705 Other: Voiding Method Indwelling Catheter Indwelling Catheter Indwelling Catheter # Bowel Movements 1 ABP, PAP, CO, CI - Last Documented Arterial Blood Pressure 118/61 - Exam Physical Exam: Revealed a 73-year-old -Citizen Of [place] male on mechanical ventilation, sedated, on propofol, he is also on 2.5 g of norepinephrine per minute Head: Atraumatic, normocephalic. patient seems to prefer a flexed neck position, apparently has chronic neck stiffness. HEENT:PERRLA, EOMI, endotracheal tube is intact, significant oral secretions noted no endotracheal tube secretions.moist mucous membranes. No JVD.there is definite limitation in the range of motion of the neck. Chest: [diminished breath sounds and crackles at the bases some rhonchi noted bilaterally Cardiac Exam: [Normal S1 and S2, no S3 gallop, 2/6 systolic murmur thought the precordium. Abdomen: [Soft, nontender, no megaly, no rebound, no guarding, normal bowel sounds.] Extremities: [No clubbing, trace of edema edema, no cyanosis.] Neurological Exam: could not be assessed today, presently on propofol. However I plan to wean propofol, and assess mental status but no plans to wean. Psychiatric:cannot be assessed today. Lymphatics: No lymphadenopathy. Skin: No rashes. - Labs CBC & Chem 7: 12/03/18 04:59 12/03/18 04:59 Labs: Abnormal Lab Results - Last 24 Hours (Table) 12/02/18 12/02/18 12/02/18 Range/Units 04:00 12:07 14:17 RBC (4.30-5.90) m/uL Hgb (13.0-17.5) gm/dL Hct (39.0-53.0) % ABG pH (7.35-7.45) ABG pCO2 (35-45) mmHg ABG pO2 (83-108) mmHg ABG HCO3 (21-25) mmol/L ABG Total CO2 (19-24) mmol/L ABG O2 Saturation (94-97) % Potassium (3.5-5.1) mmol/L Carbon Dioxide 31 H (22-30) mmol/L BUN 28 H (9-20) mg/dL Glucose 206 H (74-99) mg/dL POC Glucose (mg/dL) 126 H (75-99) mg/dL Magnesium 2.5 H (1.6-2.3) mg/dL Procalcitonin 1.00 H (0.02-0.09) ng/mL 12/02/18 12/02/18 12/02/18 Range/Units 15:37 18:18 23:38 RBC (4.30-5.90) m/uL Hgb (13.0-17.5) gm/dL Hct (39.0-53.0) % ABG pH (7.35-7.45) ABG pCO2 48 H (35-45) mmHg ABG pO2 247 H (83-108) mmHg ABG HCO3 30 H (21-25) mmol/L ABG Total CO2 31 H (19-24) mmol/L ABG O2 Saturation 98.1 H (94-97) % Potassium (3.5-5.1) mmol/L Carbon Dioxide (22-30) mmol/L BUN (9-20) mg/dL Glucose (74-99) mg/dL POC Glucose (mg/dL) 133 H 118 H (75-99) mg/dL Magnesium (1.6-2.3) mg/dL Procalcitonin (0.02-0.09) ng/mL 12/03/18 12/03/18 12/03/18 Range/Units 04:59 04:59 05:00 RBC 3.38 L (4.30-5.90) m/uL Hgb 9.9 L (13.0-17.5) gm/dL Hct 30.2 L (39.0-53.0) % ABG pH (7.35-7.45) ABG pCO2 (35-45) mmHg ABG pO2 (83-108) mmHg ABG HCO3 (21-25) mmol/L ABG Total CO2 (19-24) mmol/L ABG O2 Saturation (94-97) % Potassium 3.4 L (3.5-5.1) mmol/L Carbon Dioxide 31 H (22-30) mmol/L BUN 26 H (9-20) mg/dL Glucose 110 H (74-99) mg/dL POC Glucose (mg/dL) 116 H (75-99) mg/dL Magnesium (1.6-2.3) mg/dL Procalcitonin (0.02-0.09) ng/mL 12/03/18 Range/Units 06:54 RBC (4.30-5.90) m/uL Hgb (13.0-17.5) gm/dL Hct (39.0-53.0) % ABG pH 7.48 H (7.35-7.45) ABG pCO2 (35-45) mmHg ABG pO2 (83-108) mmHg ABG HCO3 32 H (21-25) mmol/L ABG Total CO2 33 H (19-24) mmol/L ABG O2 Saturation 97.9 H (94-97) % Potassium (3.5-5.1) mmol/L Carbon Dioxide (22-30) mmol/L BUN (9-20) mg/dL Glucose (74-99) mg/dL POC Glucose (mg/dL) (75-99) mg/dL Magnesium (1.6-2.3) mg/dL Procalcitonin (0.02-0.09) ng/mL Microbiology - Last 24 Hours (Table) 12/01/18 12:50 Gram Stain - Final Bronchoalviolar Lavage - Right Bronchial Washings Culture - Final Assessment and Plan Assessment: Impression: 1 acute hypoxic respiratory failure secondary to multilobar pneumonia, community-acquired. BAL cultures have been nondiagnostic twice 2 acute sepsis and septic shock,improving, back on pressors however small dose of norepinephrine today. 3 paroxysmal atrial fibrillation 4 underlying coronary artery disease 5 history of aortic valve replacement with bioprosthetic valve and mitral valve repair. 6 thrombocytopenia secondary to sepsis and pneumonia 7 acute lactic acidosis on presentation secondary to sepsis and septic shock.resolved. 8 history of aspergilloma, monitored for many years. 9 Essential hypertension 10 hypothyroidism 11 prostate cancer and previous radiation treatment. 12 loculated pleural effusion and the minor fissure may eventually require CT- guided or ultrasound-guided pigtail catheter placement. 13 failed extubation complicated by ventricular tachycardia, requiring defibrillation, and amiodarone drip. This was on 12/02/2018. Recommendation: continue ventilatory support, hemodynamic support, nutritional support, antibiotics, GI and DVT prophylaxis, sedation, assess mental status today, continue diuretics, will definitely arrange for surgical consultation and possibly tracheostomy and PEG tube placement. Patient will be extremely difficult to wean, and after noticing yesterday's events post extubation, pat ient will likely develop tachyarrhythmias again was extubated, it is best to proceed with tracheostomy and PEG tube placement. Critical care time is 35 minutes Time with Patient: Greater than 30
[2018-12-03 12:00] LABS: Glucose,Whole Blood 124 mg/dL (75-99)
[2018-12-03 12:05] LABS: Basophils % (A) 0 %; Eosinophils # (A) 0.2 k/uL (0-0.7); Eosinophils % (A) 2 %; HCT 32.2 % (39.0-53.0); HGB 10.1 gm/dL (13.0-17.5); Hypochromasia Slight; Lymphocytes # (A) 0.7 k/uL (1.0-4.8); Lymphocytes % (A) 6 %; MCH 27.4 pg (25.0-35.0); MCHC 31.3 g/dL (31.0-37.0); MCV 87.5 fL (80.0-100.0); Mean Platelet Volume 9.5; Monocytes # (A) 0.5 k/uL (0-1.0); Monocytes % (A) 4 %; Neutrophils # (A) 9.8 k/uL (1.3-7.7); Neutrophils % (A) 84 %; Platelet Count 229 k/uL (150-450); RBC 3.68 m/uL (4.30-5.90); RDW 13.6 % (11.5-15.5); WBC 11.6 k/uL (3.8-10.6)
[2018-12-03 12:13] LABS: INR 1.1 (<1.2); Partial Thromboplastin Time 28.6 sec (22.0-30.0); Prothrombin Time 11.3 sec (9.0-12.0)
--- NOTE | 2018-12-03 13:32 | CONS ---
MARGIE Hodge is a 73-year-old gentleman that we have been consulted because of an episode of nonsustained VT. The patient had an echocardiogram because of an episode of ventricular tachycardia. His echocardiogram that he had yesterday, his ejection fraction was diminished at 35% to 40% The patient has been in the hospital for a long time. In fact, he was admitted on 11/24/2018 because of shortness of breath, persistent cough and dyspnea. Subsequently had to be intubated and with a large right-sided pneumonia. had sepsis and septic shock. He was extubated yesterday, was doing fine and then developed a run of wide-complex tachycardia. He had to be shocked. He went into atrial fibrillation and subsequently converted to sinus rhythm. His past medical history is significant for coronary artery disease, status post CABG, status post valve replacement, paroxysmal atrial fibrillation, cardiomyopathy, chronic systolic heart failure, hypertension, dyslipidemia, and CA prostate. REVIEW OF SYSTEMS: I am unable to obtain from the patient who is intubated and on vent on. PAST MEDICAL AND SURGICAL HISTORY: Significant for CAD, status post CABG, thyroidectomy, valve replacement, cataract surgery, cystoscopy, hypertension, dyslipidemia. MEDICATIONS: At home included Synthroid, Protonix, multivitamin, Zofran, Lasix, Klor-Con, iron, Lopressor 50 b.i.d., Plavix 75 daily, Zestril 2.5 daily, and Xalatan. ALLERGIES: There are no known drug allergies. FAMILY HISTORY AND SOCIAL HISTORY: I am not able to obtain from the patient. EXAM: On exam, he is intubated on vent. Heart rate is 66 beats per minute. Blood pressure is 100/60, respiratory rate is 18. Chest exam reveals diminished air entry bilaterally. Heart exam reveals first and second heart sounds. No gallop. Exam of the extremities did not reveal any edema. Peripheral pulses are palpable. LABS: Show that the hemoglobin is 9.9, potassium is 3.4, creatinine is 0.7, platelet count is 205. His magnesium was normal when it happened yesterday. ASSESSMENT: 1. Ventricular tachycardia. 2. Ischemic cardiomyopathy with moderate LV dysfunction. 3. Recent pneumonia and respiratory failure. 4. Paroxysmal atrial fibrillation. 5. Multivalvular heart disease. PLAN: I am not sure why the patient was not on anticoagulation given the history of atrial fibrillation. However, I am going to start him on IV heparin on this admission, continue the IV Cordarone and switch him to p.o. once it runs out. Will decide on further course of action based on how he progresses from here. AVRIL / CARLOTA: [id number] /
[2018-12-03] MEDS: HEPARIN SOD,PORK IN 0.45% NACL 25,000 UNIT in 0.45% NACL 1 250ML.BAG IV SCH (13:48)
--- NOTE | 2018-12-03 14:17 | P.GSCN ---
History of Present Illness Consult date: 12/03/18 History of present illness: CHIEF COMPLAINT: Acute respiratory failure, prolonged mechanical ventilation HISTORY OF PRESENT ILLNESS: The patient is a 73-year-old male who was admitted 11/24/2018. Since admission, he has been supported on mechanical ventilation secondary to acute respiratory failure with bilateral lobar pneumonia. He has a significant cardiac history including both aortic and mitral valvular replacement. He has history of chronic atrial fibrillation. Additional history is obtained by the patient's nurse as the patient is sedated and on the v entilator. He was attempted extubation yesterday however he went into prolonged ventricular tachycardia and had to be reintubated. As a result of his dependence on mechanical ventilation and prolonged acute respiratory failure, request for tracheostomy and placement of gastrostomy tube has been made by the critical care team. The patient has been in the ICU as a result of his multiple comorbidities and vent dependent respiratory failure for over 10 days. PAST MEDICAL HISTORY: See list. PAST SURGICAL HISTORY: See list. MEDICATIONS: See list. ALLERGIES: See list. SOCIAL HISTORY: See list. FAMILY HISTORY: No reports of Crohn's disease or inflammatory bowel disease REVIEW OF ORGAN SYSTEMS (per review of chart): CONSTITUTIONAL: Recent fever including recent weight loss. EYES: No trouble with vision. No glasses. HEENT: No nosebleeds. Prolonged ventilation without ability to swallow. RESPIRATORY: Has pneumonia. He presented with difficulty breathing CARDIOVASCULAR: Significant coronary disease including atrial fibrillation, mitral valvular and aortic valvular replacement. GASTROINTESTINAL: Chronic diarrhea with past bowel resection GENITOURINARY: No blood in urine. Has Ulloa catheter for monitored urine output NEUROLOGICAL: No seizure disorders. Place on intermittent sedation holiday on mechanical ventilation. No history of strokes. MUSCULOSKELETAL: Past back pain, stiffness or joint arthritis. SKIN: No current skin cancer. No rash. PSYCHIATRIC: No current depression or suicidal thoughts. ENDOCRINE: Has thyroid disorders. No blood sugar glucose intolerance. HEME/LYMPHATIC: No recent deep venous thrombosis. On chronic antiplatelet therapy ALLERGY/IMMUNOLOGY: No immunoglobulin therapy. No immune deficiencies. BREAST: No current breast lumps, pain or nipple discharge. PHYSICAL EXAM: VITALS: Reviewed CONSTITUTIONAL: Well developed and in no acute distress. EYES: Conjuctivae without sclera icterus. Pupils are equally round and reactive to light. HEAD, EARS, NOSE, THROAT: Moist buccal mucosa. Head is atraumatic, normocephalic. Hears conversational speech. No nasal drainage. NECK: Supple. No JV distention. No thyroidomegaly. RESPIRATORY: Non-labored respirations and equal bilateral excursions. Full mechanical ventilatory support. Long thoracic cavity CARDIOVASCULAR: Irregular rate and irregular rhythm. Extremities without modera te edema. Palpable 2+ radial pulses. ABDOMEN: No hepatomegaly. Soft. Nondistended. No peritonitis. Well-healed lower midline incision. LYMPH: No neck lymphadenopathy. MUSCULOSKELETAL: Nail and fingers with good capillary refill. No clubbing cyanosis or edema SKIN: Warm and well perfused with good skin turgor. NEUROLOGIC: No focal or lateralizing signs. PSYCH: Deferred secondary to sedation under full mechanical ventilatory support CLINCAL LABS: Reviewed with leukocytosis over 10,000 RADIOLOGY: Report reviewed CARDIOLOGY: Echocardiogram reviewed with ejection fraction between 35-40%. IMAGING: Independently reviewed with increased consolidation right lower lobe. ASSESSMENT: 1. Acute respiratory failure with prolonged dependent mechanical ventilation, 10 days 2. Inadequate protein intake secondary to acute respiratory failure 3. Bilateral lower lobe pneumonia 4. History of sepsis 5. History exploratory laparotomy PLAN: 1. Agreeable with tracheostomy 2. With history of previous exploratory laparotomy small risk of open gastrostomy tube placement needed 3. In the interim, continue ventilatory support including TPN 4. Overall, patient is intermediate to high risk for perioperative complications for underlying heart disease and pneumonia Thank you for this kind consultation. Past Medical History Past Medical History: Cancer, Chest Pain / Angina, GI Bleed, Hyperlipidemia, Hypertension, Osteoarthritis (OA), Pneumonia, Thyroid Disorder Additional Past Medical History / Comment(s): prostate cancer HAD RADIATION TREATMENTS ,recent kidney stones- saw Dr Kohler for blood in urine-told due to k idney stones, 06/21/18-cystoscopy at [facility] for kidney stone, frequent diarrhea, History of Any Multi-Drug Resistant Organisms: None Reported Past Surgical History: Coronary Bypass/CABG, Heart Catheterization Additional Past Surgical History / Comment(s): thyroidectomy, 3 cardiac valve (bovine) replacements, stomach surgery unsure what kind, blanca cataract surgery, bowel surgery-not sure what kind, 06/21/18 cystoscopy for kidney stone Past Anesthesia/Blood Transfusion Reactions: No Reported Reaction Past Psychological History: No Psychological Hx Reported Additional Psychological History / Comment(s): . Smoking Status: Former smoker Past Alcohol Use History: None Reported Additional Past Alcohol Use History / Comment(s): smoker for 40 years 3ppd quitt 1998 Past Drug Use History: None Reported - Past Family History Father Family Medical History: Cancer Additional Family Medical History / Comment(s): . Mother Family Medical History: Cancer Additional Family Medical History / Comment(s): Mother had history of leukemia and is . Medications and Allergies Home Medications Medication Instructions Recorded Confirmed Type Levothyroxine Sodium [Synthroid] 25 mcg PO DAILY 03/06/15 11/23/18 History Pantoprazole Sodium 40 mg PO DAILY 03/06/15 11/23/18 History Multivitamin with Iron 1 tab PO DAILY 07/16/16 11/23/18 History [Multivitamins with Iron] Ondansetron [Zofran] 4 mg PO Q8H PRN 07/16/16 11/23/18 History Potassium Chloride [Klor-Con 10] 10 meq PO DAILY 08/18/16 11/23/18 History Furosemide [Lasix] 20 mg PO BID 11/09/17 11/23/18 History Ferrous Sulfate [Iron (65 MG 325 mg PO DAILY 04/11/18 11/23/18 History Elemental)] Metoprolol Tartrate [Lopressor] 50 mg PO BID 04/11/18 11/23/18 History Latanoprost [Xalatan 0.005%] 1 drop BOTH EYES HS 06/18/18 11/23/18 History Clopidogrel [Plavix] 75 mg PO DAILY 07/03/18 11/23/18 History Lisinopril [Zestril] 2.5 mg PO DAILY 11/23/18 11/23/18 History Allergies Allergy/AdvReac Type Severity Reaction Status Date / Time No Known Allergies Allergy Verified 07/05/18 08:04 Surgical - Exam Vital Signs Pulse 147 H 11/23/18 20:13 Results - Labs 12/03/18 11:46 12/03/18 04:59 Abnormal Lab Results - Last 24 Hours (Table) 12/02/18 12/02/18 12/02/18 Range/Units 04:00 14:17 15:37 WBC (3.8-10.6) k/uL RBC (4.30-5.90) m/uL Hgb (13.0-17.5) gm/dL Hct (39.0-53.0) % Neutrophils # (1.3-7.7) k/uL Lymphocytes # (1.0-4.8) k/uL ABG pH (7.35-7.45) ABG pCO2 48 H (35-45) mmHg ABG pO2 247 H (83-108) mmHg ABG HCO3 30 H (21-25) mmol/L ABG Total CO2 31 H (19-24) mmol/L ABG O2 Saturation 98.1 H (94-97) % Potassium (3.5-5.1) mmol/L Carbon Dioxide 31 H (22-30) mmol/L BUN 28 H (9-20) mg/dL Glucose 206 H (74-99) mg/dL POC Glucose (mg/dL) (75-99) mg/dL Magnesium 2.5 H (1.6-2.3) mg/dL Procalcitonin 1.00 H (0.02-0.09) ng/mL 12/02/18 12/02/18 12/03/18 Range/Units 18:18 23:38 04:59 WBC (3.8-10.6) k/uL RBC 3.38 L (4.30-5.90) m/uL Hgb 9.9 L (13.0-17.5) gm/dL Hct 30.2 L (39.0-53.0) % Neutrophils # (1.3-7.7) k/uL Lymphocytes # (1.0-4.8) k/uL ABG pH (7.35-7.45) ABG pCO2 (35-45) mmHg ABG pO2 (83-108) mmHg ABG HCO3 (21-25) mmol/L ABG Total CO2 (19-24) mmol/L ABG O2 Saturation (94-97) % Potassium (3.5-5.1) mmol/L Carbon Dioxide (22-30) mmol/L BUN (9-20) mg/dL Glucose (74-99) mg/dL POC Glucose (mg/dL) 133 H 118 H (75-99) mg/dL Magnesium (1.6-2.3) mg/dL Procalcitonin (0.02-0.09) ng/mL 12/03/18 12/03/18 12/03/18 Range/Units 04:59 05:00 06:54 WBC (3.8-10.6) k/uL RBC (4.30-5.90) m/uL Hgb (13.0-17.5) gm/dL Hct (39.0-53.0) % Neutrophils # (1.3-7.7) k/uL Lymphocytes # (1.0-4.8) k/uL ABG pH 7.48 H (7.35-7.45) ABG pCO2 (35-45) mmHg ABG pO2 (83-108) mmHg ABG HCO3 32 H (21-25) mmol/L ABG Total CO2 33 H (19-24) mmol/L ABG O2 Saturation 97.9 H (94-97) % Potassium 3.4 L (3.5-5.1) mmol/L Carbon Dioxide 31 H (22-30) mmol/L BUN 26 H (9-20) mg/dL Glucose 110 H (74-99) mg/dL POC Glucose (mg/dL) 116 H (75-99) mg/dL Magnesium (1.6-2.3) mg/dL Procalcitonin (0.02-0.09) ng/mL 12/03/18 12/03/18 Range/Units 11:46 11:48 WBC 11.6 H (3.8-10.6) k/uL RBC 3.68 L (4.30-5.90) m/uL Hgb 10.1 L (13.0-17.5) gm/dL Hct 32.2 L (39.0-53.0) % Neutrophils # 9.8 H (1.3-7.7) k/uL Lymphocytes # 0.7 L (1.0-4.8) k/uL ABG pH (7.35-7.45) ABG pCO2 (35-45) mmHg ABG pO2 (83-108) mmHg ABG HCO3 (21-25) mmol/L ABG Total CO2 (19-24) mmol/L ABG O2 Saturation (94-97) % Potassium (3.5-5.1) mmol/L Carbon Dioxide (22-30) mmol/L BUN (9-20) mg/dL Glucose (74-99) mg/dL POC Glucose (mg/dL) 124 H (75-99) mg/dL Magnesium (1.6-2.3) mg/dL Procalcitonin (0.02-0.09) ng/mL Microbiology - Last 24 Hours (Table) 12/01/18 12:50 Gram Stain - Final Bronchoalviolar Lavage - Right Bronchial Washings Culture - Final Diabetes panel 12/02/18 12/03/18 Range/Units 14:17 04:59 Sodium 144 141 (137-145) mmol/L Potassium 4.0 3.4 L (3.5-5.1) mmol/L Chloride 105 104 (98-107) mmol/L Carbon Dioxide 31 H 31 H (22-30) mmol/L BUN 28 H 26 H (9-20) mg/dL Creatinine 0.86 0.75 (0.66-1.25) mg/dL Glucose 206 H 110 H (74-99) mg/dL Calcium 9.6 8.7 (8.4-10.2) mg/dL Calcium panel 12/02/18 12/03/18 Range/Units 14:17 04:59 Calcium 9.6 8.7 (8.4-10.2) mg/dL Pituitary panel 12/02/18 12/03/18 Range/Units 14:17 04:59 Sodium 144 141 (137-145) mmol/L Potassium 4.0 3.4 L (3.5-5.1) mmol/L Chloride 105 104 (98-107) mmol/L Carbon Dioxide 31 H 31 H (22-30) mmol/L BUN 28 H 26 H (9-20) mg/dL Creatinine 0.86 0.75 (0.66-1.25) mg/dL Glucose 206 H 110 H (74-99) mg/dL Calcium 9.6 8.7 (8.4-10.2) mg/dL Adrenal panel 12/02/18 12/03/18 Range/Units 14:17 04:59 Sodium 144 141 (137-145) mmol/L Potassium 4.0 3.4 L (3.5-5.1) mmol/L Chloride 105 104 (98-107) mmol/L Carbon Dioxide 31 H 31 H (22-30) mmol/L BUN 28 H 26 H (9-20) mg/dL Creatinine 0.86 0.75 (0.66-1.25) mg/dL Glucose 206 H 110 H (74-99) mg/dL Calcium 9.6 8.7 (8.4-10.2) mg/dL
[2018-12-03] MEDS ORDERED: POTASSIUM BICARBONATE/CIT AC 20 MEQ TABLET.EFF NG-TUBE SCH (16:00)
--- NOTE | 2018-12-03 17:01 | P.PN ---
Subjective Progress Note Date: 12/03/18 This is a 73-year-old -[place] male patient of Dr. Kohler with past medical history of hyperlipidemia, hypertension, hypothyroidism, history of recent prostate cancer status post radiation, coronary artery disease status CABG, history of bioprosthetic valve, paroxysmal atrial fibrillation, hypothyr oidism, cardiomyopathy EF 45%, chronic systolic heart failure, radiation proctitis with acute on chronic blood loss anemia, colonoscopy last November 2017 confirming radiation proctitis. Patient comes in to the emergency room secondary to increasing difficulty of breathing, was in respiratory distress when seen in the ER, patient was extremely dyspneic, unable to provide history, the niece was there that provided some information, patient has had difficulties with upper respiratory for the past several years with dry cough however few hours prior to admission, patient has declined rapidly with significant dyspnea, tachypnea, patient was subsequently intubated in the emergency room. And admitted to ICU with sepsis and septic shock, and a large right pneumonia.. She he is currently followed by Dr. Wharton from critical care medicine, chest x-ray in emergency room shows extensive consolidation right lung with underlying pulmonary fibrosis, upper lobes. Patient requires pressor support, along with fluid resuscitation, required 2 L of boluses in the emergency room, and is currently on Zosyn, Levaquin,l evophed secondary to sepsis with pneumonia, aspirative events is under consideration, patient has dysphagia to foods. 11/25: Patient remains in the intensive care unit intubated and on mechanical ventilation. Dr. Wharton is following and plan to try extubating today. Patient is continued on Zosyn and Levaquin. Morning chest x-ray reveals no significant interval change. 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 Lab work reveals white count of 11.7, hemoglobin 11.2 and platelet count 102. Chloride 114, CO2 21, BUN 9 and creatinine 0.71. Blood sugars running between 110 and 120. TSH 0.176 and free T4 0.97. Blood cultures showing no growth after 24 hours. Sputum cultures in progress. Legionella testing is pending. Patient has been started on tube feedings. 11/26: Patient has been afebrile, heart rate in the 70s and 80s, blood pressure 130/59. Patient remains intubated and on mechanical ventilation. WBC 7.2, hemoglobin 11.5, platelet count 96, creatinine 0.62. Blood sugars running between 113 -132. All blood cultures were no growth at 48 hours and sputum c ultures in progress. Repeat chest x-ray shows worsening bibasilar airspace disease. Changes consistent with mild pulmonary edema area and small bilateral effusions. Patient underwent bronchoscopy this morning and bloody fluid was sent for cultures. There is concern today percussively. Patient has been off norepinephrine since 3 AM. He is on tube feedings. 11/27: Patient remains intubated and on mechanical ventilation. He has been hemodynamically stable since he has been off norepinephrine. White count is normal, hemoglobin 10.7 and platelet count 101. Creatinine 0.55. Blood sugars running between 08/15/1939. Bronchial washing cultures are in progress. Sputum culture was finalized with normal respiratory julien. Blood cultures no growth after 72 hours. Repeat chest x-ray shows slight worsening in the mid and lower lung confluent airspace disease likely sequela of heart failure with pulmonary edema. Underlying small effusions persist. Ultrasound of the chest has been ordered for today. Patient remains on tube feedings and dietitian is following. field sales manager has been a sinus rhythm. 11/28: Patient remains intubated and on mechanical ventilation and intensive care unit. Plan is for sedation holiday today in no extubation. Patient is on a very low dose of norepinephrine which is being weaned off. Temperature max 100.8, heart rate 102, blood pressure 107/59, pulse ox 97%. WBC is 10.8, hemoglobin 11, platelet count 146. Creatinine 0.63. Blood sugars are between 120 and 170. Chest x-ray showed improving right lower lobe infiltrate. Cytology remains pending. Bronchial washing cultures in progress. Chest ultrasound done yesterday showed a right pleural effusion of 1.1 cm and left 2.2 cm. Patient's brother is at the bedside and has been updated. 11/29: Patient remains intubated and on mechanical ventilation patient is to be off propofol this morning and possible weaning. Repeat chest x-ray reveals persistence of peripheral right lower lobe consolidation. Small milder infiltrate remaining lung bases is improving. Temperature max 100.4 yesterday afternoon, heart rate in the 90s, blood pressure 122/59. WBC 8.7, hemoglobin 10.5, platelet count 111. CO2 31, creatinine 0.55. Blood sugars running between 113-145. Patient's brother is at the bedside and has been updated. 11/30: Patient remains intubated and on mechanical ventilation. He is currently off propofol and responding appropriately and following commands. He is not on vasopressors. Weaning attempt planned for tomorrow. Cytology report reveals no malignant cells identified. White count is 9.3, hemoglobin 10.4, platelet count 139. Sodium 142, potassium 3.2, chloride 104, CO2 31, BUN 26 and creatinine 0.68. Blood sugars running between 119 124. He needs him to 0.2. Repeat chest x-ray shows overall stable findings, bilateral diffuse right mid and lower lung consolidation and additional bilateral patchy areas of edema and/or infiltrates on the background of chronic parenchymal change. 12/01: Patient remains intubated and on mechanical ventilation. He is currently off propofol and able to follow commands. Patient may be attempted on weaning today. Patient's brother is at the bedside and has been updated. Patient is not on any vasopressors. He has been afebrile, heart rate in the 90s to low 100s, blood pressure 133/74. WBC 8.1, hemoglobin 9.7, platelet count 164. CO2 31, BUN 33 and creatinine 0.82. Chest x-ray reveals increasing left basilar opacities may represent small pleural effusion and atelectasis or pneumonia. Stable right midlung and right basilar opacities and stable mild interstitial pulmonary edema. 12/02: Patient remains intubated he is now on a breathing trial and a sedation holiday. Patient is able to follow commands. Brother is at the bedside and has been updated. Patient is no longer on vasopressors. He has been afebrile, heart rate in the 80s to 90s, blood pressure 136/70. W we see is a 0.3, hemoglobin 10.2, platelet count 32.1, BUN is 31, creatinine 0.78, BNP 3110. Chest x-ray shows cardiomegaly with worsening interstitial opacities. Small bilateral effusion. Some locally did effusion within the minor fissure on the right and minimal fluid within the major fissure of the right is likely present. Changes are compatible with some pulmonary fibrosis. 12/03 patient remains intubated. He did have a sedation weaning trial and was extubated briefly shortly after patient had a wide complex tachycardia and was shocked twice he was placed on amiodarone drip and was reintubated. Currently patient is on FiO2 of 40, an assist control tidal volume 400 respiratory rate of 12 with PEEP of 5. Currently sedated on propofol. Patient is off the levo fed and is maintaining pressures without pressor support. His ABG done this morning suggested a PaO2 of 94 pCO2 73 with pH of 7.48 this month CBC suggestive WBC of 1111.6, hemoglobin 10.1, potassium 3.4, bicarb 31 BUN 26 creatinine 0.75 glucose controlled ranging from 110-124. Urine output 40 mL per KG per hour. Chest x- ray with persistent large infiltrate throughout mid right and right lower lung lobe with underlying effusion. Patchy density in the left perihilar and left medial lung base. Patient may need a CT-guided needle aspiration by pigtail ca theter by interventional radiology. Patient is considered for tracheostomy and PEG tube placement as has been intubated for many days with difficulty weaning off the ventilator. Continue diuresis with Lasix 40 IV twice a day. Echo obtained yesterday suggested ejection fraction 35-40% with moderate concentric left ventricular hypertrophy. Patient has a history of coronary artery bypass grafting though unknown what year and has been on Plavix if there is possibility of placing tracheostomy patient should be off Plavix. Continue heparin drip for atrial fibrillation Review Of Systems: Unable to be obtained due to intubation Objective - Vital Signs Vital signs: Vital Signs Temp 98.0 F 12/03/18 16:00 Pulse 64 12/03/18 16:30 Resp 19 12/03/18 16:30 BP 120/66 12/03/18 16:30 Pulse Ox 100 12/03/18 16:30 Intake & Output 12/02/18 12/03/18 12/03/18 18:59 06:59 18:59 Intake Total 837 2372.784 4452.915 Output Total 1970 1565 955 Balance -1133 62.490 219.915 Weight 60.2 kg Intake: IV 791 1329 709 0.9% NS @ KVO 120 80 160 Amiodarone 300 mg In 175 25 Dextrose 5% in Water 250 ml @ 0.5 MG/MIN 25 mls/hr IV .Q10H [facility] Rx#: [id number] Amiodarone 360 mg In 166 Dextrose 5% in Water 200 ml @ 1 MG/MIN 33.333 mls/ hr IV .Q6H [facility] Rx#: [id number] CVP/ART 51 33 24 Levofloxacin 750Mg-D5w 150 Pmx 750 mg In Dextrose/ Water 1 150ml.bag @ 100 mls/hr IVPB Q24H [facility] Rx#: [id number] Piperacillin-Tazobactam 3 200 125 100 .375 gm In Sodium Chloride 0.9% 100 ml @ 25 mls/hr IVPB Q8HR [place] Rx# :[id number] Sodium Chloride 0.9% 1, 420 600 400 000 ml @ 50 mls/hr IV . Q20H [place] Rx#:[id number] Intake, IV Titration 0 252.490 435.915 Amount Amiodarone 300 mg In 245 Dextrose 5% in Water 250 ml @ 0.5 MG/MIN 25 mls/hr IV .Q10H [facility] Rx#: [id number] Norepinephrine 8 mg In 0 76.616 0 Sodium Chloride 0.9% 250 ml @ 0.05 MCG/KG/MIN 5. 486 mls/hr IV .Q24H [facility] Rx#:[id number] Propofol 1,000 mg In 175.874 190.915 Empty Bag 1 bag @ Titrate IV .Q0M [facility] Rx#: [id number] Tube Feeding 46 46 Other 30 Output: Urine 1970 1565 955 Other: Voiding Method Indwelling Catheter Indwelling Catheter Indwelling Catheter # Bowel Movements 1 ABP, PAP, CO, CI - Last Documented Arterial Blood Pressure 121/60 - Exam - Exam Patient remains intubated, mechanical ventilation, in no acute distress - Constitutional General appearance: Present: average body habitus, cooperative, no acute distress - EENT Eyes: Present: anicteric sclerae, PERRLA, normal appearance - Respiratory Respiratory: bilateral: diminished, rhonchi - Cardiovascular Rhythm: regular Heart sounds: normal: S1 Abnormal Heart Sounds: Absent: systolic murmur, diastolic murmur, rub, S3 Gallop, S4 Gallop, click, other - Gastrointestinal General gastrointestinal: Present: normal bowel sounds, soft. Absent: tenderness - Integumentary Integumentary: Present: decreased turgor - Neurologic Neurologic Comment(s): Patient is sedated - Labs CBC & Chem 7: 12/03/18 11:46 12/03/18 14:00 Labs: Abnormal Lab Results - Last 24 Hours (Table) 12/02/18 12/02/18 12/02/18 Range/Units 04:00 18:18 23:38 WBC (3.8-10.6) k/uL RBC (4.30-5.90) m/uL Hgb (13.0-17.5) gm/dL Hct (39.0-53.0) % Neutrophils # (1.3-7.7) k/uL Lymphocytes # (1.0-4.8) k/uL ABG pH (7.35-7.45) ABG HCO3 (21-25) mmol/L ABG Total CO2 (19-24) mmol/L ABG O2 Saturation (94-97) % Potassium (3.5-5.1) mmol/L Carbon Dioxide (22-30) mmol/L BUN (9-20) mg/dL Glucose (74-99) mg/dL POC Glucose (mg/dL) 133 H 118 H (75-99) mg/dL Procalcitonin 1.00 H (0.02-0.09) ng/mL 12/03/18 12/03/18 12/03/18 Range/Units 04:59 04:59 05:00 WBC (3.8-10.6) k/uL RBC 3.38 L (4.30-5.90) m/uL Hgb 9.9 L (13.0-17.5) gm/dL Hct 30.2 L (39.0-53.0) % Neutrophils # (1.3-7.7) k/uL Lymphocytes # (1.0-4.8) k/uL ABG pH (7.35-7.45) ABG HCO3 (21-25) mmol/L ABG Total CO2 (19-24) mmol/L ABG O2 Saturation (94-97) % Potassium 3.4 L (3.5-5.1) mmol/L Carbon Dioxide 31 H (22-30) mmol/L BUN 26 H (9-20) mg/dL Glucose 110 H (74-99) mg/dL POC Glucose (mg/dL) 116 H (75-99) mg/dL Procalcitonin (0.02-0.09) ng/mL 12/03/18 12/03/18 12/03/18 Range/Units 06:54 11:46 11:48 WBC 11.6 H (3.8-10.6) k/uL RBC 3.68 L (4.30-5.90) m/uL Hgb 10.1 L (13.0-17.5) gm/dL Hct 32.2 L (39.0-53.0) % Neutrophils # 9.8 H (1.3-7.7) k/uL Lymphocytes # 0.7 L (1.0-4.8) k/uL ABG pH 7.48 H (7.35-7.45) ABG HCO3 32 H (21-25) mmol/L ABG Total CO2 33 H (19-24) mmol/L ABG O2 Saturation 97.9 H (94-97) % Potassium (3.5-5.1) mmol/L Carbon Dioxide (22-30) mmol/L BUN (9-20) mg/dL Glucose (74-99) mg/dL POC Glucose (mg/dL) 124 H (75-99) mg/dL Procalcitonin (0.02-0.09) ng/mL Microbiology - Last 24 Hours (Table) 12/01/18 12:50 Gram Stain - Final Bronchoalviolar Lavage - Right Bronchial Washings Culture - Final Assessment and Plan Plan: 1. Acute hypoxic respiratory failure secondary to most likely gram-negative pneumonia requiring intubation and mechanical ventilation. Continue Zosyn and Levaquin. Consult with is appreciated. Blood cultures no growth after 144 hours, sputum culture moderate polymorphonuclear leukocytes. CT of chest shows small bilateral pleural effusion. Some loculated effusion within the minor fissure on the right and minimal fluid within the major fissure on the right is likely present. Changes compatible some pulmonary fibrosis. . Ordered 2-D echo with EF 35-40% prosthetic aortic valve with moderate concentric hypertrophy, procalcitonin significantly high at 1. Awaiting results of bronchial wash cultures. Acid-fast bacilli smear negative. Patient is getting prepared for tracheostomy and PEG tube placement general surgery has been consulted. 2. V. tach status post shock on 12/02 with brief period of atrial fibrillation initiated on heparin drip with amiodarone drip under cardiology supervision. 3. Septic shock, secondary to aspiration/gram-negative pneumonia. Patient has required vasopressors and discontinued. 4. Chronic cough, reports of dysphagia by a niece, patient needs to be evaluated with modified barium swallow eval once intubation has been resolved 5. Chronic radiation proctitis, with recent endoscopy both upper scope and lower scope during admission November 2017. Patient started on Senokot 2 daily scheduled 6. History of coronary artery disease status post CABG. unclear which ear as patient is unable to provide the history. Plavix held as planned to place a tracheostomy 6. Chronic blood loss anemia monitor hemoglobin, currently stable. 7. History of aortic bioprosthetic valve replacement with previous mitral valve repair 8. History of paroxysmal atrial fibrillation not on anticoagulation secondary to concerns of GI bleed in the past. hold Plavix 75 mg daily. 9. Ischemic cardiomyopathy with previous EF of 35 -40 %. 10. Hypothyroidism. Continue levothyroxine 25 mg daily. 11. Hypertension with current hypotension. Hold home antihypertensive medications. off levophed 12. Hyperlipidemia. 13. Chronic systolic heart failure. 14. DVT prophylaxis. Heparin drip 15. GI prophylaxis. Protonix IV. Discharge plan: To be determined. Most likely patient will require subacute rehab
[2018-12-03 18:26] LABS: Glucose,Whole Blood 95 mg/dL (75-99)
[2018-12-03 20:45] LABS: Glucose,Whole Blood 106 mg/dL (75-99)
[2018-12-03] MEDS: LEVOFLOXACIN 750MG-D5W PMX 750 MG in DEXTROSE/WATER 1 150ML.BAG IVPB SCH (20:51)
[2018-12-03] MEDS: NOREPINEPHRINE 8 MG in SODIUM CHLORIDE 0.9% 250 ML IV SCH (22:07)
[2018-12-03 23:47] LABS: Glucose,Whole Blood 135 mg/dL (75-99)
[2018-12-04] MEDS: PIPERACILLIN-TAZOBACTAM 3.375 GM in SODIUM CHLORIDE 0.9% 100 ML IVPB SCH ×2 (00:45→07:17)
[2018-12-04] MEDS: INSULIN ASPART (NovoLOG) 100 UNIT/ML VIAL SQ SCH ×4 (00:46→18:30)
[2018-12-04] MEDS: POTASSIUM CHLORIDE 10 MEQ in WATER FOR INJECTION 1 100ML.BAG IVPB SCH ×4 (00:49→08:32)
[2018-12-04] MEDS: PROPOFOL 1,000 MG in EMPTY BAG 1 BAG IV SCH ×4 (02:15→21:47)
[2018-12-04] MEDS: IPRATROPIUM-ALBUTEROL 3 ML NEB INHALATION SCH ×5 (03:48→19:27)
[2018-12-04 04:26] LABS: ABG Base Excess 7.8 mmol/L; ABG HCO3 31 mmol/L (21-25); ABG Oxygen Saturation 98.3 % (94-97); ABG PCO2 43 mmHg (35-45); ABG PH 7.47 (7.35-7.45); ABG PO2 116 mmHg (83-108); ABG TCO2 33 mmol/L (19-24)
[2018-12-04 05:23] LABS: Glucose,Whole Blood 123 mg/dL (75-99)
[2018-12-04 05:39] LABS: HCT 29.2 % (39.0-53.0); HGB 9.3 gm/dL (13.0-17.5); MCH 28.1 pg (25.0-35.0); MCHC 31.9 g/dL (31.0-37.0); MCV 88.2 fL (80.0-100.0); Mean Platelet Volume 9.2; Platelet Count 192 k/uL (150-450); RBC 3.31 m/uL (4.30-5.90); RDW 13.6 % (11.5-15.5); WBC 8.8 k/uL (3.8-10.6)
[2018-12-04 05:59] LABS: Anion Gap 3 mmol/L; Blood Urea Nitrogen 28 mg/dL (9-20); Calcium 8.6 mg/dL (8.4-10.2); Carbon Dioxide 32 mmol/L (22-30); Chloride 105 mmol/L (98-107); Glucose 113 mg/dL (74-99); Potassium 3.6 mmol/L (3.5-5.1); Sodium 140 mmol/L (137-145)
[2018-12-04] MEDS ORDERED: Potassium Replacement Protocol 1 EACH MISC MISCELLANE PRN (06:10)
[2018-12-04] MEDS: AMIODARONE 300 MG in DEXTROSE 5% IN WATER 250 ML IV SCH ×2 (06:11)
[2018-12-04] MEDS: LEVOTHYROXINE 25 MCG TAB PO SCH (06:11)
[2018-12-04] MEDS: HEPARIN SODIUM,PORCINE 5,000 UNIT/ML 1 ML VIAL IV PRN (06:36)
[2018-12-04] MEDS: CHLORHEXIDINE GLUCONATE 15 ML CUP MUCOUS MEM SCH ×2 (08:33→21:31)
[2018-12-04] MEDS: PANTOPRAZOLE 40 MG/10 ML VIAL IV SCH (08:33)
[2018-12-04] MEDS: METOPROLOL TARTRATE 12.5 MG TAB PO SCH ×2 (08:33→21:31)
[2018-12-04] MEDS: FUROSEMIDE 10 MG/ML 4 ML VIAL IV SCH (08:33)
--- NOTE | 2018-12-04 09:17 | XR ---
EXAMINATION TYPE: XR chest 1V portable DATE OF EXAM: 12/04/2018 COMPARISON: 12/03/2018 INDICATION: ICU management ventilator. Difficulty breathing TECHNIQUE: Single frontal view of the chest is obtained. FINDINGS: The heart size is normal. The pulmonary vasculature is normal. There is consolidation in the right lower lobe. Mild infiltrate is at the left lower lobe. There is a right central venous catheter with tip in the superior vena cava region. An endotracheal i s present with tip above the francisco. Nasogastric tube transverses the thorax. IMPRESSION: 1. Lines and catheters discussed above. 2. Right lower lobe consolidation. Follow-up is recommended. 3. Left lower lobe infiltrate. Atelectasis and pneumonia should be considered.
--- NOTE | 2018-12-04 10:13 | PN ---
PROGRESS NOTE DATE OF SERVICE: December 04, 2018 This is a 73-year-old black male who was admitted on November 24. He was admitted with a diagnosis of septic shock and pneumonia. The patient was intubated on the 24 of November. He was extubated for a brief period of time on December 02. After about 30 minutes or so with worsening respiratory status and also with ventricular tachycardia which required cardioversion x2, the patient was reintubated after about 30 minutes on December 02. He has been on the ventilator again since. Dr. Brennan thought the patient was likely not to be extubated any time soon and wrote for a surgical consult for consideration of tracheostomy and PEG tube placement. That is likely appropriate. I do want to get a chance to talk to the family and explain to them about the natural sequence here which would include a tracheostomy tube, PEG tube placement, and probable shipment of the patient to a long-term acute care facility such as [facility]. Currently, the patient is on the ventilator and sedated. He is on the volume assist- control mode rate of 12, tidal volume 400, FiO2 of 40%, PEEP of 5. Arterial blood gases show a pO2 of 116, pCO2 of 43. The pH is 7.47. The blood gases consistent with mild hyperoxia and mild metabolic alkalosis. The patient currently remains on heparin via weight based protocol, a 0.9 IV at 50 mL an hour, propofol at 50 mcg/kg per minute and amiodarone at 0.5 mg/minute. The patient is also receiving Vital high-protein at 46 mL an hour with a goal of 46 mL an hour. Placed on the blood gas, the FiO2 is dropped from 40% to 35%. Vital signs are reviewed. Temperature is 98 degrees, heart rate 70, respiratory rate 25, blood pressure 117/68, mean 84 and saturations are 97% on 35% FiO2 with 5 of PEEP. Currently appears in no acute distress. The patient is sedated. HEENT examination is grossly unremarkable. There is no orally placed endotracheal tube and NG tube. NECK: Supple. Full range of motion. No adenopathy. Neck veins are flat. Cardiovascular examination reveals a regular rhythm and rate. Heart rate is 70. S1, S2 normal. No murmur. Lungs reveal diffuse coarse rhonchi. Breath sounds are diminished. There are some bibasilar and bilateral crackles. Abdomen is soft. Bowel sounds are heard. Extremities are intact. No cyanosis, clubbing, or significant edema. Skin without rash. Neurologic examination could not be adequately assessed. Microbiologic studies are all negative including sampling from the BAL. Blood in the sputum sampling is also negative. LAB DATA: Lab data is reviewed. White count 8.8, hemoglobin 9.3, hematocrit 29.2, platelet count 192,000. PTT is 42.9. Sodium 140, potassium 3.6, chloride 105, CO2 of 32, anion gap is 3. BUN and creatinine were 20 and 0.79. Chest x-ray shows right lower lobe consolidation and left lower lobe infiltrate. Medications are reviewed. Of note, the patient is on updrafts q.4 hours. The patient has also got antibiotics in the form of Levaquin. ASSESSMENT: 1. Acute hypoxemic respiratory failure secondary to multilobar pneumonia and septic shock, requiring intubation and mechanical ventilation on November 24 and unsuccessful extubation on December 02. 2. Acute sepsis with septic shock, requiring fluid resuscitation and norepinephrine, resolved. 3. Paroxysmal atrial fibrillation. 4. Coronary artery disease. 5. History of aortic valve replacement with bioprosthetic valve and mitral valve repair. 6. Sepsis induced thrombocytopenia. 7. Acute lactic acidemia, resolved. 8. History of Aspergilloma. 9. Essential hypertension. 10.Hypothyroidism. 11.Prostate cancer with previous radiation treatment. 12.Loculated pleural effusion. 13.Failure to wean from mechanical ventilation. 14.General medical debility. PLAN: The patient is likely a candidate for tracheostomy and PEG tube placement if the family continues to wish the patient to be a FULL CODE. I will discuss that with the family today. The patient really did not do well post extubation and required re-intubation in a short period of time. Currently, the medication seemed to be appropriate. All cultures thus far are negative including bronchoscopy and BAL sampling. The patient's hemodynamic status is relatively stable. We will continue to monitor all body systems. Medications are reviewed. Problem list is reviewed. All labs and x-rays are reviewed. Additional recommendations and suggestions are forthcoming. We will continue to follow and talk to the family about tracheostomy and PEG tube placement and eventual transfer to [facility]. CRITICAL CARE TIME: 37 minutes. AVRIL / MAXN: [id number] /
[2018-12-04 10:43] VITALS: BMI 21.9
[2018-12-04 12:17] LABS: Glucose,Whole Blood 130 mg/dL (75-99)
[2018-12-04] MEDS: HEPARIN SOD,PORK IN 0.45% NACL 25,000 UNIT in 0.45% NACL 1 250ML.BAG IV SCH (12:43)
--- NOTE | 2018-12-04 13:14 | P.PN ---
Subjective Progress Note Date: 12/04/18 Principal diagnosis: Acute hypoxic respiratory failure, gram-negative pneumonia, V. tach, septic shock, CAD, chronic radiation proctitis and anemia. This is a 73-year-old -[place] male patient of Dr. Kohler with past medical history of hyperlipidemia, hypertension, hypothyroidism, history of recent prostate cancer status post radiation, coronary artery disease status CA BG, history of bioprosthetic valve, paroxysmal atrial fibrillation, hypothyroidism, cardiomyopathy EF 45%, chronic systolic heart failure, radiation proctitis with acute on chronic blood loss anemia, colonoscopy last November 2017 confirming radiation proctitis. Patient comes in to the emergency room secondary to increasing difficulty of breathing, was in respiratory distress when seen in the ER, patient was extremely dyspneic, unable to provide history, the niece was there that provided some information, patient has had difficulties with upper respiratory for the past several years with dry cough however few hours prior to admission, patient has declined rapidly with significant dyspnea, tachypnea, patient was subsequently intubated in the emergency room. And admitted to ICU with sepsis a nd septic shock, and a large right pneumonia.. She he is currently followed by Dr. Wharton from critical care medicine, chest x-ray in emergency room shows extensive consolidation right lung with underlying pulmonary fibrosis, upper lobes. Patient requires pressor support, along with fluid resuscitation, required 2 L of boluses in the emergency room, and is currently on Zosyn, Levaquin,l evophed secondary to sepsis with pneumonia, aspirative events is under consideration, patient has dysphagia to foods. 11/25: Patient remains in the intensive care unit intubated and on mechanical ventilation. Dr. Wharton is following and plan to try extubating today. Patient is continued on Zosyn and Levaquin. Morning chest x-ray reveals no significant interval change. nurse monitoring has been sinus rhythm. Lab work reveals white count of 11.7, hemoglobin 11.2 and platelet count 102. Chloride 114, CO2 21, BUN 9 and creatinine 0.71. Blood sugars running between 110 and 120. TSH 0.176 and free T4 0.97. Blood cultures showing no growth after 24 hours. Sputum cultures in progress. Legionella testing is pending. Patient has been started on tube feedings. 11/26: Patient has been afebrile, heart rate in the 70s and 80s, blood pressure 130/59. Patient remains intubated and on mechanical ventilation. WBC 7.2, hemoglobin 11.5, platelet count 96, creatinine 0.62. Blood sugars running b etween 113 -132. All blood cultures were no growth at 48 hours and sputum cultures in progress. Repeat chest x-ray shows worsening bibasilar airspace disease. Changes consistent with mild pulmonary edema area and small bilateral effusions. Patient underwent bronchoscopy this morning and bloody fluid was sent for cultures. There is concern today percussively. Patient has been off norepinephrine since 3 AM. He is on tube feedings. 11/27: Patient remains intubated and on mechanical ventilation. He has been hemodynamically stable since he has been off norepinephrine. White count is normal, hemoglobin 10.7 and platelet count 101. Creatinine 0.55. Blood sugars running between 08/15/1939. Bronchial washing cultures are in progress. Sputum culture was finalized with normal respiratory julien. Blood cultures no growth after 72 hours. Repeat chest x-ray shows slight worsening in the mid and lower lung confluent airspace disease likely sequela of heart failure with pulmonary edema. Underlying small effusions persist. Ultrasound of the chest has been ordered for today. Patient remains on tube feedings and dietitian is following. nurse monitoring has been a sinus rhythm. 11/28: Patient remains intubated and on mechanical ventilation and intensive care unit. Plan is for sedation holiday today in no extubation. Patient is on a very low dose of norepinephrine which is being weaned off. Temperature max 100.8, heart rate 102, blood pressure 107/59, pulse ox 97%. WBC is 10.8, hemoglobin 11, platelet count 146. Creatinine 0.63. Blood sugars are between 120 and 170. Chest x-ray showed improving right lower lobe infiltrate. Cytology remains pending. Bronchial washing cultures in progress. Chest ultrasound done yesterday showed a right pleural effusion of 1.1 cm and left 2.2 cm. Patient's brother is at the bedside and has been updated. 11/29: Patient remains intubated and on mechanical ventilation patient is to be off propofol this morning and possible weaning. Repeat chest x-ray reveals persistence of peripheral right lower lobe consolidation. Small milder infiltrate remaining lung bases is improving. Temperature max 100.4 yesterday afternoon, heart rate in the 90s, blood pressure 122/59. WBC 8.7, hemoglobin 10.5, platelet count 111. CO2 31, creatinine 0.55. Blood sugars running between 113-145. Patient's brother is at the bedside and has been updated. 11/30: Patient remains intubated and on mechanical ventilation. He is currently off propofol and responding appropriately and following commands. He is not on vasopressors. Weaning attempt planned for tomorrow. Cytology report reveals no malignant cells identified. White count is 9.3, hemoglobin 10.4, platelet count 139. Sodium 142, potassium 3.2, chloride 104, CO2 31, BUN 26 and creatinine 0.68. Blood sugars running between 119 124. He needs him to 0.2. Repeat chest x-ray shows overall stable findings, bilateral diffuse right mid and lower lung consolidation and additional bilateral patchy areas of edema and/or infiltrates on the background of chronic parenchymal change. 12/01: Patient remains intubated and on mechanical ventilation. He is currently off propofol and able to follow commands. Patient may be attempted on weaning today. Patient's brother is at the bedside and has been updated. Patient is not on any vasopressors. He has been afebrile, heart rate in the 90s to low 100s, blood pressure 133/74. WBC 8.1, hemoglobin 9.7, platelet count 164. CO2 31, BUN 33 and creatinine 0.82. Chest x-ray reveals increasing left basilar opacities may represent small pleural effusion and atelectasis or pneumonia. Stable right midlung and right basilar opacities and stable mild interstitial pulmonary edema. 12/02: Patient remains intubated he is now on a breathing trial and a sedation holiday. Patient is able to follow commands. Brother is at the bedside and has been updated. Patient is no longer on vasopressors. He has been afebrile, heart rate in the 80s to 90s, blood pressure 136/70. W we see is a 0.3, hemoglobin 10.2, platelet count 32.1, BUN is 31, creatinine 0.78, BNP 3110. Chest x-ray shows cardiomegaly with worsening interstitial opacities. Small bilateral effusion. Some locally did effusion within the minor fissure on the right and minimal fluid within the major fissure of the right is likely present. Changes are compatible with some pulmonary fibrosis. 12/03 patient remains intubated. He did have a sedation weaning trial and was extubated briefly shortly after patient had a wide complex tachycardia and was shocked twice he was placed on amiodarone drip and was reintubated. Currently patient is on FiO2 of 40, an assist control tidal volume 400 respiratory rate of 12 with PEEP of 5. Currently sedated on propofol. Patient is off the levo fed and is maintaining pressures without pressor support. His ABG done this morning suggested a PaO2 of 94 pCO2 73 with pH of 7.48 this month CBC suggestive WBC of 1111.6, hemoglobin 10.1, potassium 3.4, bicarb 31 BUN 26 creatinine 0.75 glucose controlled ranging from 110-124. Urine output 40 mL per KG per hour. Chest x- ray with persistent large infiltrate throughout mid right and right lower lung lobe with underlying effusion. Patchy density in the left perihilar and left medial lung base. Patient may need a CT-guided needle aspiration by pigtail catheter by interventional radiology. Patient is considered for tracheostomy and PEG tube placement as has been intubated for many days with difficulty weaning off the ventilator. Continue diuresis with Lasix 40 IV twice a day. Echo obtained yesterday suggested ejection fraction 35-40% with moderate concentric left ventricular hypertrophy. Patient has a history of coronary artery bypass grafting though unknown what year and has been on Plavix if there is possibility of placing tracheostomy patient should be off Plavix. Continue heparin drip for atrial fibrillation 12/04: Patient remain intubated trying to back off on sedation. Patient vitals are more stable with pulmonary discussed with the family the possibility of going for the trach bronchoscopy. Also with his low ejection fraction which is ischemic cardiac myopathy not cleared the time of etiology had caused his V. tach at this point. Patient comorbidity and mortality is still extremely high at this point. Objective - Vital Signs Vital signs: Vital Signs Temp 98 F 12/04/18 08:00 Pulse 60 12/04/18 11:37 Resp 14 12/04/18 11:00 BP 117/68 12/04/18 09:00 Pulse Ox 97 12/04/18 11:00 Intake & Output 12/03/18 12/04/18 12/04/18 18:59 06:59 18:59 Intake Total 7145.744 9018.111 879 Output Total 1115 1205 1080 Balance 669.020 2836.111 -201 Weight 63.4 kg 63.4 kg Intake: IV 1101 1203 665 0.9% NS @ KVO 240 120 100 Amiodarone 300 mg In 25 Dextrose 5% in Water 250 ml @ 0.5 MG/MIN 25 mls/hr IV .Q10H [place] Rx#: [id number] CVP/ART 36 33 15 Levofloxacin 750Mg-D5w 150 Pmx 750 mg In Dextrose/ Water 1 150ml.bag @ 100 mls/hr IVPB Q24H [place] Rx#: [id number] Piperacillin-Tazobactam 3 200 100 100 .375 gm In Sodium Chloride 0.9% 100 ml @ 25 mls/hr IVPB Q8HR [place] Rx# :[id number] Potassium Chloride 10 meq 200 200 In Water For Injection 1 100ml.bag @ 100 mls/hr IVPB Q1H [place] Rx#: [id number] Sodium Chloride 0.9% 1, 600 600 250 000 ml @ 50 mls/hr IV . Q20H [place] Rx#:[id number] Intake, IV Titration 535.915 548.111 Amount Amiodarone 300 mg In 245 Dextrose 5% in Water 250 ml @ 0.5 MG/MIN 25 mls/hr IV .Q10H [place] Rx#: [id number] Amiodarone 300 mg In 250 Dextrose 5% in Water 250 ml @ 0.5 MG/MIN 25 mls/hr IV .Q10H [place] Rx#: [id number] Heparin Sod,Pork in 0.45% 120.4 NaCl 25,000 unit In 0.45 % NaCl 1 250ml.bag @ 12 UNITS/KG/HR 7.224 mls/hr IV .Q24H [place] Rx#: [id number] Norepinephrine 8 mg In 0 Sodium Chloride 0.9% 250 ml @ 0.05 MCG/KG/MIN 5. 486 mls/hr IV .Q24H [place] Rx#:[id number] Propofol 1,000 mg In 290.915 177.711 Empty Bag 1 bag @ Titrate IV .Q0M [place] Rx#: [id number] Tube Feeding 92 552 184 Other 30 210 30 Output: Urine 1115 1205 1080 Other: Voiding Method Indwelling Catheter Indwelling Catheter Indwelling Catheter # Bowel Movements 1 ABP, PAP, CO, CI - Last Documented Arterial Blood Pressure 99/50 - Constitutional Constitutional Comment(s): ROS: CONSTITUTIONAL: Well-developed on mechanical ventilation. EYES: No icterus sclerae, no conjunctivitis. EARS, NOSE, MOUTH, THROAT, and FACE: No sore throat, lymphadenopathy, carotid bruits or deformity. RESPIRATORY: ET tube in still having mild hypoxia. CARDIOVASCULAR: No CP, Palpitation, PND, Orthopnea, or angina. Still have mild arrhythmia. GASTROINTESTINAL: No Abd pain, Nausea or vomiting, no Diarrhea or constipation, No GI Bleed, no distention or masses. GENITOURINARY: Negative for Hematuria or UTI, no kidney stones. INTEGUMENT/BREAST: Negative for any muscular injury with mild osteoarthritis.. HEMATOLOGIC/LYMPHATIC: Negative for bleed or purpura. MUSCULOSKELTAL: Negative for Myalgia or arthralgia. NEURLOGICAL: Intubated on mechanical ventilation not much response. BEHAVIORAL/PSYCH: Negative. ENDOCRINE: Negative. Physical examinations: General Appearance: Intubated on mechanical ventilation not been able to answer any question. Neck HEENT: Supple, no lymphadenopathy, no thyroid enlargement, no carotid bruits. Lungs: Decreased breath some relative fine rhonchi has mild expiratory wheezes with crackles in the right base. Chest Wall: Chest wall normal expansion with deep inspiration no tenderness and no deformity was found on exam, no costochondral pain or discomfort. Heart: irregular rate and rhythm, S1, S2, positive S3 positive JVD, no murmur, r ub or gallop. Back: Symmetric, no curvature, ROM normal, no CVA tenderness. Abdomen: Soft distended with positive bowel sounds Extremities: Extremities normal, atraumatic, no cyanosis or edema. Pulses: 2+ and symmetric. Skin: Skin color, texture, tugor normal, no rashes or lesions. Neurologic: Sedated on mechanical ventilation still withdraw all his 4 extremities to pain stimuli. - Labs CBC & Chem 7: 12/04/18 05:07 12/04/18 05:07 Labs: Abnormal Lab Results - Last 24 Hours (Table) 12/03/18 12/03/18 12/03/18 Range/Units 20:34 21:00 23:35 RBC (4.30-5.90) m/uL Hgb (13.0-17.5) gm/dL Hct (39.0-53.0) % APTT 50.0 H (22.0-30.0) sec ABG pH (7.35-7.45) ABG pO2 (83-108) mmHg ABG HCO3 (21-25) mmol/L ABG Total CO2 (19-24) mmol/L ABG O2 Saturation (94-97) % Carbon Dioxide (22-30) mmol/L BUN (9-20) mg/dL Glucose (74-99) mg/dL POC Glucose (mg/dL) 106 H 135 H (75-99) mg/dL 12/04/18 12/04/18 12/04/18 Range/Units 04:20 05:07 05:07 RBC 3.31 L (4.30-5.90) m/uL Hgb 9.3 L (13.0-17.5) gm/dL Hct 29.2 L (39.0-53.0) % APTT (22.0-30.0) sec ABG pH 7.47 H (7.35-7.45) ABG pO2 116 H (83-108) mmHg ABG HCO3 31 H (21-25) mmol/L ABG Total CO2 33 H (19-24) mmol/L ABG O2 Saturation 98.3 H (94-97) % Carbon Dioxide 32 H (22-30) mmol/L BUN 28 H (9-20) mg/dL Glucose 113 H (74-99) mg/dL POC Glucose (mg/dL) (75-99) mg/dL 12/04/18 12/04/18 Range/Units 05:07 05:10 RBC (4.30-5.90) m/uL Hgb (13.0-17.5) gm/dL Hct (39.0-53.0) % APTT 42.9 H (22.0-30.0) sec ABG pH (7.35-7.45) ABG pO2 (83-108) mmHg ABG HCO3 (21-25) mmol/L ABG Total CO2 (19-24) mmol/L ABG O2 Saturation (94-97) % Carbon Dioxide (22-30) mmol/L BUN (9-20) mg/dL Glucose (74-99) mg/dL POC Glucose (mg/dL) 123 H (75-99) mg/dL Microbiology - Last 24 Hours (Table) 12/01/18 12:50 Gram Stain - Final Bronchoalviolar Lavage - Right Bronchial Washings Culture - Final Assessment and Plan Plan: 1. Acute hypoxic respiratory failure secondary to most likely gram-negative pneumonia requiring intubation and mechanical ventilation. Continue IV antibiotics with the reintubation and still on mechanical ventilation patient might require to go for tracheostomy and PEG tube for longer term mechanical ventilation and for slow weaning. 2. V. tach status post shock on 12/02 with brief period of atrial fibrillation initiated on heparin drip with amiodarone drip under cardiology supervision. Still seeing cardiology regular basis his EF was 35-40 percentile. 3. Septic shock, secondary to aspiration/gram-negative pneumonia. Patient is off vasopressor currently and blood pressure responded well. 4. Chronic cough, reports of dysphagia by a niece, patient needs to be evaluated with modified barium swallow eval once intubation has been resolved 5. Chronic radiation proctitis, with recent endoscopy both upper scope and lower scope during admission November 2017. Patient started on Senokot 2 daily scheduled 6. History of coronary artery disease status post CABG. unclear which ear as patient is unable to provide the history. 6. Chronic blood loss anemia monitor hemoglobin, currently stable. No need for blood transfusion. 7. History of aortic bioprosthetic valve replacement with previous mitral valve repair, valve on echocardiogram excluded. 8. History of paroxysmal atrial fibrillation not on anticoagulation secondary to concerns of GI bleed in the past. hold Plavix 75 mg daily. Has not been on any aggressive anticoagulation since his last GI bleed. 9. Ischemic cardiomyopathy with previous EF of 35 -40 %. 10. Hypothyroidism. Continue levothyroxine 25 mg daily. 11. Hypertension with current hypotension. Hold home antihypertensive medications. off levophed Planning: Patient will be going for trach and PEG tube will require longer term mechanical ventilation and slow weaning in one of the long-acting center like [facility].
[2018-12-04] MEDS: AMIODARONE 200 MG TAB PO SCH ×2 (14:28→21:31)
--- NOTE | 2018-12-04 14:50 | P.PN ---
Subjective Progress Note Date: 12/04/18 Principal diagnosis: Respiratory failure We're consulted yesterday for trach and PEG on this 73-year-old male. Patient was on the ventilator was extubated and subsequently reintubated. Pulmonary has discussed the situation with the patient's family. They're debating whether or not to proceed with trach and PEG and anticipated long-term care. Patient was given his last dose of Plavix yesterday. Patient is on minimal FiO2. Objective - Vital Signs Vital signs: Vital Signs Temp 98.2 F 12/04/18 12:00 Pulse 64 12/04/18 14:00 Resp 22 12/04/18 14:00 BP 117/68 12/04/18 09:00 Pulse Ox 100 12/04/18 14:00 Intake & Output 12/03/18 12/04/18 12/04/18 18:59 06:59 18:59 Intake Total 4004.465 0748.111 1199.675 Output Total 1115 1205 1485 Balance 837.208 8080.111 -285.325 Weight 63.4 kg 63.4 kg Intake: IV 1101 1203 811 0.9% NS @ KVO 240 120 140 Amiodarone 300 mg In 25 Dextrose 5% in Water 250 ml @ 0.5 MG/MIN 25 mls/hr IV .Q10H [place] Rx#: [id number] CVP/ART 36 33 21 Levofloxacin 750Mg-D5w 150 Pmx 750 mg In Dextrose/ Water 1 150ml.bag @ 100 mls/hr IVPB Q24H [place] Rx#: [id number] Piperacillin-Tazobactam 3 200 100 100 .375 gm In Sodium Chloride 0.9% 100 ml @ 25 mls/hr IVPB Q8HR [place] Rx# :[id number] Potassium Chloride 10 meq 200 200 In Water For Injection 1 100ml.bag @ 100 mls/hr IVPB Q1H [place] Rx#: [id number] Sodium Chloride 0.9% 1, 600 600 350 000 ml @ 50 mls/hr IV . Q20H [place] Rx#:[id number] Intake, IV Titration 535.915 548.111 52.675 Amount Amiodarone 300 mg In 245 Dextrose 5% in Water 250 ml @ 0.5 MG/MIN 25 mls/hr IV .Q10H [place] Rx#: [id number] Amiodarone 300 mg In 250 Dextrose 5% in Water 250 ml @ 0.5 MG/MIN 25 mls/hr IV .Q10H [place] Rx#: [id number] Heparin Sod,Pork in 0.45% 120.4 52.675 NaCl 25,000 unit In 0.45 % NaCl 1 250ml.bag @ 12 UNITS/KG/HR 7.224 mls/hr IV .Q24H [place] Rx#: [id number] Norepinephrine 8 mg In 0 Sodium Chloride 0.9% 250 ml @ 0.05 MCG/KG/MIN 5. 486 mls/hr IV .Q24H [place] Rx#:[id number] Propofol 1,000 mg In 290.915 177.711 Empty Bag 1 bag @ Titrate IV .Q0M [place] Rx#: [id number] Tube Feeding 92 552 276 Other 30 210 60 Output: Urine 1115 1205 1485 Other: Voiding Method Indwelling Catheter Indwelling Catheter Indwelling Catheter # Bowel Movements 1 ABP, PAP, CO, CI - Last Documented Arterial Blood Pressure 113/54 - Exam Abdomen: Soft, nontender, nondistended - Labs CBC & Chem 7: 12/04/18 05:07 12/04/18 12:05 Labs: Abnormal Lab Results - Last 24 Hours (Table) 12/03/18 12/03/18 12/03/18 Range/Units 20:34 21:00 23:35 RBC (4.30-5.90) m/uL Hgb (13.0-17.5) gm/dL Hct (39.0-53.0) % APTT 50.0 H (22.0-30.0) sec ABG pH (7.35-7.45) ABG pO2 (83-108) mmHg ABG HCO3 (21-25) mmol/L ABG Total CO2 (19-24) mmol/L ABG O2 Saturation (94-97) % Carbon Dioxide (22-30) mmol/L BUN (9-20) mg/dL Glucose (74-99) mg/dL POC Glucose (mg/dL) 106 H 135 H (75-99) mg/dL 12/04/18 12/04/18 12/04/18 Range/Units 04:20 05:07 05:07 RBC 3.31 L (4.30-5.90) m/uL Hgb 9.3 L (13.0-17.5) gm/dL Hct 29.2 L (39.0-53.0) % APTT (22.0-30.0) sec ABG pH 7.47 H (7.35-7.45) ABG pO2 116 H (83-108) mmHg ABG HCO3 31 H (21-25) mmol/L ABG Total CO2 33 H (19-24) mmol/L ABG O2 Saturation 98.3 H (94-97) % Carbon Dioxide 32 H (22-30) mmol/L BUN 28 H (9-20) mg/dL Glucose 113 H (74-99) mg/dL POC Glucose (mg/dL) (75-99) mg/dL 12/04/18 12/04/18 12/04/18 Range/Units 05:07 05:10 12:04 RBC (4.30-5.90) m/uL Hgb (13.0-17.5) gm/dL Hct (39.0-53.0) % APTT 42.9 H (22.0-30.0) sec ABG pH (7.35-7.45) ABG pO2 (83-108) mmHg ABG HCO3 (21-25) mmol/L ABG Total CO2 (19-24) mmol/L ABG O2 Saturation (94-97) % Carbon Dioxide (22-30) mmol/L BUN (9-20) mg/dL Glucose (74-99) mg/dL POC Glucose (mg/dL) 123 H 130 H (75-99) mg/dL 12/04/18 Range/Units 12:05 RBC (4.30-5.90) m/uL Hgb (13.0-17.5) gm/dL Hct (39.0-53.0) % APTT 51.7 H (22.0-30.0) sec ABG pH (7.35-7.45) ABG pO2 (83-108) mmHg ABG HCO3 (21-25) mmol/L ABG Total CO2 (19-24) mmol/L ABG O2 Saturation (94-97) % Carbon Dioxide (22-30) mmol/L BUN (9-20) mg/dL Glucose (74-99) mg/dL POC Glucose (mg/dL) (75-99) mg/dL Microbiology - Last 24 Hours (Table) 11/26/18 10:08 Fungal Culture - Preliminary Lung - Right Assessment and Plan (1) Pneumonia Narrative/Plan: Will remain on standby until the family decides regarding trach and PEG. Current Visit: Yes Status: Acute Code(s): J18.9 - PNEUMONIA, UNSPECIFIED ORGANISM SNOMED Code(s): 009915864
[2018-12-04] MEDS ORDERED: POTASSIUM BICARBONATE/CIT AC 20 MEQ TABLET.EFF NG-TUBE SCH (15:00)
--- NOTE | 2018-12-04 17:10 | PN ---
PROGRESS NOTE Naveen is a 73-year-old gentleman with history of coronary artery disease, ischemic cardiomyopathy, who was admitted to hospital with sepsis, pneumonia and septic shock and developed an episode of ventricular tachycardia and paroxysmal atrial fibrillation. He had to be reintubated and is currently on mechanical ventilation. On exam heart rate is 68 beats per minute. Blood pressure is 120/55, respiratory rate is 18. He is mechanically ventilated with an FiO2 of 35%. Chest exam reveals diminished air entry with occasional rhonchi. Heart exam reveals first and second heart sounds. No gallop. There is an ejection systolic murmur in the aortic area and systolic murmur at the left lower sternal border. Exam of extremities reveals mild edema. Peripheral pulses are felt. Labs show a hemoglobin of 9.3, platelet count is 190, potassium is 3.6, creatinine is 0.7. ASSESSMENT: 1. Ventricular tachycardia, paroxysmal atrial fibrillation, history of valvular heart disease, status post surgery. 2. Coronary artery disease. 3. Sepsis. 4. Respiratory failure. PLAN: I will continue the patient on amiodarone. We will stop the drip and start him on oral amiodarone. The patient is on IV heparin, which I am going to continue. Continue the metoprolol. MMODL / IJN: [id number] /
[2018-12-04 18:41] LABS: Glucose,Whole Blood 91 mg/dL (75-99)
[2018-12-04] MEDS: SODIUM CHLORIDE 0.9% 1,000 ML IV SCH (18:55)
[2018-12-04] MEDS: LEVOFLOXACIN 750MG-D5W PMX 750 MG in DEXTROSE/WATER 1 150ML.BAG IVPB SCH (21:30)
[2018-12-05] MEDS: IPRATROPIUM-ALBUTEROL 3 ML NEB INHALATION SCH ×7 (00:11→23:23)
[2018-12-05 00:26] LABS: Glucose,Whole Blood 120 mg/dL (75-99)
[2018-12-05] MEDS: INSULIN ASPART (NovoLOG) 100 UNIT/ML VIAL SQ SCH ×5 (00:46→23:58)
[2018-12-05] MEDS: PROPOFOL 1,000 MG in EMPTY BAG 1 BAG IV SCH ×5 (02:12→20:17)
[2018-12-05 04:34] LABS: HCT 30.4 % (39.0-53.0); HGB 9.6 gm/dL (13.0-17.5); Hypochromasia Slight; MCHC 31.6 g/dL (31.0-37.0); MCV 88.7 fL (80.0-100.0); Platelet Count 208 k/uL (150-450); RBC 3.42 m/uL (4.30-5.90); RDW 13.6 % (11.5-15.5); WBC 8.8 k/uL (3.8-10.6)
[2018-12-05 04:52] LABS: ABG Base Excess 5.3 mmol/L; ABG HCO3 29 mmol/L (21-25); ABG Oxygen Saturation 97.3 % (94-97); ABG PCO2 43 mmHg (35-45); ABG PH 7.44 (7.35-7.45); ABG PO2 98 mmHg (83-108); ABG TCO2 31 mmol/L (19-24)
[2018-12-05] MEDS: HEPARIN SODIUM,PORCINE 5,000 UNIT/ML 1 ML VIAL IV PRN (05:15)
[2018-12-05 05:34] LABS: Anion Gap 7 mmol/L; Blood Urea Nitrogen 23 mg/dL (9-20); Calcium 9.4 mg/dL (8.4-10.2); Carbon Dioxide 27 mmol/L (22-30); Chloride 106 mmol/L (98-107); Glucose 117 mg/dL (74-99); Potassium 4.1 mmol/L (3.5-5.1); Sodium 140 mmol/L (137-145)
[2018-12-05 06:24] LABS: Glucose,Whole Blood 145 mg/dL (75-99)
[2018-12-05] MEDS: LEVOTHYROXINE 25 MCG TAB PO SCH (07:16)
--- NOTE | 2018-12-05 08:15 | XR ---
EXAMINATION TYPE: XR chest 1V portable DATE OF EXAM: 12/05/2018 COMPARISON: 12/04/2018 HISTORY: SOB, Follow Up FINDINGS: Indwelling tubes and catheters are unchanged. Scattered infiltrates and effusions remain essentially unchanged. Stable appearance of the cardio-mediastinal structures at this time. Pleural effusion unchanged. IMPRESSION: 1. Stable portable chest. Clinical correlation and follow up until resolution is recommended.
[2018-12-05] MEDS: METOPROLOL TARTRATE 12.5 MG TAB PO SCH ×2 (08:36→20:18)
[2018-12-05] MEDS: CHLORHEXIDINE GLUCONATE 15 ML CUP MUCOUS MEM SCH ×2 (08:56→20:17)
[2018-12-05] MEDS: AMIODARONE 200 MG TAB PO SCH ×2 (08:56→20:17)
[2018-12-05] MEDS: PANTOPRAZOLE 40 MG/10 ML VIAL IV SCH (08:57)
--- NOTE | 2018-12-05 09:38 | PN ---
PROGRESS NOTE DATE OF SERVICE: December 05, 2018 This is a 73-year-old black male who was admitted back on November 24. He was admitted with a diagnosis of sepsis, septic shock and pneumonia. The patient was intubated and placed on mechanical ventilator on the 24 of November. He was extubated for a brief period of time less than 30 minutes on December 02. After about 30 minutes or so, with worsening respiratory status, and with ventricular tachycardia requiring cardioversion x2, the patient was reintubated. He was reintubated on December 02 the same day of the initial extubation. He has been on the ventilator again since. Dr. Brennan put in for a consultation with Surgery for possible tracheostomy and PEG tube placement. I did have a chance to talk to the brother of the patient. He is not sure he wants to proceed with tracheostomy and PEG tube placement. He was going to discuss it with the rest of the family. Some of the family members believe that Naveen should be a DO NOT RESUSCITATE. They should have some sort of decision from the family later today. Currently, the patient remains on the volume assist-control mode rate of 12, tidal volume 400, FiO2 35%, PEEP of 5. Blood gases show pO2 of 98, pCO2 of 43, and a pH 7.44. His blood gas is consistent with a very mild metabolic alkalosis. The patient is on saline IV at 50 mL an hour, propofol at 60 mcg/kg per minute, heparin via weight based protocol, and Vital high-protein at 46 with a goal of 46 mL an hour. All microbiologic studies are thus far negative. Current vital signs are reviewed. Temperature is 98.1, heart rate 62, respiratory rate 18, blood pressure 84/41, saturations 97% on FiO2 35% PEEP of 5. Currently sedated. There is an orally placed endotracheal tube and NG tube. HEENT: Examination is grossly unremarkable. Oral endotracheal tube and NG tube noted. NECK: Supple. Full range of motion. No adenopathy or thyromegaly. Neck veins are flat. CARDIOVASCULAR: Examination reveals regular rhythm rate. S1, S2 normal. Heart rate in the 60s. No murmur. S1, S2 normal. LUNGS: Reveal coarse bilateral rhonchi. Breath sounds are diminished throughout. No wheezes or significant crackles. Breath sounds are noisy though. ABDOMEN: Soft. Bowel sounds are heard. No masses or tenderness. EXTREMITIES: Are intact. No significant cyanosis, clubbing, or edema. SKIN: Without rash. NEUROLOGIC: Examination could not be properly assessed. Microbiologic studies including blood and sputum sampling as well as lung lavage are all negative thus far. Laboratory data includes a white count of 8.8, hemoglobin 9.6, hematocrit 30.4, platelet count 208,000. Sodium, potassium, chloride and CO2 all normal. Anion gap normal. BUN and creatinine were 23 and 0.7. Chest x-ray shows diffuse bilateral infiltrates. He has small pleural effusions as well. Medications are reviewed. Problem list and allergies are reviewed. ASSESSMENT: 1. Acute hypoxemic respiratory failure secondary to multilobar pneumonia and septic shock, requiring intubation and mechanical ventilation on November 24 and unsuccessful extubation on December 02. 2. Acute sepsis with septic shock requiring fluid resuscitation and norepinephrine, resolved. 3. History of paroxysmal atrial fibrillation. 4. Coronary artery disease. 5. History of aortic valve replacement with bioprosthetic valve and mitral valve repair. 6. Sepsis induced thrombocytopenia. 7. Lactic acidemia, resolved. 8. History of aspergilloma. 9. Essential hypertension. 10.Hypothyroidism. 11.Prostate cancer with previous radiation treatment. 12.Loculated pleural effusion. 13.Failure to wean from mechanical ventilation. 14.General medical debility. PLAN: The patient's overall prognosis is very poor. I had a long discussion with the brother yesterday. He is not sure that Naveen would want to have a tracheostomy and PEG tube placement and possible transfer to long-term acute care. Some family members believe that Naveen should be a DNR. They are going to have a family discussion today and hopefully come to some sort of meeting of the minds later today. In the meantime, we will continue with current therapy. Overall prognosis is poor. CRITICAL CARE TIME: 36 minutes. MMODL / IJN: [id number] /
--- NOTE | 2018-12-05 11:39 | PN ---
PROGRESS NOTE Naveen is a 73-year-old gentleman who is admitted to hospital with pneumonia and respiratory failure, currently intubated on vent. The patient is on amiodarone and intravenous heparin. He remains in sinus rhythm. Did not have further episodes of ventricular tachycardia or atrial fibrillation. On exam, heart rate is 60 beats per minute. Blood pressure is 100/60. Respiratory rate is 18. Chest exam reveals good air entry bilaterally. Heart exam reveals first and second heart sounds. No gallop. Examination of the extremities reveals trace edema. Peripheral pulses are felt. Labs show a hemoglobin of 9.6, potassium is 4.1 creatinine is 0.7. ASSESSMENT: 1. Ventricular tachycardia. 2. Paroxysmal atrial fibrillation. 3. Sepsis, pneumonia with respiratory failure. PLAN: Continue current medications. Prognosis guarded. MMODL / IJN: [id number] /
[2018-12-05] MEDS: HEPARIN SOD,PORK IN 0.45% NACL 25,000 UNIT in 0.45% NACL 1 250ML.BAG IV SCH ×2 (12:24→23:04)
[2018-12-05] MEDS: SODIUM CHLORIDE 0.9% 1,000 ML IV SCH (12:25)
[2018-12-05 12:38] LABS: Glucose,Whole Blood 120 mg/dL (75-99)
--- NOTE | 2018-12-05 13:30 | P.PN ---
Subjective Progress Note Date: 12/05/18 This is a 73-year-old -[place] male patient of Dr. Kohler with past medical history of hyperlipidemia, hypertension, hypothyroidism, history of recent prostate cancer status post radiation, coronary artery disease status CABG, history of bioprosthetic valve, paroxysmal atrial fibrillation, hypothyr oidism, cardiomyopathy EF 45%, chronic systolic heart failure, radiation proctitis with acute on chronic blood loss anemia, colonoscopy last November 2017 confirming radiation proctitis. Patient comes in to the emergency room secondary to increasing difficulty of breathing, was in respiratory distress when seen in the ER, patient was extremely dyspneic, unable to provide history, the niece was there that provided some information, patient has had difficulties with upper respiratory for the past several years with dry cough however few hours prior to admission, patient has declined rapidly with significant dyspnea, tachypnea, patient was subsequently intubated in the emergency room. And admitted to ICU with sepsis and septic shock, and a large right pneumonia.. She he is currently followed by Dr. Wharton from critical care medicine, chest x-ray in emergency room shows extensive consolidation right lung with underlying pulmonary fibrosis, upper lobes. Patient requires pressor support, along with fluid resuscitation, required 2 L of boluses in the emergency room, and is currently on Zosyn, Levaquin,l evophed secondary to sepsis with pneumonia, aspirative events is under consideration, patient has dysphagia to foods. 11/25: Patient remains in the intensive care unit intubated and on mechanical ventilation. Dr. Wharton is following and plan to try extubating today. Patient is continued on Zosyn and Levaquin. Morning chest x-ray reveals no significant interval change. bus monitor has been sinus rhythm. Lab work reveals white count of 11.7, hemoglobin 11.2 and platelet count 102. Chloride 114, CO2 21, BUN 9 and creatinine 0.71. Blood sugars running between 110 and 120. TSH 0.176 and free T4 0.97. Blood cultures showing no growth after 24 hours. Sputum cultures in progress. Legionella testing is pending. Patient has been started on tube feedings. 11/26: Patient has been afebrile, heart rate in the 70s and 80s, blood pressure 130/59. Patient remains intubated and on mechanical ventilation. WBC 7.2, hemoglobin 11.5, platelet count 96, creatinine 0.62. Blood sugars running between 113 -132. All blood cultures were no growth at 48 hours and sputum c ultures in progress. Repeat chest x-ray shows worsening bibasilar airspace disease. Changes consistent with mild pulmonary edema area and small bilateral effusions. Patient underwent bronchoscopy this morning and bloody fluid was sent for cultures. There is concern today percussively. Patient has been off norepinephrine since 3 AM. He is on tube feedings. 11/27: Patient remains intubated and on mechanical ventilation. He has been hemodynamically stable since he has been off norepinephrine. White count is normal, hemoglobin 10.7 and platelet count 101. Creatinine 0.55. Blood sugars running between 08/15/1939. Bronchial washing cultures are in progress. Sputum culture was finalized with normal respiratory julien. Blood cultures no growth after 72 hours. Repeat chest x-ray shows slight worsening in the mid and lower lung confluent airspace disease likely sequela of heart failure with pulmonary edema. Underlying small effusions persist. Ultrasound of the chest has been ordered for today. Patient remains on tube feedings and dietitian is following. bus monitor has been a sinus rhythm. 11/28: Patient remains intubated and on mechanical ventilation and intensive care unit. Plan is for sedation holiday today in no extubation. Patient is on a very low dose of norepinephrine which is being weaned off. Temperature max 100.8, heart rate 102, blood pressure 107/59, pulse ox 97%. WBC is 10.8, hemoglobin 11, platelet count 146. Creatinine 0.63. Blood sugars are between 120 and 170. Chest x-ray showed improving right lower lobe infiltrate. Cytology remains pending. Bronchial washing cultures in progress. Chest ultrasound done yesterday showed a right pleural effusion of 1.1 cm and left 2.2 cm. Patient's brother is at the bedside and has been updated. 11/29: Patient remains intubated and on mechanical ventilation patient is to be off propofol this morning and possible weaning. Repeat chest x-ray reveals persistence of peripheral right lower lobe consolidation. Small milder infiltrate remaining lung bases is improving. Temperature max 100.4 yesterday afternoon, heart rate in the 90s, blood pressure 122/59. WBC 8.7, hemoglobin 10.5, platelet count 111. CO2 31, creatinine 0.55. Blood sugars running between 113-145. Patient's brother is at the bedside and has been updated. 11/30: Patient remains intubated and on mechanical ventilation. He is currently off propofol and responding appropriately and following commands. He is not on vasopressors. Weaning attempt planned for tomorrow. Cytology report reveals no malignant cells identified. White count is 9.3, hemoglobin 10.4, platelet count 139. Sodium 142, potassium 3.2, chloride 104, CO2 31, BUN 26 and creatinine 0.68. Blood sugars running between 119 124. He needs him to 0.2. Repeat chest x-ray shows overall stable findings, bilateral diffuse right mid and lower lung consolidation and additional bilateral patchy areas of edema and/or infiltrates on the background of chronic parenchymal change. 12/01: Patient remains intubated and on mechanical ventilation. He is currently off propofol and able to follow commands. Patient may be attempted on weaning today. Patient's brother is at the bedside and has been updated. Patient is not on any vasopressors. He has been afebrile, heart rate in the 90s to low 100s, blood pressure 133/74. WBC 8.1, hemoglobin 9.7, platelet count 164. CO2 31, BUN 33 and creatinine 0.82. Chest x-ray reveals increasing left basilar opacities may represent small pleural effusion and atelectasis or pneumonia. Stable right midlung and right basilar opacities and stable mild interstitial pulmonary edema. 12/02: Patient remains intubated he is now on a breathing trial and a sedation holiday. Patient is able to follow commands. Brother is at the bedside and has been updated. Patient is no longer on vasopressors. He has been afebrile, heart rate in the 80s to 90s, blood pressure 136/70. W we see is a 0.3, hemoglobin 10.2, platelet count 32.1, BUN is 31, creatinine 0.78, BNP 3110. Chest x-ray shows cardiomegaly with worsening interstitial opacities. Small bilateral effusion. Some locally did effusion within the minor fissure on the right and minimal fluid within the major fissure of the right is likely present. Changes are compatible with some pulmonary fibrosis. 12/03 patient remains intubated. He did have a sedation weaning trial and was extubated briefly shortly after patient had a wide complex tachycardia and was shocked twice he was placed on amiodarone drip and was reintubated. Currently patient is on FiO2 of 40, an assist control tidal volume 400 respiratory rate of 12 with PEEP of 5. Currently sedated on propofol. Patient is off the levo fed and is maintaining pressures without pressor support. His ABG done this morning suggested a PaO2 of 94 pCO2 73 with pH of 7.48 this month CBC suggestive WBC of 1111.6, hemoglobin 10.1, potassium 3.4, bicarb 31 BUN 26 creatinine 0.75 glucose controlled ranging from 110-124. Urine output 40 mL per KG per hour. Chest x- ray with persistent large infiltrate throughout mid right and right lower lung lobe with underlying effusion. Patchy density in the left perihilar and left medial lung base. Patient may need a CT-guided needle aspiration by pigtail ca theter by interventional radiology. Patient is considered for tracheostomy and PEG tube placement as has been intubated for many days with difficulty weaning off the ventilator. Continue diuresis with Lasix 40 IV twice a day. Echo obtained yesterday suggested ejection fraction 35-40% with moderate concentric left ventricular hypertrophy. Patient has a history of coronary artery bypass grafting though unknown what year and has been on Plavix if there is possibility of placing tracheostomy patient should be off Plavix. Continue heparin drip for atrial fibrillation 12/04: Patient remain intubated trying to back off on sedation. Patient vitals are more stable with pulmonary discussed with the family the possibility of going for the trach bronchoscopy. Also with his low ejection fraction which is ischemic cardiac myopathy not cleared the time of etiology had caused his V. tach at this point. Patient comorbidity and mortality is still extremely high at this point. 12/05: Patient remains intubated and on mechanical ventilation and probable plan for PEG tube and trach. Dr. Kohler will talk to the family has this is his patient. Patient has not progressed has not been able to be extubated. Patient is currently on amiodarone drip and IV heparin. He is currently in a sinus rhythm. He did not have further episodes of ventricular tachycardia or atrial fibrillation. Prognosis remains poor. Review of systems: Unable to be obtained due to intubation Objective - Vital Signs Vital signs: Vital Signs Temp 98.1 F 12/05/18 04:00 Pulse 62 12/05/18 07:46 Resp 18 12/05/18 07:00 BP 134/73 12/05/18 05:00 Pulse Ox 97 12/05/18 07:00 Intake & Output 12/04/18 12/05/18 12/05/18 18:59 06:59 18:59 Intake Total 2073.675 2027.835 149 Output Total 1920 456 80 Balance 847.130 1094.835 69 Weight 63.4 kg Intake: IV 1249 933 73 0.9% NS @ KVO 260 200 20 CVP/ART 39 33 3 Levofloxacin 750Mg-D5w 150 Pmx 750 mg In Dextrose/ Water 1 150ml.bag @ 100 mls/hr IVPB Q24H [place] Rx#: [id number] Piperacillin-Tazobactam 3 100 .375 gm In Sodium Chloride 0.9% 100 ml @ 25 mls/hr IVPB Q8HR [place] Rx# :[id number] Potassium Chloride 10 meq 200 In Water For Injection 1 100ml.bag @ 100 mls/hr IVPB Q1H [place] Rx#: [id number] Sodium Chloride 0.9% 1, 650 550 50 000 ml @ 50 mls/hr IV . Q20H [place] Rx#:[id number] Intake, IV Titration 152.675 376.835 Amount Heparin Sod,Pork in 0.45% 52.675 138.922 NaCl 25,000 unit In 0.45 % NaCl 1 250ml.bag @ 12 UNITS/KG/HR 7.224 mls/hr IV .Q24H [place] Rx#: [id number] Propofol 1,000 mg In 100 237.913 Empty Bag 1 bag @ Titrate IV .Q0M [place] Rx#: [id number] Tube Feeding 552 598 46 Other 120 120 30 Output: Urine 1920 456 80 Other: Voiding Method Indwelling Catheter Indwelling Catheter # Bowel Movements 1 ABP, PAP, CO, CI - Last Documented Arterial Blood Pressure 84/41 - Exam General Appearance: Intubated on mechanical ventilation. Neck HEENT: Supple, no lymphadenopathy, no thyroid enlargement, no carotid bruits. Lungs: Decreased breath some relative fine rhonchi has mild expiratory wheezes with crackles in the right base. Chest Wall: Chest wall normal expansion with deep inspiration no tenderness and no deformity was found on exam, no costochondral pain or discomfort. Heart: irregular rate and rhythm, S1, S2, positive S3 positive JVD, no murmur, rub or gallop. Back: Symmetric, no curvature, ROM normal, no CVA tenderness. Abdomen: Soft distended with positive bowel sounds Extremities: Extremities normal, atraumatic, no cyanosis or edema. Pulses: 2+ and symmetric. Skin: Skin color, texture, tugor normal, no rashes or lesions. Neurologic: Sedated on mechanical ventilation still withdraw all his 4 extremities to pain stimuli. - Labs CBC & Chem 7: 12/05/18 04:20 12/05/18 04:20 Labs: Abnormal Lab Results - Last 24 Hours (Table) 12/04/18 12/04/18 12/05/18 Range/Units 12:04 12:05 00:14 RBC (4.30-5.90) m/uL Hgb (13.0-17.5) gm/dL Hct (39.0-53.0) % APTT 51.7 H (22.0-30.0) sec ABG HCO3 (21-25) mmol/L ABG Total CO2 (19-24) mmol/L ABG O2 Saturation (94-97) % BUN (9-20) mg/dL Glucose (74-99) mg/dL POC Glucose (mg/dL) 130 H 120 H (75-99) mg/dL 12/05/18 12/05/18 12/05/18 Range/Units 04:20 04:20 04:20 RBC 3.42 L (4.30-5.90) m/uL Hgb 9.6 L (13.0-17.5) gm/dL Hct 30.4 L (39.0-53.0) % APTT 44.5 H (22.0-30.0) sec ABG HCO3 (21-25) mmol/L ABG Total CO2 (19-24) mmol/L ABG O2 Saturation (94-97) % BUN 23 H (9-20) mg/dL Glucose 117 H (74-99) mg/dL POC Glucose (mg/dL) (75-99) mg/dL 12/05/18 12/05/18 Range/Units 04:48 06:12 RBC (4.30-5.90) m/uL Hgb (13.0-17.5) gm/dL Hct (39.0-53.0) % APTT (22.0-30.0) sec ABG HCO3 29 H (21-25) mmol/L ABG Total CO2 31 H (19-24) mmol/L ABG O2 Saturation 97.3 H (94-97) % BUN (9-20) mg/dL Glucose (74-99) mg/dL POC Glucose (mg/dL) 145 H (75-99) mg/dL Microbiology - Last 24 Hours (Table) 11/26/18 09:57 Acid Fast Bacilli Smear - Final Lung - Right Acid Fast Bacilli Culture - Preliminary 11/26/18 10:08 Fungal Culture - Preliminary Lung - Right Assessment and Plan Plan: 1. Acute hypoxic respiratory failure secondary to most likely gram-negative pneumonia requiring intubation and mechanical ventilation. Continue IV antibiotics with the reintubation and still on mechanical ventilation patient might require to go for tracheostomy and PEG tube for longer term mechanical ventilation and for slow weaning. 2. V. tach status post shock on 12/02 with brief period of atrial fibrillation initiated on heparin drip with amiodarone drip under cardiology supervision. Still seeing cardiology regular basis his EF was 35-40 percentile. 3. Septic shock, secondary to aspiration/gram-negative pneumonia. Patient is off vasopressor currently and blood pressure responded well. 4. Chronic cough, reports of dysphagia by a niece, patient needs to be evaluated with modified barium swallow eval once intubation has been resolved 5. Chronic radiation proctitis, with recent endoscopy both upper scope and lower scope during admission November 2017. Patient started on Senokot 2 daily scheduled 6. History of coronary artery disease status post CABG. unclear which ear as patient is unable to provide the history. 6. Chronic blood loss anemia monitor hemoglobin, currently stable. No need for blood transfusion. 7. History of aortic bioprosthetic valve replacement with previous mitral valve repair, valve on echocardiogram excluded. 8. History of paroxysmal atrial fibrillation not on anticoagulation secondary to concerns of GI bleed in the past. hold Plavix 75 mg daily. Has not been on any aggressive anticoagulation since his last GI bleed. 9. Ischemic cardiomyopathy with previous EF of 35 -40 %. 10. Hypothyroidism. Continue levothyroxine 25 mg daily. 11. Hypertension with current hypotension. Hold home antihypertensive medications. off levophed 12. Chronic systolic heart failure. 13. DVT prophylaxis. Heparin subcu. 14. GI prophylaxis. Protonix IV. Discharge plan: trach and PEG tube will require longer term mechanical ventilation or terminal wean. Family will be contacted. Impression and plan of care have been directed as dictated by the signing physician. Charmaine Joseph nurse practitioner acting as scribe for signing physician.
--- NOTE | 2018-12-05 14:50 | P.PN ---
<OwensLynette Amaris - Last Filed: 12/05/18 14:50> Subjective Progress Note Date: 12/05/18 CHIEF COMPLAINT: Respiratory failure HISTORY OF PRESENT ILLNESS: Patient remains on mechanical ventilator. Family is supposed to be having a meeting today to discuss whether or not they wish to proceed with Trach and PEG. PHYSICAL EXAM: VITAL SIGNS: Reviewed. GENERAL: Well-developed in no acute distress-sedated. HEENT: ET tube noted. No sclera icterus. Extraocular movements grossly intact. Moist buccal mucosa. Head is atraumatic, normocephalic. ABDOMEN: Soft. Nondistended. Nontender. NEUROLOGIC: Sedated on mechanical ventilation. ASSESSMENT: 1. Acute hypoxic respiratory failure requiring mechanical ventilation PLAN: 1. Surgery will remain on standby until family makes decision regarding trach and PEG placement Nurse practitioner note has been reviewed by physician. Signing provider agrees with the documented findings, assessment, and plan of care. Objective - Vital Signs Vital signs: Vital Signs Temp 98.1 F 12/05/18 08:00 Pulse 60 12/05/18 10:00 Resp 22 12/05/18 10:00 BP 134/73 12/05/18 05:00 Pulse Ox 100 12/05/18 10:00 Intake & Output 12/04/18 12/05/18 12/05/18 18:59 06:59 18:59 Intake Total 2073.675 2027.835 566 Output Total 1920 456 260 Balance 827.985 3597.835 306 Weight 63.4 kg 63.4 kg Intake: IV 1249 933 292 0.9% NS @ KVO 260 200 80 CVP/ART 39 33 12 Levofloxacin 750Mg-D5w 150 Pmx 750 mg In Dextrose/ Water 1 150ml.bag @ 100 mls/hr IVPB Q24H [facility] Rx#: [id number] Piperacillin-Tazobactam 3 100 .375 gm In Sodium Chloride 0.9% 100 ml @ 25 mls/hr IVPB Q8HR [facility] Rx# :[id number] Potassium Chloride 10 meq 200 In Water For Injection 1 100ml.bag @ 100 mls/hr IVPB Q1H [place] Rx#: [id number] Sodium Chloride 0.9% 1, 650 550 200 000 ml @ 50 mls/hr IV . Q20H [facility] Rx#:[id number] Intake, IV Titration 152.675 376.835 Amount Heparin Sod,Pork in 0.45% 52.675 138.922 NaCl 25,000 unit In 0.45 % NaCl 1 250ml.bag @ 12 UNITS/KG/HR 7.224 mls/hr IV .Q24H [facility] Rx#: [id number] Propofol 1,000 mg In 100 237.913 Empty Bag 1 bag @ Titrate IV .Q0M [facility] Rx#: [id number] Tube Feeding 552 598 184 Other 120 120 90 Output: Urine 1920 456 260 Other: Voiding Method Indwelling Catheter Indwelling Catheter Indwelling Catheter # Bowel Movements 1 ABP, PAP, CO, CI - Last Documented Arterial Blood Pressure 105/49 - Labs CBC & Chem 7: 12/05/18 04:20 12/05/18 04:20 Labs: Abnormal Lab Results - Last 24 Hours (Table) 12/04/18 12/04/18 12/05/18 Range/Units 12:04 12:05 00:14 RBC (4.30-5.90) m/uL Hgb (13.0-17.5) gm/dL Hct (39.0-53.0) % APTT 51.7 H (22.0-30.0) sec ABG HCO3 (21-25) mmol/L ABG Total CO2 (19-24) mmol/L ABG O2 Saturation (94-97) % BUN (9-20) mg/dL Glucose (74-99) mg/dL POC Glucose (mg/dL) 130 H 120 H (75-99) mg/dL 12/05/18 12/05/18 12/05/18 Range/Units 04:20 04:20 04:20 RBC 3.42 L (4.30-5.90) m/uL Hgb 9.6 L (13.0-17.5) gm/dL Hct 30.4 L (39.0-53.0) % APTT 44.5 H (22.0-30.0) sec ABG HCO3 (21-25) mmol/L ABG Total CO2 (19-24) mmol/L ABG O2 Saturation (94-97) % BUN 23 H (9-20) mg/dL Glucose 117 H (74-99) mg/dL POC Glucose (mg/dL) (75-99) mg/dL 12/05/18 12/05/18 Range/Units 04:48 06:12 RBC (4.30-5.90) m/uL Hgb (13.0-17.5) gm/dL Hct (39.0-53.0) % APTT (22.0-30.0) sec ABG HCO3 29 H (21-25) mmol/L ABG Total CO2 31 H (19-24) mmol/L ABG O2 Saturation 97.3 H (94-97) % BUN (9-20) mg/dL Glucose (74-99) mg/dL POC Glucose (mg/dL) 145 H (75-99) mg/dL Microbiology - Last 24 Hours (Table) 11/26/18 09:57 Acid Fast Bacilli Smear - Final Lung - Right Acid Fast Bacilli Culture - Preliminary 11/26/18 10:08 Fungal Culture - Preliminary Lung - Right <Lukas Fine - Last Filed: 12/05/18 16:53> Subjective As above. Patient's family apparently is still considering tracheostomy and PEG tube placement. We'll reevaluate tomorrow. Objective - Vital Signs Vital signs: Vital Signs Temp 98 F 12/05/18 16:00 Pulse 68 12/05/18 16:00 Resp 17 12/05/18 16:00 BP 134/73 12/05/18 05:00 Pulse Ox 100 12/05/18 16:00 Intake & Output 12/04/18 12/05/18 12/05/18 18:59 06:59 18:59 Intake Total 2073.675 2027.835 1530.557 Output Total 1920 456 565 Balance 200.801 2638.835 965.557 Weight 63.4 kg 63.4 kg Intake: IV 1249 933 710 0.9% NS @ KVO 260 200 180 CVP/ART 39 33 30 Levofloxacin 750Mg-D5w 150 Pmx 750 mg In Dextrose/ Water 1 150ml.bag @ 100 mls/hr IVPB Q24H [facility] Rx#: [id number] Piperacillin-Tazobactam 3 100 .375 gm In Sodium Chloride 0.9% 100 ml @ 25 mls/hr IVPB Q8HR [facility] Rx# :[id number] Potassium Chloride 10 meq 200 In Water For Injection 1 100ml.bag @ 100 mls/hr IVPB Q1H [place] Rx#: [id number] Sodium Chloride 0.9% 1, 650 550 500 000 ml @ 50 mls/hr IV . Q20H [place] Rx#:[id number] Intake, IV Titration 152.675 376.835 210.557 Amount Heparin Sod,Pork in 0.45% 52.675 138.922 69.35 NaCl 25,000 unit In 0.45 % NaCl 1 250ml.bag @ 12 UNITS/KG/HR 7.224 mls/hr IV .Q24H [place] Rx#: [id number] Propofol 1,000 mg In 100 237.913 141.207 Empty Bag 1 bag @ Titrate IV .Q0M [place] Rx#: [id number] Tube Feeding 552 598 460 Other 120 120 150 Output: Urine 1920 456 565 Other: Voiding Method Indwelling Catheter Indwelling Catheter Indwelling Catheter # Bowel Movements 1 ABP, PAP, CO, CI - Last Documented Arterial Blood Pressure 145/62 - Labs CBC & Chem 7: 12/05/18 04:20 12/05/18 04:20 Labs: Abnormal Lab Results - Last 24 Hours (Table) 12/05/18 12/05/18 12/05/18 Range/Units 00:14 04:20 04:20 RBC 3.42 L (4.30-5.90) m/uL Hgb 9.6 L (13.0-17.5) gm/dL Hct 30.4 L (39.0-53.0) % APTT (22.0-30.0) sec ABG HCO3 (21-25) mmol/L ABG Total CO2 (19-24) mmol/L ABG O2 Saturation (94-97) % BUN 23 H (9-20) mg/dL Glucose 117 H (74-99) mg/dL POC Glucose (mg/dL) 120 H (75-99) mg/dL 12/05/18 12/05/18 12/05/18 Range/Units 04:20 04:48 06:12 RBC (4.30-5.90) m/uL Hgb (13.0-17.5) gm/dL Hct (39.0-53.0) % APTT 44.5 H (22.0-30.0) sec ABG HCO3 29 H (21-25) mmol/L ABG Total CO2 31 H (19-24) mmol/L ABG O2 Saturation 97.3 H (94-97) % BUN (9-20) mg/dL Glucose (74-99) mg/dL POC Glucose (mg/dL) 145 H (75-99) mg/dL 12/05/18 12/05/18 Range/Units 11:22 12:26 RBC (4.30-5.90) m/uL Hgb (13.0-17.5) gm/dL Hct (39.0-53.0) % APTT 50.6 H (22.0-30.0) sec ABG HCO3 (21-25) mmol/L ABG Total CO2 (19-24) mmol/L ABG O2 Saturation (94-97) % BUN (9-20) mg/dL Glucose (74-99) mg/dL POC Glucose (mg/dL) 120 H (75-99) mg/dL Microbiology - Last 24 Hours (Table) 12/05/18 00:18 Gram Stain - Preliminary Sputum Sputum Culture - Preliminary 11/26/18 09:57 Acid Fast Bacilli Smear - Final Lung - Right Acid Fast Bacilli Culture - Preliminary 11/26/18 10:08 Fungal Culture - Preliminary Lung - Right Assessment and Plan (1) Pneumonia Current Visit: Yes Status: Acute Code(s): J18.9 - PNEUMONIA, UNSPECIFIED ORGANISM SNOMED Code(s): 795419997
[2018-12-05 18:53] LABS: Glucose,Whole Blood 110 mg/dL (75-99)
[2018-12-05] MEDS: LEVOFLOXACIN 750MG-D5W PMX 750 MG in DEXTROSE/WATER 1 150ML.BAG IVPB SCH (20:17)
[2018-12-05 23:47] LABS: Glucose,Whole Blood 129 mg/dL (75-99)
[2018-12-06] MEDS: PROPOFOL 1,000 MG in EMPTY BAG 1 BAG IV SCH ×3 (00:40→09:42)
[2018-12-06] MEDS: IPRATROPIUM-ALBUTEROL 3 ML NEB INHALATION SCH ×3 (03:22→11:16)
[2018-12-06 04:44] LABS: HCT 29.1 % (39.0-53.0); HGB 9.4 gm/dL (13.0-17.5); Hypochromasia Slight; MCH 28.5 pg (25.0-35.0); MCHC 32.3 g/dL (31.0-37.0); MCV 88.3 fL (80.0-100.0); Mean Platelet Volume 9.2; Platelet Count 225 k/uL (150-450); RDW 13.7 % (11.5-15.5); WBC 8.6 k/uL (3.8-10.6)
[2018-12-06 05:42] LABS: Anion Gap 4 mmol/L; Blood Urea Nitrogen 21 mg/dL (9-20); Carbon Dioxide 26 mmol/L (22-30); Chloride 110 mmol/L (98-107); Glucose 113 mg/dL (74-99); Potassium 4.3 mmol/L (3.5-5.1); Sodium 140 mmol/L (137-145)
[2018-12-06 05:43] LABS: ABG Base Excess 2.2 mmol/L; ABG HCO3 27 mmol/L (21-25); ABG PCO2 43 mmHg (35-45); ABG PH 7.41 (7.35-7.45); ABG PO2 103 mmHg (83-108); ABG TCO2 28 mmol/L (19-24)
[2018-12-06] MEDS: LEVOTHYROXINE 25 MCG TAB PO SCH (06:51)
[2018-12-06] MEDS: INSULIN ASPART (NovoLOG) 100 UNIT/ML VIAL SQ SCH ×2 (06:53→11:23)
[2018-12-06 07:04] LABS: Glucose,Whole Blood 123 mg/dL (75-99)
--- NOTE | 2018-12-06 08:24 | P.PN ---
<Lynette Owens Amaris - Last Filed: 12/06/18 08:23> Subjective Progress Note Date: 12/06/18 CHIEF COMPLAINT: Respiratory failure HISTORY OF PRESENT ILLNESS: Patient remains sedated on mechanical ventilator. No family present. Awaiting decision from family regarding trach and peg. PHYSICAL EXAM: VITAL SIGNS: Reviewed. GENERAL: Well-developed in no acute distress-sedated. HEENT: ET tube noted. No sclera icterus. Moist buccal mucosa. Head is atraumatic, normocephalic. ABDOMEN: Soft. Nondistended. Nontender. NEUROLOGIC: Sedated on mechanical ventilation. ASSESSMENT: 1. Acute hypoxic respiratory failure requiring mechanical ventilation PLAN: 1. Surgery will remain on standby until family makes decision regarding trach and PEG placement Nurse practitioner note has been reviewed by physician. Signing provider agrees with the documented findings, assessment, and plan of care. Objective - Vital Signs Vital signs: Vital Signs Temp 98.8 F 12/06/18 08:00 Pulse 65 12/06/18 08:00 Resp 21 12/06/18 08:00 BP 131/72 12/06/18 08:00 Pulse Ox 98 12/06/18 08:00 Intake & Output 12/05/18 12/06/18 12/06/18 18:59 06:59 18:59 Intake Total 9310.056 9626.895 248 Output Total 665 695 90 Balance 8749.401 1256.895 158 Weight 63.4 kg 65.7 kg Intake: IV 836 706 126 0.9% NS @ KVO 200 120 20 CVP/ART 36 36 6 Sodium Chloride 0.9% 1, 600 550 100 000 ml @ 50 mls/hr IV . Q20H [place] Rx#:[id number] Intake, IV Titration 269.350 417.895 Amount Heparin Sod,Pork in 0.45% 69.35 159.730 NaCl 25,000 unit In 0.45 % NaCl 1 250ml.bag @ 12 UNITS/KG/HR 7.224 mls/hr IV .Q24H [place] Rx#: [id number] Propofol 1,000 mg In 200.000 258.165 Empty Bag 1 bag @ Titrate IV .Q0M [place] Rx#: [id number] Tube Feeding 552 552 92 Other 150 60 30 Output: Urine 665 695 90 Other: Voiding Method Indwelling Catheter Indwelling Catheter # Bowel Movements 1 ABP, PAP, CO, CI - Last Documented Arterial Blood Pressure 115/52 - Labs CBC & Chem 7: 12/06/18 04:30 12/06/18 04:30 Labs: Abnormal Lab Results - Last 24 Hours (Table) 12/05/18 12/05/18 12/05/18 Range/Units 11:22 12:26 18:41 RBC (4.30-5.90) m/uL Hgb (13.0-17.5) gm/dL Hct (39.0-53.0) % APTT 50.6 H (22.0-30.0) sec ABG HCO3 (21-25) mmol/L ABG Total CO2 (19-24) mmol/L ABG O2 Saturation (94-97) % Chloride (98-107) mmol/L BUN (9-20) mg/dL Creatinine (0.66-1.25) mg/dL Glucose (74-99) mg/dL POC Glucose (mg/dL) 120 H 110 H (75-99) mg/dL 12/05/18 12/06/18 12/06/18 Range/Units 23:35 03:18 04:30 RBC 3.30 L (4.30-5.90) m/uL Hgb 9.4 L (13.0-17.5) gm/dL Hct 29.1 L (39.0-53.0) % APTT (22.0-30.0) sec ABG HCO3 27 H (21-25) mmol/L ABG Total CO2 28 H (19-24) mmol/L ABG O2 Saturation 98.0 H (94-97) % Chloride (98-107) mmol/L BUN (9-20) mg/dL Creatinine (0.66-1.25) mg/dL Glucose (74-99) mg/dL POC Glucose (mg/dL) 129 H (75-99) mg/dL 12/06/18 12/06/18 12/06/18 Range/Units 04:30 04:30 06:53 RBC (4.30-5.90) m/uL Hgb (13.0-17.5) gm/dL Hct (39.0-53.0) % APTT 45.9 H (22.0-30.0) sec ABG HCO3 (21-25) mmol/L ABG Total CO2 (19-24) mmol/L ABG O2 Saturation (94-97) % Chloride 110 H (98-107) mmol/L BUN 21 H (9-20) mg/dL Creatinine 0.60 L (0.66-1.25) mg/dL Glucose 113 H (74-99) mg/dL POC Glucose (mg/dL) 123 H (75-99) mg/dL Microbiology - Last 24 Hours (Table) 12/05/18 00:18 Gram Stain - Preliminary Sputum Sputum Culture - Preliminary 11/26/18 09:57 Acid Fast Bacilli Smear - Final Lung - Right Acid Fast Bacilli Culture - Preliminary <Lukas Fine - Last Filed: 12/06/18 09:43> Subjective Agree with above. Family still trying to decide on trach and PEG. Await final decision. Objective - Vital Signs Vital signs: Vital Signs Temp 98.8 F 12/06/18 08:00 Pulse 65 12/06/18 08:00 Resp 21 12/06/18 08:00 BP 131/72 12/06/18 08:00 Pulse Ox 98 12/06/18 08:00 Intake & Output 12/05/18 12/06/18 12/06/18 18:59 06:59 18:59 Intake Total 8011.626 9687.895 304.929 Output Total 665 695 90 Balance 6887.182 2055.895 214.929 Weight 63.4 kg 65.7 kg Intake: IV 836 706 126 0.9% NS @ KVO 200 120 20 CVP/ART 36 36 6 Sodium Chloride 0.9% 1, 600 550 100 000 ml @ 50 mls/hr IV . Q20H [facility] Rx#:[id number] Intake, IV Titration 269.350 417.895 56.929 Amount Heparin Sod,Pork in 0.45% 69.35 159.730 NaCl 25,000 unit In 0.45 % NaCl 1 250ml.bag @ 12 UNITS/KG/HR 7.224 mls/hr IV .Q24H [place] Rx#: [id number] Propofol 1,000 mg In 200.000 258.165 56.929 Empty Bag 1 bag @ Titrate IV .Q0M [place] Rx#: [id number] Tube Feeding 552 552 92 Other 150 60 30 Output: Urine 806 525 90 Other: Voiding Method Indwelling Catheter Indwelling Catheter Indwelling Catheter # Bowel Movements 1 ABP, PAP, CO, CI - Last Documented Arterial Blood Pressure 115/52 - Labs CBC & Chem 7: 12/06/18 04:30 12/06/18 04:30 Labs: Abnormal Lab Results - Last 24 Hours (Table) 12/05/18 12/05/18 12/05/18 Range/Units 11:22 12:26 18:41 RBC (4.30-5.90) m/uL Hgb (13.0-17.5) gm/dL Hct (39.0-53.0) % APTT 50.6 H (22.0-30.0) sec ABG HCO3 (21-25) mmol/L ABG Total CO2 (19-24) mmol/L ABG O2 Saturation (94-97) % Chloride (98-107) mmol/L BUN (9-20) mg/dL Creatinine (0.66-1.25) mg/dL Glucose (74-99) mg/dL POC Glucose (mg/dL) 120 H 110 H (75-99) mg/dL 12/05/18 12/06/18 12/06/18 Range/Units 23:35 03:18 04:30 RBC 3.30 L (4.30-5.90) m/uL Hgb 9.4 L (13.0-17.5) gm/dL Hct 29.1 L (39.0-53.0) % APTT (22.0-30.0) sec ABG HCO3 27 H (21-25) mmol/L ABG Total CO2 28 H (19-24) mmol/L ABG O2 Saturation 98.0 H (94-97) % Chloride (98-107) mmol/L BUN (9-20) mg/dL Creatinine (0.66-1.25) mg/dL Glucose (74-99) mg/dL POC Glucose (mg/dL) 129 H (75-99) mg/dL 12/06/18 12/06/18 12/06/18 Range/Units 04:30 04:30 06:53 RBC (4.30-5.90) m/uL Hgb (13.0-17.5) gm/dL Hct (39.0-53.0) % APTT 45.9 H (22.0-30.0) sec ABG HCO3 (21-25) mmol/L ABG Total CO2 (19-24) mmol/L ABG O2 Saturation (94-97) % Chloride 110 H (98-107) mmol/L BUN 21 H (9-20) mg/dL Creatinine 0.60 L (0.66-1.25) mg/dL Glucose 113 H (74-99) mg/dL POC Glucose (mg/dL) 123 H (75-99) mg/dL Microbiology - Last 24 Hours (Table) 12/05/18 00:18 Gram Stain - Preliminary Sputum Sputum Culture - Preliminary Assessment and Plan (1) Pneumonia Current Visit: Yes Status: Acute Code(s): J18.9 - PNEUMONIA, UNSPECIFIED ORGANISM SNOMED Code(s): 316155600
[2018-12-06] MEDS: AMIODARONE 200 MG TAB PO SCH (09:42)
[2018-12-06] MEDS: METOPROLOL TARTRATE 12.5 MG TAB PO SCH (09:42)
[2018-12-06] MEDS: SODIUM CHLORIDE 0.9% 1,000 ML IV SCH (09:42)
[2018-12-06] MEDS: PANTOPRAZOLE 40 MG/10 ML VIAL IV SCH (09:42)
[2018-12-06] MEDS: CHLORHEXIDINE GLUCONATE 15 ML CUP MUCOUS MEM SCH (09:42)
--- NOTE | 2018-12-06 10:02 | PN ---
PROGRESS NOTE DATE OF SERVICE: December 06, 2018 This is a 73-year-old black male who was admitted back on November 24. He was admitted with a diagnosis of sepsis, septic shock and pneumonia. The patient was intubated and placed on mechanical ventilator on the 24 of November. He was extubated by my partner for a brief period of time on December 02. After about 30 minutes off the ventilator and after developing ventricular tachycardia requiring cardioversion x2, the patient had to be reintubated. Since that time, the patient has remained on the ventilator without much improvement and really has not had any movement towards weaning and extubation. Dr. Brennan requested a consultation with surgery for placement of a tracheostomy tube and PEG tube. The family still making the decision as to whether not they want to go that route. Either the patient should have a trach and PEG and be transferred to long-term acute care or should be extubated terminally. The family was going to meet yesterday at 5:00 and make the decision. As of now, I am not sure if there has been a decision made. The patient remains on the volume assist-control mode rate of 12, tidal volume 400, FiO2 35%, PEEP of 5. Arterial blood gases show a pO2 of 103, pCO2 43, pH is 7.44. The patient is on heparin via weight based protocol. A saline IV at 50 mL an hour and Diprivan at 55 mcg/kg per minute. The patient is getting Vital high-protein at 46 mL an hour with a goal of 46 mL an hour. Hopefully we can make some decision today about status. Current vital signs are reviewed. Temperature is 98.8, heart rate 65, respiratory rate 21, blood pressure 131/72, mean 91, and saturations are 98% on 35% and 5 of PEEP. Appears in no acute distress. Currently sedated. HEENT examination is grossly unremarkable. There is an orally placed endotracheal tube and NG tube. NECK: Supple. Full range of motion. No adenopathy or thyromegaly. Neck veins are flat. CARDIOVASCULAR: Examination reveals regular rhythm rate. Heart rate 65. S1, S2 normal. There is no clear-cut murmur. LUNGS: Reveal coarse rhonchi bilaterally. Breath sounds equal. No wheezes or crackles. ABDOMEN: Soft. Bowel sounds are heard. No masses or tenderness. EXTREMITIES: Are intact. No cyanosis, clubbing, or edema. SKIN: Without rash. NEUROLOGIC: Examination is difficult to assess given his sedation level. Microbiology is checked. All cultures including blood and sputum cultures are negative. Likewise, bronch washes are also negative. Laboratory data is reviewed. White count 8.6, hemoglobin 9.4, hematocrit 29.1, platelet count 225,000. Sodium 140, potassium 4.3, chloride 110, CO2 is 26, anion gap is 4, BUN 21, creatinine 0.6. Medications are reviewed. He is on appropriate medications. They include all the usual medications that he has been on. He is also receiving levothyroxine for his hypothyroidism. I believe he is not on any antibiotics. The patient is on updrafts q.4. No chest x-ray was done. ASSESSMENT: 1. Acute hypoxemic respiratory failure secondary to multilobar pneumonia, septic shock, requiring intubation and mechanical ventilation on November 24 and unsuccessful extubation on December 02. 2. Acute sepsis with septic shock requiring fluid resuscitation and norepinephrine, resolved. 3. History of paroxysmal atrial fibrillation. 4. Coronary artery disease. 5. History of aortic valve replacement with bioprosthetic valve and mitral valve repair. 6. Sepsis induced thrombocytopenia. 7. Lactic acidemia, resolved. 8. History of aspergilloma. 9. Essential hypertension. 10.Hypothyroidism. 11.Prostate cancer with previous radiation treatment. 12.Loculated pleural effusion. 13.Failure to wean from mechanical ventilation. 14.General medical debility. PLAN: The patient's overall prognosis is poor. I did have a long discussion with the family over the last couple of days about code status and about what to do next. Initially they were isabella contreras about trach and PEG. When learning of the fact that he would probably be transferred to some sort of long-term acute care facility, they had to reconsider this. They were to have a family meeting yesterday at 5 p.m. As far as we know, there is no decision as yet. The patient's labs, x-rays and medications are all reviewed. His problem list is reviewed. He has been examined. Medications are reviewed. Cultures are all negative. Prognosis is poor. CRITICAL CARE TIME: 37 minutes. AVRIL / CARLOTA: [id number] /
--- NOTE | 2018-12-06 11:23 | PN ---
PROGRESS NOTE Naveen Blake is a 73-year-old gentleman who is admitted to hospital with sepsis and respiratory failure and had an episode of ventricular tachycardia had to be defibrillated also had episodes of A. fib. This morning he is still intubated, on vent. Family is to decide about both code status and tracheostomy and PEG. On exam, the patient remains in sinus rhythm. Blood pressure is 130/50. Respiratory rate is 12. Chest exam reveals diminished air entry at the bases. Heart exam reveals first and second heart sounds. No gallop. Examination of extremities did not reveal any edema. Peripheral pulses are felt. Labs showed that the hemoglobin is 9.4, potassium is 4.3, creatinine is 0.6. ASSESSMENT: 1. Ventricular tachycardia. 2. Paroxysmal atrial fibrillation. 3. Respiratory failure. 4. Sepsis. PLAN: I will continue the amiodarone and IV heparin at this time. Once he has had tracheostomy and PEG, we will start him on an oral anticoagulant. Continue the Lopressor that he is on. MMODL / IJN: [id number] /
[2018-12-06 11:30] LABS: Glucose,Whole Blood 124 mg/dL (75-99)
[2018-12-06 12:16] VITALS: TEMP 98.7
[2018-12-06] MEDS ORDERED: MORPHINE SULFATE 2 MG/ML SYRINGE IVP STA (14:20)
[2018-12-06] MEDS ORDERED: MORPHINE SULFATE 2 MG/ML SYRINGE ONE (14:21)
[2018-12-06] MEDS ORDERED: MORPHINE SULFATE (100 MG/2 ML) 100 MG in SODIUM CHLORIDE 0.9% 100 ML IV SCH (14:30)
[2018-12-06 14:54] VITALS: BP 172/95
[2018-12-06 16:37] VITALS: PULSE 65; RESP 21
--- NOTE | 2018-12-07 09:26 | CDI ---
Documentation Clarification Form Date: 12/07/18 From: Oanh Estrada Phone: If questions call Peace Lomas @ [phone], Hours-8:30 am & 5 pm M- F Admit Date: 11/24/2018 12:09:00 AM Patient Name: Naveen Blake Visit Number: [id number] Discharge Date: 12/06/2018 6:35:00 PM ATTENTION: The Clinical Documentation Specialists (CDI) and [facility] Coding Staff appreciate your assistance in clarifying documentation. Please respond to the clarification below the line at the bottom and electronically sign. The CDI & [facility] Coding staff will review the response and follow-up if needed. Please note: Queries are made part of the Legal Health Record. If you have any questions, please contact the author of this message via ITS. Dr. Roxanne Nicole The patient presented with septic shock, aspiration/gram-negative pneumonia, & acute hypoxic respiratory failure In your professional opinion, can you please clarify the cause of ? Other, please specify Unable to determine Please see discharge summary MTDD
--- NOTE | 2018-12-07 15:24 | P.DS ---
Providers Date of admission: 11/24/18 00:09 Expected date of discharge: 12/06/18 Attending physician: Roxanne Nicole Consults: 11/23/18 20:46 Consult Physician Stat Consulting Provider: David Wharton Consult Reason/Comments: Critical care Do you want consulting provider notified?: Already Contacted 12/02/18 14:26 Consult Physician Stat Consulting Provider: Finn Dangelo Consult Reason/Comments: heart rate 160's vtach, ateam Do you want consulting provider notified?: Already Contacted Primary care physician: Charline Anu Lds Hospital Course: This is a 73-year-old -[place] male patient of Dr. Kohler with past medical history of hyperlipidemia, hypertension, hypothyroidism, history of recent prostate cancer status post radiation, coronary artery disease status CA BG, history of bioprosthetic valve, paroxysmal atrial fibrillation, hypothyroidism, cardiomyopathy EF 45%, chronic systolic heart failure, radiation proctitis with acute on chronic blood loss anemia, colonoscopy last November 2017 confirming radiation proctitis. Patient comes in to the emergency room secondary to increasing difficulty of breathing, was in respiratory distress when seen in the ER, patient was extremely dyspneic, unable to provide history, the niece was there that provided some information, patient has had difficulties with upper respiratory for the past several years with dry cough however few hours prior to admission, patient has declined rapidly with significant dyspnea, tachypnea, patient was subsequently intubated in the emergency room. And admitted to ICU with sepsis a nd septic shock, and a large right pneumonia.. She he is currently followed by Dr. Wharton from critical care medicine, chest x-ray in emergency room shows extensive consolidation right lung with underlying pulmonary fibrosis, upper lobes. Patient requires pressor support, along with fluid resuscitation, required 2 L of boluses in the emergency room, and is currently on Zosyn, Levaquin,l evophed secondary to sepsis with pneumonia, aspirative events is under consideration, patient has dysphagia to foods. 11/25: Patient remains in the intensive care unit intubated and on mechanical ventilation. Dr. Wharton is following and plan to try extubating today. Patient is continued on Zosyn and Levaquin. Morning chest x-ray reveals no significant interval change. classroom monitor has been sinus rhythm. Lab work reveals white count of 11.7, hemoglobin 11.2 and platelet count 102. Chloride 114, CO2 21, BUN 9 and creatinine 0.71. Blood sugars running between 110 and 120. TSH 0.176 and free T4 0.97. Blood cultures showing no growth after 24 hours. Sputum cultures in progress. Legionella testing is pending. Patient has been started on tube feedings. 11/26: Patient has been afebrile, heart rate in the 70s and 80s, blood pressure 130/59. Patient remains intubated and on mechanical ventilation. WBC 7.2, hemoglobin 11.5, platelet count 96, creatinine 0.62. Blood sugars running b etween 113 -132. All blood cultures were no growth at 48 hours and sputum cultures in progress. Repeat chest x-ray shows worsening bibasilar airspace disease. Changes consistent with mild pulmonary edema area and small bilateral effusions. Patient underwent bronchoscopy this morning and bloody fluid was sent for cultures. There is concern today percussively. Patient has been off norepinephrine since 3 AM. He is on tube feedings. 11/27: Patient remains intubated and on mechanical ventilation. He has been hemodynamically stable since he has been off norepinephrine. White count is normal, hemoglobin 10.7 and platelet count 101. Creatinine 0.55. Blood sugars running between 08/15/1939. Bronchial washing cultures are in progress. Sputum culture was finalized with normal respiratory julien. Blood cultures no growth after 72 hours. Repeat chest x-ray shows slight worsening in the mid and lower lung confluent airspace disease likely sequela of heart failure with pulmonary edema. Underlying small effusions persist. Ultrasound of the chest has been ordered for today. Patient remains on tube feedings and dietitian is following. classroom monitor has been a sinus rhythm. 11/28: Patient remains intubated and on mechanical ventilation and intensive care unit. Plan is for sedation holiday today in no extubation. Patient is on a very low dose of norepinephrine which is being weaned off. Temperature max 100.8, heart rate 102, blood pressure 107/59, pulse ox 97%. WBC is 10.8, hemoglobin 11, platelet count 146. Creatinine 0.63. Blood sugars are between 120 and 170. Chest x-ray showed improving right lower lobe infiltrate. Cytology remains pending. Bronchial washing cultures in progress. Chest ultrasound done yesterday showed a right pleural effusion of 1.1 cm and left 2.2 cm. Patient's brother is at the bedside and has been updated. 11/29: Patient remains intubated and on mechanical ventilation patient is to be off propofol this morning and possible weaning. Repeat chest x-ray reveals persistence of peripheral right lower lobe consolidation. Small milder infiltrate remaining lung bases is improving. Temperature max 100.4 yesterday afternoon, heart rate in the 90s, blood pressure 122/59. WBC 8.7, hemoglobin 10.5, platelet count 111. CO2 31, creatinine 0.55. Blood sugars running between 113-145. Patient's brother is at the bedside and has been updated. 11/30: Patient remains intubated and on mechanical ventilation. He is currently off propofol and responding appropriately and following commands. He is not on vasopressors. Weaning attempt planned for tomorrow. Cytology report reveals no malignant cells identified. White count is 9.3, hemoglobin 10.4, platelet count 139. Sodium 142, potassium 3.2, chloride 104, CO2 31, BUN 26 and creatinine 0.68. Blood sugars running between 119 124. He needs him to 0.2. Repeat chest x-ray shows overall stable findings, bilateral diffuse right mid and lower lung consolidation and additional bilateral patchy areas of edema and/or infiltrates on the background of chronic parenchymal change. 12/01: Patient remains intubated and on mechanical ventilation. He is currently off propofol and able to follow commands. Patient may be attempted on weaning today. Patient's brother is at the bedside and has been updated. Patient is not on any vasopressors. He has been afebrile, heart rate in the 90s to low 100s, blood pressure 133/74. WBC 8.1, hemoglobin 9.7, platelet count 164. CO2 31, BUN 33 and creatinine 0.82. Chest x-ray reveals increasing left basilar opacities may represent small pleural effusion and atelectasis or pneumonia. Stable right midlung and right basilar opacities and stable mild interstitial pulmonary edema. 12/02: Patient remains intubated he is now on a breathing trial and a sedation holiday. Patient is able to follow commands. Brother is at the bedside and has been updated. Patient is no longer on vasopressors. He has been afebrile, heart rate in the 80s to 90s, blood pressure 136/70. W we see is a 0.3, hemoglobin 10.2, platelet count 32.1, BUN is 31, creatinine 0.78, BNP 3110. Chest x-ray shows cardiomegaly with worsening interstitial opacities. Small bilateral effusion. Some locally did effusion within the minor fissure on the right and minimal fluid within the major fissure of the right is likely present. Changes are compatible with some pulmonary fibrosis. 12/03 patient remains intubated. He did have a sedation weaning trial and was extubated briefly shortly after patient had a wide complex tachycardia and was shocked twice he was placed on amiodarone drip and was reintubated. Currently patient is on FiO2 of 40, an assist control tidal volume 400 respiratory rate of 12 with PEEP of 5. Currently sedated on propofol. Patient is off the levo fed and is maintaining pressures without pressor support. His ABG done this morning suggested a PaO2 of 94 pCO2 73 with pH of 7.48 this month CBC suggestive WBC of 1111.6, hemoglobin 10.1, potassium 3.4, bicarb 31 BUN 26 creatinine 0.75 glucose controlled ranging from 110-124. Urine output 40 mL per KG per hour. Chest x- ray with persistent large infiltrate throughout mid right and right lower lung lobe with underlying effusion. Patchy density in the left perihilar and left medial lung base. Patient may need a CT-guided needle aspiration by pigtail catheter by interventional radiology. Patient is considered for tracheostomy and PEG tube placement as has been intubated for many days with difficulty weaning off the ventilator. Continue diuresis with Lasix 40 IV twice a day. Echo obtained yesterday suggested ejection fraction 35-40% with moderate concentric left ventricular hypertrophy. Patient has a history of coronary artery bypass grafting though unknown what year and has been on Plavix if there is possibility of placing tracheostomy patient should be off Plavix. Continue heparin drip for atrial fibrillation 12/04: Patient remain intubated trying to back off on sedation. Patient vitals are more stable with pulmonary discussed with the family the possibility of going for the trach bronchoscopy. Also with his low ejection fraction which is ischemic cardiac myopathy not cleared the time of etiology had caused his V. tach at this point. Patient comorbidity and mortality is still extremely high at this point. 12/05: Patient remains intubated and on mechanical ventilation and probable plan for PEG tube and trach. Dr. Kohler will talk to the family has this is his patient. Patient has not progressed has not been able to be extubated. Patient is currently on amiodarone drip and IV heparin. He is currently in a sinus rhythm. He did not have further episodes of ventricular tachycardia or atrial fibrillation. Prognosis remains poor. 12/06: Patient remains intubated and on mechanical ventilation. Family have decided to do a terminal wean this afternoon when all family members can be at the bedside. Patient ended up expiring not long after extubation. He was briefly placed on comfort measures. Please see nursing documentation for details. Discharge diagnoses: 1. Acute hypoxic respiratory failure secondary to most likely gram-negative pneumonia requiring intubation and mechanical ventilation, status post terminal wean. 2. V. tach status post shock on 12/02 with brief period of atrial fibrillation. 3. Septic shock, secondary to aspiration/gram-negative pneumonia. 4. Chronic cough, reports of dysphagia by a niece 5. Chronic radiation proctitis 6. History of coronary artery disease status post CABG. 7. Chronic blood loss anemia monitor hemoglobin, currently stable. No need for blood transfusion. 8. History of aortic bioprosthetic valve replacement with previous mitral valve repair 9. History of paroxysmal atrial fibrillation not on anticoagulation secondary to GI bleed 10. Ischemic cardiomyopathy with previous EF of 35 -40 %. 11. Hypothyroidism. 12. Hypertension history with current hypotension. 13. Chronic systolic heart failure. Impression and plan of care have been directed as dictated by the signing physician. Charmaine Joseph nurse practitioner acting as scribe for signing physician. Patient Condition at Discharge: Undetermined Plan - Discharge Summary New Discharge Prescriptions: No Action RX: Pantoprazole Sodium 40 mg PO DAILY RX: Levothyroxine Sodium [Synthroid] 25 mcg PO DAILY RX: Ondansetron [Zofran] 4 mg PO Q8H PRN PRN Reason: Nausea RX: Multivitamin with Iron [Multivitamins with Iron] 1 tab PO DAILY RX: Potassium Chloride [Klor-Con 10] 10 meq PO DAILY RX: Furosemide [Lasix] 20 mg PO BID RX: Metoprolol Tartrate [Lopressor] 50 mg PO BID RX: Ferrous Sulfate [Iron (65 MG Elemental)] 325 mg PO DAILY RX: Latanoprost [Xalatan 0.005%] 1 drop BOTH EYES HS Clopidogrel [Plavix] 75 mg PO DAILY Lisinopril [Zestril] 2.5 mg PO DAILY Discharge Medication List RX: Levothyroxine Sodium [Synthroid] 25 mcg PO DAILY 03/06/15 [History] RX: Pantoprazole Sodium 40 mg PO DAILY 03/06/15 [History] RX: Multivitamin with Iron [Multivitamins with Iron] 1 tab PO DAILY 07/16/16 [History] RX: Ondansetron [Zofran] 4 mg PO Q8H PRN 07/16/16 [History] RX: Potassium Chloride [Klor-Con 10] 10 meq PO DAILY 08/18/16 [History] RX: Furosemide [Lasix] 20 mg PO BID 11/09/17 [History] RX: Ferrous Sulfate [Iron (65 MG Elemental)] 325 mg PO DAILY 04/11/18 [History] RX: Metoprolol Tartrate [Lopressor] 50 mg PO BID 04/11/18 [History] RX: Latanoprost [Xalatan 0.005%] 1 drop BOTH EYES HS 06/18/18 [History] Clopidogrel [Plavix] 75 mg PO DAILY 07/03/18 [History] Lisinopril [Zestril] 2.5 mg PO DAILY 11/23/18 [History] Follow up Appointment(s)/Referral(s): Charline Brennan MD [Primary Care Provider] - 1-2 days Discharge Disposition: - Preliminary Cause of Preliminary Cause of : Acute hypoxic respiratory failure secondary to gram- negative pneumonia
== END 2018-12-06 18:35 | disposition expired | DRG 870 ==
LOC: EC 20:00 → 2SICU 11-24 00:09
PROVIDERS: ADMIT Family Medicine; ATTEND Family Medicine
PROC: 5A1955Z Respiratory Ventilation, Greater than 96 Consecutive Hours (ICD-10-PCS; principal; 2018-11-24)
PROC: 0BH17EZ Insertion of Endotracheal Airway into Trachea, Via Natural or Artificial Opening (ICD-10-PCS; 2018-11-24)
PROC: 0D9670Z Drainage of Stomach with Drainage Device, Via Natural or Artificial Opening (ICD-10-PCS; 2018-11-24)
PROC: 02HV33Z Insertion of Infusion Device into Superior Vena Cava, Percutaneous Approach (ICD-10-PCS; 2018-11-24)
PROC: 03HY32Z Insertion of Monitoring Device into Upper Artery, Percutaneous Approach (ICD-10-PCS; 2018-11-24)
PROC: 4A133B1 Monitoring of Arterial Pressure, Peripheral, Percutaneous Approach (ICD-10-PCS; 2018-11-24)
PROC: 4A133J1 Monitoring of Arterial Pulse, Peripheral, Percutaneous Approach (ICD-10-PCS; 2018-11-24)
PROC: 0B9F8ZX Drainage of Right Lower Lung Lobe, Via Natural or Artificial Opening Endoscopic, Diagnostic (ICD-10-PCS; 2018-11-26)
PROC: 0B9D8ZX Drainage of Right Middle Lung Lobe, Via Natural or Artificial Opening Endoscopic, Diagnostic (ICD-10-PCS; 2018-11-26)
PROC: 0B938ZZ Drainage of Right Main Bronchus, Via Natural or Artificial Opening Endoscopic (ICD-10-PCS; 2018-11-26)
DX: A41.9 Sepsis, unspecified organism (principal); J96.01 Acute respiratory failure with hypoxia; J69.0 Pneumonitis due to inhalation of food and vomit; R65.21 Severe sepsis with septic shock; J15.6 Pneumonia due to other Gram-negative bacteria; I50.22 Chronic systolic (congestive) heart failure; T82.857A Stenosis of other cardiac prosthetic devices, implants and grafts, initial encounter; I47.2 Ventricular tachycardia; Z99.11 Dependence on respirator [ventilator] status; E87.4 Mixed disorder of acid-base balance; Z51.5 Encounter for palliative care; Z66 Do not resuscitate; D69.59 Other secondary thrombocytopenia; I11.0 Hypertensive heart disease with heart failure; R13.10 Dysphagia, unspecified; J84.10 Pulmonary fibrosis, unspecified; I48.0 Paroxysmal atrial fibrillation; I25.5 Ischemic cardiomyopathy; D50.0 Iron deficiency anemia secondary to blood loss (chronic); I44.7 Left bundle-branch block, unspecified; I49.3 Ventricular premature depolarization; I25.10 Atherosclerotic heart disease of native coronary artery without angina pectoris; E89.0 Postprocedural hypothyroidism; K62.7 Radiation proctitis; E78.5 Hyperlipidemia, unspecified; M81.0 Age-related osteoporosis without current pathological fracture; M19.90 Unspecified osteoarthritis, unspecified site; R19.7 Diarrhea, unspecified; Z79.02 Long term (current) use of antithrombotics/antiplatelets; Z79.890 Hormone replacement therapy; Z79.899 Other long term (current) drug therapy; Z85.46 Personal history of malignant neoplasm of prostate; Z87.891 Personal history of nicotine dependence; Z92.3 Personal history of irradiation; Z87.01 Personal history of pneumonia (recurrent); Z87.442 Personal history of urinary calculi; Z95.1 Presence of aortocoronary bypass graft; Z87.19 Personal history of other diseases of the digestive system; Z86.19 Personal history of other infectious and parasitic diseases; Z95.3 Presence of xenogenic heart valve; Z98.42 Cataract extraction status, left eye; Z98.41 Cataract extraction status, right eye; Z80.6 Family history of leukemia; Y83.1 Surgical operation with implant of artificial internal device as the cause of abnormal reaction of the patient, or of later complication, without mention of misadventure at the time of the procedure
CPT/HCPCS: 31500; 31624; 36415; 36556; 36600; 71045; 71250; 76604; 80048; 80053; 81003; 82272; 82550; 82805; 83605; 83735; 83880; 84100; 84132; 84145; 84439; 84443; 84484; 85025; 85027; 85610; 85730; 87040; 87070; 87102; 87116; 87205; 87206; 87252; 87324; 87449; 87496; 87498; 87502; 87529; 87634; 87798; 88108; 88305; 89050; 93005; 93306; 94002; 94003; 94640; 96361; 96365; 96366; 96368; 99291; 99292